=== PATIENT | male | born 1970 | race Caucasian/White ===

== ENCOUNTER 2024-08-14 14:21 | Emergency (ER) | payer OTHER, SELFPAY ==
[2024-08-14 14:43] VITALS: BP 169/83; PULSE 82; RESP 16; TEMP 37.3; O2SAT 100
--- NOTE | 2024-08-14 15:03 | ED_ITS ---
HPI - Back Pain/Injury General Chief Complaint: Back Pain/Injury Stated Complaint: lt hip pain radiating down to knee Time Seen by Provider: 08/14/24 15:04 Source: patient, RN notes reviewed and old records reviewed Mode of arrival: ambulatory Limitations: no limitations History of Present Illness HPI Narrative: 54-year-old male presents to the [facility] with complaints of left hip pain radiating down to his left knee. Denies any injury. Has good range of motion. Able to sit and stand, pain increases with changing of positions. Has tried 's muscle relaxer as well as pain pill. Has been taken ibuprofen. Slight limp noted. Pain is worse with movement No loss retention and bladder bladder. No midline tenderness. Related Data Home Medications ?Medication ?Instructions ?Recorded ?Confirmed ?Last Taken ?Type bupropion HCl 150 mg 24 hr tablet, mg PO 08/14/24 Unknown History extended release clonazepam 0.5 mg tablet mg 08/14/24 Unknown History losartan 100 tablet 08/14/24 Unknown History mg-hydrochlorothiazide 12.5 mg tablet multivitamin 08/14/24 Unknown History nebivolol 5 mg tablet mg 08/14/24 Unknown History pantoprazole 40 mg tablet,delayed mg PO 08/14/24 Unknown History release pravastatin 10 mg tablet mg 08/14/24 Unknown History tadalafil 5 mg tablet mg 08/14/24 Unknown History Allergies Allergy/AdvReac Type Severity Reaction Status Date / Time No Known Allergies Allergy Verified 08/14/24 14:34 Review of Systems 2 Review of Systems: All systems reviewed & are unremarkable except as noted in HPI and below Constitutional: Constitutional: Reports no additional constitutional complaints ENT: Reports system reviewed and no additional complaints, except as documented Cardiovascular: Cardiovascular: Reports no additional cardiovascular complaints, Denies chest pain and Denies dyspnea Respiratory: Respiratory: Reports no additional respiratory complaints, Denies chest congestion, Denies cough and Denies dyspnea Musculoskeletal: Musculoskeletal: Reports as per HPI Integumentary/Breasts: Skin/Breast: Reports system reviewed and no additional complaints, except as docu [facility] Past Medical History Medical History (Updated 08/15/24 @ 16:05 by Nereida Arenas APRN) History of high cholesterol Anxiety and depression History of high blood pressure Comments At the time of my signature, I reviewed and agree with the nursing past medical, surgical, social, and family history. There is no relevant family history pertinent to the patient complaint. Exam 2 Const: General: cooperative, healthy appearing, comfortable, no acute distress, well developed, alert and well nourished Nutritional Appearance: w ell nourished Orientation/consciousness: patient oriented x3 Limitations: no limitations HENMT: Head: normal to inspection Eyes: General: appearance normal, both eyes and all related structures A lignment and Position: alignment normal Neck: Neck: normal visual inspection, full ROM, no lymphadenopathy and no meningeal signs Chest: Chest palpation & inspection: normal inspection of the chest Resp: Effort & Inspection: normal respiratory effort and able to speak in complete sentences Cardio: Rate: regular rate Back/Spine/Pelvis: Back: no CVA tenderness Cervical Spine: cervical ROM normal and No Cervical spine tenderness Thoracic/Lumbar Spine: No thoracic spinal tenderness and No lumbar spinal tenderness Back/spine/pelvis image: 1. Tenderness without redness, ecchymosis or erythema. No known trauma. Pain is worse with sitting to standing and standing to sitting. Slight limp he noted favoring the left side. Skin: General skin exam: normal color and no rashes or lesions noted Neuro: General: patient oriented x3, moves all extremities and no meningeal signs Cognition (Neuro): normal cognition Speech: normal speech Extrem: General: normal to inspection, full ROM and capillary refill normal Psych: Appearance: grossly normal and well kempt Mental Status: mental status grossly normal Speech and movement: Normal speech and movement present and Clear speech present Affect: normal affect Attitude: cooperative Course Course Level of Care: Express Care Visit Vital Signs Vital signs: Vital Signs Temperature 99.1 F 08/14/24 14:43 Pulse Rate 82 08/14/24 14:43 Respiratory Rate 16 08/14/24 14:43 Blood Pressure 169/83 H 08/14/24 14:43 Pulse Oximetry 100 08/14/24 14:43 Oxygen Delivery Room Air 08/14/24 14:43 Temperature 99.1 F 08/14/24 14:43 Pulse Rate 82 08/14/24 14:43 Respiratory Rate 16 08/14/24 14:43 Blood Pressure 169/83 H 08/14/24 14:43 Pulse Oximetry 100 08/14/24 14:43 Oxygen Delivery Room Air 08/14/24 14:43 Reviewed MDM - Back Pain/Injury MDM Narrative Medical decision making narrative: Patient sitting comfortably in exam room. Nontoxic, vitals stable. Patient presents with left hip pain has started Friday, 4 days. Has taken ibuprofen. Patient denies any injury. No erythema, ecchymosis noted. Pain is worse with movement most likely arthritis flare. Patient appropriate for outpatient treatment and follow-up Discharge instructions reviewed with patient, as well as provided in writing per nursing staff. The instructions also include specific and strict return/GO TO THE ER as well as f/u information. All questions have been answered, and the patient deny any further questions with discharge and discharge plan. Some parts of this dictation were generated by voice recognition software and may contain typographical and/or grammatical inaccuracies. Differential Diagnosis Differential diagnosis: Likely lumbar radiculopathy, sciatica, strain of lumbar region and other (Arthritis) Critical Care Time Critical Care Time Critical Care Time: No Discharge Plan Discharge Clinical Impression: Acute hip pain Qualifiers: Laterality: left Qualified Code(s): M25.552 - Pain in left hip Patient Disposition: Home, Self-Care Condition: Stable Instructions: Antibiotic Form, Arthralgia (ED), Hip Pain (ED) Additional Instructions: Today your blood pressure was 169/83. Is recommended you follow-up with your primary care provider within the next 2 weeks to have this rechecked. Take ibuprofen as directed to decrease inflammation and to help pain. Take Baclofen (muscle relaxer) as directed. Do not drink, drive, operate machinery, or do anything dangerous while taking this medication Exercise:Combine aerobic exercise, like walking or swimming, with specific exercises to keep the muscles in your back and abdomen strong and flexible. Proper Lifting:Be sure to lift heavy items with your legs, not your back. Do not bend over to pick something up. Keep your back straight and bend at your knees. Weight:Maintain a healthy weight. Being overweight puts added stress on your lower back. Avoid Smoking:Both the smoke and the nicotine cause your spine to age faster than normal. Proper Posture:Good posture is important for avoiding future problems. A therapist can teach you how to safely stand, sit, and lift. Use warm moist heat to help with pain. Using topical such as Biofreeze, Peng-Lemus or Aspercreme can also help Follow up with Primary provider in 2-3 days, This may become a chronic condition and they will be the one to help manage your pain and order additional testing. Go to the nearest ER if you develop problems with bladder/bowel function, weakness or loss of feeling in one or both of your legs. Patient Language: Slovak Prescriptions: New baclofen 10 mg tablet 10 mg PO TID PRN (Reason: muscle pain) Qty: 10 0RF prednisone 20 mg tablet See Rx Instructions .Route .COMPLEX Qty: 9 0RF Rx Instructions: Take 40 mg daily for 3 days, 20 mg daily for 3 days ibuprofen 600 mg tablet 600 mg PO TID PRN (Reason: fever or pain) Qty: 30 0RF No Action clonazepam 0.5 mg tablet pravastatin 10 mg tablet pantoprazole 40 mg tablet,delayed release (DR/EC) PO bupropion HCl 150 mg tablet extended release 24 hr PO tadalafil 5 mg tablet losartan-hydrochlorothiazide 100-12.5 mg tablet nebivolol 5 mg tablet multivitamin Follow-up/Referrals: Darrian,Amandeep Donahue MD [Primary Care Provider] - 1 Week ([facility] care follow up blood pressure check, 169/83) Stand Alone Forms: Work/School Release IP Time of Disposition: 15:14
--- OUTSIDE RECORDS SUMMARY | 2024-08-21 22:26 | XMS_ITS | Encounter Summary ---
Author Organization [facility] Healthcare Address [address] [place] [address] Care Team Providers Care Director Of Dance Name Role Phone Alessandro Velasco MD Primary Care Provider [phone] Case Bragg NP Unavailable [phone] Silver Wilcox MD Unavailable Encounter Details Date Type Department Care Team (Late st Contact Info) Description 11/24/2021 8:27 AM CDT Anesthesia Event [facility] [address] [place] [address] Claudette Casarez MD [address] [address] Johann Villatoro MD [address] [place] [address] Anesthesia Record Procedure Summary Procedure Name Responsible Anesthesiologist Anesthesia Start Time Anesthesia Stop Time ESOPHAGOGASTRODUODENOSCOPY BIOPSY Claudette Casarez MD 11/24/21 0827 11/24/21 0858 Events Date Time Event Comment 11/24/2021 0805 In Room 0806 0827 An Start 0827 An Start Data 0827 Start Supplemental O2 0828 Patient Positioned Laterally 0829 An Induction The patient was reevaluated immediately before moderate or deep sedation use and before anesthesia induction. 0829 Anesthesia Ready 0830 Proc Start 0852 Proc Fin 0857 an stop data 0858 Handoff to RN I completed my handoff to the receiving nurse during which we: 1. Patient identified 2. Responsible provider identified 3. Pertinent medical history reviewed 4. Procedure type and surgical course discussed 5. Intraoperative anesthetic management and any significant issues discussed 6. Expectations and concerns for postop period discussed 7. Questions solicited from receiving nurse 8. Patient disposition at the time of handoff: PACU 0858 An Stop 0858 Out of Room Meds Name Total propofol 400 mg lidocaine 2 % PF 100 mg sodium chloride 0.9% infusion 700 mL * Agents Name O2 * Blood No blood administrations on file. Lines, Drains, and Airways Type Details Placement Removal RETIRED Surgical Site 05/29/20; 1430; Le ft; Knee; 07/13/24 (Retired LDA, Removed/Completed by Recordant with LDA Utility); 1213 (Retired LDA, Removed/Completed by Recordant with LDA Utility) 05/29/20 1430 by Nadia Del Rosario RN 07/13/24 1213 by Discharge Provider, Automatic Peripheral IV Placement Date: 11/23/21; Placement Time: 0125; Catheter Size: 20 G; Orientation: Right; Location: Hand; Technique: Anatomical landmarks; Inserted by: Concepcion REYNOSO.; Insertion Attempts: 2; Patient Tolerance: Tolerated well; Removal Date: 11/24/21; Removal Time: 1159; Removal Reason: Discharge 11/23/21 0125 by Samuel Thomason RN 11/24/21 1159 by Derrick Flores RN Peripheral IV Placement Date: 11/23/21; Placement Time: 1740; Catheter Size: 20 G; Orientation: Anterior, Left, Proximal; Location: Forearm; Site Prep: Chlorhexidine; Insertion Attempts: 1; Removal Date: 11/24/21; Removal Time: 1159; Removal Reason: Discharge 11/23/21 1740 by Derrick Flores RN 11/24/21 1159 by Derrick Flores RN documented in this encounter Social History Tobacco Use Types Packs/Day Years Used Date Smoking Tobacco: Never Smokeless Tobacco: Never Alcohol Use Standard Drinks/Week Comments No 0 (1 standard drink = 0.6 oz pur e alcohol) rarely AUDIT-C Answer Date Recorded Q1: How often do you have a drink containing alc ohol? Never 11/23/2021 Average Number of Drinks Not on file 022 Q3: How often do you have si x or more drinks on one occasion? 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 Gender Identity Male 11/26/2021 10:53 AM CDT Sexual Orientation Straight 11/22/2019 5: 22 PM CDT documented as of this encounter OR Notes * Anesthesia Postprocedure Evaluation - Amandeep Sharpe CRNA - 11/24/2021 9:08 AM CDT Patient: Minh Wise Procedure Summary Date: 11/24/21 Room / Location: [facility] ENDOSCOPY ROOM 2 / [facility]COPY Anesthesia Start: 826 Anesthesia Stop: 857 Procedures: ESOPHAGOGASTRODUODENOSCOPY BIOPSY (N/A ) COLON BIOPSY (N/A Colon) Diagnosis: Iron deficiency anemia due to chronic blood loss (Iron deficiency anemia due to chronic blood loss [D50.0]) Providers: Claudette Casarez MD Responsible Provider: Claudette Casarez MD Anesthesia Type: general/TIVA ASA Status: 2 Anesthesia Type: general/TIVA Last vitals BP 144/75 Pulse 85 Temp 36.7 ??C (98 ??F) (Transdermal) Resp 20 SpO2 96% Anesthesia Post Evaluation Patient location during evaluation: PACU (in endo suite) Patient participation: complete - patient participated Level of consciousness: arouses nursing consultant and follows simple commands Pain score: 0 Pain management: adequate Airway patency: adequate Evidence of recall: no Cardiovascular status: acceptable Respiratory status: acceptable Hydration status: acceptable Nausea/Vomiting status: none No complications documented. * Anesthesia Preprocedure Evaluation - Amandeep Sharpe CRNA - 11/24/2021 7:41 AM CDT Images from the original note were not included. Anesthesia Evaluation Minh Wise is a 51 y.o. male Procedure(s): ESOPHAGOGASTRODUODENOSCOPY COLONOSCOPY Pre-Op Diagnosis Codes: * Iron deficiency anemia due to chronic blood loss [D50.0] HISTORY HPI Denies family hx of anesthetic complications. Past Medical History Neurological Neuro/Psych system: negative Cardiovascular + Hypertension + Hyperlipidemia Respiratory + Sleep apnea (JAYLA) Hepatic / Heme + History of anemia Gastrointestinal + GERD Renal / Renal/ system: negative Musculoskeletal/Pain Musculoskeletal/Pain system: negative Endocrine / Other + Obesity (BMI >30) Functional Capacity Functional capacity: 6-10 METs Patient Active Problem List Diagnosis ??? Essential hypertension ??? Mixed hyperlipidemia ??? Diminished libido ??? BMI 34.0-34.9,adult ??? Chronic GERD ??? Drug-induced erectile dysfunction ??? Chronic non-seasonal allergic rhinitis ??? History of colon polyps ??? Hemorrhoids ??? Sleep apnea with use of continuous positive airway pressure (CPAP) ??? History of iron deficiency ??? Complex tear of medial meniscus of left knee as current injury ??? Preop exam for internal medicine ??? Anxiety ??? Tear of medial meniscus of left knee ??? Diarrhea ??? Iron deficiency anemia due to chronic blood loss Past Medical History: Diagnosis Date ??? Anemia ??? Colon polyp ??? Gastric reflux ??? GERD (gastroesophageal reflux disease) ??? Hyperlipidemia Hyperlipidemia ??? Hypertension Hypertension ??? Sleep apnea Past Surgical History: Procedure Laterality Date ??? COLONOSCOPY 12/21/2018 ??? COLONOSCOPY 2013 ??? KNEE ARTHROSCOPY ??? KNEE SURGERY Knee surgery ??? OTHER SURGICAL HISTORY 2006 Left Arthroscopic Knee Surgery ??? POLYPECTOMY No Known Allergies Med List Status: Nurse Complete Set By: Carisa Henriquez RN at 11/23/2021 8:50 PM Taking? Last Dose Start Date End Date Provider amlodipine-valsartan (EXFORGE) 10-160 mg per tablet 12/04/20 -- Alessandro Velasco MD TAKE ONE TABLET BY MOUTH ONCE DAILY buPROPion XL (WELLBUTRIN XL) 300 mg 24 hr tablet 05/01/21 -- Alessandro Velasco MD TAKE ONE TABLET BY MOUTH ONCE DAILY cimetidine (TAGAMET) 300 mg tablet -- -- Fadia Jarrett MD clonazePAM (KlonoPIN) 0.5 mg tablet 06/04/21 -- Alessandro Velasco MD Take 1 tablet (0.5 mg total) by mouth nightly Notes: This request is for a new prescription for a controlled substance as required by Federal/State law. ferrous sulfate 325 mg (65 mg of elemental iron) tablet 08/30/21 08/30/22 Alessandro Velasco MD Take 1 tablet (325 mg total) by mouth 3 (three) times a day with meals Lactobac no.41/Bifidobact no.7 (PROBIOTIC-10 ORAL) -- -- Fadia Jarrett MD [id number] 0.4-162-18 mg tablet -- -- Fadia Jarrett MD tadalafiL (CIALIS) 20 mg tablet () 09/28/20 09/28/21 Alessandro Velasco MD Take 1 tablet (20 mg total) by mouth daily as needed for erectile dysfunction Current Facility-Administered Medications: ??? acetaminophen (TYLENOL) tablet 650 mg, 650 mg, oral, Q4H PRN ??? amLODIPine (NORVASC) tablet 10 mg, 10 mg, oral, Nightly ??? buPROPion XL (WELLBUTRIN XL) 24 hour tablet 300 mg, 300 mg, oral, Nightly ??? clonazePAM (KlonoPIN) tablet 0.5 mg, 0.5 mg, oral, Nightly, 0.5 mg at 11/23/212006 ??? famotidine (PEPCID) tablet 20 mg, 20 mg, oral, BID, 20 mg at 11/23/212006 ??? hydrocortisone (ANUSOL-HC) 2.5 % rectal cream, , rectal, BID PRN, Given at 11/23/21 1719 ??? ondansetron ODT (ZOFRAN-ODT) disintegrating tablet 4 mg, 4 mg, oral, Q6H PRN OR ondansetron(ZOFRAN) injection 4 mg, 4 mg, intravenous, Q6H PRN ??? sodium chloride 0.9% flush 0.5-20 mL, 0.5-20 mL, intra-catheter, PRN ??? sodium chloride 0.9% infusion, 50 mL/hr, intravenous, Continuous, Last Rate: 50 mL/hr at 11/23/21 1408, 50 mL/hr at 11/23/21 1408 Social History Tobacco Use Smoking Status Never Smoker Smokeless Tobacco Never Used Substance and Sexual Activity Alcohol Use No Comment: rarely Substance and Sexual Activity Drug Use No Family History Problem Relation Age of Onset ??? Hypertension Mother 61 Hypertension; ??? Other Father 62 Alive and well; ??? Other Brother 37 Alive and well; ??? Other Brother 30 Alive and well; ??? Hypertension Other Family history of Hypertension; ??? Diabetes Other Family history of Diabetes mellitus; ??? Heart disease Other Family history of Heart disease; ??? Arthritis Other Vitals: 11/23/21 2017 11/23/21211411/23/212252 BP: 134/64 118/65 103/60 Pulse: 79 82 78 Resp: 16 18 20 Temp: 36.4 ??C (97.6 ??F) 36.2 ??C (97.2 ??F) 36.2 ??C (97.2 ??F) SpO2: 99% 99% 96% PT: No results found for requested labs within last 720 hours. INR: No results found for requested labs within last 720 hours. APTT: No results found for requested labs within last 720 hours. Hgb A1C: No results found for requested labs within last 720 hours. CBC RBC: 11/24/2021: 3.10 M/cumm (L) RDW: No results found for requested labs within last 720 hours. MCHC: 11/24/2021: 32.0 g/dL (L) MCH: 11/24/2021: 27.4 pg MCV: 11/24/2021: 85.8 fL Hct: 11/24/2021: 26.6 % (L) Hgb: 11/24/2021: 8.5 g/dL (L) WBC: 11/24/2021: 11.3 K/cumm (H) MPV: 11/24/2021: 11.3 fL Platelets: 11/24/2021: 229 K/cumm RDW CV: 11/24/2021: 14.6 % RDW Sd: 11/24/2021: 44.2 fL BMP Glucose: 11/24/2021: 103 mg/dL Calcium: 11/24/2021: 8.1 mg/dL (L) Sodium: 11/24/2021: 141 mmol/L Potassium: 11/24/2021: 3.6 mmol/L CO2: 11/24/2021: 22 mmol/L Chloride: 11/24/2021: 109 mmol/L BUN: 11/24/2021: 11 mg/dL Creatinine: 11/24/2021: 1.20 mg/dL DOS Physical Exam Medical history, medications, and allergies reviewed. Attestation: I endorse the findings of the anesthesia pre-evaluation assessment dated: 11/24/2021. Airway Exam: Mallampati: II Cervical ROM: FROM TM distance: >4 Cardiovascular Exam: Rate: regular Rhythm: regular Pulmonary Exam: LCTA, bilat Dental Exam: Appears intact Current state: Patient's current state is cooperative. Additional comments: NPO of clears for > 5 hours. NPO of all other things for > 8 hours. Anesthesia Plan ASA 2 Planned anesthesia: General/TIVA Induction: Induction: intravenous. Postoperative Plan: No plan for postoperative opioid use. Patient's planned disposition post procedure is Floor. Informed Consent: Discussed plan with attending. Anesthesia plan and risks discussed with patient. Consent and Attending signature: I and/or my designee have discussed the anesthesia plan, benefits, possible alternatives, parental presence at time of induction (if indicated), and clinically relevant risks that may include dental injury, unintentional awareness, and/or other complications. The patient and/or parent/legal guardian understand, and agree to proceed. All questions answered. documented in this encounter Plan of Treatment Not on file documented as of this encounter Visit Diagnoses Not on filedocumented in this encounter Administered Medications Inactive Administered Medications - up to 3 most recent administrations Medication Order MAR Action Action Date Dose Rate Site lidocaine (XYLOCAINE) 20 mg/mL (2 %) preservative free injection intravenous, As needed, Starting on 11/24/21 at 0829, Anesthesia Intra-op Given 11/24/2021 8:29 AM CDT 100 mg propofoL (DIPRIVAN) 10 mg/mL IV intravenous, As needed, Starting on 11/24/21 at 0829, Anesthesia Intra-op Given 11/24/2021 8:51 AM CDT 40 mg Given 11/24/2021 8:47 AM CDT 40 mg Given 11/24/2021 8:38 AM CDT 40 mg sodium chloride 0.9% infusion 30 mL/hr, intravenous, Continuous, Starting on 11/24/21 at 0845, Pre-Procedure (GI) Restarted 11/24/2021 8:53 AM CDT Rate/Dose Verify 11/24/2021 8:27 AM CDT 100 mL/ hr New Bag 11/24/2021 8:21 AM CDT 100 mL/hr documented in this encounter Care Teams Director Of Dance Relationship Specialty Start Date End Date Alessandro Velasco MD PCP - General 11/08/16 01/08/22 Case Bragg NP [address] [place] [address] [place] [address] Nurse Practitioner Nurse Practitioner 05/29/20 Silver Wilcox MD [address] [place] [address] [place] [address] Consulting Physician General Surgery 11/24/21 documented as of this encounter
--- OUTSIDE RECORDS SUMMARY | 2024-08-21 22:26 | XMS_ITS | Encounter Summary ---
Author Organization [facility] Address [address] [place] [address] Care Team Providers Care Waiter/Waitress Dining Car Name Role Phone Alessandro Velasco MD Primary Care Provider [phone] Case Bragg NP Unavailable [phone] Silver Wilcox MD Unavailable Encounter Details Date Type Department Care Team (Late st Contact Info) Description 12/04/2021 Orders Only [facility] [address] [facility] [address] [place] [address] Alessandro Velasco MD [address] [place] [address] [address] [place] [address] Other iron deficiency anemia (Primary Dx) Social History Tobacco Use Types Packs/Day Years [...] points, staff should administer the PHQ-9) 0 12/04/2021 Sex and Gender Information Value Date Recorded Sex Assigned at Not on file 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 Gender Identity Male 11/26/2021 10:53 AM CDT Sexual Orientation Straight 11/22/2019 5: 22 PM CDT documented as of this encounter Progress Notes * Sherri Rubio - 12/04/2021 2:05 PM CDT Lab for amh due soon documented in this encounter Plan of Treatment Not on file documented as of this encounter Results * Iron profile w/ IBC (12/22/2021 8:54 AM CDT) Iron 137 50 - 150 mcg/dL [facility] TIBC 304 250 - 400 mcg/dL [facility]) Transferrin saturation 45 20 - 50 % [facility] Blood 12/22/2021 8:54 AM CDT 12/22/2021 9:08 AM CDT Narrative [facility] - 12/22/2021 9:50 AM CDT fasting Alessandro Velasco MD LAB BLOOD ORDERABLES Final Res ult Performing Organization Address City/[facility]/ZIP Co de Phone Number [facility] [address] [facility] [place] [address] * Ferritin (12/22/2021 8:54 AM CDT) Ferritin 83 30 - 400 ng/mL [facility] Blood 12/22/2021 8:54 AM CDT 12/22/2021 9:08 AM CDT Narrative [facility] - 12/22/2021 9:50 AM CDT fasting Alessandro Velasco MD LAB BLOOD ORDERABLES Final Res ult [facility] [address] [facility] [place] [address] * (ABNORMAL) CBC with auto differential (12/22/2021 8:54 AM CDT) WBC 5.4 3.8 - 9.9 K/cumm [facility] Hgb 10.2(L) 13.0 - 17.5 g/dL [facility] Hct 33.7(L) 38.9 - 50.3 % [facility] Plt 311 150 - 400 K/cumm [facility] MPV 10.4 9.1 - 12.3 fL [facility] RBC 3.66(L) 4.30 - 5.80 M/cumm [facility] MCV 92.1 81.3 - 96.4 fL [facility] MCH 27.9 27.1 - 33.3 pg [facility] MCHC 30.3(L) 32.3 - 35.7 g/dL [facility] RDW CV 13.9 11.1 - 14.9 % [facility] RDW SD 47.2 35.7 - 48.1 fL [facility] NRBC abs 0.00 0.00 - 0.01 K/cumm [facility] Blood 12/22/2021 8:54 AM CDT 12/22/2021 9:08 AM CDT Narrative [facility] - 12/22/2021 9:13 AM CDT fasting us Alessandro Velasco MD LAB BLOOD ORDERABLES Final Res ult [facility] ([place] [address] [facility] [place] [address] documented in this encounter Visit Diagnoses Diagnosis Other iron deficiency anemia- Primary Other iron deficiency anemia documented in this encounter Care Teams Waiter/Waitress Dining Car Relationship Specialty Start Date End Date Alessandro Velasco MD PCP - General 11/08/16 01/08/22 Case Bragg NP [address] [facility] [address] [place] [address] Nurse Practitioner Nurse Practitioner 05/29/20 Silver Wilcox MD [address] [place] [address] [address] [place] [address] Consulting Physician General Surgery 11/24/21 documented as of this encounter
--- OUTSIDE RECORDS SUMMARY | 2024-08-21 22:26 | XMS_ITS | Clinical Summary ---
Author Organization [facility] Address [address] [place] [address] Care Team Providers Care Garnett Mechanic Name Role Phone Case Bragg NP Unavailable [phone] Silver Wilcox MD Unavailable Amandeep Colmenares MD Primary Care Provider + Allergies No known active allergies Medications Lactobac no.41/Bifidobac t no.7 (PROBIOTIC-10 ORAL) Take 1 capsule by mouth nightly Active uw-ziw-FB-Ca-Fe -lycopen-lutein 0.4-162-18 mg tablet Take 1 tablet by mouth daily Active diphenoxylate-a tropine (LOMOTIL) 2.5-0.025 mg per tabletIndicatio ns:diarrhea Take 2 tablets by mouth every 8 (eight) hours as needed for diarrhea 90 tablet 1 2 Active hydrocortisone 2.5 % cream Apply topically 2 (two) times a day as needed for irritation 30 g 3 2 Active docusate sodium (COLACE) 100 mg capsule 9 Active tadalafiL (CIALIS) 20 mg tablet Take 1 tablet (20 mg total) by mouth daily as needed for erectile dysfunction 4 tablet [address] (PROTONIX) 40 mg EC tabletIndicatio ns:Treatment of Non-Bleeding Gastric Disorder Take 1 tablet (40 mg total) by mouth daily 30 tablet 11 2 Active buPROPion XL (WELLBUTRIN XL) 300 mg 24 hr tablet Take 1 tablet (300 mg total) by mouth daily 90 tablet 3 2 Active clonazePAM (KlonoPIN) 0.5 mg tablet Take 1 tablet (0.5 mg total) by mouth nightly 90 tablet 3 2 Active amlodipine-vals loren (EXFORGE) 10-160 mg per tablet Take 1 tablet by mouth daily 30 tablet 11 2 Active Active Problems Problem Noted Date Diagnosed Date Gastrointestinal hemorrhage associated with anorectal source 12/05/2021 Diarrhea 11/23/2021 Iron deficiency anemia due to chronic blood loss 11/23/2021 Overview (11/23/2021): Added automatically from request for surgery [id number] Tear of medial meniscus of left knee 05/16/2020 Overview (05/16/2020): Added automatically from request for surgery [id number] Preop exam for internal medicine 05/01/2020 Assessment & Plan (05/01/2020 3:07 PM CDT): Pt was advised to continue current therapy and medications for chronic conditions as previously as advised. Continue with healthy dietary management as well. Pt offered no additional complaints today in office. Preoperative medical clearance: Pt is medically stable and aware there are risk associated with surgery and anesthesia. He states the surgeon has reviewed these risk in detail with patient, and wishes to proceed with surgery. They are medically cleared for surgery once completing CBC, CMP ensuring there is no concern of anemia, electrolyte or kidney abnormalities. Asymptomatic w/o any reported angina or GORDILLO, and no current respiratory sx, current or prior tobacco use to which I recommended he discuss need for EKG, CXR with orthopedist given possible arthroscopic approach. Pt is aware that he will have to report for COVID -19 testing preprocedural 3 days prior to the exam and isolate thereafter. Pt was instructed to contact the office with absolutely any changes prior to and post surgery. We will see them back here as scheduled, or certainly sooner as needed. Anxiety 05/01/2020 Assessment & Plan (05/01/2020 3:05 PM CDT): Stable with daily use of Wellbutrin and p.r.n. clonazepam. Cnt. With medication prior prescribed Complex tear of medial menis cus of left knee as current injury 04/28/2020 Assessment & Plan (05/01/2020 3:05 PM CDT): Cnt. With b.i.d. use of diclofenac as prior advised along with wearing brace, ice and limitations. Pt was advised to discontinue diclofenac 1 week prior to procedure. Preoperative clearance provided today in office as recommended by surgeon and desired by Pt. Further direction in scheduling surgery pending consultation with orthopedist. History of iron deficiency 07/27/2019 Chronic GERD 10/29/2017 Assessment & Plan (05/01/2020 3:04 PM CDT): Asymptomatic with only sparing use of OTC agents. Working toward healthy weight loss, weight stability all to assist with refractory reflux. Drug-induced erectile dysfunction 10/29/2017 Chronic non-seasonal allergic rhinitis 8 History of colon polyps 10/29/2017 Hemorrhoids 10/29/2017 Assessment & Plan (12/04/2021 11:17 AM CDT): We will set the patient up for hemorrhoidectomy. Risks and benefits of surgery have been discussed. We discussed postoperative bleeding. We have discussed about postoperative recovery. We discussed time off of work. He is in understanding. Until then continue bowel regimen to avoid straining. Pre-admission testing will be sent in. Assessment & Plan (05/01/2020 3:04 PM CDT): Stable with OTC cortisone cream. Management of daily bowel pattern, avoiding constipation with use of OTC stool softeners, adequate fluids and fiber intake. RTC with recurrence if needed Sleep apnea with use of cont inuous positive airway pressure (CPAP) 10/29/2017 Assessment & Plan (05/01/2020 3:06 PM CDT): Asymptomatic with use of nocturnal CPAP. Cnt. With prior settings for nocturnal use Essential hypertension 04/24/2017 Assessment & Plan (05/01/2020 3:05 PM CDT): Normotensive in clinic. Cnt. Prior prescribed antihypertensives, dash diet and daily mild to moderate exercise as tolerated given limitations. Mixed hyperlipidemia 04/24/2017 Diminished libido 04/24/2017 BMI 34.0-34.9,adult 04/24/2017 Immunizations Name Administration Dates Next Due Influenza, Quadrivalent, Spl it, Preservative Free, Intradermal 06/12/2016 Influenza, Quadrivalent, Spl it, Preservative Free, Intramuscular 06/10/2021,05/01/2020,06/12/2018,06/10 Influenza, Trivalent, IM (MDV) 06/21/2015,2012,04/11/2012 Influenza, Unspecified 07/27/2019(Deferr ed: Patient Refused),05/11/2019(Deferred: Patient Refused) Moderna SARS-CoV-2 Monovalen t Vaccination (12+ YRS) 08/09/2021,11/03/2020,10/06/2020 Td, Unspecified 09/22/2019 Tdap 09/19/2009 ZOSTER Recombinant 02/29/2020,08/30/2019 Surgical History Surgery Date Site/Laterality Comments OTHER SURGICAL HISTORY 08/11/2005 - 08/10/2006 Left Arthroscopic Knee Surgery KNEE SURGERY Knee surgery POLYPECTOMY COLONOSCOPY 12/21/2018 COLONOSCOPY 08/11/2013 - 08/10/2014 KNEE ARTHROSCOPY Medical History Medical History Date Comments Hypertension Hypertension Hyperlipidemia Hyperlipidemia Colon polyp Gastric reflux Anemia Sleep apnea GERD (gastroesophageal reflux disease) Family History Medical History Relation Name Comments Other Brother 3 Alive and well; Other Brother 4 Alive and well; Other Father Alive and well; Hypertension Mother Hypertension; Hypertension Other 1 Family history of Hypertension; Diabetes Other 2 Family history of Diabetes mellitus; Arthritis Other 3 Heart disease Other 3 Family history of Heart disease; Relation Name Status Comments Brother 1 Alive Brother 2 Alive Brother 3 Brother 4 Father Alive Mother Alive Other 1 Other 2 Other 3 Social History Tobacco Use Types Packs/Day Years Used Date Smoking Tobacco: Never Smokeless Tobacco: Never Tobacco Cessation:Counseling Given: No Alcohol Use Standard Drinks/Week Comments No 0 [...] on file 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 Gender Identity Male 11/26/2021 10:53 AM CDT Sexual Orientation Straight 11/22/2019 5: 22 PM CDT Obstetrics History Last Filed Vital Signs Vital Sign Reading Time Taken Comments Blood Pressure 130/60 12/04/2021 1:14 PM CDT Pulse 60 12/04/2021 1:14 PM CDT Temperature 36.7 ??C (98.1 ??F) 12/04/2021 10:55 AM C DT Respiratory Rate 20 12/04/2021 1:14 PM CDT Oxygen Saturation 97% 12/04/2021 10:55 AM CDT Inhaled Oxygen Concentration - - Weight 98.4 kg (217 lb) 12/04/2021 1:14 PM CDT Height 165.1 cm (5' 5 ) 12/04/2021 1:14 PM CDT Body Mass Index 36.11 12/04/2021 1:14 PM CDT Plan of Treatment Health Maintenance Due Date Last Done Comments Hepatitis B Screening 1987 Prostate Cancer Screening-PSA 02/24/2022 02/24/2021, 10/30/2019, 11/02/2018, Additional history exists Regular Well Visit/Exam 18-64 03/07/2022 03/07/2021, 11/30/2019, 11/09/2018, Additional history exists Depression Screening 12/04/2022 12/04/2021, 11/23/2021, 03/07/2021, Additional history exists Covid-19 Vaccine ( season) 2024 06/01/2022, 08/09/2021, 11/03/2020, Additional history exists Influenza Vaccine (#1) 2024 , 06/10/2021, 05/01/2020, Additional history exists Colon Cancer Screening-Colonoscopy 11/24/2026 11/24/2021, 12/21/2018, 10/19/2013, Additional history exists DTaP/Tdap/Td Vaccine (3 - Td or Tdap) 09/22/2029 09/22/2019, 09/19/2009 Hepatitis C Screening Completed 10/22/2017 Zoster Vaccine Completed 02/29/2020, 08/30/2019 Colon Cancer Screening-CT Colonography Discontinued 11/24/2021, 12/21/2018, 10/19/2013, Additional history exists Colon Cancer Screening-DNA Stool Discontinued 11/24/2021, 12/21/2018, 10/19/2013, Additional history exists Colon Cancer Screening-FIT Discontinued 11/24, 12/21/2018, 10/19/2013, Additional history exists Colon Cancer Screening-Sigmoidoscopy Discontinued 11/24/2021, 12/21/2018, 10/19/2013, Additional history exists Pneumococcal vaccine <65 Aged Out No longer eligible based on patient's age to complete this topic Procedures Procedure Name Priority Date/Time Associated Diagnosis Comments COLONOSCOPY 11/24/2021 7:50 AM CDT PSA SCREEN Routine 02/24/2021 7:30 AM CDT Encounter for wellness examination in adult Essential hypertension HEPATITIS C AB REFLEX RNA QUANT PCR Routine 10/22/2017 3:06 PM CDT from Last 3 Months or Most Recently Relevant to Health Maintenance Results * COLONOSCOPY (11/24/2021 7:50 AM CDT) Anatomical Region Laterality Modality Other Narrative Procedure Note Claudette Casarez MD - 11/24/2021 7:50 AM CDT [facility] Patient Name: Minh Wise Procedure Date: 11/24/2021 7:50 AM Date of : 1970 Admit Type: Inpatient Age: 51 Gender: Male Attending MD: Claudette Casarez M.D. Room: [facility] ENDOSCOPY ROOM 2 Note Status: Finalized Patient Profile: This is a 51 year old male. Patient admitted withthe bleeding per rectum. He has chronic iron deficiency anemia. Patient was complaining diarrhea for thelast couple weeks. Colonoscopy for evaluation Procedure: Colonoscopy Indications: Last colonoscopy: December 2018, Clinically significant diarrhea of unexplained origin, Rectal bleeding Referring MD: Alessandro Velasco M.D. Providers: Claudette Casarez M.D. Impression: - Large external hemorrhoids and medium internal hemorrhoids likely the source of bleeding. Thistype of hemorrhoids need surgical resection. - The entire examined colon is normal. Biopsied. - Mild diverticulosis in the sigmoid colon. Recommendation: - Await pathology results. - Repeat colonoscopy in 5 years for screeningpurposes. - Anusol hydrocortisone suppositories per rectumfor the hemorrhoids - Use Lomotil 2 tablets every 8 hours as needed for the diarrhea - Referral as outpatient to surgery for hemorrhoidectomy Medicines: Monitored Anesthesia Care Complications: No immediate complications. Estimated Blood Loss: Estimated blood loss: none. Procedure: Pre-Anesthesia Assessment: - Prior to the procedure, a History and Physicalwas performed, and patient medications and allergieswere reviewed. The patient's tolerance of previous anesthesia was also reviewed. The risks andbenefits of the procedure and the sedation options and risks were discussed with the patient. All questions were answered, and informed consent was obtained. Prior Anticoagulants: The patient has taken noanticoagulant or antiplatelet agents. ASA Grade Assessment: II -A patient with mild systemic disease. After reviewing the risks and benefits, the patient was deemed in satisfactory condition to undergo the procedure. - Prior to the procedure, a History and Physicalwas performed, and patient medications and allergieswere reviewed. The patient's tolerance of previous anesthesia was also reviewed. The risks andbenefits of the procedure and the sedation options and risks were discussed with the patient. All questions were answered, and informed consent was obtained. Prior Anticoagulants: The patient has taken noanticoagulant or antiplatelet agents. ASA Grade Assessment: II -A patient with mild systemic disease. After reviewing the risks and benefits, the patient was deemed in satisfactory condition to undergo the procedure. The benefits, risks and alternatives of theprocedure and sedation were discussed and informed consentwas obtained. All questions were answered. Please referto the signed informed consent document in the medical record. The scope was passed under direct vision.The Pediatric Colonoscope PCF-H190L [id number] was introduced through the anus and advanced to the the cecum, identified by appendiceal orifice andileocecal valve. The bowel preparation used was Miralax via split dose instruction. The bowel preparation usedwas bisacodyl tablets via split dose instruction. The bowel preparation used was magnesium citrate via single dose instruction. The quality of the bowel preparation was excellent. Bowel prep wasadministered using a split dose. Findings: Hemorrhoids were found on perianal exam. The cecum appeared normal. The terminal ileum was normal The colon (entire examined portion) appeared normal. No inflammatory changes noted in the colon and no inflammatory changes in the rectum. Random biopsies were taken with a cold forceps for histology. A few small-mouthed diverticula were found in the sigmoid colon. Internal hemorrhoids were found during retroflexion. The hemorrhoids were medium-sized. Electronically signed by Claudette Casarez M.D. Claudette Casarez M.D. 11/24/2021 9:13:44 AM Number of Addenda: 0 Note Initiated On: 11/24/2021 7:50 AM Procedure Code(s): --- Professional --- 79552, Colonoscopy, flexible; with biopsy, single or multiple Diagnosis Code(s): --- Professional --- K64.8, Other hemorrhoids R19.7, Diarrhea, unspecified K62.5, Hemorrhage of anus and rectum K57.30, Diverticulosis of large intestine without perforation orabscess without bleeding CPT copyright 2020 [employer]. All rights reserved. The codes documented in this report are preliminary and upon warehouse worker 2nd shift reviewmay be revised to meet current compliance requirements. Recognized by the [employer] for promoting quality in endoscopy us Claudette Casarez MD ENDOSCOPY PROCEDURES Final Result * PSA screen (02/24/2021 7:30 AM CDT) PSA-Total 0.27 <=3.90 ng/mL [facility] ([place]) Comment: Interpretive Data ?AGE ? SEX ?REFERENCE INTERVAL 0 minutes-150 years ?Female ?None 0 minutes-49 years ? Male ?None ? 50-59 years ? Male ?0-3.90 ? 60-69 years ? Male ?0-5.40 ? 70-79 years ? Male ?0-6.20 ? 80-150 years ?Male ?0-6.20 Current interpretive data last revised 2018. Testing performed by: [facility], [address] [place] [address], [place]., [address] Blood specimen (specimen) 02/24/2021 7:30 AM CDT 02/24/2021 6:13 PM CDT Alessandro Velasco MD LAB BLOOD ORDERABLES Final Res ult [facility] ([place]) 1 [facility] Department [place] [address] * Hepatitis C Antibody Reflex Hepatitis C RNA Quantitative PCR (10/22/2017 3:06 PM CDT) Hep C Ab Negative Negative [facility] Blood specimen (specimen) 10/22/2017 3:06 PM CDT 10/22/2017 3:08 PM CDT Narrative [facility] - 10/22/2017 4:01 PM CDT Alessandro Velasco MD LAB MICROBIOLOGY - GENERAL ORD ERABLES Final Result [facility] [id number] [place] [address] from Last 3 Months or Most Recently Relevant to Health Maintenance Insurance [facility] Advance Directives For more information, please contact: [phone] * Full Code (Latest Code Status on File) Date Activated Date Inactivated Comments 11/24/2021 8:08 AM 11/24/2021 4:24 PM * Full Code Date Activated Date Inactivated Comments 11/23/2021 3:42 AM 11/24/2021 8:08 AM * Full Code Date Activated Date Inactivated Comments 12/21/2018 11:23 AM 12/21/2018 5:59 PM Care Teams Garnett Mechanic Relationship Specialty Start Date End Date Amandeep Colmenares MD [address] [place] [address] PCP - General Internal Medicine 07/13/22 Case Bragg NP [address] [place] [address] [address] [place] [id number] Nurse Practitioner Nurse Practitioner 05/29/20 Silver Wilcox MD 4 [facility] [address] [address] Consulting Physician General Surgery 11/24/21
--- OUTSIDE RECORDS SUMMARY | 2024-08-21 22:26 | XMS_ITS | Referral Summary ---
Author Organization [facility] Address [address] [place] [address] Care Team Providers Care Lathmaker Name Role Phone Case Bragg NP Unavailable [phone] Silver Wilcox MD Unavailable Amandeep Colmenares MD Primary Care Provider + Allergies No known active allergies Medications Lactobac no.41/Bifidobac t no.7 (PROBIOTIC-10 ORAL) Take 1 capsule by mouth nightly Active ge-obo-[place]-Ca-Fe -lycopen-lutein 0.4-162-18 mg tablet Take 1 tablet [...] (11/23/2021): Added automatically from request for surgery [id number] Tear of medial meniscus of left knee 05/16/2020 Overview (05/16/2020): Added automatically from request for surgery [id number] Preop exam for internal medicine 05/01/2020 Assessment [...] Unspecified 09/22/2019 Tdap 09/19/2009 ZOSTER Recombinant 02/29/2020,08/30/2019 Social History Tobacco Use Types Packs/Day Years [...] on file 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 Room: [facility] ENDOSCOPY ROOM 2 Note Status: Finalized Patient [...] passed under direct vision.The Pediatric Colonoscope PCF-H190L [id number] was introduced through the anus and advanced [...] 7:50 AM Procedure Code(s): --- Professional --- 38190, Colonoscopy, flexible; with biopsy, single or multiple Diagnosis Code(s): --- Professional --- K64.8, Other hemorrhoids R19.7, Diarrhea, unspecified K62.5, Hemorrhage of anus and rectum K57.30, Diverticulosis of large intestine without perforation orabscess without bleeding CPT copyright 2020 [employer]. All rights reserved. The codes documented in this report are preliminary and upon clay shop supervisor reviewmay be revised to meet current compliance requirements. Recognized by the [employer] for promoting quality [...] data last revised 2018. Testing performed by: [facility], [address] [place] [address]., [address] Blood specimen (specimen) 02/24/2021 7:30 AM CDT 02/24/2021 6:13 PM CDT us Alessandro Velasco MD LAB BLOOD ORDERABLES Final Res ult [facility] ([place]) 1 [facility] Department [place] [address] * Hepatitis C Antibody Reflex Hepatitis C RNA Quantitative PCR (10/22/2017 3:06 PM CDT) Hep C Ab Negative Negative [facility] Blood specimen (specimen) 10/22/2017 3:06 PM CDT 10/22/2017 3:08 PM CDT Narrative [facility] - 10/22/2017 4:01 PM CDT Alessandro Velasco MD LAB MICROBIOLOGY - GENERAL ORD ERABLES Final Result [facility] [id number] Department [place] [address] from Last 3 Months or Most Recently Relevant to Health Maintenance Insurance [facility] Advance Directives For more information, please contact: [phone] * Full Code (Latest Code Status on File) Date Activated Date Inactivated Comments 11/24/2021 8:08 AM 11/24/2021 4:24 PM * Full Code Date Activated Date Inactivated Comments 11/23/2021 3:42 AM 11/24/2021 8:08 AM * Full Code Date Activated Date Inactivated Comments 12/21/2018 11:23 AM 12/21/2018 5:59 PM Care Teams Lathmaker Relationship Specialty Start Date End Date Amandeep Colmenares MD [address] [place] [phone] PCP - General Internal Medicine 07/13/22 Case Bragg NP [address] [place] [address] [address] [address] Nurse Practitioner Nurse Practitioner 05/29/20 Silver Wilcox MD [address] [place] [address] [place] [address] Consulting Physician General Surgery 11/24/21
--- OUTSIDE RECORDS SUMMARY | 2024-08-21 22:26 | XMS_ITS | Encounter Summary ---
Author Organization [facility] Address [address] [place] [address] Care Team Providers Care Paper Wood Cutter Name Role Phone Alessandro Velasco MD Primary Care Provider [phone] Case Bragg NP Unavailable [phone] Silver Wilcox MD Unavailable Reason for Visit * Reason Comments New Patient Hemorrhoids Patient is here to d rashidauss hemorrhoid removal Encounter Details Date Type Department Care Team (Late st Contact Info) Description 12/04/2021 11:10 AM CDT Office Visit [facility] [address] [facility] [address] [place] [address] Silver Wilcox MD [address] [place] [address] [address] [place] [address] Grade III hemorrhoids (Primary Dx) Social History Tobacco Use Types [...] on file 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 Gender Identity Male 11/26/2021 10:53 AM CDT Sexual Orientation Straight 11/22/2019 5: 22 PM CDT documented as of this encounter Last Filed Vital Signs Vital Sign Reading Time Taken Comments Blood Pressure 149/77 12/04/2021 10:55 AM CDT Pulse 83 12/04/2021 10:55 AM CDT Temperature 36.7 ??C (98.1 ??F) 12/04/2021 1 0:55 AM CDT Respiratory Rate - - Oxygen Saturation 97% 12/04/2021 10: 55 AM CDT Inhaled Oxygen Concentration - - Weight 97.4 kg (214 lb 11.2 oz) 022 10:55 AM CDT Height 165.1 cm (5' 5 ) 12/04/2021 10:5 5 AM CDT Body Mass Index 35.73 12/04/2021 10:55 AM CDT documented in this encounter Progress Notes * Silver Wilcox MD - 12/04/2021 11:10 AM CDT Images from the original note were not included. Surgery Consult Subjective: Patient Name: Minh Wise Date of Visit: 12/04/21 HPI: Minh Wise is a 51 y.o. male presenting for surgical evaluation of Hemorrhoids. The patient has been having ongoing issues for some time specifically with bleeding. He was even recently hospitalized for this and underwent colonoscopy just to ensure no other underlying reasons as the source. In addition to the bleeding he has some external components that he is able to feel. There is somemild discomfort described as a dull ache associated with this. Given the progressive symptomatic nature he was referred to surgery for further evaluation. Chief Complaint: New Patient and Hemorrhoids (Patient is here to discuss hemorrhoid removal ) Referred by: Alessandro Velasco MD Allergies as of 12/04/2021 ??? (No Known Allergies) Current Outpatient Medications: ??? amlodipine-valsartan (EXFORGE) 10-160 mg per tablet ??? buPROPion XL (WELLBUTRIN XL) 300 mg 24 hr tablet ??? clonazePAM (KlonoPIN) 0.5 mg tablet ??? diphenoxylate-atropine (LOMOTIL) 2.5-0.025 mg per tablet ??? ferrous sulfate 325 mg (65 mg of elemental iron) tablet ??? hydrocortisone 2.5 % cream ??? Lactobac no.41/Bifidobact no.7 (PROBIOTIC-10 ORAL) ??? cv-dnv-XZ-Cu-Pa-bmcpnps-lutein 0.4-162-18 mg tablet ??? pantoprazole DR (PROTONIX) 40 mg EC tablet ??? tadalafiL (CIALIS) 20 mg tablet Past Medical History: Diagnosis Date ??? Anemia ??? Colon polyp ??? Gastric reflux ??? GERD (gastroesophageal reflux disease) ??? Hyperlipidemia Hyperlipidemia ??? Hypertension Hypertension ??? Sleep apnea Past Surgical History: Procedure Laterality Date ??? COLONOSCOPY 12/21/2018 ??? COLONOSCOPY 2013 ??? KNEE ARTHROSCOPY ??? KNEE SURGERY Knee surgery ??? OTHER SURGICAL HISTORY 2006 Left Arthroscopic Knee Surgery ??? POLYPECTOMY Family History Problem Relation Age of Onset ??? Hypertension Mother 61 Hypertension; ??? Other Father 62 Alive and well; ??? Other Brother 37 Alive and well; ??? Other Brother 30 Alive and well; ??? Hypertension Other Family history of Hypertension; ??? Diabetes Other Family history of Diabetes mellitus; ??? Heart disease Other Family history of Heart disease; ??? Arthritis Other Social History Socioeconomic History ??? Marital status: Spouse name: Not on file ??? Number of children: Not on file ??? Years of education: Not on file ??? Highest education level: Not on file Occupational History ??? Not on file Tobacco Use ??? Smoking status: Never Smoker ??? Smokeless tobacco: Never Used Substance and Sexual Activity ??? Alcohol use: No Comment: rarely ??? Drug use: No ??? Sexual activity: Defer Other Topics Concern ??? Not on file Social History Narrative ??? Not on file Social Determinants of Health Financial Resource Strain: Not on file Food Insecurity: Not on file Transportation Needs: Not on file Physical Activity: Not on file Stress: Not on file Social Connections: Not on file Intimate Partner Violence: Not on file Housing Stability: Not on file Review of Systems Constitutional: Negative for activity change. HENT: Negative for hearing loss and sore throat. Eyes: Negative for visual disturbance. Respiratory: Negative for cough and shortness of breath. Cardiovascular: Negative for chest pain. Gastrointestinal: Negative for abdominal pain, constipation, diarrhea, nausea and vomiting. Genitourinary: Negative for dysuria. Musculoskeletal: Negative for back pain. Neurological: Negative for dizziness and syncope. Psychiatric/Behavioral: Negative for agitation and confusion. Objective: Vitals BP 149/77 (BP Location: Right arm, Patient Position: Sitting) Pulse 83 Temp 36.7 ??C (98.1 ??F) (Oral) Ht 165.1 cm (5' 5 ) Wt 97.4 kg (214 lb 11.2 oz) SpO2 97% BMI 35.73 kg/m?? Physical Exam Constitutional: The patient is oriented to person, place, and time. They appear well-nourished. No distress. Head: Normocephalic and atraumatic. Eyes: Pupils are equal, round, and reactive to light. Neck: No thyromegaly present. Cardiovascular: Normal rate and regular rhythm. Pulmonary/Chest: Effort normal and breath sounds normal. Abdominal: Soft. non distended. There is no tenderness. No hernia. Genitourinary: Rectum normal. Internal and external hemorrhoids are appreciated. Given the redundant external component, it is difficult to tell what columns they are originating from Musculoskeletal: Normal range of motion. Neurological: alert and oriented to person, place, and time. Skin: Skin is warm and dry. Psychiatric: normal mood and affect. Assessment/Plan Diagnoses and all orders for this visit: Grade III hemorrhoids (Primary) Assessment & Plan: We will set the patient up for hemorrhoidectomy. Risks and benefits of surgery have been discussed.We discussed postoperative bleeding. We have discussed about postoperative recovery. We discussed time off of work. He is in understanding. Until then continue bowel regimen to avoid straining. Pre-admission testing will be sent in. Silver Wilcox MD 11:17 AM 12/04/2021 documented in this encounter Miscellaneous Notes * Assessment & Plan Note - Silver Wilcox MD - 12/04/2021 11:16 AM CDTAssociated Problem(s): Hemorrhoids We will set the patient up for hemorrhoidectomy. Risks and benefits of surgery have been discussed.We discussed postoperative bleeding. We have discussed about postoperative recovery. We discussed time off of work. He is in understanding. Until then continue bowel regimen to avoid straining. Pre-admission testing will be sent in. documented in this encounter Plan of Treatment Not on file documented as of this encounter Visit Diagnoses Diagnosis Grade III hemorrhoids- Primary documented in this encounter Care Teams Paper Wood Cutter Relationship Specialty Start Date End Date Alessandro Velasco MD PCP - General 11/08/16 01/08/22 Case Bragg NP [address] [facility] [place] [address] Nurse Practitioner Nurse Practitioner 05/29/20 Silver Wilcox MD [address] [place] [address] [place] [address] Consulting Physician General Surgery 11/24/21 documented as of this encounter
--- OUTSIDE RECORDS SUMMARY | 2024-08-21 22:26 | XMS_ITS | Encounter Summary ---
Author Organization [facility] Healthcare Address [address] [place] [address] Care Team Providers Care Oracle Security Consultant Name Role Phone Alessandro Velasco MD Primary Care Provider [phone] Case Bragg NP Unavailable [phone] Everardo Wilcox MD Unavailable Reason for Visit * Reason Comments Diarrhea Pt reports diarrhea that is kay in color since . Pt reports abdominal bloating; Pt denies pain. Pt reports last BM was today. Pt denies abdominal pain or any known abdominal hx. Pt in no distress with even and unlabored respirations. Pt updated. Pt denies any needs. Encounter Details Date Type Department Care Team (Latest Contact Info) Description 11/23/2021 12:57 AM CDT - 11/24/2021 12:14 PM CDT Hospital Encounter [facility] [address] [place] [address] Yan Fuentes MD 1 [facility] [address] [place] [id number] Chidi Hoover MD [address] [place] [address] Gaby Paul MD [address] [place] [address] [place] [address] Diarrhea, unspecified type (Primary Dx); Iron deficiency anemia due to chronic blood loss Discharge Disposition: Discharge to home or self care Social History Tobacco Use Types Packs/Day Years [...] on file 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 Gender Identity Male 11/26/2021 10:53 AM CDT Sexual Orientation Straight 11/22/2019 5: 22 PM CDT documented as of this encounter Last Filed Vital Signs Vital Sign Reading Time Taken Comments Blood Pressure 140/64 11/24/2021 9:54 AM CDT Pulse 72 11/24/2021 9:54 AM CDT Temperature 36.5 ??C (97.7 ??F) 11/24/2021 9:54 AM CD T Respiratory Rate 18 11/24/2021 9:54 AM CDT Oxygen Saturation 97% 11/24/2021 9:54 AM CDT Inhaled Oxygen Concentration - - Weight 93 kg (205 lb) 11/23/2021 3:37 AM CDT Height 165.1 cm (5' 5 ) 11/23/2021 3:37 AM CDT Body Mass Index 34.11 11/23/2021 3:37 AM CDT documented in this encounter Discharge Diagnoses Diagnosis Iron deficiency anemia secondary to blood loss (chronic) - IRON DEFICIENCY ANEMIA SECONDARY TO BLOOD LOSS (CHRONIC) Other hemorrhoids - OTHER HEMORRHOIDS Ulcer of esophagus without bleeding - ULCER OF ESOPHAGUS WITHOUT BLEEDING Diverticulosis of large intestine without perforation or abscess without bleeding - DIVERTICULOSIS OF LARGE INTESTINE WITHOUT PERFORATION OR ABSCESS WITHOUT BLEEDING Residual hemorrhoidal skin tags - RESIDUAL HEMORRHOIDAL SKIN TAGS Diarrhea, unspecified - DIARRHEA, UNSPECIFIED Essential (primary) hypertension - ESSENTIAL (PRIMARY) HYPERTENSION Unspecified essential hypertension Obstructive sleep apnea (adult) (pediatric) - OBSTRUCTIVE SLEEP APNEA (ADULT) (PEDIATRIC) Hyperlipidemia, unspecified - HYPERLIPIDEMIA, UNSPECIFIED Other custodial (current) drug therapy - OTHER [facility] (CURRENT) DRUG THERAPY Personal history of other diseases of the digestive system - PERSONAL HISTORY OF OTHER DISEASES OF THE DIGESTIVE SYSTEM documented in this encounter Discharge Summaries * Gaby Paul MD - 11/24/2021 12:14 PM CDT [place], [place] Hospitalist Discharge Summary Patient Name: Marifer Sebastian Patient : 1970 Room/Bed: [id number] Admission Date/Time: 11/23/2021 12:57 AM Discharge date: 11/24/2021 Admitting Physician: Chidi Hoover MD Discharge Physician: Gaby Paul MD Consults: Treatment Team: Consulting Physician: Claudette Casarez MD Discharge Diagnoses: Principal Problem: Diarrhea Active Problems: Essential hypertension Hemorrhoids Iron deficiency anemia due to chronic blood loss s/p 1u prbc JAYLA Hematochezia due to large external and medium internal hemorrhoids Erosive esophagitis Presenting Problem/History of Present Illness: Diarrhea For full details of presentation including detailed history, past medical, surgical, social, familyhistory and detailed ROS, as well as detailed exam and labs at time of presentation, please see theHistory and Physical. Hospital Course: 51yo male with history of hemorrhoids and hematochezia admitted due to diarrhea and occasional bright red blood per rectum. CT abd/pelvis showed no acute finding. His hemoglobin had dropped from his baseline of 10 and was 7.2. Due to ongoing hematochezia during bowel prep, he was transfused 1 unit prbc and Hb is stable at 8.5. He had an egd and colonoscopy done today. He has large external and medium internal hemorrhoids and has been referred to surgery clinic for resection. In addition, he hasmild sigmoid diverticulosis. EGD was notable for mild erosive esophagitis with no bleeding. MEGHA test and biopsies are pending. He was started on daily protonix for 3 months. Issues Requiring Follow-up at Discharge and Test Results Pending at Discharge: Pending Labs Order Current Status Surgical pathology Collected (11/24/21 0844) H. pylori urease screen (MEGHA test) Tissue In process Stool culture Stool Rectum Preliminary result Gen surg referral for hemorrhoids Discharge Exam: Vitals: 11/24/21 0900 11/24/21 0915 11/24/21 0930 11/24/21 0954 BP: 97/58 98/48 129/70 140/64 BP Location: Right arm Patient Position: Lying Pulse: 77 77 76 72 Resp: Temp: 36.4 ??C (97.6 ??F) 36.5 ??C (97.7 ??F) TempSrc: Oral SpO2: 98% 95% 97% 97% Weight: Height: General: awake, alert, oriented. No acute distress Eyes: pupils are equal, no scleral icterus Neck: supple Pharynx: No gross oral lesion, tongue midline, mucosa moist Lungs: clear to auscultation without wheeze Heart: [id number] Abd: present bowel sounds, Non Tender, Non distended Lower Ext: No gross edema Neuro: No new gross deficits appreciated Musculoskeletal: no gross joint erythema, tenderness Labs: (last 48 hours): Recent Results (from the past 48 hour(s)) CBC with auto differential Collection Time: 11/23/21 1:24 AM Result Value Ref Range WBC 13.8 (H) 3.8 - 9.9 K/cumm Hgb 8.3 (L) 13.0 - 17.5 g/dL Hct 25.2 (L) 38.9 - 50.3 % Plt 130 (L) 150 - 400 K/cumm MPV 11.6 9.1 - 12.3 fL RBC 3.02 (L) 4.30 - 5.80 M/cumm MCV 83.4 81.3 - 96.4 fL MCH 27.5 27.1 - 33.3 pg MCHC 32.9 32.3 - 35.7 g/dL RDW CV 14.1 11.1 - 14.9 % RDW SD 41.2 35.7 - 48.1 fL NRBC abs 0.00 0.00 - 0.01 K/cumm Comprehensive metabolic panel Collection Time: 11/23/21 1:24 AM Result Value Ref Range Sodium 137 135 - 145 mmol/L Potassium, pl 4.1 3.3 - 4.9 mmol/L Chloride 104 97 - 110 mmol/L CO2 24 22 - 32 mmol/L Anion gap 10 2 - 15 mmol/L BUN 24 8 - 25 mg/dL Creatinine 1.41 (H) 0.80 - 1.30 mg/dL Glucose 125 70 - 199 mg/dL Calcium 8.8 8.5 - 10.3 mg/dL Bilirubin, total <0.2 0.1 - 1.2 mg/dL Protein, pl 6.0 (L) 6.5 - 8.5 g/dL Albumin 3.8 3.5 - 5.0 g/dL Alk phos 64 40 - 130 Units/L ALT 17 7 - 55 Units/L AST 25 10 - 50 Units/L Differential, auto Collection Time: 11/23/21 1:24 AM Result Value Ref Range Neutrophil abs 8.3 (H) 1.7 - 6.5 K/cumm Imm gran abs 0.1 0.0 - 0.1 K/cumm Lymphocyte abs 2.5 0.8 - 3.3 K/cumm Monocyte abs 1.0 (H) 0.2 - 0.8 K/cumm Eosinophil abs 1.8 (H) 0.0 - 0.5 K/cumm Basophil abs 0.0 0.0 - 0.1 K/cumm Neutrophil pct 60.4 % Imm gran pct 1.0 % Lymphocyte pct 18.3 % Monocyte pct 7.2 % Eosinophil pct 12.8 % Basophil pct 0.3 % eGFR Collection Time: 11/23/21 1:24 AM Result Value Ref Range eGFR 60 mL/min/1.73 m2 Stool culture Stool Rectum Collection Time: 11/23/21 1:58 AM Specimen: Rectum; Stool Result Value Ref Range Direct Specimen Exam Shiga Toxin Testing: Antigen detection assay for Shiga-toxin NEGATIVE for Shiga Toxin 1 and Shiga Toxin 2. Report Preliminary Report: Culture results pending. Fecal leukocyte stain Stool Collection Time: 11/23/21 1:58 AM Specimen: Stool Result Value Ref Range Direct Specimen Exam Stain: No Leukocytes seen C. difficile testing Stool Collection Time: 11/23/21 1:58 AM Specimen: Stool Result Value Ref Range C. diff result Negative, free toxin Negative, free toxin C. diff interp Negative for toxigenic Clostridioides (Clostridium) difficile. Analysis was performed using an enzyme immunoassay that detects C. difficile toxin(s) in feces. Basic metabolic panel Collection Time: 11/23/21 8:01 AM Result Value Ref Range Sodium 138 135 - 145 mmol/L Potassium, pl 3.8 3.3 - 4.9 mmol/L Chloride 108 97 - 110 mmol/L CO2 20 (L) 22 - 32 mmol/L Anion gap 10 2 - 15 mmol/L BUN 18 8 - 25 mg/dL Creatinine 1.22 0.80 - 1.30 mg/dL Glucose 112 70 - 199 mg/dL Calcium 8.1 (L) 8.5 - 10.3 mg/dL CBC with auto differential Collection Time: 11/23/21 8:01 AM Result Value Ref Range WBC 13.8 (H) 3.8 - 9.9 K/cumm Hgb 8.1 (L) 13.0 - 17.5 g/dL Hct 25.0 (L) 38.9 - 50.3 % Plt 235 150 - 400 K/cumm MPV 11.5 9.1 - 12.3 fL RBC 2.97 (L) 4.30 - 5.80 M/cumm MCV 84.2 81.3 - 96.4 fL MCH 27.3 27.1 - 33.3 pg MCHC 32.4 32.3 - 35.7 g/dL RDW CV 14.5 11.1 - 14.9 % RDW SD 42.3 35.7 - 48.1 fL NRBC abs 0.00 0.00 - 0.01 K/cumm Differential, auto Collection Time: 11/23/21 8:01 AM Result Value Ref Range Neutrophil abs 8.6 (H) 1.7 - 6.5 K/cumm Imm gran abs 0.1 0.0 - 0.1 K/cumm Lymphocyte abs 2.1 0.8 - 3.3 K/cumm Monocyte abs 1.2 (H) 0.2 - 0.8 K/cumm Eosinophil abs 1.7 (H) 0.0 - 0.5 K/cumm Basophil abs 0.0 0.0 - 0.1 K/cumm Neutrophil pct 62.6 % Imm gran pct 0.9 % Lymphocyte pct 15.2 % Monocyte pct 8.5 % Eosinophil pct 12.6 % Basophil pct 0.2 % eGFR Collection Time: 11/23/21 8:01 AM Result Value Ref Range eGFR 71 mL/min/1.73 m2 Hemoglobin and hematocrit Collection Time: 11/23/21 10:49 AM Result Value Ref Range Hgb 7.2 (L) 13.0 - 17.5 g/dL Hct 22.8 (L) 38.9 - 50.3 % ABO / Rh Confirmation Testing Collection Time: 11/23/21 10:49 AM Result Value Ref Range ABO/Rh Confirmation O Positive ABO/Rh Collection Time: 11/23/21 1:57 PM Result Value Ref Range ABO/Rh O Positive Antibody screen Collection Time: 11/23/21 1:57 PM Result Value Ref Range Marvin, indirect, Gel Interpretation Negative ABSC Crossmatch Collection Time: 11/23/21 1:57 PM Result Value Ref Range Crossmatch Compatible Unit number for crossmatch [id number] Prepare RBC: 1 Units Collection Time: 11/23/21 3:31 PM Result Value Ref Range Units requested 1 Units requested Ready Unit Number [id number] Product code [id number] Blood Expiration Date [id number] Product Blood Type (for scanning) 5100 Product Blood Type OPOS Dispense Status DISPENSED Hemoglobin and hematocrit Collection Time: 11/23/21 11:20 PM Result Value Ref Range Hgb 8.2 (L) 13.0 - 17.5 g/dL Hct 24.5 (L) 38.9 - 50.3 % CBC with auto differential Collection Time: 11/24/21 4:12 AM Result Value Ref Range WBC 11.3 (H) 3.8 - 9.9 K/cumm Hgb 8.5 (L) 13.0 - 17.5 g/dL Hct 26.6 (L) 38.9 - 50.3 % Plt 229 150 - 400 K/cumm MPV 11.3 9.1 - 12.3 fL RBC 3.10 (L) 4.30 - 5.80 M/cumm MCV 85.8 81.3 - 96.4 fL MCH 27.4 27.1 - 33.3 pg MCHC 32.0 (L) 32.3 - 35.7 g/dL RDW CV 14.6 11.1 - 14.9 % RDW SD 44.2 35.7 - 48.1 fL NRBC abs 0.00 0.00 - 0.01 K/cumm Basic metabolic panel Collection Time: 11/24/21 4:12 AM Result Value Ref Range Sodium 141 135 - 145 mmol/L Potassium, pl 3.6 3.3 - 4.9 mmol/L Chloride 109 97 - 110 mmol/L CO2 22 22 - 32 mmol/L Anion gap 10 2 - 15 mmol/L BUN 11 8 - 25 mg/dL Creatinine 1.20 0.80 - 1.30 mg/dL Glucose 103 70 - 199 mg/dL Calcium 8.1 (L) 8.5 - 10.3 mg/dL Differential, auto Collection Time: 11/24/21 4:12 AM Result Value Ref Range Neutrophil abs 6.7 (H) 1.7 - 6.5 K/cumm Imm gran abs 0.1 0.0 - 0.1 K/cumm Lymphocyte abs 2.1 0.8 - 3.3 K/cumm Monocyte abs 0.9 (H) 0.2 - 0.8 K/cumm Eosinophil abs 1.5 (H) 0.0 - 0.5 K/cumm Basophil abs 0.0 0.0 - 0.1 K/cumm Neutrophil pct 59.0 % Imm gran pct 1.1 % Lymphocyte pct 18.3 % Monocyte pct 8.3 % Eosinophil pct 13.1 % Basophil pct 0.2 % eGFR Collection Time: 11/24/21 4:12 AM Result Value Ref Range eGFR 73 mL/min/1.73 m2 Diagnostic test and procedures: CT Abdomen Pelvis W Contrast Result Date: 11/23/2021 Narrative: EXAM DESCRIPTION: CT ABDOMEN PELVIS W CONTRAST REASON FOR STUDY: GI bleed Pt reports diarrhea that is kay in color since , abdominal bloating, and states last BM was today. Deniesany abdominal hx. TECHNIQUE: CT scan of the abdomen and pelvis performed with intravenous and without oral contrast using helical scanning technique with dynamic intravenous contrast injection. Reconstructed coronal and sagittal MPR images reviewed. All images stored on PACS. Automated exposure control was used as a dose optimization technique for this examination. CONTRAST TYPE/DOSE: 100mL of IOVERSOL 350 MG IODINE/ML INTRAVENOUS SYRINGE injected via intravenous COMPARISON: None FINDINGS: LOWER CHEST: Lung bases are clear. Heart size normal. No effusion. LIVER/BILIARY: Mild to moderate hepatic steatosis. Biliary tree normal in caliber. GALLBLADDER: Normal. SPLEEN: Normal. PANCREAS: Normal.ADRENAL GLANDS: Normal. KIDNEYS/URINARY TRACT: Normal. GI: Scattered hyperdense products likely represent Pepto-Bismol. Stomach small bowel appear normal. Normal appendix. OTHER ABDOMINAL/PELVIS: Major vascular structures are grossly patent and normal in caliber. No enlarged lymph node or free fluid. MSK: Rhon-dj-suhbtbpf disc disease and facet arthropathy. BODY WALL: Tiny fat containing periumbilical hernia. IMPRESSION: No bowel inflammation or other acute abnormality identified. THIS IS AN ELECTRONICALLY VERIFIED FINAL REPORT 11/23/2021 3:58 AM - Electronically signed by Min Bates M.D. AR: PATTIE Report ID: [id number] Reading Location: [place] [address] Procedure(s): ESOPHAGOGASTRODUODENOSCOPY BIOPSY COLON BIOPSY Medications: Your medication list START taking these medications Instructions Last Dose Given Next Dose Due diphenoxylate-atropine 2.5-0.025 mg per tablet Commonly known as: LOMOTIL Take 2 tablets by mouth every 8 (eight) hours as needed for diarrhea hydrocortisone 2.5 % cream Apply topically 2 (two) times a day as needed for irritation pantoprazole DR 40 mg EC tablet Commonly known as: PROTONIX Notes to patient: Stomach acid Take 1 tablet (40 mg total) by mouth daily CONTINUE taking these medications Instructions Last Dose Given Next Dose Due amlodipine-valsartan 10-160 mg per tablet Commonly known as: EXFORGE Notes to patient: Heart med TAKE ONE TABLET BY MOUTH ONCE DAILY buPROPion XL 300 mg 24 hr tablet Commonly known as: WELLBUTRIN XL Notes to patient: Mood TAKE ONE TABLET BY MOUTH ONCE DAILY clonazePAM 0.5 mg tablet Commonly known as: KlonoPIN Notes to patient: Anxiety Take 1 tablet (0.5 mg total) by mouth nightly ferrous sulfate 325 mg (65 mg of elemental iron) tablet Take 1 tablet (325 mg total) by mouth 3 (three) times a day with meals dx-mbk-JP-Sy-Wj-hmjhtxn-lutein 0.4-162-18 mg tablet Notes to patient: Supplement PROBIOTIC-10 ORAL Notes to patient: Supplement tadalafiL 20 mg tablet Commonly known as: CIALIS Take 1 tablet (20 mg total) by mouth daily as needed for erectile dysfunction STOP taking these medications cimetidine 300 mg tablet Commonly known as: TAGAMET Where to Get Your Medications These medications were sent to [facility] [id number] [place] [address] [address] ?? diphenoxylate-atropine 2.5-0.025 mg per tablet ?? hydrocortisone 2.5 % cream ?? pantoprazole DR 40 mg EC tablet Discharge Instructions: Activity Instructions Discharge Activity: Walking -You may walk as tolerated. Discharge activity: Resume normal activity Diet Instructions Adult Discharge Diet Diet Type: Return to previous diet Other Instructions Call provider for: Temperature -Temperature greater than 101 degrees F Call provider for: difficulty breathing or chest pain Call provider for: extreme fatigue Call provider for: persistent dizziness or light-headedness Call provider for: severe uncontrolled pain If you have any questions or concerns please call us back at [phone]. We would be more than happy to help answer any questions you have. [facility] strives to provide excellent care. We hope that you feel you have received excellent care. Disposition: home Outpatient Follow-Up: Contact Information for Follow-ups Everardo Wilcox MD Specialty: General Surgery Relationship: Consulting Physician 4 [facility] [address] [place] [id number] Next Steps: Follow up Instructions: call to schedule an appointment. referral for hemorrhoid surgery Questions: To provider: EVERARDO WILCOX Instructions for follow-up (appointment date and time): call to schedule an appointment. referral for hemorrhoid surgery Alessandro Velasco MD Specialty: Internal Medicine Relationship: PCP - General 2 [facility] [address] [place] [id number] Next Steps: Schedule an appointment as soon as possible for a visit Instructions: as needed Future Appointments Date Time Provider Department Center 03/18/2022 3:30 PM Alessandro Velasco MD [facility] Total time spent on day of discharge 32 minutes Signed: Gaby Paul MD Internal Medicine - Hospitalist [facility] - Adult Hospitalist Service 11/24/2021 1:05 PM Cc: Alessandro Velasco MD documented in this encounter Discharge Instructions * Discharge Instr - Other Orders* Kareen Haines RN - 11/24/2021 11:37 AM CDT If you have any questions or concerns please call us back at [phone]. We would be more than happy to help answer any questions you have. [facility] strives to provide excellent care. We hope that you feel you have received excellent care. * Attachments The following attachments cannot be sent through Care Everywhere. * Diphenoxylate/Atropine (By mouth) ([place]) * Hydrocortisone (By mouth) ([place]) * Pantoprazole (By mouth) ([place]) documented in this encounter Medications at Time of Discharge diphenoxylate-at ropine (LOMOTIL) 2.5-0.025 mg per tabletIndication s:diarrhea Take 2 tablets by mouth every 8 (eight) hours as needed for diarrhea 90 tablet 1 11/24/2021 docusate sodium (COLACE) 100 mg capsule 08/17/2018 hydrocortisone 2.5 % cream Apply topically 2 (two) times a day as needed for irritation 30 g 3 11/24/2021 Lactobac no.41/Bifidobact no.7 (PROBIOTIC-10 ORAL) Take 1 capsule by mouth nightly cz-qxy-IK-Ca-Fe- lycopen-lutein 0.4-162-18 mg tablet Take 1 tablet by mouth daily amlodipine-valsa rtan (EXFORGE) 10-160 mg per tablet TAKE ONE TABLET BY MOUTH ONCE DAILY 30 tablet 11 12/04/2020 2 buPROPion XL (WELLBUTRIN XL) 300 mg 24 hr tablet TAKE ONE TABLET BY MOUTH ONCE DAILY 90 tablet 3 05/01/2021 2 clonazePAM (KlonoPIN) 0.5 mg tablet Take 1 tablet (0.5 mg total) by mouth nightly 90 tablet 3 06/04/2021 2 ferrous sulfate 325 mg (65 mg of elemental iron) tabletIndication s:Iron Deficiency Anemia Take 1 tablet (325 mg total) by mouth 3 (three) times a day with meals 90 tablet 11 08/30/[address] (PROTONIX) 40 mg EC tabletIndication s:Treatment of Non-Bleeding Gastric Disorder Take 1 tablet (40 mg total) by mouth daily 30 tablet 3 11/24/2021 2 tadalafiL (CIALIS) 20 mg tablet Take 1 tablet (20 mg total) by mouth daily as needed for erectile dysfunction 4 tablet 11 09/28/2020 2 documented as of this encounter Ordered Prescriptions Prescription Sig Dispense Quantity Refills Last Filled Start Date End Date hydrocortisone 2.5 % cream Apply topically 2 (two) times a day as needed for irritation 30 g 3 11/24/2021 diphenoxylate-atro pine (LOMOTIL) 2.5-0.025 mg per tabletIndications: diarrhea Take 2 tablets by mouth every 8 (eight) hours as needed for diarrhea 90 tablet 1 11/24/[address] (PROTONIX) 40 mg EC tabletIndications: Treatment of Non-Bleeding Gastric Disorder Take 1 tablet (40 mg total) by mouth daily 30 tablet 3 11/24/2021 2 documented in this encounter Discharge Disposition Disposition Code Departure Means Destination Discharge to home or self care documented in this encounter Progress Notes * Zi Kinney, RN - 11/23/2021 12:02 PM CDT CM Initial Assessment Interview Note Information Obtained From: Patient (11/23/21 115) Admission Source: ED Impression: diarrhea Plan Includes: evaluation Primary Source of Transportation: Health Insurance Coverage: [facility] choice select Prescription Coverage: yes Pharmacy: [facility] Primary Care Provider: Alessandro Velasco MD Prior to Admission: Primary Caregiver: Self Support System: Spouse/Significant Other Support system contact info (name, phone, availablity): christina dugant- Home Care Services: No Durable Medical Equipment: CPAP/Bi-PAP, Walker (wheeled) Living Arrangements: Spouse/significant other Type of Residence: Private residence Steps in home? : Yes, Outside of home Number of steps outside:: 4 steps (11/23/21 1156) Behavioral Health Services: Behavioral Health Services: No (11/23/21 1156) Patient expects to be Discharged to: Private residence, (11/23/21 1156) Additional Information: Discharge plan discussed with patient. He lives at home with his . He is independent with all care, but has a wheeled walker if needed. He also uses a CPAP at night through [facility]. Plan is to return home, his will pick him up. Delay in discharge could include worsening of symptoms. Will continue to follow. Patient's Identified Problem/Goal Problem: Ensure acute medical needs are met and that patient has a safe discharge plan. Goal: Secure a discharge plan that patient/family are agreeable with and ensure patient has continuum of care. Case management will follow for discharge planning and send referrals as needed. Zi Kinney RN documented in this encounter H&P Notes * Gaby Paul MD - 11/23/2021 8:40 AM CDT History and Physical CHIEF COMPLAINT Diarrhea and rectal bleed HPI: 51yo male with history of hypertension, JAYLA, hemorrhoids presenting with complaints of diarrhea forthe past week. He has it about 5 times daily and not associated with abdominal pain, nausea, vomiting, fever, or chills. He denies any travel or sick contact. He has had 2 colonoscopies and last one was 3 years and it was normal. He has occasional hemorrhoid pain and bleed and reports that it has gotten bigger. He is doing bowel prep and has had some rectal bleed. Past Medical History: Diagnosis Date ??? Anemia ??? Colon polyp ??? Gastric reflux ??? GERD (gastroesophageal reflux disease) ??? Hyperlipidemia Hyperlipidemia ??? Hypertension Hypertension ??? Sleep apnea Past Surgical History: Procedure Laterality Date ??? COLONOSCOPY 12/21/2018 ??? COLONOSCOPY 2013 ??? KNEE ARTHROSCOPY ??? KNEE SURGERY Knee surgery ??? OTHER SURGICAL HISTORY 2006 Left Arthroscopic Knee Surgery ??? POLYPECTOMY Medications Prior to Admission Medication Sig Dispense Refill Last Dose ??? amlodipine-valsartan (EXFORGE) 10-160 mg per tablet TAKE ONE TABLET BY MOUTH ONCE DAILY 30 tablet 11 ??? buPROPion XL (WELLBUTRIN XL) 300 mg 24 hr tablet TAKE ONE TABLET BY MOUTH ONCE DAILY 90 tablet 3 ??? cimetidine (TAGAMET) 300 mg tablet Take 300 mg by mouth 4 (four) times a day ??? clonazePAM (KlonoPIN) 0.5 mg tablet Take 1 tablet (0.5 mg total) by mouth nightly 90 tablet 3 ??? ferrous sulfate 325 mg (65 mg of elemental iron) tablet Take 1 tablet (325 mg total) by mouth 3(three) times a day with meals 90 tablet 11 ??? Lactobac no.41/Bifidobact no.7 (PROBIOTIC-10 ORAL) Take 1 capsule by mouth nightly ??? dw-bst-BQ-Hj-Tb-niqxwny-lutein 0.4-162-18 mg tablet Take 1 tablet by mouth daily ??? tadalafiL (CIALIS) 20 mg tablet Take 1 tablet (20 mg total) by mouth daily as needed for erectile dysfunction 4 tablet 11 No Known Allergies Current Facility-Administered Medications Medication Dose Route Frequency Provider Last Rate Last Admin ??? acetaminophen (TYLENOL) tablet 650 mg 650 mg oral Q4H PRN Yan Fuentes MD ??? [START ON 11/24/2021] amLODIPine (NORVASC) tablet 10 mg 10 mg oral Nightly Gbay Paul MD ??? [START ON 11/24/2021] buPROPion XL (WELLBUTRIN XL) 24 hour tablet 300 mg 300 mg oral Nightly Gaby Paul MD ??? clonazePAM (KlonoPIN) tablet 0.5 mg 0.5 mg oral Nightly Gaby Paul MD ??? famotidine (PEPCID) tablet 20 mg 20 mg oral BID Gaby Paul MD ??? hydrocortisone (ANUSOL-HC) 2.5 % rectal cream rectal BID PRN Gaby Paul MD ??? [START ON 11/24/2021] magnesium citrate oral solution 296 mL 296 mL oral Once Claudette Casarez MD ??? ondansetron ODT (ZOFRAN-ODT) disintegrating tablet 4 mg 4 mg oral Q6H PRN Yan Fuentes MD Or ??? ondansetron (ZOFRAN) injection 4 mg 4 mg intravenous Q6H PRN Yan Fuentes MD ??? polyethylene glycol (MIRALAX) powder 119 g 119 g oral BID Claudette Casarez MD ??? sodium chloride 0.9% flush 0.5-20 mL 0.5-20 mL intra-catheter PRN Chidi Hoover MD ??? sodium chloride 0.9% infusion 50 mL/hr intravenous Continuous Claduette Casarez MD 50 mL/hr at 11/23/21 1408 50 mL/hr at 11/23/21 1408 ??? sodium chloride 0.9% IVPB 0-250 mL 0-250 mL intravenous Once Claudette Casarez MD ??? sodium chloride 0.9% IVPB 250 mL 250 mL intravenous Once Chidi Hoover MD Social History Tobacco Use ??? Smoking status: Never Smoker ??? Smokeless tobacco: Never Used Substance Use Topics ??? Alcohol use: No Comment: rarely Family History Problem Relation Age of Onset ??? Hypertension Mother 61 Hypertension; ??? Other Father 62 Alive and well; ??? Other Brother 37 Alive and well; ??? Other Brother 30 Alive and well; ??? Hypertension Other Family history of Hypertension; ??? Diabetes Other Family history of Diabetes mellitus; ??? Heart disease Other Family history of Heart disease; ??? Arthritis Other Review of Systems: 1. Constitutional Denies: weight loss, weight gain, fever, chills, night sweats, fatigue 2. Eyes Denies: change in vision, double vision, eye pain, eye discharge, icterus 3. ENT Denies: change in hearing, ear pain, ear discharge, nose bleed, nasal congestion, sore throat 4. Respiratory Denies: SOB, wheezing, cough, sputum, hemoptysis 5. CV Denies: chest pain, palpitations, syncope, edema, dyspnea 6. GI Rectal bleed and diarrhea 7. Denies: dysuria, frequency, hematuria, nocturia, urgency 8. Metabolic Denies: cold intolerance, heat intolerance, polyphagia, polydipsia 9. Neurologic Denies: headache, dizziness, seizure, change in mental status, focal weakness, focal numbness 10. Musculoskeletal Denies: myalgia, joint pain, joint redness, joint swelling, extremity pain 11. Hematologic Denies: bleeding, bruising, hematoma, lymphadenopathy, icterus OBJECTIVE Vitals: Arrival Vitals Temp 11/23/21 0103 36.4 ??C (97.6 ??F) Pulse 11/23/21 010 84 Resp 11/23/21102 20 BP 11/23/21102 157/72 SpO2 11/23/21102 100 % Temp src 11/23/21102 Temporal Heart Rate Source 11/23/21336 Pulse Oximetry Patient Position 11/23/21336 Lying;HOB 30 degrees BP Location 11/23/21336 Left arm FiO2 (%) -- 24hr Min/Max: Temp Min: 36.4 ??C (97.5 ??F) Max: 36.4 ??C (97.6 ??F) Pulse Min: 75 Max: 84 BP Min: 124/51 Max: 157/72 Resp Min: 18 Max: 24 SpO2 Min: 98 % Max: 100 % Most Recent : Vitals: 11/23/21 0802 BP: 124/51 Pulse: 83 Resp: 18 Temp: 36.4 ??C (97.5 ??F) SpO2: 100% No intake or output data in the 24 hours ending 11/23/21 1434 Physical exam: General: awake, alert, oriented to person, place, and time. No acute distress Eyes: no scleral icterus, extraocular motion is intact, pupils are equal Neck: supple Pharynx: No gross oral lesion, tongue midline, mucosa moist Lungs: clear to auscultation with no wheezes or rales Heart: normal rate, normal rhythm, normal s1 and s2, no murmur noted Abd: present bowel sounds, Non Tender, Non distended Extremities: No gross edema, strength exam is 5/5 and symmetric Neuro: CN 2-12 is grossly intact, has no focal weakness Musculoskeletal: no gross joint erythema, tenderness Psychiatric: normal affect and mood Lab/Radiology/Diagnostic Review: Recent Results (from the past 24 hour(s)) CBC with auto differential Collection Time: 11/23/21 1:24 AM Result Value Ref Range WBC 13.8 (H) 3.8 - 9.9 K/cumm Hgb 8.3 (L) 13.0 - 17.5 g/dL Hct 25.2 (L) 38.9 - 50.3 % Plt 130 (L) 150 - 400 K/cumm MPV 11.6 9.1 - 12.3 fL RBC 3.02 (L) 4.30 - 5.80 M/cumm MCV 83.4 81.3 - 96.4 fL MCH 27.5 27.1 - 33.3 pg MCHC 32.9 32.3 - 35.7 g/dL RDW CV 14.1 11.1 - 14.9 % RDW SD 41.2 35.7 - 48.1 fL NRBC abs 0.00 0.00 - 0.01 K/cumm Comprehensive metabolic panel Collection Time: 11/23/21 1:24 AM Result Value Ref Range Sodium 137 135 - 145 mmol/L Potassium, pl 4.1 3.3 - 4.9 mmol/L Chloride 104 97 - 110 mmol/L CO2 24 22 - 32 mmol/L Anion gap 10 2 - 15 mmol/L BUN 24 8 - 25 mg/dL Creatinine 1.41 (H) 0.80 - 1.30 mg/dL Glucose 125 70 - 199 mg/dL Calcium 8.8 8.5 - 10.3 mg/dL Bilirubin, total <0.2 0.1 - 1.2 mg/dL Protein, pl 6.0 (L) 6.5 - 8.5 g/dL Albumin 3.8 3.5 - 5.0 g/dL Alk phos 64 40 - 130 Units/L ALT 17 7 - 55 Units/L AST 25 10 - 50 Units/L Differential, auto Collection Time: 11/23/21 1:24 AM Result Value Ref Range Neutrophil abs 8.3 (H) 1.7 - 6.5 K/cumm Imm gran abs 0.1 0.0 - 0.1 K/cumm Lymphocyte abs 2.5 0.8 - 3.3 K/cumm Monocyte abs 1.0 (H) 0.2 - 0.8 K/cumm Eosinophil abs 1.8 (H) 0.0 - 0.5 K/cumm Basophil abs 0.0 0.0 - 0.1 K/cumm Neutrophil pct 60.4 % Imm gran pct 1.0 % Lymphocyte pct 18.3 % Monocyte pct 7.2 % Eosinophil pct 12.8 % Basophil pct 0.3 % eGFR Collection Time: 11/23/21 1:24 AM Result Value Ref Range eGFR 60 mL/min/1.73 m2 Fecal leukocyte stain Stool Collection Time: 11/23/21 1:58 AM Specimen: Stool Result Value Ref Range Direct Specimen Exam Stain: No Leukocytes seen C. difficile testing Stool Collection Time: 11/23/21 1:58 AM Specimen: Stool Result Value Ref Range C. diff result Negative, free toxin Negative, free toxin C. diff interp Negative for toxigenic Clostridioides (Clostridium) difficile. Analysis was performed using an enzyme immunoassay that detects C. difficile toxin(s) in feces. Basic metabolic panel Collection Time: 11/23/21 8:01 AM Result Value Ref Range Sodium 138 135 - 145 mmol/L Potassium, pl 3.8 3.3 - 4.9 mmol/L Chloride 108 97 - 110 mmol/L CO2 20 (L) 22 - 32 mmol/L Anion gap 10 2 - 15 mmol/L BUN 18 8 - 25 mg/dL Creatinine 1.22 0.80 - 1.30 mg/dL Glucose 112 70 - 199 mg/dL Calcium 8.1 (L) 8.5 - 10.3 mg/dL CBC with auto differential Collection Time: 11/23/21 8:01 AM Result Value Ref Range WBC 13.8 (H) 3.8 - 9.9 K/cumm Hgb 8.1 (L) 13.0 - 17.5 g/dL Hct 25.0 (L) 38.9 - 50.3 % Plt 235 150 - 400 K/cumm MPV 11.5 9.1 - 12.3 fL RBC 2.97 (L) 4.30 - 5.80 M/cumm MCV 84.2 81.3 - 96.4 fL MCH 27.3 27.1 - 33.3 pg MCHC 32.4 32.3 - 35.7 g/dL RDW CV 14.5 11.1 - 14.9 % RDW SD 42.3 35.7 - 48.1 fL NRBC abs 0.00 0.00 - 0.01 K/cumm Differential, auto Collection Time: 11/23/21 8:01 AM Result Value Ref Range Neutrophil abs 8.6 (H) 1.7 - 6.5 K/cumm Imm gran abs 0.1 0.0 - 0.1 K/cumm Lymphocyte abs 2.1 0.8 - 3.3 K/cumm Monocyte abs 1.2 (H) 0.2 - 0.8 K/cumm Eosinophil abs 1.7 (H) 0.0 - 0.5 K/cumm Basophil abs 0.0 0.0 - 0.1 K/cumm Neutrophil pct 62.6 % Imm gran pct 0.9 % Lymphocyte pct 15.2 % Monocyte pct 8.5 % Eosinophil pct 12.6 % Basophil pct 0.2 % eGFR Collection Time: 11/23/21 8:01 AM Result Value Ref Range eGFR 71 mL/min/1.73 m2 Hemoglobin and hematocrit Collection Time: 11/23/21 10:49 AM Result Value Ref Range Hgb 7.2 (L) 13.0 - 17.5 g/dL Hct 22.8 (L) 38.9 - 50.3 % CT Abdomen Pelvis W Contrast Result Date: 11/23/2021 Narrative: EXAM DESCRIPTION: CT ABDOMEN PELVIS W CONTRAST REASON FOR STUDY: GI bleed Pt reports diarrhea that is kay in color since , abdominal bloating, and states last BM was today. Deniesany abdominal hx. TECHNIQUE: CT scan of the abdomen and pelvis performed with intravenous and without oral contrast using helical scanning technique with dynamic intravenous contrast injection. Reconstructed coronal and sagittal MPR images reviewed. All images stored on PACS. Automated exposure control was used as a dose optimization technique for this examination. CONTRAST TYPE/DOSE: 100mL of IOVERSOL 350 MG IODINE/ML INTRAVENOUS SYRINGE injected via intravenous COMPARISON: None FINDINGS: LOWER CHEST: Lung bases are clear. Heart size normal. No effusion. LIVER/BILIARY: Mild to moderate hepatic steatosis. Biliary tree normal in caliber. GALLBLADDER: Normal. SPLEEN: Normal. PANCREAS: Normal.ADRENAL GLANDS: Normal. KIDNEYS/URINARY TRACT: Normal. GI: Scattered hyperdense products likely represent Pepto-Bismol. Stomach small bowel appear normal. Normal appendix. OTHER ABDOMINAL/PELVIS: Major vascular structures are grossly patent and normal in caliber. No enlarged lymph node or free fluid. MSK: [id number] disc disease and facet arthropathy. BODY WALL: Tiny fat containing periumbilical hernia. IMPRESSION: No bowel inflammation or other acute abnormality identified. THIS IS AN ELECTRONICALLY VERIFIED FINAL REPORT 11/23/2021 3:58 AM - Electronically signed by Min Bates M.D. AR: PATTIE Report ID: [id number] Reading Location: [place] [address] A/P Principal Problem: Diarrhea Active Problems: Iron deficiency anemia due to chronic blood loss Hemorrhoidal bleed Hypertension JAYLA on cpap Has no acute finding on ct abd/pelvis. C diff is negative. Stool culture is pending. Scheduled for egd/colonoscopy tomorrow. To be transfused 1u prbc today and will repeat hb/hct thereafter. Resume Wellbutrin, klonopin, and amlodipine. Bilateral scd moderate complexity Gaby Paul MD Date of Service: 11/23/2021 documented in this encounter Procedure Notes * Claudette Casarez MD - 11/24/2021 7:50 AM CDTAssociated Order(s): COLONOSCOPY [facility] Patient Name: Marifer Sebastian Procedure Date: 11/24/2021 7:50 AM Date of : 1970 Admit Type: Inpatient Age: 51 Gender: Male Attending MD: Claudette Casarez M.D. Room: [facility]COPY ROOM 2 Note Status: Finalized Patient Profile: This is a 51 year old male. Patient admitted with the bleeding per rectum. He has chronic iron deficiency anemia. Patient was complaining diarrhea for the last couple weeks. Colonoscopy for evaluation Procedure: Colonoscopy Indications: Last colonoscopy: December 2018, Clinically significant diarrhea of unexplained origin, Rectal bleeding Referring MD: Alessandro Velasco M.D. Providers: Claudette Casarez M.D. Impression: - Large external hemorrhoids and medium internal hemorrhoids likely the source of bleeding. This type of hemorrhoids need surgical resection. - The entire examined colon is normal. Biopsied. - Mild diverticulosis in the sigmoid colon. Recommendation: - Await pathology results. - Repeat colonoscopy in 5 years for screening purposes. - Anusol hydrocortisone suppositories per rectum for the hemorrhoids - Use Lomotil 2 tablets every 8 hours as needed for the diarrhea - Referral as outpatient to surgery for hemorrhoidectomy Medicines: Monitored Anesthesia Care Complications: No immediate complications. Estimated Blood Loss: Estimated blood loss: none. Procedure: Pre-Anesthesia Assessment: - Prior to the procedure, a History and Physical was performed, and patient medications and allergies were reviewed. The patient's tolerance of previous anesthesia was also reviewed. The risks and benefits of the procedure and the sedation options and risks were discussed with the patient. All questions were answered, and informed consent was obtained. Prior Anticoagulants: The patient has taken no anticoagulant or antiplatelet agents. ASA Grade Assessment: II - A patient with mild systemic disease. After reviewing the risks and benefits, the patient was deemed in satisfactory condition to undergo the procedure. - Prior to the procedure, a History and Physical was performed, and patient medications and allergies were reviewed. The patient's tolerance of previous anesthesia was also reviewed. The risks and benefits of the procedure and the sedation options and risks were discussed with the patient. All questions were answered, and informed consent was obtained. Prior Anticoagulants: The patient has taken no anticoagulant or antiplatelet agents. ASA Grade Assessment: II - A patient with mild systemic disease. After reviewing the risks and benefits, the patient was deemed in satisfactory condition to undergo the procedure. The benefits, risks and alternatives of the procedure and sedation were discussed and informed consent was obtained. All questions were answered. Please refer to the signed informed consent document in the medical record. The scope was passed under direct vision. The Pediatric Colonoscope PCF-H190L [id number] was introduced through the anus and advanced to the the cecum, identified by appendiceal orifice and ileocecal valve. The bowel preparation used was Miralax via split dose instruction. The bowel preparation used was bisacodyl tablets via split dose instruction. The bowel preparation used was magnesium citrate via single dose instruction. The quality of the bowel preparation was excellent. Bowel prep was administered using a split dose. Findings: Hemorrhoids were [...] 7:50 AM Procedure Code(s): --- Professional --- 97249, Colonoscopy, flexible; with biopsy, single or multiple Diagnosis Code(s): --- Professional --- K64.8, Other hemorrhoids R19.7, Diarrhea, unspecified K62.5, Hemorrhage of anus and rectum K57.30, Diverticulosis of large intestine without perforation or abscess without bleeding CPT copyright 2020 [employer]. All rights reserved. The codes documented in this report are preliminary and upon hims coder review may be revised to meet current compliance requirements. Recognized by the [employer] for promoting quality in endoscopy * Claudette Casarez MD - 11/24/2021 7:44 AM CDTAssociated Order(s): EGD [facility] Patient Name: Marifer Sebastian Procedure Date: 11/24/2021 7:44 AM Date of : 1970 Admit Type: Inpatient Age: 51 Gender: Male Attending MD: Claudette Casarez M.D. Room: [facility]COPY ROOM 2 Note Status: Finalized Patient Profile: This is a 51 year old male. Patient admitted with the bleeding per rectum as well as anemia and diarrhea. Colonoscopy for evaluation. He has chronic iron deficiency anemia Procedure: Upper GI endoscopy Indications: Iron deficiency anemia, Hematochezia Referring MD: Alessandro Velasco M.D. Providers: Claudette Casarez M.D. Impression: - Normal examined duodenum. Biopsied. - Normal stomach. Biopsied for MEGHA. - Mild erosive esophagitis with no bleeding. Biopsied. Recommendation: - Await pathology results. - Use Protonix (pantoprazole) 40 mg PO daily for 3 months then Pepcid daily for heartburn symptoms. - Colonoscopy today. Medicines: Monitored Anesthesia Care Complications: No immediate complications. Estimated Blood Loss: Estimated blood loss: none. Procedure: Pre-Anesthesia Assessment: - Prior to the procedure, a History and Physical was performed, and patient medications and allergies were reviewed. The patient's tolerance of previous anesthesia was also reviewed. The risks and benefits of the procedure and the sedation options and risks were discussed with the patient. All questions were answered, and informed consent was obtained. Prior Anticoagulants: The patient has taken no anticoagulant or antiplatelet agents. ASA Grade Assessment: II - A patient with mild systemic disease. After reviewing the risks and benefits, the patient was deemed in satisfactory condition to undergo the procedure. The benefits, risks, and alternatives to the procedure and sedation were discussed and informed consent was obtained. The scope was passed under direct vision. The Endoscope GIF-H190 [id number] was introduced through the mouth, and advanced to the second part of duodenum. The upper GI endoscopy was accomplished without difficulty. The patient tolerated the procedure well. Findings: The examined duodenum was normal. Mucosal pattern was normal. Biopsies were taken with a cold forceps for histology. The entire examined stomach was normal. Biopsies were taken with a cold forceps for Helicobacter pylori testing using CLOtest. Retroflexion stomach in the gastric fundus and cardia were normal. LA Grade B (one or more mucosal breaks greater than 5 mm, not extending between the tops of two mucosal folds) esophagitis with no bleeding was found 39 cm from the incisors. Biopsies were taken with a cold forceps for histology. Electronically signed by Claudette Casarez M.D. Claudette Casarez M.D. 11/24/2021 9:09:31 AM Number of Addenda: 0 Note Initiated On: 11/24/2021 7:44 AM Procedure Code(s): --- Professional --- 65704, Esophagogastroduodenoscopy, flexible, transoral; with biopsy, single or multiple Diagnosis Code(s): --- Professional --- K21.00, Gastro-esophageal reflux disease with esophagitis, without bleeding D50.9, Iron deficiency anemia, unspecified K92.1, Melena (includes Hematochezia) CPT copyright 2020 [employer]. All rights reserved. The codes documented in this report are preliminary and upon hims coder review may be revised to meet current compliance requirements. Recognized by the [place] for promoting quality in endoscopy documented in this encounter Consult Notes * Claudette Casarez MD - 11/23/2021 12:38 PM CDT Gastroenterology Consult Reason for consult: GI bleed Date of Consult: 11/23/[address] Gaby Paul for diarrhea and rectal bleeding. SUBJECTIVE Patient is a 51 y.o. male with complaint of hematochezia. Patient came to ER yesterday for diarrheafor 3 weeks. About 5-6 times per day. Before that his usual bowel movement are irregular between days of constipation and none to days of 2-3 loose bowel movements. He had blood in the stool which isbright red and he attributes to hemorrhoids. He has long h/o of gas and bloating and fullness after meals. Sometimes nausea. No dysphagia. No odynophagia. No weight loss. No fever and no chills. No recent travel. No other family members with diarrhea. Noabdominal pain. Past Medical History: Diagnosis Date ??? Anemia ??? Colon polyp ??? Gastric reflux ??? GERD (gastroesophageal reflux disease) ??? Hyperlipidemia Hyperlipidemia ??? Hypertension Hypertension ??? Sleep apnea Past Surgical History: Procedure Laterality Date ??? COLONOSCOPY 12/21/2018 ??? COLONOSCOPY 2013 ??? KNEE ARTHROSCOPY ??? KNEE SURGERY Knee surgery ??? OTHER SURGICAL HISTORY 2006 Left Arthroscopic Knee Surgery ??? POLYPECTOMY Medications Prior to Admission Medication Sig Dispense Refill Last Dose ??? amlodipine-valsartan (EXFORGE) 10-160 mg per tablet TAKE ONE TABLET BY MOUTH ONCE DAILY 30 tablet 11 ??? buPROPion XL (WELLBUTRIN XL) 300 mg 24 hr tablet TAKE ONE TABLET BY MOUTH ONCE DAILY 90 tablet 3 ??? cimetidine (TAGAMET) 300 mg tablet Take 300 mg by mouth 4 (four) times a day ??? clonazePAM (KlonoPIN) 0.5 mg tablet Take 1 tablet (0.5 mg total) by mouth nightly 90 tablet 3 ??? ferrous sulfate 325 mg (65 mg of elemental iron) tablet Take 1 tablet (325 mg total) by mouth 3(three) times a day with meals 90 tablet 11 ??? Lactobac no.41/Bifidobact no.7 (PROBIOTIC-10 ORAL) Take 1 capsule by mouth nightly ??? os-ztq-HD-Yr-Ff-ecuiauf-lutein 0.4-162-18 mg tablet Take 1 tablet by mouth daily ??? tadalafiL (CIALIS) 20 mg tablet Take 1 tablet (20 mg total) by mouth daily as needed for erectile dysfunction 4 tablet 11 No Known Allergies Social History Tobacco Use ??? Smoking status: Never Smoker ??? Smokeless tobacco: Never Used Substance Use Topics ??? Alcohol use: No Comment: rarely Family History Problem Relation Age of Onset ??? Hypertension Mother 61 Hypertension; ??? Other Father 62 Alive and well; ??? Other Brother 37 Alive and well; ??? Other Brother 30 Alive and well; ??? Hypertension Other Family history of Hypertension; ??? Diabetes Other Family history of Diabetes mellitus; ??? Heart disease Other Family history of Heart disease; ??? Arthritis Other Review of Systems Constitutional: Positive for activity change. Negative for unexpected weight change. HENT: Negative. Eyes: Negative. Respiratory: Negative. Cardiovascular: Negative. Gastrointestinal: Positive for blood in stool and diarrhea. Endocrine: Negative. Genitourinary: Negative. Musculoskeletal: Negative. Skin: Negative. Neurological: Negative. Hematological: Negative. Psychiatric/Behavioral: Negative. Vitals: BP 124/51 (BP Location: Left arm, Patient Position: Sitting) Pulse 83 Temp 36.4 ??C (97.5 ??F) (Temporal) Resp 18 Ht 165.1 cm (5' 5 ) Wt 93 kg (205 lb) SpO2 100% BMI 34.11 kg/m?? OBJECTIVE Physical Exam: Patient is alert and oriented to time and place and self. Patient appears comfortable. Eyes: no jaundice. Lymphatics: no submandibular and no subclavicular lymphadenopathy. Lungs: CTA anteriorly. ENT: no mouth ulcers. GI: abdomen is soft, no distention, no tenderness, bowel sounds positive. Musculos keletal: no joint swelling, no edema. Skin: no rash. Psych: mood seems normal. No confusion. Lab/Radiology/Diagnostic Review: Labs and X rays reviewed. Recent Results (from the past 48 hour(s)) CBC with auto differential Collection Time: 11/23/21 1:24 AM Result Value Ref Range WBC 13.8 (H) 3.8 - 9.9 K/cumm Hgb 8.3 (L) 13.0 - 17.5 g/dL Hct 25.2 (L) 38.9 - 50.3 % Plt 130 (L) 150 - 400 K/cumm MPV 11.6 9.1 - 12.3 fL RBC 3.02 (L) 4.30 - 5.80 M/cumm MCV 83.4 81.3 - 96.4 fL MCH 27.5 27.1 - 33.3 pg MCHC 32.9 32.3 - 35.7 g/dL RDW CV 14.1 11.1 - 14.9 % RDW SD 41.2 35.7 - 48.1 fL NRBC abs 0.00 0.00 - 0.01 K/cumm Comprehensive metabolic panel Collection Time: 11/23/21 1:24 AM Result Value Ref Range Sodium 137 135 - 145 mmol/L Potassium, pl 4.1 3.3 - 4.9 mmol/L Chloride 104 97 - 110 mmol/L CO2 24 22 - 32 mmol/L Anion gap 10 2 - 15 mmol/L BUN 24 8 - 25 mg/dL Creatinine 1.41 (H) 0.80 - 1.30 mg/dL Glucose 125 70 - 199 mg/dL Calcium 8.8 8.5 - 10.3 mg/dL Bilirubin, total <0.2 0.1 - 1.2 mg/dL Protein, pl 6.0 (L) 6.5 - 8.5 g/dL Albumin 3.8 3.5 - 5.0 g/dL Alk phos 64 40 - 130 Units/L ALT 17 7 - 55 Units/L AST 25 10 - 50 Units/L Differential, auto Collection Time: 11/23/21 1:24 AM Result Value Ref Range Neutrophil abs 8.3 (H) 1.7 - 6.5 K/cumm Imm gran abs 0.1 0.0 - 0.1 K/cumm Lymphocyte abs 2.5 0.8 - 3.3 K/cumm Monocyte abs 1.0 (H) 0.2 - 0.8 K/cumm Eosinophil abs 1.8 (H) 0.0 - 0.5 K/cumm Basophil abs 0.0 0.0 - 0.1 K/cumm Neutrophil pct 60.4 % Imm gran pct 1.0 % Lymphocyte pct 18.3 % Monocyte pct 7.2 % Eosinophil pct 12.8 % Basophil pct 0.3 % eGFR Collection Time: 11/23/21 1:24 AM Result Value Ref Range eGFR 60 mL/min/1.73 m2 Fecal leukocyte stain Stool Collection Time: 11/23/21 1:58 AM Specimen: Stool Result Value Ref Range Direct Specimen Exam Stain: No Leukocytes seen C. difficile testing Stool Collection Time: 11/23/21 1:58 AM Specimen: Stool Result Value Ref Range C. diff result Negative, free toxin Negative, free toxin C. diff interp Negative for toxigenic Clostridioides (Clostridium) difficile. Analysis was performed using an enzyme immunoassay that detects C. difficile toxin(s) in feces. Basic metabolic panel Collection Time: 11/23/21 8:01 AM Result Value Ref Range Sodium 138 135 - 145 mmol/L Potassium, pl 3.8 3.3 - 4.9 mmol/L Chloride 108 97 - 110 mmol/L CO2 20 (L) 22 - 32 mmol/L Anion gap 10 2 - 15 mmol/L BUN 18 8 - 25 mg/dL Creatinine 1.22 0.80 - 1.30 mg/dL Glucose 112 70 - 199 mg/dL Calcium 8.1 (L) 8.5 - 10.3 mg/dL CBC with auto differential Collection Time: 11/23/21 8:01 AM Result Value Ref Range WBC 13.8 (H) 3.8 - 9.9 K/cumm Hgb 8.1 (L) 13.0 - 17.5 g/dL Hct 25.0 (L) 38.9 - 50.3 % Plt 235 150 - 400 K/cumm MPV 11.5 9.1 - 12.3 fL RBC 2.97 (L) 4.30 - 5.80 M/cumm MCV 84.2 81.3 - 96.4 fL MCH 27.3 27.1 - 33.3 pg MCHC 32.4 32.3 - 35.7 g/dL RDW CV 14.5 11.1 - 14.9 % RDW SD 42.3 35.7 - 48.1 fL NRBC abs 0.00 0.00 - 0.01 K/cumm Differential, auto Collection Time: 11/23/21 8:01 AM Result Value Ref Range Neutrophil abs 8.6 (H) 1.7 - 6.5 K/cumm Imm gran abs 0.1 0.0 - 0.1 K/cumm Lymphocyte abs 2.1 0.8 - 3.3 K/cumm Monocyte abs 1.2 (H) 0.2 - 0.8 K/cumm Eosinophil abs 1.7 (H) 0.0 - 0.5 K/cumm Basophil abs 0.0 0.0 - 0.1 K/cumm Neutrophil pct 62.6 % Imm gran pct 0.9 % Lymphocyte pct 15.2 % Monocyte pct 8.5 % Eosinophil pct 12.6 % Basophil pct 0.2 % eGFR Collection Time: 11/23/21 8:01 AM Result Value Ref Range eGFR 71 mL/min/1.73 m2 Hemoglobin and hematocrit Collection Time: 11/23/21 10:49 AM Result Value Ref Range Hgb 7.2 (L) 13.0 - 17.5 g/dL Hct 22.8 (L) 38.9 - 50.3 % No results found. GI IMPRESSION: 1. Acute diarrhea 2. Hematochezia, rule out hemorrhoids issue but more concerning is colitis or proctitis 3. Anemia, chronic iron deficiency anemia of unknown reason. GI PLAN: 1. Blood transfusion to maintain Hgb above 8. 2. EGD and colonoscopy tomorrow 3. IV protonis bid 4. Further plans to follow Voice recognition software MModal Fluency Direct was used dictate and transcribe this document. Auto Mechanic variances may occur. Despite proofreading, typographical errors may occur. Claudette Casarez MD documented in this encounter Nursing Notes * Derrick Flores RN - 11/24/2021 12:14 PM CDT Discharge paperwork discussed with patient and signed by patient. Pt. IV removed and intact. Pt. belongings packed and intact. Pt. left with . documented in this encounter ED Notes * Yan Fuentes MD - 11/23/2021 3:03 AM CDT HPI Chief Complaint Patient presents with ??? Diarrhea Pt reports diarrhea that is kay in color since . Pt reports abdominal bloating; Pt denies pain. Pt reports last BM was today. Pt denies abdominal pain or any known abdominal hx. Pt in no distress with even and unlabored respirations. Pt updated. Pt denies any needs. 51-year-old with a history of iron deficiency anemia, hypertension here with the complaints of diarrhea for last 3 weeks. He denies any fever or chills. No history of nausea vomiting. He states he has been taking [id number] medication for diarrhea and nothing seems to be helping. No recent antibiotic usage . Patient History: Patient Active Problem List Diagnosis Date Noted ??? Diarrhea 11/23/2021 ??? Tear of medial meniscus of left knee 05/16/2020 ??? Preop exam for internal medicine 05/01/2020 ??? Anxiety 05/01/2020 ??? Complex tear of medial meniscus of left knee as current injury 04/28/2020 ??? History of iron deficiency 07/27/2019 ??? Chronic GERD 10/29/2017 ??? Drug-induced erectile dysfunction 10/29/2017 ??? Chronic non-seasonal allergic rhinitis 10/29/2017 ??? History of colon polyps 10/29/2017 ??? Hemorrhoids 10/29/2017 ??? Sleep apnea with use of continuous positive airway pressure (CPAP) 10/29/2017 ??? Essential hypertension 04/24/2017 ??? Mixed hyperlipidemia 04/24/2017 ??? Diminished libido 04/24/2017 ??? BMI 34.0-34.9,adult 04/24/2017 Past Medical History: Diagnosis Date ??? Anemia [...] Heart disease; ??? Arthritis Other Social History Tobacco Use ??? Smoking status: Never Smoker ??? Smokeless tobacco: Never Used Substance Use Topics ??? Alcohol use: No Comment: rarely ??? Drug use: No Social History Social History Narrative ??? Not on file Review of Systems Review of Systems Constitutional: Negative. HENT: Negative. Respiratory: Negative. Cardiovascular: Negative. Gastrointestinal: Positive for diarrhea. Genitourinary: Negative. Musculoskeletal: Negative. Skin: Negative. Neurological: Negative. Hematological: Negative. Psychiatric/Behavioral: Negative. Physical Exam ED Triage Vitals Temp Pulse Resp BP SpO2 11/23/21 0103 11/23/21 0103 11/23/21 0103 11/23/21 0103 11/23/21 010 36.4 ??C (97.6 ??F) 84 20 157/72 100 % Temp src Heart Rate Source Patient Position BP Location FiO2 (%) 11/23/21 0103 11/23/21 0337 11/23/21 0337 11/23/21336 -- Temporal Pulse Oximetry Lying;HOB 30 degrees Left arm Physical Exam Vitals and nursing note reviewed. Constitutional: Appearance: Normal appearance. HENT: Head: Normocephalic and atraumatic. Nose: Nose normal. Mouth/Throat: Mouth: Mucous membranes are moist. Eyes: Extraocular Movements: Extraocular movements intact. Pupils: Pupils are equal, round, and reactive to light. Cardiovascular: Rate and Rhythm: Normal rate and regular rhythm. Pulmonary: Effort: Pulmonary effort is normal. Breath sounds: Normal breath sounds. Abdominal: Palpations: Abdomen is soft. Musculoskeletal: General: Normal range of motion. Cervical back: Normal range of motion and neck supple. Skin: General: Skin is warm. Neurological: General: No focal deficit present. Mental Status: He is alert and oriented to person, place, and time. Results for orders placed or performed during the hospital encounter of 11/23/21 Fecal leukocyte stain Stool Specimen: Stool Result Value Ref Range Direct Specimen Exam Stain: No Leukocytes seen CBC with auto differential Result Value Ref Range WBC 13.8 (H) 3.8 - 9.9 K/cumm Hgb 8.3 (L) 13.0 - 17.5 g/dL Hct 25.2 (L) 38.9 - 50.3 % Plt 130 (L) 150 - 400 K/cumm MPV 11.6 9.1 - 12.3 fL RBC 3.02 (L) 4.30 - 5.80 M/cumm MCV 83.4 81.3 - 96.4 fL MCH 27.5 27.1 - 33.3 pg MCHC 32.9 32.3 - 35.7 g/dL RDW CV 14.1 11.1 - 14.9 % RDW SD 41.2 35.7 - 48.1 fL NRBC abs 0.00 0.00 - 0.01 K/cumm Comprehensive metabolic panel Result Value Ref Range Sodium 137 135 - 145 mmol/L Potassium, pl 4.1 3.3 - 4.9 mmol/L Chloride 104 97 - 110 mmol/L CO2 24 22 - 32 mmol/L Anion gap 10 2 - 15 mmol/L BUN 24 8 - 25 mg/dL Creatinine 1.41 (H) 0.80 - 1.30 mg/dL Glucose 125 70 - 199 mg/dL Calcium 8.8 8.5 - 10.3 mg/dL Bilirubin, total <0.2 0.1 - 1.2 mg/dL Protein, pl 6.0 (L) 6.5 - 8.5 g/dL Albumin 3.8 3.5 - 5.0 g/dL Alk phos 64 40 - 130 Units/L ALT 17 7 - 55 Units/L AST 25 10 - 50 Units/L Differential, auto Result Value Ref Range Neutrophil abs 8.3 (H) 1.7 - 6.5 K/cumm Imm gran abs 0.1 0.0 - 0.1 K/cumm Lymphocyte abs 2.5 0.8 - 3.3 K/cumm Monocyte abs 1.0 (H) 0.2 - 0.8 K/cumm Eosinophil abs 1.8 (H) 0.0 - 0.5 K/cumm Basophil abs 0.0 0.0 - 0.1 K/cumm Neutrophil pct 60.4 % Imm gran pct 1.0 % Lymphocyte pct 18.3 % Monocyte pct 7.2 % Eosinophil pct 12.8 % Basophil pct 0.3 % eGFR Result Value Ref Range eGFR 60 mL/min/1.73 m2 MDM 51-year-old with a history of hypertension, a anemia here with the complaints of diarrhea with no antibiotic use could be functional diarrhea however his hemoglobin is low will admit him to the hospital ED Course as of 11/23/21531 Time: 11/24 247 Comment: Informed pt and his about the lab work , she stated his hemoglobin dropped by 2 points in 2 wks. By: Yan Fuentes MD Final diagnoses: Diarrhea, unspecified type Iron deficiency anemia due to chronic blood loss Yan Fuentes MD 11/23/21531 * Samuel Thomason RN - 11/23/2021 1:05 AM CDT Pt reports diarrhea that is kay in color since . Pt reports abdominal bloating; Pt denies pain. Pt reports last BM was today. Pt denies abdominal pain or any known abdominal hx. Pt in no distress with even and unlabored respirations. Pt updated. Pt denies any needs. documented in this encounter Miscellaneous Notes * Plan of Care - Derrick Flores RN - 11/24/2021 11:50 AM CDT Goals: Clinical Goals for the Shift: VSS, Free from falls/injuries, EGD/Colonoscopy today Summary: Problem: Health Behavior: Goal: Understanding of discharge needs will improve Outcome: Progressing Problem: Bowel/Gastric: Goal: Establishment of normal bowel function will improve Outcome: Progressing Goal: Occurrences of diarrhea will decrease Outcome: Progressing Problem: Lack of Knowledge: Goal: Knowledge of the prescribed therapeutic regimen will improve Outcome: Progressing Problem: Hypertension Goal: Resident will maintain blood pressure under 120/80 with therapeutic intervention and maintainoptimal cardiovascular and renal function Description: INTERVENTIONS: 1. Resident will take medications as prescribed 2. Nurse will assess resident as needed for any change in condition, document findings, and report findings to provider 3. Nurse will obtain vital signs as ordered, and report results to provider per protocol 4. Nursing staff will observe resident for signs and symptoms of hypotension and report observations to nurse - dizziness, syncope (fainting), blurred vision 5. Nursing staff will encourage resident to change positions slowly 6. Resident will follow Dietary Approaches to Stop Hypertension (DASH) diet as ordered Outcome: Progressing Problem: Lack of Knowledge: Goal: Knowledge of disease or condition will improve Outcome: Progressing Goal: Knowledge of the prescribed therapeutic regimen will improve Outcome: Progressing Problem: Respiratory: Goal: Ability to maintain adequate ventilation will improve Outcome: Progressing Goal: Identification of resources available to assist in meeting health care needs will improve Outcome: Progressing Problem: Coping: Goal: Ability to identify and develop effective coping behavior will improve Outcome: Progressing Problem: Treatment compliance Goal: Build healthy support system Outcome: Progressing Problem: Healthy functioning Goal: Develop a wellness routine Outcome: Progressing * Perioperative Nursing Note - Joanna Anglin RN - 11/24/2021 9:42 AM CDT Report called to Lydia Flores RN. Patient is being transported back to his room via wheelchair. She was made aware of daily protonix 40mg daily for 3 months and a referral for hemorrhoid surgery. * Perioperative Nursing Note - Joanna Anglin, RN - 11/24/2021 9:[address] Casarez was here and talked to the pt and his about the procedure and said he could go home today but would need to see a surgeon about his hemorrhoids * Plan of Care - Carisa Henriquez RN - 11/24/2021 3:30 AM CDT Goals: Clinical Goals for the Shift: Pt will remain hemodynamically, VSS, pain controlled and free from injuries Summary: Pt remains hemodynamically stable. VSS. Pt states that pain is controlled. Pt remains freefrom injuries. Pt was not able to finish the miralax but was able to complete the magnesium citrate. Pt states that stool are liquid. * Plan of Care - Derrick Flores RN - 11/23/2021 3:50 PM CDT Goals: Clinical Goals for the Shift: VSS, free from falls/injuries, NPO at midnight for EGD/colonoscopy Summary: Problem: Health Behavior: Goal: Understanding of discharge needs will improve Outcome: Progressing Problem: Bowel/Gastric: Goal: Establishment of normal bowel function will improve Outcome: Progressing Goal: Occurrences of diarrhea will decrease Outcome: Progressing Problem: Lack of Knowledge: Goal: Knowledge of the prescribed therapeutic regimen will improve Outcome: Progressing Problem: Hypertension Goal: Resident will maintain blood pressure under 120/80 with therapeutic intervention and maintainoptimal cardiovascular and renal function Description: INTERVENTIONS: 1. Resident will take medications as prescribed 2. Nurse will assess resident as needed for any change in condition, document findings, and report findings to provider 3. Nurse will obtain vital signs as ordered, and report results to provider per protocol 4. Nursing staff will observe resident for signs and symptoms of hypotension and report observations to nurse - dizziness, syncope (fainting), blurred vision 5. Nursing staff will encourage resident to change positions slowly 6. Resident will follow Dietary Approaches to Stop Hypertension (DASH) diet as ordered Outcome: Progressing Problem: Lack of Knowledge: Goal: Knowledge of disease or condition will improve Outcome: Progressing Goal: Knowledge of the prescribed therapeutic regimen will improve Outcome: Progressing Problem: Respiratory: Goal: Ability to maintain adequate ventilation will improve Outcome: Progressing Goal: Identification of resources available to assist in meeting health care needs will improve Outcome: Progressing Problem: Coping: Goal: Ability to identify and develop effective coping behavior will improve Outcome: Progressing Problem: Treatment compliance Goal: Build healthy support system Outcome: Progressing Problem: Healthy functioning Goal: Develop a wellness routine Outcome: Progressing * Plan of Care - Ela Noel RN - 11/23/2021 4:06 AM CDT Goals: Clinical Goals for the Shift: CT abdomen, stable vitals, decrease bowel movements Summary: Problem: Health Behavior: Goal: Understanding of discharge needs will improve Outcome: Progressing Problem: Bowel/Gastric: Goal: Establishment of normal bowel function will improve Outcome: Progressing Problem: Bowel/Gastric: Goal: Occurrences of diarrhea will decrease Outcome: Progressing Problem: Hypertension Goal: Resident will maintain blood pressure under 120/80 with therapeutic intervention and maintainoptimal cardiovascular and renal function Description: INTERVENTIONS: 1. Resident will take medications as prescribed 2. Nurse will assess resident as needed for any change in condition, document findings, and report findings to provider 3. Nurse will obtain vital signs as ordered, and report results to provider per protocol 4. Nursing staff will observe resident for signs and symptoms of hypotension and report observations to nurse - dizziness, syncope (fainting), blurred vision 5. Nursing staff will encourage resident to change positions slowly 6. Resident will follow Dietary Approaches to Stop Hypertension (DASH) diet as ordered Outcome: Progressing Problem: Coping: Goal: Ability to identify and develop effective coping behavior will improve Outcome: Progressing Problem: Treatment compliance Goal: Build healthy support system Outcome: Progressing documented in this encounter Plan of Treatment Not on file documented as of this encounter Procedures Procedure Name Priority Date/Time Associated Diagnosis Comments SURGICAL PATHOLOGY STAT 11/24/2021 9:59 AM CDT Iron deficiency anemia due to chronic blood loss H. PYLORI UREASE SCREEN (MEGHA TEST) STAT 11/24/2021 8:30 AM CDT COLON BIOPSY 11/24/2021 8:00 AM CDT Iron deficiency anemia due to chronic blood loss ESOPHAGOGASTRODUODENOSCOPY BIOPSY 11/24/2021 8:00 AM CDT Iron deficiency anemia due to chronic blood loss COLONOSCOPY 11/24/2021 7:50 AM CDT EGD 11/24/2021 7:44 AM CDT EGFR Routine 11/24/2021 4:12 AM CDT DIFFERENTIAL AUTO Routine 11/24/2021 4:12 AM CDT CBC WITH AUTO DIFFERENTIAL Routine 11/24 4:12 AM CDT BASIC METABOLIC PANEL Routine 11/24/2021 4:12 AM CDT HEMOGLOBIN AND HEMATOCRIT Timed 2021 11:20 PM CDT TRANSFUSE RED BLOOD CELLS Timed 2021 5:54 PM CDT PREPARE RBC Timed 11/23/2021 3:31 PM CDT ABO/RH Timed 11/23/2021 1:57 PM CDT CROSSMATCH Timed 11/23/2021 1:57 PM CDT ANTIBODY SCREEN Timed 11/23/2021 1:57 PM CDT TYPE AND SCREEN Timed 11/23/2021 1:57 PM CDT B ABO / RH CONFIRMATION TESTING STAT 11/23/2021 10:49 AM CDT HEMOGLOBIN AND HEMATOCRIT Routine 2021 10:49 AM CDT EGFR Routine 11/23/2021 8:01 AM CDT DIFFERENTIAL AUTO Routine 11/23/2021 8:01 AM CDT CBC WITH AUTO DIFFERENTIAL Routine 11/23 8:01 AM CDT BASIC METABOLIC PANEL Routine 11/23/2021 8:[address] ABDOMEN PELVIS W CONTRAST ED 3:32 AM CDT C. DIFFICILE TESTING STAT 11/23/2021 1:58 AM CDT FECAL LEUKOCYTES STAT 11/23/2021 1:58 AM CDT STOOL CULTURE STAT 11/23/2021 1:58 AM CDT EGFR STAT 11/23/2021 1:24 AM CDT DIFFERENTIAL AUTO STAT 11/23/2021 1:24 AM CDT CBC WITH AUTO DIFFERENTIAL STAT 11/23 1:24 AM CDT COMPREHENSIVE METABOLIC PANEL STAT 1:24 AM CDT documented in this encounter Results * Surgical pathology (11/24/2021 9:59 AM CDT) Tissue (Small bowel, biopsy) 11/24/2021 8:44 AM CDT Tissue (EG Junction, Biopsy) 11/24/2021 8:44 AM CDT Tissue (Colon, Biopsy) 11/24/2021 8:53 AM CDT Narrative PATHOLOGY [facility] ([facility] - 11/27/2021 3:02 PM CDT [facility] results best viewed via link to PDF [facility] Department of Pathology [address] [place] [id number] Note to Patients: This report may contain a detailed description of human tissue sent by a health care provider to the laboratory for pathologic evaluation. The content of this report is essential for diagnosis and may provide important critical findings. This information may be unfamiliar to patients to review without a medical professional present. It is advised that the patient review this report in the presence of a health care provider who can answer questions and explain the details. Final Report Patient Name: ??MARIFER SEBASTIANLars Address: ??[address] [place] [address], ??[place], [place] [address] Gender: ??M : ??1970 (Age: 51) Service: ??Medical Location: ??[facility] Hospital #: ??[id number] Patient Type: ??[facility] Accession # ?[id number] Taken: ??11/24/2021 Received: ??11/26/2021 Accessioned: ??11/26/2021 Reported: ??11/27/2021 Physician(s):Dr. Claudette Casarez M.D. Diagnosis: A. ??Small intestine, biopsy: - Duodenal mucosa with focal intraepithelial eosinophils. ?? - No evidence of dysplasia or malignancy. - See microscopic description. B. ??Gastroesophageal junction, biopsy: ? - Squamous mucosa with changes consistent with reflux esophagitis. - Cardiac-type mucosa with intestinal metaplasia and chronic active inflammation. ? - No evidence of dysplasia or malignancy. C. ??Colon, random, biopsy: ? - Colonic mucosa with no significant histopathologic abnormalities. Amandeep Waggoner MD Report Electronically Reviewed and Signed Out By ??Amandeep Waggoner MD ??11/27/2021 15:02:50 Specimen(s) Received: A: Small intestine biopsy B: GE Junction Biopsy C: Random colon biopsy Microscopic Description: A. ??Microscopic examination shows fragments of duodenal mucosa with increased eosinophils in the lamina propria as well as focal intraepithelial eosinophils. ??No atypical infiltrates or parasitic forms are identified. ??There is no significant active inflammation. ??There is no significant intraepithelial lymphocytosis nor is there evidence of villous blunting. ??There is no evidence of dysplasia or malignancy. ?? The aforementioned finding of focal intraepithelial eosinophils is nonspecific, though intraepithelial eosinophils may be seen in the setting of allergy, atopy, drug effect, hypereosinophilic syndrome, and infections. ??Recommend correlation with clinical findings and follow-up as clinically indicated. B. ??Microscopic examination shows squamous mucosa with changes consistent with reflux esophagitis characterized by elongation of papillae, basal hyperplasia, and focal parakeratosis. ??Also seen is cardiac-type mucosa with intestinal metaplasia and chronic active inflammation. ??No definitive Helicobacter organisms are seen on routine H&E staining. ??A Helicobacter immunostain is performed with appropriately reactive controls on block B1 and is negative. ??There is no evidence of dysplasia or malignancy. ?? C. ??Microscopic examination shows fragments of colonic mucosa with no significant histopathologic abnormalities. ??There is no significant active inflammation. ??There is no significant intraepithelial lymphocytosis nor is there thickening of the subepithelial collagen layer. ??There is no evidence of dysplasia or malignancy. ?? Clinical History: Iron deficiency anemia due to chronic blood loss. ??EGD. ??Colonoscopy. ?? Gross Description: The specimen is submitted in three containers labeled Marifer Sebastian . A. ??The first container is labeled small intestine . ??It is four jones 1-2 mm fragments. ??All in A. B. ??The second container is labeled GE junction . ??It is three jones 1-2 mm fragments. ??All in B. C. ??The third container is labeled random . It is seven jones 1-2 mm fragments. All in C. ??Ashly Estrada M.D./Bhumika Kaur. REPORT IMAGES AND SCANNED DOCUMENTS, IF INCLUDED, ONLY VIEWABLE IN PDF VERSION OF REPORT The performance characteristics of some immunohistochemical stains, fluorescence in-situ hybridization tests and immunophenotyping by flow cytometry cited in this report (if any) were determined by the Surgical Pathology Department at [facility] as part of an ongoing quality specialist program and in compliance with federally mandated regulations drawn from the Clinical Laboratory Improvement Act of 1988 (CLIA '88). ??Some of these tests rely on the use of analyte specific reagents and are subject to specific labeling requirements by the US Food and Drug Administration. ??Such diagnostic tests may only be performed in a facility that is certified by the Department of Health and Human Services as a high complexity laboratory under CLIA '88. The FDA has determined that such clearance or approval is not necessary. ??This test is used for clinical purposes. ??It should not be regarded as investigational or for research. ??Nevertheless, federal rules concerning the medical use of analyte specific reagents require that the following disclaimer be attached to the report: This test was developed and its performance characteristics determined by the Surgical Pathology Department [facility]. ??It has not been cleared or approved by the U. S. Food and Drug Administration. Note for decalcified specimens: This assay has not been validated on decalcified tissues. Results should be interpreted with caution given the possibility of false negativity on decalcified specimens Claudette Casarez MD LAB PATHOLOGY ORDERABLES F inal Result Performing Organization Address [facility]/ZIP Co de Phone Number PATHOLOGY [facility] ([facility] [address] [place] [phone] * H. pylori urease screen (MEGHA test) Tissue (11/24/2021 8:30 AM CDT) H. pylori, rapid (MEGHA) Negative Negative [facility] ([facility]) Tissue 11/24/2021 8:30 AM CDT 11/24/2021 1:01 PM CDT Claudette Casarez MD LAB MICROBIOLOGY - GENERAL ORDERABLES Final Result Performing Organization Address [facility] de Phone Number [facility] [address] [place] [address] [place] [address] * COLONOSCOPY (11/24/2021 7:50 AM CDT) Anatomical Region Laterality Modality Other Narrative Procedure Note Claudette Casarez MD - 11/24/2021 7:50 AM CDT [facility] Patient Name: Marifer Sebastian Procedure Date: 11/24/2021 7:50 AM Date of : 1970 Admit Type: Inpatient Age: 51 Gender: Male Attending MD: Claudette Casarez M.D. Room: [facility] ENDOSCOPY ROOM 2 Note Status: Finalized Patient [...] passed under direct vision.The Pediatric Colonoscope [id number]-H190L [id number] was introduced through the anus and advanced [...] 7:50 AM Procedure Code(s): --- Professional --- 63495, Colonoscopy, flexible; with biopsy, single or multiple Diagnosis Code(s): --- Professional --- K64.8, Other hemorrhoids R19.7, Diarrhea, unspecified K62.5, Hemorrhage of anus and rectum K57.30, Diverticulosis of large intestine without perforation orabscess without bleeding CPT copyright 2020 [employer]. All rights reserved. The codes documented in this report are preliminary and upon hims coder reviewmay be revised to meet current compliance requirements. Recognized by the [employer] for promoting quality in endoscopy Claudette Casarez MD ENDOSCOPY PROCEDURES Final Result * EGD (11/24/2021 7:44 AM CDT) Anatomical Region Laterality Modality Other Narrative Procedure Note Claudette Casarez MD - 11/24/2021 7:44 AM CDT [facility] Patient Name: Marifer Sebastian Procedure Date: 11/24/2021 7:44 AM Date of : 1970 Admit Type: Inpatient Age: 51 Gender: Male Attending MD: Claudette Casarez M.D. Room: [facility] ENDOSCOPY ROOM 2 Note Status: Finalized Patient Profile: This is a 51 year old male. Patient admitted withthe bleeding per rectum as well as anemia and diarrhea. Colonoscopy for evaluation. He has chronic iron deficiency anemia Procedure: Upper GI endoscopy Indications: Iron deficiency anemia, Hematochezia Referring MD: Alessandro Velasco M.D. Providers: Claudette Casarez M.D. Impression: - Normal examined duodenum. Biopsied. - Normal stomach. Biopsied for MEGHA. - Mild erosive esophagitis with no bleeding.Biopsied. Recommendation: - Await pathology results. - Use Protonix (pantoprazole) 40 mg PO daily for 3 months then Pepcid daily for heartburn symptoms. - Colonoscopy today. Medicines: Monitored Anesthesia Care Complications: No immediate [...] condition to undergo the procedure. The benefits, risks, and alternatives to theprocedure and sedation were discussed and informed consentwas obtained. The scope was passed under direct vision. The Endoscope GIF-H190 [id number] was introduced through the mouth, and advanced to the second partof duodenum. The upper GI endoscopy was accomplished without difficulty. The patient tolerated the procedure well. Findings: The examined duodenum was normal. Mucosal pattern was normal.Biopsies were taken with a cold forceps for histology. The entire examined stomach was normal. Biopsies were taken with acold forceps for Helicobacter pylori testing using CLOtest. Retroflexion stomach in the gastric fundus and cardia were normal. LA Grade B (one or more mucosal breaks greater than 5 mm, notextending between the tops of two mucosal folds) esophagitis with no bleedingwas found 39 cm from the incisors. Biopsies were taken with a coldforceps for histology. Electronically signed by Claudette Casarez M.D. Claudette Casarez M.D. 11/24/2021 9:09:31 AM Number of Addenda: 0 Note Initiated On: 11/24/2021 7:44 AM Procedure Code(s): --- Professional --- 51215, Esophagogastroduodenoscopy, flexible, transoral; with biopsy, single or multiple Diagnosis Code(s): --- Professional --- K21.00, Gastro-esophageal reflux disease with esophagitis, without bleeding D50.9, Iron deficiency anemia, unspecified K92.1, Melena (includes Hematochezia) CPT copyright 2020 [employer]. All rights reserved. The codes documented in this report are preliminary and upon hims coder reviewmay be revised to meet current compliance requirements. Recognized by the [employer] for promoting quality in endoscopy Claudette Casarez MD ENDOSCOPY PROCEDURES Final Result * eGFR (11/24/2021 4:12 AM CDT) eGFR 73 mL/min/1. 73 m2 [facility] ([facility]) Comment: Interpretive Data Reference Interval Normal ?>/= 90 mL/min/1.73m2 Mildly decreased* ? 60 - 89 mL/min/1.73m2 Mildly to moderately decreased ?45 - 59 mL/min/1.73m2 Moderately to severely decreased ??30 - 44 mL/min/1.73m2 Severely decreased ?15 - 29 mL/min/1.73m2 Kidney Failure ?< 15 ??mL/min/1.73m2 *Relative to young adult level Estimated glomerular filtration rate is determined by the 2020 CKD-EPI equation recommended by the National Kidney Foundation (A Unifying Approach to GFR Estimation: Recommendations of the NKF-ASK Task Force on Reassessing the Inclusion of Race in Diagnosing Kidney Disease, JASN 2020). The CKD-EPI equation should not be used for patients with unstable renal function and has not been validated in children and those over 70. Current interpretive data was last reviewed 2021. Blood 11/24/2021 4:12 AM CDT 11/24/2021 5:02 AM CDT us Claudette Casarez MD LAB BLOOD ORDERABLES Final Result [facility] ([place]) 1 [facility] [place] [address] * (ABNORMAL) Differential, auto (11/24/2021 4:12 AM CDT) Neutrophil abs 6.7(H) 1.7 - 6.5 K/cumm [facility] ([place]) Imm gran abs 0.1 0.0 - 0.1 K/cumm [facility] ([place]) Lymphocyte abs 2.1 0.8 - 3.3 K/cumm [facility] ([place]) Monocyte abs 0.9(H) 0.2 - 0.8 K/cumm [facility] ([place]) Eosinophil abs 1.5(H) 0.0 - 0.5 K/cumm [facility] ([place]) Basophil abs 0.0 0.0 - 0.1 K/cumm [facility] ([place]) Neutrophil pct 59.0 % [facility] ([place]) Comment: Interpretive Data Percent cell count reference ranges are not reported, since discordance with absolute values may lead to misinterpretation of CBC data. Current Interpretive Data was last revised on 2017. Imm gran pct 1.1 % [facility] ([place]) Comment: Interpretive Data Percent cell count reference ranges are not reported, since discordance with absolute values may lead to misinterpretation of CBC data. Current Interpretive Data was last revised on 2017. Lymphocyte pct 18.3 % [facility] ([place]) Comment: Interpretive Data Percent cell count reference ranges are not reported, since discordance with absolute values may lead to misinterpretation of CBC data. Current Interpretive Data was last revised on 2017. Monocyte pct 8.3 % [facility] ([place]) Comment: Interpretive Data Percent cell count reference ranges are not reported, since discordance with absolute values may lead to misinterpretation of CBC data. Current Interpretive Data was last revised on 2017. Eosinophil pct 13.1 % [facility] ([place]) Comment: Interpretive Data Percent cell count reference ranges are not reported, since discordance with absolute values may lead to misinterpretation of CBC data. Current Interpretive Data was last revised on 2017. Basophil pct 0.2 % [facility] ([place]) Comment: Interpretive Data Percent cell count reference ranges are not reported, since discordance with absolute values may lead to misinterpretation of CBC data. Current Interpretive Data was last revised on 2017. Blood 11/24/2021 4:12 AM CDT 11/24/2021 5:41 AM CDT us Claudette Casarez MD LAB BLOOD ORDERABLES Final Result [facility] ([place]) 1 [facility] [place] [address] * (ABNORMAL) CBC with auto differential (11/24/2021 4:12 AM CDT) WBC 11.3(H) 3.8 - 9.9 K/cumm [facility] ([place]) Hgb 8.5(L) 13.0 - 17.5 g/dL [facility] ([place]) Hct 26.6(L) 38.9 - 50.3 % [facility] ([place]) Plt 229 150 - 400 K/cumm [facility] ([place]) MPV 11.3 9.1 - 12.3 fL [facility] ([place]) RBC 3.10(L) 4.30 - 5.80 M/cumm [facility] ([place]) MCV 85.8 81.3 - 96.4 fL [facility] ([place]) MCH 27.4 27.1 - 33.3 pg [facility] ([place]) MCHC 32.0(L) 32.3 - 35.7 g/dL [facility] ([place]) RDW CV 14.6 11.1 - 14.9 % [facility] ([place]) RDW SD 44.2 35.7 - 48.1 fL [facility] ([place]) NRBC abs 0.00 0.00 - 0.01 K/cumm [facility] ([place]) Blood 11/24/2021 4:12 AM CDT 11/24/2021 5:41 AM CDT us Claudette Casarez MD LAB BLOOD ORDERABLES Final Result [facility] ([place]) 1 [facility] [place] [address] * (ABNORMAL) Basic metabolic panel (11/24/2021 4:12 AM CDT) Sodium 141 135 - 145 mmol/L [facility] ([place]) Potassium, pl 3.6 3.3 - 4.9 mmol/L [facility] ([place]) Chloride 109 97 - 110 mmol/L [facility] ([facility]) CO2 22 22 - 32 mmol/L [facility] ([facility]) Anion gap 10 2 - 15 mmol/L [facility] ([place]) BUN 11 8 - 25 mg/dL [facility] ([place]) Creatinine 1.20 0.80 - 1.30 mg/dL [facility] ([place]) Glucose 103 70 - 199 mg/dL [facility] ([place]) Comment: Interpretive Data Fasting glucose >/= 126 mg/dl is diagnostic for diabetes. ?? Fasting is defined as no caloric intake for at least 8 hours. Fasting glucose between 100 mg/dl to 125 mg/dl is diagnostic of prediabetes. In a patient with classic symptoms of hyperglycemia or hyperglycemic crisis, a random glucose >/= 200 mg/dl is diagnostic for diabetes. In the absence of unequivocal hyperglycemia, results should be confirmed by repeat testing. The classification and Diagnosis of Diabetes Diabetes Care 2017;40 (Suppl. 1):S11. Current interpretive data was last revised 2017. Calcium 8.1(L) 8.5 - 10.3 mg/dL [facility] ([place] Blood 11/24/2021 4:12 AM CDT 11/24/2021 5:02 AM CDT Claudette Casarez MD LAB BLOOD ORDERABLES Final Result Performing Organization Address City/[facility]/ZIP Co de Phone Number [facility] ([place]) [address] [place] [address] [place] [address] * (ABNORMAL) Hemoglobin and hematocrit (11/23/2021 11:20 PM CDT) [facility] Hgb 8.2(L) 13.0 - 17.5 g/dL [facility] ([place]) Hct 24.5(L) 38.9 - 50.3 % [facility] ([place]) Blood 11/23/2021 11:2 0 PM CDT 11/23/2021 11:22 PM CDT Gaby Paul MD LAB BLOOD ORDERABLES Fin al Result Performing Organization Address [facility] Co de Phone Number [facility] ([place]) [address] [place] [address] [place] [address] * Transfuse RBC (11/23/2021 9:49 PM CDT) Blood specimen (specimen) Claudette Casarez MD BLOOD TRANSFUSION ORDERABL ES Final Result Performing Organization Address City/[facility]/ZIP Co de Phone Number [facility] ([place]) 1 [facility] [place] [place] [address] * Transfuse RBC: 1 Units (11/23/2021 9:49 PM CDT) Blood specimen (specimen) Claudette Casarez MD BLOOD TRANSFUSION ORDERABL ES Final Result * Prepare RBC: 1 Units (11/23/2021 3:31 PM CDT) Units requested 1 [facility] ([place]) Units requested Ready [facility] ([place]) Unit Number [id number] [facility] ([place]) Product code [id number] [facility] ([place]) Blood Expiration Date [facility] ([place]) Product Blood Type (for scanning) 5100 [facility] ([place]) Product Blood Type OPOS [facility] ([place]) Dispense Status DISPENSED [facility] ([place]) Blood 11/23/2021 3:31 PM CDT 11/23/2021 3:30 PM CDT us Claudette Casarez MD BLOOD BANK PRODUCT ORDERAB LES Final Result Performing Organization Address City/[facility]/ZIP Co de Phone Number [facility] ([place]) 1 [facility] [employer] [place] [place] [address] * Crossmatch (11/23/2021 1:57 PM CDT) Crossmatch Compatible [facility] ([place]) Unit number for crossmatch [id number] [facility] ([place]) Blood 11/23/2021 1:57 PM CDT 11/23/2021 2:42 PM CDT us Gaby Paul MD LAB BLOOD BANK TEST ORDE RABLES Final Result [facility] ([place]) 1 [facility] [place] [employer] [place] [address] * Antibody screen (11/23/2021 1:57 PM CDT) Marvin, indirect, Gel Interpretation Negative ABSC [facility] ([place]) Blood 11/23/2021 1:57 PM CDT 11/23/2021 2:42 PM CDT Narrative [facility] ([place]) - 11/23/2021 3:17 PM CDT Has the patient had Daratumumab or Isatuximab in the past 6 months?->Unknown Claudette Casarez MD LAB BLOOD BANK TEST ORDERA BLES Final Result [facility] ([place]) 1 [facility] [place] [employer] [place] [address] * ABO/Rh (11/23/2021 1:57 PM CDT) ABO/Rh O Positive [facility] ([place]) Blood 11/23/2021 1:57 PM CDT 11/23/2021 2:42 PM CDT Narrative [facility] ([place]) - 11/23/2021 3:17 PM CDT Has the patient had Daratumumab or Isatuximab in the past 6 months?->Unknown Claudette Casarez MD LAB BLOOD BANK TEST ORDERA BLES Final Result Performing Organization Address City/[facility]/ZIP Co de Phone Number [facility] ([place]) 1 [facility] [place] [address] * ABO / Rh Confirmation Testing (11/23/2021 10:49 AM CDT) ABO/Rh Confirmation O Positive [facility] ([place] Blood 11/23/2021 10:4 9 AM CDT 11/23/2021 3:14 PM CDT Claudette Casarez MD LAB BLOOD ORDERABLES Final Result [facility] ([place]) 1 [facility] [place] [place] [address] * (ABNORMAL) Hemoglobin and hematocrit (11/23/2021 10:49 AM CDT) Hgb 7.2(L) 13.0 - 17.5 g/dL [facility] ([place]) Hct 22.8(L) 38.9 - 50.3 % [facility] ([place]) Blood 11/23/2021 10:4 9 AM CDT 11/23/2021 10:53 AM CDT Gaby Paul MD LAB BLOOD ORDERABLES Fin al Result [facility] ([place]) 1 [facility] Department [place] [address] * eGFR (11/23/2021 8:01 AM CDT) eGFR 71 mL/min/1. 73 m2 [facility] ([place]) Comment: Interpretive Data Reference Interval Normal ?>/= 90 mL/min/1.73m2 Mildly decreased* ? 60 - 89 mL/min/1.73m2 Mildly to moderately decreased ?45 - 59 mL/min/1.73m2 Moderately to severely decreased ??30 - 44 mL/min/1.73m2 Severely decreased ?15 - 29 mL/min/1.73m2 Kidney Failure ?< 15 ??mL/min/1.73m2 *Relative to young adult level Estimated glomerular filtration rate is determined by the 2020 CKD-EPI equation recommended by the National Kidney Foundation (A Unifying Approach to GFR Estimation: Recommendations of the NKF-ASK Task Force on Reassessing the Inclusion of Race in Diagnosing Kidney Disease, JASN 202). The CKD-EPI equation should not be used for patients with unstable renal function and has not been validated in children and those over 70. Current interpretive data was last reviewed 2021. Blood 11/23/2021 8:01 AM CDT 11/23/2021 8:27 AM CDT us Yan Fuentes MD LAB BLOOD ORDERABLES Final Res ult [facility] ([place]) 1 [facility] [place] [address] * (ABNORMAL) Differential, auto (11/23/2021 8:01 AM CDT) Neutrophil abs 8.6(H) 1.7 - 6.5 K/cumm [facility] ([place]) Imm gran abs 0.1 0.0 - 0.1 K/cumm [facility] ([place]) Lymphocyte abs 2.1 0.8 - 3.3 K/cumm [facility] ([place]) Monocyte abs 1.2(H) 0.2 - 0.8 K/cumm [facility] ([place]) Eosinophil abs 1.7(H) 0.0 - 0.5 K/cumm [facility] ([place]) Basophil abs 0.0 0.0 - 0.1 K/cumm [facility] ([place]) Neutrophil pct 62.6 % [facility] ([place]) Comment: Interpretive Data Percent cell count reference ranges are not reported, since discordance with absolute values may lead to misinterpretation of CBC data. Current Interpretive Data was last revised on 2017. Imm gran pct 0.9 % [facility] ([place]) Comment: Interpretive Data Percent cell count reference ranges are not reported, since discordance with absolute values may lead to misinterpretation of CBC data. Current Interpretive Data was last revised on 2017. Lymphocyte pct 15.2 % [facility] ([place]) Comment: Interpretive Data Percent cell count reference ranges are not reported, since discordance with absolute values may lead to misinterpretation of CBC data. Current Interpretive Data was last revised on 2017. Monocyte pct 8.5 % [facility] ([place]) Comment: Interpretive Data Percent cell count reference ranges are not reported, since discordance with absolute values may lead to misinterpretation of CBC data. Current Interpretive Data was last revised on 2017. Eosinophil pct 12.6 % [facility] ([place]) Comment: Interpretive Data Percent cell count reference ranges are not reported, since discordance with absolute values may lead to misinterpretation of CBC data. Current Interpretive Data was last revised on 2017. Basophil pct 0.2 % [facility] ([place]) Comment: Interpretive Data Percent cell count reference ranges are not reported, since discordance with absolute values may lead to misinterpretation of CBC data. Current Interpretive Data was last revised on 2017. Blood 11/23/2021 8:01 AM CDT 11/23/2021 8:27 AM CDT us Yan Fuentes MD LAB BLOOD ORDERABLES Final Res ult [facility] ([place]) 1 [facility] [place] [address] * (ABNORMAL) CBC with auto differential (11/23/2021 8:01 AM CDT) WBC 13.8(H) 3.8 - 9.9 K/cumm [facility] ([place]) Hgb 8.1(L) 13.0 - 17.5 g/dL [facility] ([place]) Hct 25.0(L) 38.9 - 50.3 % [facility] ([place]) Plt 235 150 - 400 K/cumm [facility] ([place]) MPV 11.5 9.1 - 12.3 fL [facility] ([place]) RBC 2.97(L) 4.30 - 5.80 M/cumm [facility] ([place]) MCV 84.2 81.3 - 96.4 fL [facility] ([place]) MCH 27.3 27.1 - 33.3 pg [facility] ([place]) MCHC 32.4 32.3 - 35.7 g/dL [facility] ([place]) RDW CV 14.5 11.1 - 14.9 % [facility] ([place]) RDW SD 42.3 35.7 - 48.1 fL [facility] ([place]) NRBC abs 0.00 0.00 - 0.01 K/cumm [facility] ([place]) Blood 11/23/2021 8:01 AM CDT 11/23/2021 8:27 AM CDT Yan Fuentes MD LAB BLOOD ORDERABLES Final Res ult [facility] ([place]) 1 [facility] [employer] [place] [address] * (ABNORMAL) Basic metabolic panel (11/23/2021 8:01 AM CDT) Sodium 138 135 - 145 mmol/L [facility] ([place]) Potassium, pl 3.8 3.3 - 4.9 mmol/L [facility] ([place]) Chloride 108 97 - 110 mmol/L [facility] ([place]) CO2 20(L) 22 - 32 mmol/L [facility] ([place]) Anion gap 10 2 - 15 mmol/L [facility] ([place]) BUN 18 8 - 25 mg/dL [facility] ([place]) Creatinine 1.22 0.80 - 1.30 mg/dL [facility] ([place]) Glucose 112 70 - 199 mg/dL [facility] ([place]) Comment: Interpretive Data Fasting glucose >/= 126 mg/dl is diagnostic for diabetes. ?? Fasting is defined as no caloric intake for at least 8 hours. Fasting glucose between 100 mg/dl to 125 mg/dl is diagnostic of prediabetes. In a patient with classic symptoms of hyperglycemia or hyperglycemic crisis, a random glucose >/= 200 mg/dl is diagnostic for diabetes. In the absence of unequivocal hyperglycemia, results should be confirmed by repeat testing. The classification and Diagnosis of Diabetes Diabetes Care 2017;40 (Suppl. 1):S11. Current interpretive data was last revised 2017. Calcium 8.1(L) 8.5 - 10.3 mg/dL [facility] ([place]) Blood 11/23/2021 8:01 AM CDT 11/23/2021 8:27 AM CDT Yan Fuentes MD LAB BLOOD ORDERABLES Final Res ult [facility] ([place]) 1 [facility] [place] [place] [address] * CT Abdomen Pelvis W Contrast (11/23/2021 3:32 AM CDT) Anatomical Region Laterality Modality Body N/A Computed Tomogra phy 11/23/2021 3:50 AM CDT Narrative 11/23/2021 3:58 AM CDT EXAM DESCRIPTION: ?? CT ABDOMEN PELVIS W CONTRAST REASON FOR STUDY: ?? GI bleed ?? Pt reports diarrhea that is kay in color since , abdominal bloating, and states last BM was today. ?? Denies any abdominal hx. ? TECHNIQUE: CT scan of the abdomen and pelvis performed with intravenous and ?? without ??oral contrast using helical scanning technique with dynamic intravenous contrast injection. Reconstructed coronal and sagittal MPR images reviewed. All images stored on PACS. Automated exposure control was used as a dose optimization technique for this examination. CONTRAST TYPE/DOSE: ?? 100mL of IOVERSOL 350 MG IODINE/ML INTRAVENOUS SYRINGE ?? injected via ?? intravenous COMPARISON: ?? None FINDINGS: LOWER CHEST: ??Lung bases are clear. ??Heart size normal. ??No effusion. LIVER/BILIARY: ??Mild to moderate hepatic steatosis. ?Biliary tree normal in caliber. GALLBLADDER: ??Normal. SPLEEN: ??Normal. PANCREAS: ??Normal. ADRENAL GLANDS: ??Normal. KIDNEYS/URINARY TRACT: ??Normal. ?? GI: ??Scattered hyperdense products likely represent Pepto-Bismol. ??Stomach small bowel appear normal. ??Normal appendix. ?? OTHER ABDOMINAL/PELVIS: ??Major vascular structures are grossly patent and normal in caliber. ??No enlarged lymph node or free fluid. MSK: ??Scyg-mt-spwnwgex disc disease and facet arthropathy. ?? BODY WALL: ??Tiny fat containing periumbilical hernia. ?? IMPRESSION: No bowel inflammation or other acute abnormality identified. ?? THIS IS AN ELECTRONICALLY VERIFIED FINAL REPORT 11/23/2021 3:58 AM - Electronically signed by ??Min Bates M.D. AR: PATTIE D: ??11/23/2021 3:58 AM T: ??11/23/2021 3:58 AM Report ID: [id number] Reading Location: ??[id number] Procedure Note Min Bates MD - 11/23/2021 EXAM DESCRIPTION: CT ABDOMEN PELVIS W CONTRAST REASON FOR STUDY: GI bleed Pt reports diarrhea that is kay in color since , abdominalbloating, and states last BM was today. Denies any abdominal hx. TECHNIQUE: CT scan of the abdomen and pelvis performed with intravenousand without oral contrast using helical scanning technique with dynamic intravenous contrast injection. Reconstructed coronal and sagittal MPRimages reviewed. All images stored on PACS. Automated exposure control was used as a dose optimization technique forthis examination. CONTRAST TYPE/DOSE: 100mL of IOVERSOL 350 MG IODINE/ML INTRAVENOUSSYRINGE injected via intravenous COMPARISON: None FINDINGS: LOWER CHEST: Lung bases are clear. Heart size normal. No effusion. LIVER/BILIARY: Mild to moderate hepatic steatosis. Biliary tree normalin caliber. GALLBLADDER: Normal. SPLEEN: Normal. PANCREAS: Normal. ADRENAL GLANDS: Normal. KIDNEYS/URINARY TRACT: Normal. GI: Scattered hyperdense products likely represent Pepto-Bismol. Stomach small bowel appear normal. Normal appendix. OTHER ABDOMINAL/PELVIS: Major vascular structures are grossly patent and normal in caliber. No enlarged lymph node or free fluid. MSK: Cuwy-va-mdihkwkn disc disease and facet arthropathy. BODY WALL: Tiny fat containing periumbilical hernia. IMPRESSION: No bowel inflammation or other acute abnormality identified. THIS IS AN ELECTRONICALLY VERIFIED FINAL REPORT 11/23/2021 3:58 AM - Electronically signed by Min Bates M.D. AR: PATTIE Report ID: [id number] Reading Location: [id number] Yan Fuentes MD IMG CT PROCEDURES Final Result * C. difficile testing Stool (11/23/2021 1:58 AM CDT) C. diff result Negative, free toxin Negative , free toxin [facility] ([place]) C. diff interp Negative for toxigenic Clostridioides (Clostridium) difficile. Analysis was performed using an enzyme immunoassay that detects C. difficile toxin(s) in feces. [facility] ([place]) Stool 11/23/2021 1:58 AM CDT 11/23/2021 2:06 AM CDT Yan Fuentes MD LAB MICROBIOLOGY - GENERAL ORD ERABLES Final Result [facility] ([place]) [address] [place] [address] * Fecal leukocyte stain Stool (11/23/2021 1:58 AM CDT) Direct Specimen Exam Stain: No Leukocytes seen [facility] ([place]) Stool 11/23/2021 1:58 AM CDT 11/23/2021 2:30 AM CDT Yan Fuentes MD LAB MICROBIOLOGY - GENERAL ORD ERABLES Final Result Performing Organization Address City/[facility] Co de Phone Number [facility] ([place]) [address] [place] [address] * Stool culture Stool Rectum (11/23/2021 1:58 AM CDT) Direct Specimen Exam Shiga Toxin Testing: Antigen detection assay for Shiga-toxin NEGATIVE for Shiga Toxin 1 and Shiga Toxin 2. [facility] ([place]PH) Comment:Testing performed by : [facility], [address] [place] [address]., [id number] Report Final Report: No growth of enteric bacterial pathogens [facility] ([place]OSEPH) Comment:Testing performed by : [facility], [address] [place]., [address] Stool (Rectum) 11/23/2021 1: 58 AM CDT 11/23/2021 10:51 AM CDT Narrative [facility] (YOSEPH) - 11/27/2021 12:49 PM CDT Testing performed by [facility] ([phone]). Routine stool cultures include procedures to detect Salmonella, Shigella, Edwardsiella, Aeromonas, Pleisiomonas, Campylobacter, Yersinia, E. coli O157, and Shiga-like toxins. ?? Vibrio is cultured only upon special request. ??If Vibrio is suspected, please call the laboratory at [phone]. Interpretive data was last updated December 16, 2016. Yan Fuentes MD LAB MICROBIOLOGY - GENERAL ORD ERABLES Final Result [facility] ([place]AL[place]) 1 [facility] [place] [address] * eGFR (11/23/2021 1:24 AM CDT) eGFR 60 mL/min/1. 73 m2 [facility] (PALMS) Comment: Interpretive Data Reference Interval Normal ?>/= 90 mL/min/1.73m2 Mildly decreased* ? 60 - 89 mL/min/1.73m2 Mildly to moderately decreased ?45 - 59 mL/min/1.73m2 Moderately to severely decreased ??30 - 44 mL/min/1.73m2 Severely decreased ?15 - 29 mL/min/1.73m2 Kidney Failure ?< 15 ??mL/min/1.73m2 *Relative to young adult level Estimated glomerular filtration rate is determined by the 2020 CKD-EPI equation recommended by the National Kidney Foundation (A Unifying Approach to GFR Estimation: Recommendations of the NKF-ASK Task Force on Reassessing the Inclusion of Race in Diagnosing Kidney Disease, JASN 202). The CKD-EPI equation should not be used for patients with unstable renal function and has not been validated in children and those over 70. Current interpretive data was last reviewed 2021. Blood 11/23/2021 1:24 AM CDT 11/23/2021 1:30 AM CDT Yan Fuentes MD LAB BLOOD ORDERABLES Final Res ult [facility] (PAL[place]) 1 [facility] [place] [address] * (ABNORMAL) Differential, auto (11/23/2021 1:24 AM CDT) Neutrophil abs 8.3(H) 1.7 - 6.5 K/cumm [facility] ([facility]) Imm gran abs 0.1 0.0 - 0.1 K/cumm [facility] ([place]) Lymphocyte abs 2.5 0.8 - 3.3 K/cumm [facility] ([place]) Monocyte abs 1.0(H) 0.2 - 0.8 K/cumm [facility] ([place]) Eosinophil abs 1.8(H) 0.0 - 0.5 K/cumm [facility] ([place]) Basophil abs 0.0 0.0 - 0.1 K/cumm [facility] ([place]) Neutrophil pct 60.4 % [facility] ([place]) Comment: Interpretive Data Percent cell count reference ranges are not reported, since discordance with absolute values may lead to misinterpretation of CBC data. Current Interpretive Data was last revised on 2017. Imm gran pct 1.0 % [facility] ([place]) Comment: Interpretive Data Percent cell count reference ranges are not reported, since discordance with absolute values may lead to misinterpretation of CBC data. Current Interpretive Data was last revised on 2017. Lymphocyte pct 18.3 % [facility] ([place]) Comment: Interpretive Data Percent cell count reference ranges are not reported, since discordance with absolute values may lead to misinterpretation of CBC data. Current Interpretive Data was last revised on 2017. Monocyte pct 7.2 % [facility] ([place]) Comment: Interpretive Data Percent cell count reference ranges are not reported, since discordance with absolute values may lead to misinterpretation of CBC data. Current Interpretive Data was last revised on 2017. Eosinophil pct 12.8 % [facility] ([place]) Comment: Interpretive Data Percent cell count reference ranges are not reported, since discordance with absolute values may lead to misinterpretation of CBC data. Current Interpretive Data was last revised on 2017. Basophil pct 0.3 % [facility] ([place]) Comment: Interpretive Data Percent cell count reference ranges are not reported, since discordance with absolute values may lead to misinterpretation of CBC data. Current Interpretive Data was last revised on 2017. Blood 11/23/2021 1:24 AM CDT 11/23/2021 1:30 AM CDT us Yan Fuentes MD LAB BLOOD ORDERABLES Final Res ult [facility] ([facility] 1 [facility] [place] [address] * (ABNORMAL) Comprehensive metabolic panel (11/23/2021 1:24 AM CDT) Sodium 137 135 - 145 mmol/L [facility] Potassium, pl 4.1 3.3 - 4.9 mmol/L [facility] Chloride 104 97 - 110 mmol/L [facility] CO2 24 22 - 32 mmol/L [facility] Anion gap 10 2 - 15 mmol/L [facility] BUN 24 8 - 25 mg/dL [facility] Creatinine 1.41(H) 0.80 - 1.30 mg/dL [facility] Glucose 125 70 - 199 mg/dL [facility] Comment: Interpretive Data Fasting glucose >/= 126 mg/dl is diagnostic for diabetes. ?? Fasting is defined as no caloric intake for at least 8 hours. Fasting glucose between 100 mg/dl to 125 mg/dl is diagnostic of prediabetes. In a patient with classic symptoms of hyperglycemia or hyperglycemic crisis, a random glucose >/= 200 mg/dl is diagnostic for diabetes. In the absence of unequivocal hyperglycemia, results should be confirmed by repeat testing. The classification and Diagnosis of Diabetes Diabetes Care 2017;40 (Suppl. 1):S11. Current interpretive data was last revised 2017. Calcium 8.8 8.5 - 10.3 mg/dL [facility] Bilirubin, total <0.2 0.1 - 1.2 mg/dL [facility] Protein, pl 6.0(L) 6.5 - 8.5 g/dL [facility] Albumin 3.8 3.5 - 5.0 g/dL [facility] Alk phos 64 40 - 130 Units/L [facility] ALT 17 7 - 55 Units/L [facility] AST 25 10 - 50 Units/L [facility] Comment: Hemolysis present. ??Results may be affected. Slightly Hemolyzed Specimen Blood 11/23/2021 1:24 AM CDT 11/23/2021 1:30 AM CDT us Yan Fuentes MD LAB BLOOD ORDERABLES Final Res ult [facility] ([facility] 1 [facility] [place] [address] * (ABNORMAL) CBC with auto differential (11/23/2021 1:24 AM CDT) WBC 13.8(H) 3.8 - 9.9 K/cumm [facility] Hgb 8.3(L) 13.0 - 17.5 g/dL [facility] Hct 25.2(L) 38.9 - 50.3 % [facility] Plt 130(L) 150 - 400 K/cumm [facility] MPV 11.6 9.1 - 12.3 fL [facility] RBC 3.02(L) 4.30 - 5.80 M/cumm [facility] MCV 83.4 81.3 - 96.4 fL [facility] MCH 27.5 27.1 - 33.3 pg [facility] MCHC 32.9 32.3 - 35.7 g/dL [facility] RDW CV 14.1 11.1 - 14.9 % [facility] RDW SD 41.2 35.7 - 48.1 fL [facility] NRBC abs 0.00 0.00 - 0.01 K/cumm [facility] Blood 11/23/2021 1:24 AM CDT 11/23/2021 1:30 AM CDT us Yan Fuentes MD LAB BLOOD ORDERABLES Final Res ult [facility] 1 [facility] Department [place] [address] documented in this encounter Visit Diagnoses Diagnosis Diarrhea- Primary Diarrhea, unspecified type Iron deficiency anemia due to chronic blood loss Iron deficiency anemia secondary to blood loss (chronic) Iron deficiency anemia due to chronic blood loss Iron deficiency anemia secondary to blood loss (chronic) Essential hypertension Unspecified essential hypertension Hemorrhoids documented in this encounter Admitting Diagnoses Diagnosis Diarrhea Iron deficiency anemia due to chronic blood loss Iron deficiency anemia secondary to blood loss (chronic) documented in this encounter Administered Medications Inactive Administered Medications - up to 3 most recent administrations Medication Order MAR Action Action Date Dose Rate Site amLODIPine (NORVASC) tablet 10 mg 10 mg, oral, Nightly, First dose (after last modification) on 11/24/21 at 2100 bisacodyl EC (DULCOLAX EC) tablet 15 mg 15 mg, oral, Once, On Fri11/23/21 at 1315, For 1 dose, Do not crush, chew, cut, dissolve, open or otherwise manipulate tablet/capsule., Indications: colon prepIndications:colon prep Given 11/23/2021 1:39 PM CDT 15 mg buPROPion XL (WELLBUTRIN XL) 24 hour tablet 300 mg 300 mg, oral, Nightly, First dose (after last modification) on 11/24/21 at 2100, Do not crush, chew, cut, dissolve, open or otherwise manipulate tablet/capsule. clonazePAM (KlonoPIN) tablet 0.5 mg 0.5 mg, oral, Nightly, First dose on Fri11/23/21 at 2100 Given 11/23/2021 8:07 PM CDT 0.5 mg famotidine (PEPCID) tablet 20 mg 20 mg, oral, 2 times daily, First dose on 4/15/22 at 1000 Given 11/23/2021 8:07 PM CDT 20 mg hydrocortisone (ANUSOL-HC) 2.5 % rectal cream rectal, 2 times daily PRN, hemorrhoids, irritation, Starting on Fri11/23/21 at 1433 Given 11/23/2021 5:19 PM CDT ioversoL (OPTIRAY 350) syringe syringe 100 mL 100 mL, intravenous, Once in imaging, contrast, Starting on Fri11/23/21 at 0333, For 1 dose Contrast Given 11/23/2021 3:33 AM CDT 100 mL magnesium citrate oral solution 296 mL 296 mL, oral, Once, On Fri11/24/21 at 0400, For 1 dose, Pre-Op/Floor (GI), Administer at 4:00 AM on the day of the procedure., Indications: Bowel EvacuationIndications:Bowel Evacuation Given 11/24/2021 3:09 AM CDT 296 mL ondansetron (ZOFRAN) injection 4 mg 4 mg, intravenous, Administer over 2 Minutes, Every 6 hours PRN, nausea, vomiting, if not tolerating PO, Starting on Fri11/23/21 at 0342, Indications: Nausea and VomitingIndications:Nausea and Vomiting ondansetron ODT (ZOFRAN-ODT) disintegrating tablet 4 mg 4 mg, oral, Every 6 hours PRN, nausea, vomiting, Starting on Fri11/23/21 at 0342, Indications: Nausea and VomitingIndications:Nausea and Vomiting polyethylene glycol (MIRALAX) powder 119 g 119 g, oral, 2 times daily, First dose on Fri11/23/21 at 1600, For 2 doses, Pre-Op/Floor (GI), Mix 238 gm (whole container) with 2 liters of Gatorade (any color except red). Administer 1 liter (containing 119 gm or 1/2 of bulk container) at 16:00 the day before the procedure and keep the remaining 1 liter (containing 119 gm or 1/2 of bulk container) for a second dose at 20:00 the evening before the procedure. Each 1 liter dose (containing 119 gm or 1/2 of bulk container) should be consumed within 2 hours., Indications: Bowel EvacuationIndications:Bowel Evacuation Given 11/23/2021 8:07 PM CDT 119 g Given 11/23/2021 5:13 PM CDT 119 g sodium chloride 0.9% bolus 1,000 mL 1,000 mL, intravenous, at 1,000 mL/hr, Administer over 1 Hours, Once, On Fri11/23/21 at 0104, For 1 dose New Bag 11/23/2021 1:25 AM CDT 1,000 mL 1000 mL/hr sodium chloride 0.9% flush 0.5-20 mL 0.5-20 mL, intra-catheter, As needed, line care, Starting on Fri11/23/21 at 0549, Flush volume based on line type and size. Flush before and after each use. Do not use with liposomal doxorubicin, oxaliplatin or any other medications incompatible with saline., Indications: FlushingIndications:Flushing sodium chloride 0.9% flush 0.5-20 mL 0.5-20 mL, intra-catheter, Every 8 hours scheduled, First dose on 11/24/21 at 0845, Flush volume based on line type and size. sodium chloride 0.9% flush 0.5-20 mL 0.5-20 mL, intra-catheter, As needed, line care, Starting on 11/24/21 at 0807, Flush volume based on line type and size. Flush before and after each use. sodium chloride 0.9% infusion 50 mL/hr, intravenous, Continuous, Starting on Fri11/23/21 at 0343 New Bag 11/24/2021 9:58 AM CDT 50 mL/hr 50 mL/hr Rate/Dose Change 11/23/2021 2:08 PM CDT 50 mL/hr 50 mL/h r New Bag 11/23/2021 10:37 AM CDT 125 mL/hr 125 mL/hr sodium chloride 0.9% IVPB 0-250 mL 0-250 mL, intravenous, Once, On Fri11/23/21 at 1430, For 1 dose, Prime blood tubing and administer amount needed to clear line (usually 50-100 mL) after transfusion complete. New Bag 11/23/2021 5:46 PM CDT 50 mL documented in this encounter Discontinued Medications Medication Sig Discontinue Reason Start Date End Da te cimetidine (TAGAMET) 300 mg tablet Take 300 mg by mouth 4 (four) times a day Stop Taking at Discharge 11/24/2021 documented as of this encounter Active and Recently Administered Medications Times are shown in CDT. Scheduled Medication Order 11/22/2021 11/23/2021 11/24/2021 amLODIPine (NORVASC) tablet 10 mg 10 mg, oral, Nightly, First dose (after last modification) on 11/24/21 at 2100 0803 ([facility] Hold - Provider: Automatic Transfer Provider - Reason: Patient not available)1053 ([facility] Unhold - Provider: Automatic Transfer Provider) bisacodyl EC (DULCOLAX EC) tablet 15 mg (COMPLETED) 15 mg, oral, Once, On Fri11/23/21 at 1315, For 1 dose, Do not crush, chew, cut, dissolve, open or otherwise manipulate tablet/capsule., Indications: colon prep 1339 (Given - Provider: Derrick Flores, DEJA) buPROPion XL (WELLBUTRIN XL) 24 hour tablet 300 mg 300 mg, oral, Nightly, First dose (after last modification) on 11/24/21 at 2100, Do not crush, chew, cut, dissolve, open or otherwise manipulate tablet/capsule. 0803 ([facility] Hold - Provider: Automatic Transfer Provider - Reason: Patient not available)1053 ([facility] Unhold - Provider: Automatic Transfer Provider) clonazePAM (KlonoPIN) tablet 0.5 mg 0.5 mg, oral, Nightly, First dose on Fri11/23/21 at 2100 2006 (Given - Provider: Carisa Henriquez, DEJA) 0803 ([facility] Hold - Provider: Automatic Transfer Provider - Reason: Patient not available)1053 ([facility] Unhold - Provider: Automatic Transfer Provider) famotidine (PEPCID) tablet 20 mg 20 mg, oral, 2 times daily, First dose on Fri11/23/21 at 1000 0953 (Not Given - Provider: Derrick Flores RN - Reason: NPO)2006 (Given - Provider: Carisa Henriquez RN) 08 (Not Given - Provider: Derrick Flores RN - Reason: NPO)0803 ([facility] Hold - Provider: Automatic Transfer Provider - Reason: Patient not available)1053 ([facility] Unhold - Provider: Automatic Transfer Provider) hydrocortisone (ANUSOL-HC) 2.5 % rectal cream rectal, Daily, First dose (after last modification) on Sat 22 at 1200 1200 (Due) magnesium citrate oral solution 296 mL (COMPLETED) 296 mL, oral, Once, On Fri11/24/21 at 0400, For 1 dose, Pre-Op/Floor (GI), Administer at 4:00 AM on the day of the procedure., Indications: Bowel Evacuation 0309 (Given - Provid er: Carisa Henriquez RN) polyethylene glycol (MIRALAX) powder 119 g (COMPLETED) 119 g, oral, 2 times daily, First dose on Fri11/23/21 at 1600, For 2 doses, Pre-Op/Floor (GI), Mix 238 gm (whole container) with 2 liters of Gatorade (any color except red). Administer 1 liter (containing 119 gm or 1/2 of bulk container) at 16:00 the day before the procedure and keep the remaining 1 liter (containing 119 gm or 1/2 of bulk container) for a second dose at 20:00 the evening before the procedure. Each 1 liter dose (containing 119 gm or 1/2 of bulk container) should be consumed within 2 hours., Indications: Bowel Evacuation 1713 (Given - Provider: Derrick Flores, DEJA)2006 (Given - Provider: Carisa Henriquez RN) sodium chloride 0.9% bolus 1,000 mL (COMPLETED) 1,000 mL, intravenous, at 1,000 mL/hr, Administer over 1 Hours, Once, On Fri11/23/21 at 0104, For 1 dose 0125 (New Bag - Provider: Samuel Thomason RN)0342 (Stopped - Provider: Ela Noel RN) sodium chloride 0.9% flush 0.5-20 mL 0.5-20 mL, intra-catheter, Every 8 hours scheduled, First dose on Fri11/24/21 at 0845, Flush volume based on line type and size. 0956 (Not Given - Provider: Derrick Flores RN - Reason: IV Infusing) sodium chloride 0.9% IVPB 0-250 mL (COMPLETED) 0-250 mL, intravenous, Once, On Fri11/23/21 at 1430, For 1 dose, Prime blood tubing and administer amount needed to clear line (usually 50-100 mL) after transfusion complete. 1746 (New Bag - Provider: Derrick Flores RN) sodium chloride 0.9% IVPB 250 mL 250 mL, intravenous, Once, On Fri11/23/21 at 0630, For 1 dose, To infuse at 30 mL/hr prior to initiation of treatment , as flush between drugs, and clear line at completion of treatment. Do NOT use with liposomal doxorubicin, oxaliplatin or any other medications with saline incompatibility., Indications: line care 0615 (Not Given - Provider: Ela Noel RN - Reason: IV Infusing) Continuous Medication Order 11/22/2021 11/23/2021 11/24/2021 sodium chloride 0.9% infusion (CANCELED) 50 mL/hr, intravenous, Continuous, Starting on Fri11/23/21 at 0343 0349 (New Bag - Provider: Ela Noel RN)1037 (New Bag - Provider: Derrick lFores RN)1408 (Rate/Dose Change - Provider: Derrick Flores RN) 0958 (New Bag - Provider: Derrick Flores RN)1054 (Due: Stopped - Provider: Kareen Haines, DEJA) sodium chloride 0.9% infusion (CANCELED) 30 mL/hr, intravenous, Continuous, Starting on Fri11/24/21 at 0845, Pre-Procedure (GI) 0821 (New Bag - Provider: Amandeep Sharpe CRNA)0827 (Rate/Dose Verify - Provider: Amandeep Sharpe CRNA)0852 (Paused - Provider: Amandeep Sharpe CRNA - Comment: Switch to gravity)0853 (Restarted - Provider: Amandeep Sharpe CRNA)1054 (Due: Stopped - Provider: Kareen Haines, DEJA) PRN Medication Order 11/22/2021 11/23/2021 11/24/2021 acetaminophen (TYLENOL) tablet 650 mg 650 mg, oral, Every 4 hours PRN, 1st line for pain, Starting on Fri11/23/21 at 0342, Indications: Pain 0803 ([facility] Hold - Provider: Automatic Transfer Provider - Reason: Patient not available)1053 ([facility] Unhold - Provider: Automatic Transfer Provider) hydrocortisone (ANUSOL-HC) 2.5 % rectal cream (CANCELED) rectal, 2 times daily PRN, hemorrhoids, irritation, Starting on Fri11/23/21 at 1433 1719 (Given - Provider: Derrick Flores, RN) 0803 ([facility] Hold - Provider: Automatic Transfer Provider - Reason: Patient not available)1053 ([facility] Unhold - Provider: Automatic Transfer Provider) ioversoL (OPTIRAY 350) syringe syringe 100 mL (COMPLETED) 100 mL, intravenous, Once in imaging, contrast, Starting on Fri11/23/21 at 0333, For 1 dose 0333 (Contrast Given - Provider: Lydia Conde RT) ondansetron (ZOFRAN) injection 4 mg(Linked Group 1) 4 mg, intravenous, Administer over 2 Minutes, Every 6 hours PRN, nausea, vomiting, if not tolerating PO, Starting on Fri11/23/21 at 0342, Indications: Nausea and Vomiting 0803 ([facility] Hold - Provider: Automatic Transfer Provider - Reason: Patient not available)1053 ([facility] Unhold - Provider: Automatic Transfer Provider) ondansetron ODT (ZOFRAN-ODT) disintegrating tablet 4 mg(Linked Group 1) 4 mg, oral, Every 6 hours PRN, nausea, vomiting, Starting on Fri11/23/21 at 0342, Indications: Nausea and Vomiting 0803 ([facility] Hold - Provider: Automatic Transfer Provider - Reason: Patient not available)1053 ([facility] Unhold - Provider: Automatic Transfer Provider) sodium chloride 0.9% flush 0.5-20 mL 0.5-20 mL, intra-catheter, As needed, line care, Starting on Fri11/23/21 at 0549, Flush volume based on line type and size. Flush before and after each use. Do not use with liposomal doxorubicin, oxaliplatin or any other medications incompatible with saline., Indications: Flushing 0803 ([facility] Hold - Provider: Automatic Transfer Provider - Reason: Patient not available)1053 ([facility] Unhold - Provider: Automatic Transfer Provider) sodium chloride 0.9% flush 0.5-20 mL 0.5-20 mL, intra-catheter, As needed, line care, Starting on Fri11/24/21 at 0807, Flush volume based on line type and size. Flush before and after each use. Linked Groups Order Group 1: ondansetron ODT (ZOFRAN-ODT) disintegrating tablet 4 mgJump to med 4 mg, oral, Every 6 hours PRN, nausea, vomiting, Starting on Fri11/23/21 at 0342, Indications: Nausea and Vomiting Or ondansetron (ZOFRAN) injection 4 mgJump to med 4 mg, intravenous, Administer over 2 Minutes, Every 6 hours PRN, nausea, vomiting, if not tolerating PO, Starting on Fri11/23/21 at 0342, Indications: Nausea and Vomiting documented in this encounter Orders Medications Ordered That Tommy ht Not Have Been Administered Count Last Ordered Date First Ordered Date hydrocortisone (ANUSOL-HC) 2 .5 % rectal cream 1 11/24/2021 sodium chloride 0.9% flush 0.5-20 mL 3 11/0911/23/2021 sodium chloride 0.9% infusion 1 11/24/2021 acetaminophen (TYLENOL) tablet 650 mg 1 amLODIPine (NORVASC) tablet 10 mg 2 022 bisacodyl EC (DULCOLAX EC) tablet 10 mg 1 0 11/23/2021 buPROPion XL (WELLBUTRIN XL) 24 hour tablet 300 mg 2 11/23/2021 ferrous sulfate tablet 325 mg 1 11/23/2021 magnesium hydroxide (MILK OF MAGNESIA) 80 mg/mL (33.3 mg/mL as elemental magnesium) oral suspension 30 mL 1 11/23/2021 mineral oil (FLEET MINERAL O IL) enema 1 enema 1 11/23/2021 ondansetron (ZOFRAN) injection 4 mg 1 11/23 ondansetron ODT (ZOFRAN-ODT) disintegrating tablet 4 mg 1 11/23/2021 sodium chloride 0.9% IVPB 250 mL 1 11/24/19 Diet Count Last Ordered Date First Orde red Date ADULT DISCHARGE DIET 1 11/24/2021 Nursing Count Last Ordered Date First Orde red Date DISCHARGE ACTIVITY 2 11/24/2021 DISCHARGE CALL PROVIDER 4 11/24/2021 DISCHARGE INSTRUCTIONS 1 11/24/2021 FOLLOW UP WITH ESTABLISHED PROVIDER 1 11/24 ACTIVITY 1 11/23/2021 NOTIFY PROVIDER (SPECIFY) 1 11/23/2021 NURSING COMMUNICATION 1 11/23/2021 VERIFY INFORMED CONSENT 2 11/23/2021 WEIGH PATIENT 1 11/23/2021 CORE MEASURES Count Last Ordered Date First Ord ered Date REASON FOR NO VTE PROPHYLAXIS AT ADMISSION 1 11/23/2021 Case Request Count Last Ordered Date First Orde red Date CASE REQUEST GI 1 11/23/2021 ADT Patient Update Count Last Ordered Date Firs t Ordered Date ED IP DECISION TO ADMIT 1 11/23/2021 documented in this encounter Care Teams Oracle Security Consultant Relationship Specialty Start Date End Date Alessandro Velasco MD PCP - General 11/08/16 01/08/22 Case Bragg NP [address] [place] [address] [address] [place] [address] Nurse Practitioner Nurse Practitioner 05/29/20 Everardo Wilcox MD [address] [place] [address] [address] [place] [address] Consulting Physician General Surgery 11/24/21 documented as of this encounter
--- OUTSIDE RECORDS SUMMARY | 2024-08-21 22:26 | XMS_ITS | Encounter Summary ---
Author Organization [facility] Healthcare Address [address] [place] [address] Care Team Providers Care Steel Unloader Name Role Phone Case Bragg NP Unavailable [phone] Silver Wilcox MD Unavailable Amandeep Colmenares MD Primary Care Provider + Encounter Details Date Type Department Care Team (Late st Contact Info) Description 07/13/2022 9:00 AM MACHINE [employer]TER [employer] [address] [phone] Iron deficiency anemia due to chronic blood loss Social History Tobacco Use Types Packs/Day Years [...] file Legal Sex Male 2:09 PM MACHINE [employer] Gender Identity Male 11/26/2021 10:53 AM CDT Sexual Orientation Straight 11/22/2019 5: 22 PM CDT documented as of this encounter Plan of Treatment Not on file documented as of this encounter Procedures Procedure Name Priority Date/Time Associated Diagnosis Comments DIFFERENTIAL AUTO Routine 07/13/2022 9:0 8 AM MACHINE [employer]TER [employer]AL Iron deficiency anemia due to chronic blood loss IRON PROFILE W/ IBC Routine 07/13/2022 9 :08 AM MACHINE [employer]AL Iron deficiency anemia due to chronic blood loss CBC WITH AUTO DIFFERENTIAL Routine 07/13/2022 9:08 AM MACHINE [employer]TER [employer]AL Iron deficiency anemia due to chronic blood loss documented in this encounter Results * Differential, auto (07/13/2022 9:08 AM 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 Current Interpretive Data was last revised on 2017. Imm gran pct 1.2 % [facility] Comment: Interpretive Data Percent cell count reference ranges are not reported, since discordance with absolute values may lead to misinterpretation of CBC data. Current Interpretive Data was last revised on 2017. Lymphocyte pct 19.5 % [facility] Comment: Interpretive Data Percent cell count reference ranges are not reported, since discordance with absolute values may lead to misinterpretation of CBC data. Current Interpretive Data was last revised on 2017. Monocyte pct 10.1 % [facility] Comment: Interpretive Data Percent cell count reference ranges are not reported, since discordance with absolute values may lead to misinterpretation of CBC data. Current Interpretive Data was last revised on 2017. Eosinophil pct 3.1 % [facility] Comment: Interpretive Data Percent cell count reference ranges are not reported, since discordance with absolute values may lead to misinterpretation of CBC data. Current Interpretive Data was last revised on 2017. Basophil pct 0.6 % [facility] Comment: Interpretive Data Percent cell count reference ranges are not reported, since discordance with absolute values may lead to misinterpretation of CBC data. Current Interpretive Data was last revised on 2017. Blood 07/13/2022 9:08 AM MACHINE SETTER SHE[employer] METAL 07/13/2022 9:55 AM MACHINE SETTER SHE[employer] METAL Alessandro Velasco MD LAB BLOOD ORDERABLES Final Res ult Performing Organization Address [facility]/ZIP Co de Phone Number [facility] ([place] [address] [facility] [place] [address] * Iron profile w/ IBC (07/13/2022 9:08 AM MACHINE SETTER SHEET METAL) Iron 109 50 - 150 mcg/dL [facility] TIBC 289 250 - 400 mcg/dL [facility] Transferrin saturation 38 20 - 50 % [facility] Blood 07/13/2022 9:08 AM MACHINE SETTER SHEET METAL 07/13/2022 9:55 AM MACHINE SETTER SHEET METAL Alessandro Velasco MD LAB BLOOD ORDERABLES Final Res ult [facility] [address] [facility] [place] [address] * (ABNORMAL) CBC with auto differential (07/13/2022 9:08 AM MACHINE SETTER SHE[employer] METAL) WBC 6.5 3.8 - 9.9 K/cumm [facility] Hgb 11.6(L) 13.0 - 17.5 g/dL [facility] Hct 36.3(L) 38.9 - 50.3 % [facility] Plt 223 150 - 400 K/cumm [facility] MPV 11.8 9.1 - 12.3 fL [facility] RBC 4.22(L) 4.30 - 5.80 M/cumm [facility] MCV 86.0 81.3 - 96.4 fL [facility] MCH 27.5 27.1 - 33.3 pg [facility] MCHC 32.0(L) 32.3 - 35.7 g/dL [facility] RDW CV 13.7 11.1 - 14.9 % [facility] RDW SD 42.3 35.7 - 48.1 fL [facility] NRBC abs 0.00 0.00 - 0.01 K/cumm [facility] Blood 07/13/2022 9:08 AM MACHINE SETTER SHE[employer] METAL 07/13/2022 9:55 AM MACHINE SETTER SHEET METAL Alessandro Velasco MD LAB BLOOD ORDERABLES Final Res ult [facility] [address] [facility] [place] [address] documented in this encounter Visit Diagnoses Diagnosis Iron deficiency anemia due to chronic blood loss Iron deficiency anemia secondary to blood loss (chronic) documented in this encounter Care Teams Steel Unloader Relationship Specialty Start Date End Date Amandeep Colmenares MD [address] [place] [phone] PCP - General Internal Medicine 07/13/22 Case Bragg NP [address] [place] [address] [address] [place] [address] Nurse Practitioner Nurse Practitioner 05/29/20 Silver Wilcox MD NPI: [id number] [place] [address] [place] [address] Consulting Physician General Surgery 11/24/21 documented as of this encounter
--- OUTSIDE RECORDS SUMMARY | 2024-08-21 22:26 | XMS_ITS | Encounter Summary ---
Author Organization [facility] Address [address] [place] [address] Care Team Providers Care Automation Application Engineer Name Role Phone Alessandro Velasco MD Primary Care Provider [phone] Case Bragg NP Unavailable [phone] Silver Wilcox MD Unavailable Reason for Visit * Reason Comments Forms/questionnaires FMLA paperwork Encounter Details Date Type Department Care Team (Latest Contact Info) Description 12/04/2021 1:00 PM CDT Office Visit [facility] [address] [place] [address] Alessandro Velasco MD [address] [place] [id number] Gastrointestinal hemorrhage associated with anorectal source (Primary Dx); Class 2 obesity with body mass index (BMI) of 36.0 to 36.9 in adult, unspecified obesity type, unspecified whether serious comorbidity present; Essential hypertension Social History Tobacco Use Types Packs/Day Years [...] on file Legal Sex Male 2:09 PM [employer] Gender Identity Male 11/26/2021 10:53 AM CDT Sexual Orientation Straight 11/22/2019 5: 22 PM CDT documented as of this encounter Last Filed Vital Signs Vital Sign Reading Time Taken Comments Blood Pressure 130/60 12/04/2021 1:14 PM CDT Pulse 60 12/04/2021 1:14 PM CDT Temperature - - Respiratory Rate 20 12/04/2021 1:14 PM CDT Oxygen Saturation - - Inhaled Oxygen Concentration - - Weight 98.4 kg (217 lb) 12/04/2021 1:14 PM CDT Height 165.1 cm (5' 5 ) 12/04/2021 1:14 PM CDT Body Mass Index 36.11 12/04/2021 1:14 PM CDT documented in this encounter Ordered Prescriptions Prescription Sig Dispense Quantity Refills Last Filled Start Date End Date amlodipine-valsart an (EXFORGE) 10-160 mg per tablet Take 1 tablet by mouth daily 30 tablet 11 12/05/2021 clonazePAM (KlonoPIN) 0.5 mg tablet Take 1 tablet (0.5 mg total) by mouth nightly 90 tablet 3 12/05/2021 buPROPion XL (WELLBUTRIN XL) 300 mg 24 hr tablet Take 1 tablet (300 mg total) by mouth daily 90 tablet 3 12/05/[address] (PROTONIX) 40 mg EC tabletIndications: Treatment of Non-Bleeding Gastric Disorder Take 1 tablet (40 mg total) by mouth daily 30 tablet 11 12/05/2021 tadalafiL (CIALIS) 20 mg tablet Take 1 tablet (20 mg total) by mouth daily as needed for erectile dysfunction 4 tablet 11 12/05/2021 ferrous sulfate 325 mg (65 mg of elemental iron) tabletIndications: Iron Deficiency Anemia Take 1 tablet (325 mg total) by mouth 3 (three) times a day with meals 90 tablet 3 12/05/2021 3 documented in this encounter Progress Notes * Alessandro Velasco MD - 12/04/2021 1:00 PM CDT Subjective/Objective Patient ID: Minh Wise is a 51 y.o. male. Chief Complaint Forms/questionnaires (FMLA paperwork) HPI 51-year-old Seen today for follow-up of his hospitalization for GI bleeding he is going to have hemorrhoid surgery next month most likely follow he is following up with surgery with Dr. Ismael Wilcox he is taking iron supplementation without constipation or nausea he denies any melenic stools Review of Systems Vitals: 12/04/21 1314 BP: 130/60 BP Location: Left arm Patient Position: Sitting Pulse: 60 Resp: 20 Weight: 98.4 kg (217 lb) Height: 165.1 cm (5' 5 ) Physical Exam he is pleasant no distress lungs clear cardiovascular regular abdomen soft non Assessment/Plan Diagnoses and all orders for this visit: Gastrointestinal hemorrhage associated with anorectal source (Primary) will continue iron supplementation will check iron profile CBC in 2 weeks Class 2 obesity with body mass index (BMI) of 36.0 to 36.9 in adult, unspecified obesity type, unspecified whether serious comorbidity present work harder on diet exercise high-fiber diet Essential hypertension good control with current regimen continue same his forms for his FMLA filled out regarding his recent hospitalization upcoming surgery he may have to take time off occasionally because of his excessive rectal hemorrhage with subsequent anemia but hopefully with his upcoming surgery this will be resolved The patient states that he will follow-up with new primary care physician within 6 months Other orders - tadalafiL (CIALIS) 20 mg tablet; Take 1 tablet (20 mg total) by mouth daily as needed for erectile dysfunction - pantoprazole DR (PROTONIX) 40 mg EC tablet; Take 1 tablet (40 mg total) by mouth daily - ferrous sulfate 325 mg (65 mg of elemental iron) tablet; Take 1 tablet (325 mg total) by mouth 3 (three) times a day with meals - buPROPion XL (WELLBUTRIN XL) 300 mg 24 hr tablet; Take 1 tablet (300 mg total) by mouth daily - clonazePAM (KlonoPIN) 0.5 mg tablet; Take 1 tablet (0.5 mg total) by mouth nightly - amlodipine-valsartan (EXFORGE) 10-160 mg per tablet; Take 1 tablet by mouth daily Side effects, risks, interactions reviewed with patient. Indications for testing discussed. Any further problems to contact us. He was told what to look out for and verbalized understanding. The patient was given the opportunity to have all questions answered today and was in agreement with the plan of care. documented in this encounter Plan of Treatment Not on file documented as of this encounter Visit Diagnoses Diagnosis Gastrointestinal hemorrhage associated with anorectal source- Primary Class 2 obesity with body mass index (BMI) of 36.0 to 36.9 in adult, unspecified obesity type, unspecified whether serious comorbidity present Essential hypertension Unspecified essential hypertension documented in this encounter Discontinued Medications Medication Sig Discontinue Reason Start Date End Da te tadalafiL (CIALIS) 20 mg tablet Take 1 tablet (20 mg total) by mouth daily as needed for erectile dysfunction Reorder 09/28/2020 12/05/2021 buPROPion XL (WELLBUTRIN XL) 300 mg 24 hr tablet TAKE ONE TABLET BY MOUTH ONCE DAILY Reorder 05/01/2021 12/05/2021 clonazePAM (KlonoPIN) 0.5 mg tablet Take 1 tablet (0.5 mg total) by mouth nightly Reorder 06/04/2021 12/05/2021 ferrous sulfate 325 mg (65 mg of elemental iron) tabletIndications:Iron Deficiency Anemia Take 1 tablet (325 mg total) by mouth 3 (three) times a day with meals Reorder 08/30/2021 12/05/[address] (PROTONIX) 40 mg EC tabletIndications:Inessa tment of Non-Bleeding Gastric Disorder Take 1 tablet (40 mg total) by mouth daily Reorder 11/24/2021 12/05/2021 amlodipine-valsartan (EXFORGE) 10-160 mg per tablet TAKE ONE TABLET BY MOUTH ONCE DAILY Reorder 11/29/2021 12/05/2021 documented as of this encounter Historical Medications * This list may reflect changes made after this encounter. Medication Sig Dispense Quantity Refills Last Filled Start D ate End Date docusate sodium (COLACE) 100 mg capsule 08/17/2018 added in this encounter Care Teams Automation Application Engineer Relationship Specialty Start Date End Date Alessandro Velasco MD PCP - General 11/08/16 01/08/22 Case Bragg NP [address] [place] [address] Nurse Practitioner Nurse Practitioner 05/29/20 Silver Wilcox MD [address] [place] [address] Consulting Physician General Surgery 11/24/21 documented as of this encounter
--- OUTSIDE RECORDS SUMMARY | 2024-08-21 22:26 | XMS_ITS | Encounter Summary ---
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 11/24/2021 8:30 AM Posted [facility] ENDOSCOPY GI 02 Gastroenterology Inpatient Urgent - 24 hours Panel 1 Procedure LRB Anes Op Region Wound Class Comments ESOPHAGOGASTRODUODENOSCOPY BIOPSY N/A Monitor Anesthesia Care COLON BIOPSY N/A Monitor Anesthesia Care Colon Surgeon Surgeon Role Service Panel Claudette Casarez MD Primary Gastroenterology 1 documented in this encounter Social History Tobacco [...] on file Legal Sex Male 2:09 PM [employer] Gender Identity Male 11/26/2021 10:53 AM CDT Sexual Orientation Straight 11/22/2019 5: 22 PM CDT documented as of this encounter Last Filed Vital Signs Vital Sign Reading Time Taken Comments Blood Pressure 98/48 11/24/2021 9:15 AM CDT Pulse 77 11/24/2021 9:15 AM CDT Temperature 36.7 ??C (98 ??F) 11/24/2021 8:05 AM CDT Respiratory Rate 20 11/24/2021 9:15 AM CDT Oxygen Saturation 95% 11/24/2021 9:15 AM CDT Inhaled Oxygen Concentration - - Weight 93 kg (205 lb) 11/23/2021 3:37 AM CDT Height 165.1 cm (5' 5 ) 11/23/2021 3:37 AM CDT Body Mass Index 34.11 11/23/2021 3:37 AM CDT documented in this encounter Discharge Summaries * Gaby Paul MD - 11/24/2021 12:14 PM CDT [place], [place] Hospitalist Discharge Summary Patient Name: Marifer Sebastian Patient : 1970 Room/Bed: [id number] Admission Date/Time: 11/23/2021 12:57 AM Discharge date: [...] Order Current Status Surgical pathology Collected (11/24/21 0818) H. pylori urease screen (MEGHA test) Tissue In process Stool culture Stool Rectum Preliminary result Gen surg referral for hemorrhoids Discharge Exam: Vitals: 11/24/21 0900 11/24/21 0915 11/24/21 0930 11/24/21 0954 BP: 97/58 98/48 129/70 140/64 BP Location: Right arm Patient Position: Lying Pulse: 77 77 76 72 Resp: 20 18 Temp: 36.4 ??C (97.6 ??F) 36.5 ??C (97.7 ??F) TempSrc: Oral SpO2: 98% 95% 97% 97% Weight: Height: General: awake, alert, oriented. No acute distress Eyes: pupils are equal, no scleral icterus Neck: supple Pharynx: No gross oral lesion, tongue midline, mucosa moist Lungs: clear to auscultation without wheeze Heart: [id number] Abd: present bowel sounds, Non Tender, Non [...] Range Crossmatch Compatible Unit number for crossmatch [id number] Prepare RBC: 1 Units Collection Time: 11/23/21 3:31 PM Result Value Ref Range Units requested 1 Units requested Ready Unit Number [id number] Product code [id number] Blood Expiration Date Product Blood Type (for scanning) 5100 Product [...] enlarged lymph node or free fluid. MSK: Uybs-ft-tbifmpjk disc disease and facet arthropathy. BODY WALL: Tiny fat containing periumbilical hernia. IMPRESSION: No bowel inflammation or other acute abnormality identified. THIS IS AN ELECTRONICALLY VERIFIED FINAL REPORT 11/23/2021 3:58 AM - Electronically signed by Min Bates M.D. AR: PATTIE Report ID: [id number] Reading Location: [place] [address] Procedure(s): ESOPHAGOGASTRODUODENOSCOPY BIOPSY COLON BIOPSY Medications: Your [...] 3 (three) times a day with meals qo-opi-FV-Qi-Hb-oativxg-lutein 0.4-162-18 mg tablet Notes to patient: Supplement PROBIOTIC-10 ORAL Notes to patient: Supplement tadalafiL 20 mg tablet Commonly known as: CIALIS Take 1 tablet (20 mg total) by mouth daily as needed for erectile dysfunction STOP taking these medications cimetidine 300 mg tablet Commonly known as: TAGAMET Where to Get Your Medications These medications were sent to [place] [address] [place] [address] [address] ?? diphenoxylate-atropine 2.5-0.025 mg per tablet ?? [...] or concerns please call us back at [phone]. We would be more than happy to help answer any questions you have. [facility] strives to provide excellent care. We hope that you feel you have received excellent care. Disposition: home Outpatient Follow-Up: Contact Information for Follow-ups Everardo Wilcox MD Specialty: General Surgery Relationship: Consulting Physician [address] [place] [address] [address] [facility] [address] Next Steps: Follow up Instructions: call to schedule an appointment. referral for hemorrhoid surgery Questions: To provider: EVERARDO WILCOX Instructions for follow-up (appointment date and time): call to schedule an appointment. referral for hemorrhoid surgery Alessandro Velasco MD Specialty: Internal Medicine Relationship: PCP - General [address] [place] [address] [address] [facility] [address] Next Steps: Schedule an appointment as soon as possible for a visit Instructions: as needed Future Appointments Date Time Provider Department Center 03/18/2022 3:30 PM Alessandro Velasco MD [facility] Total time spent on day of discharge 32 minutes Signed: Gaby Paul MD Internal Medicine - Hospitalist [facility] - Adult Hospitalist Service 11/24/2021 1:05 PM Cc: Alessandro Velasco MD documented in this encounter Discharge Instructions * Discharge Instr - Other Orders* Kareen Haines RN - 11/24/2021 11:37 AM CDT If you have any questions or concerns please call us back at [phone]. We would be more than happy to help answer any questions you have. [facility] strives to provide excellent care. We hope that you feel you have received excellent care. * Attachments The following attachments cannot be sent through Care Everywhere. * Diphenoxylate/Atropine (By mouth) (Romanian) * Hydrocortisone (By mouth) (Romanian) * Pantoprazole (By mouth) (Romanian) documented in this encounter Medications at Time [...] ORAL) Take 1 capsule by mouth nightly tt-bio-OP-Ca-Fe- lycopen-lutein 0.4-162-18 mg tablet Take 1 tablet [...] in this encounter Progress Notes * Zi Kinney RN - 11/23/2021 12:02 PM CDT CM Initial Assessment Interview Note Information Obtained From: Patient (11/23/211155) Admission Source: ED Impression: diarrhea Plan Includes: evaluation Primary Source of Transportation: Health Insurance Coverage: [facility] choice select Prescription Coverage: yes Pharmacy: [facility] Primary Care Provider: Alessandro Velasco MD Prior to Admission: Primary Caregiver: Self Support System: Spouse/Significant Other Support system contact info (name, phone, availablity): christina sebastian- Home Care Services: No Durable Medical Equipment: CPAP/Bi-PAP, Walker (wheeled) Living Arrangements: Spouse/significant other Type of Residence: Private residence Steps in home? : Yes, Outside of home Number of steps outside:: 4 steps (11/23/211155) Behavioral Health Services: Behavioral Health Services: No (11/23/211155) Patient expects to be Discharged to: Private residence, (11/23/211155) Additional Information: Discharge plan discussed with patient. He lives at home with his . He is independent with all care, but has a wheeled walker if needed. He also uses a CPAP at night through [employer]. Plan is to return home, his will [...] Take 1 capsule by mouth nightly ??? en-ogh-UX-Ck-Dw-oadkpex-lutein 0.4-162-18 mg tablet Take 1 tablet by [...] tablet 10 mg 10 mg oral Nightly Gaby Paul MD ??? [START ON 11/24/2021] buPROPion [...] chloride 0.9% infusion 50 mL/hr intravenous Continuous Claudette Casarez MD 50 mL/hr at 11/23/21 1408 [...] lymphadenopathy, icterus OBJECTIVE Vitals: Arrival Vitals Temp 11/23/21102 36.4 ??C (97.6 ??F) Pulse 11/23/21102 84 Resp 11/23/21102 20 BP 11/23/21102 157/72 [...] enlarged lymph node or free fluid. MSK: Cmmc-xr-zxneptlq disc disease and facet arthropathy. BODY WALL: Tiny fat containing periumbilical hernia. IMPRESSION: No bowel inflammation or other acute abnormality identified. THIS IS AN ELECTRONICALLY VERIFIED FINAL REPORT 11/23/2021 3:58 AM - Electronically signed by Min Bates M.D. AR: PATTIE Report ID: [id number] Reading Location: [place] [address] A/P Principal Problem: Diarrhea Active Problems: Iron [...] - 11/24/2021 7:50 AM CDTAssociated Order(s): COLONOSCOPY [facility] Patient Name: Marifer Sebastian Procedure Date: 11/24/2021 7:50 AM Date of : 1970 Admit Type: Inpatient Age: 51 Gender: Male Attending MD: Claudette Casarez M.D. Room: [facility] ENDOSCOPY ROOM 2 Note Status: Finalized Patient [...] under direct vision. The Pediatric Colonoscope PCF-H190L [id number] was introduced through the anus and advanced [...] 7:50 AM Procedure Code(s): --- Professional --- 46327, Colonoscopy, flexible; with biopsy, single or multiple Diagnosis Code(s): --- Professional --- K64.8, Other hemorrhoids R19.7, Diarrhea, unspecified K62.5, Hemorrhage of anus and rectum K57.30, Diverticulosis of large intestine without perforation or abscess without bleeding CPT copyright 2020 [employer]. All rights reserved. The codes documented in this report are preliminary and upon residence hall director review may be revised to meet current compliance requirements. Recognized by the [place] [employer] for promoting quality in endoscopy * Claudette Casarez MD - 11/24/2021 7:44 AM CDTAssociated Order(s): [facility] Patient Name: Marifer Sebastian Procedure Date: 11/24/2021 7:44 AM Date of : 1970 Admit Type: Inpatient Age: 51 Gender: Male Attending MD: Claudette Casarez M.D. Room: [facility] ENDOSCOPY ROOM 2 Note Status: Finalized Patient [...] passed under direct vision. The Endoscope GIF-H190 [id number] was introduced through the mouth, and advanced [...] 7:44 AM Procedure Code(s): --- Professional --- 87990, Esophagogastroduodenoscopy, flexible, transoral; with biopsy, single or multiple Diagnosis Code(s): --- Professional --- K21.00, Gastro-esophageal reflux disease with esophagitis, without bleeding D50.9, Iron deficiency anemia, unspecified K92.1, Melena (includes Hematochezia) CPT copyright 2020 [employer]. All rights reserved. The codes documented in this report are preliminary and upon residence hall director review may be revised to meet current compliance requirements. Recognized by the [place] for promoting quality [...] Take 1 capsule by mouth nightly ??? hz-mdm-FE-Qs-Vq-wjvstbk-lutein 0.4-162-18 mg tablet Take 1 tablet by [...] Further plans to follow Voice recognition software [employer] Direct was used dictate and transcribe this document. Auditing Clerk variances may occur. Despite proofreading, typographical errors [...] vomiting. He states he has been taking mqvn-sjo-jelrlqg medication for diarrhea and nothing seems to [...] Triage Vitals Temp Pulse Resp BP SpO2 11/23/2110211/23/2110211/23/2110211/23/2110211/23/21102 36.4 ??C (97.6 ??F) 84 20 157/72 100 % Temp src Heart Rate Source Patient Position BP Location FiO2 (%) 11/23/2110211/23/2133611/23/2133611/23/21336 -- Temporal Pulse Oximetry Lying;HOB 30 degrees [...] to the hospital ED Course as of 11/23/21 0532 Time: 11/24 247 Comment: Informed pt and his about the lab work , she stated his hemoglobin dropped by 2 points in 2 wks. By: Yan Fuentes MD Final diagnoses: Diarrhea, unspecified type Iron deficiency anemia due to chronic blood loss Yan Fuentes MD 11/23/21 0532 * Samuel Thomason RN - 11/23/2021 1:05 [...] surgery. * Perioperative Nursing Note - Joanna Anglin RN - 11/24/2021 9:23 AM CDT 0912 [...] wellness routine Outcome: Progressing * Plan of Autumn - Ela Noel RN - 11/23/2021 4:06 [...] Biopsy) 11/24/2021 8:53 AM CDT Narrative PATHOLOGY [facility] ([place] - 11/27/2021 3:02 PM CDT EPIC results best viewed via link to PDF [facility] Department of Pathology [address] [place] [address] Note to Patients: This report may contain [...] the details. Final Report Patient Name: ??MARIFER SEBASTIAN Address: ??[address] [place] [address], ??[place], [place] [address] Gender: ??M : ??1970 (Age: 51) Service: ??Medical Location: ??[facility] Hospital #: ??[id number] Patient Type: ??[facility] Accession # ?[id number] Taken: ??11/24/2021 Received: ??11/26/2021 Accessioned: ??11/26/2021 Reported: [...] mm fragments. All in C. ??Ashly Estrada M.D./Armida Kaur REPORT IMAGES AND SCANNED DOCUMENTS, IF INCLUDED, ONLY VIEWABLE IN PDF VERSION OF REPORT The performance characteristics of some immunohistochemical stains, fluorescence in-situ hybridization tests and immunophenotyping by flow cytometry cited in this report (if any) were determined by the Surgical Pathology Department at [facility] as part of an ongoing quality systems technician program and in compliance with federally mandated [...] characteristics determined by the Surgical Pathology Department [facility]. ??It has not been cleared or approved by the U. S. Food and Drug Administration. Note for decalcified specimens: This assay has not been validated on decalcified tissues. Results should be interpreted with caution given the possibility of false negativity on decalcified specimens us Claudette Casarez MD LAB PATHOLOGY ORDERABLES F inal Result PATHOLOGY [facility] ([place]) 1 [place] [address] * H. pylori urease screen (MEGHA test) Tissue (11/24/2021 8:30 AM CDT) H. pylori, rapid (MEGHA) Negative Negative [facility] ([place]) Tissue 11/24/2021 8:30 AM CDT 11/24/2021 1:01 PM CDT us Claudette Casarez MD LAB MICROBIOLOGY - GENERAL ORDERABLES Final Result [facility] [place] 1 [facility] [place] [address] * COLONOSCOPY (11/24/2021 7:50 AM CDT) Anatomical Region Laterality Modality Other Narrative Procedure Note Claudette Casraez MD - 11/24/2021 7:50 AM CDT [facility] Patient Name: Marifer Sebastian Procedure Date: 11/24/2021 7:50 AM Date of : 1970 Admit Type: Inpatient Age: 51 Gender: Male Attending MD: Claudette Casarez M.D. Room: [facility] ENDOSCOPY ROOM 2 Note Status: Finalized Patient [...] passed under direct vision.The Pediatric Colonoscope PCF-H190L [id number] was introduced through the anus and advanced [...] 7:50 AM Procedure Code(s): --- Professional --- 91112, Colonoscopy, flexible; with biopsy, single or multiple Diagnosis Code(s): --- Professional --- K64.8, Other hemorrhoids R19.7, Diarrhea, unspecified K62.5, Hemorrhage of anus and rectum K57.30, Diverticulosis of large intestine without perforation orabscess without bleeding CPT copyright 2020 [employer]. All rights reserved. The codes documented in this report are preliminary and upon residence hall director reviewmay be revised to meet current compliance requirements. Recognized by the [place] for promoting quality in endoscopy us Claudette Casarez MD ENDOSCOPY PROCEDURES Final Result * EGD (11/24/2021 7:44 AM CDT) Anatomical Region Laterality Modality Other Narrative Procedure Note Claudette Casarez MD - 11/24/2021 7:44 AM CDT Digestive [facility] Patient Name: Marifer Sebastian Procedure Date: 11/24/2021 7:44 AM Date of : 1970 Admit Type: Inpatient Age: 51 Gender: Male Attending MD: Claudette Casarez M.D. Room: [facility] ENDOSCOPY ROOM 2 Note Status: Finalized Patient [...] passed under direct vision. The Endoscope GIF-H190 [id number] was introduced through the mouth, and advanced [...] 7:44 AM Procedure Code(s): --- Professional --- 69865, Esophagogastroduodenoscopy, flexible, transoral; with biopsy, single or multiple Diagnosis Code(s): --- Professional --- K21.00, Gastro-esophageal reflux disease with esophagitis, without bleeding D50.9, Iron deficiency anemia, unspecified K92.1, Melena (includes Hematochezia) CPT copyright 2020 [employer]. All rights reserved. The codes documented in this report are preliminary and upon residence hall director reviewmay be revised to meet current compliance requirements. Recognized by the [place] for promoting quality [...] LAB BLOOD ORDERABLES Final Result [facility] ([place]) 1 [facility] Department [place] [address] * (ABNORMAL) Differential, auto (11/24/2021 4:12 AM [...] ORDERABLES Final Result [facility] ([place]) 1 [facility] [place] [address] * (ABNORMAL) CBC with auto differential (11/24/2021 [...] 35.7 g/dL [facility] ([place]) RDW CV 14.6 11.1 - 14.9 % [facility]) RDW SD 44.2 35.7 - 48.1 fL [facility] ([place]) NRBC abs 0.00 0.00 - 0.01 K/cumm [facility] ([place]) Blood 11/24/2021 4:12 AM CDT 11/24/2021 5:41 AM CDT us Claudette Casarez MD LAB BLOOD ORDERABLES Final Result [facility] ([place]) 1 [facility] Department [place] [address] * (ABNORMAL) Basic metabolic panel (11/24/2021 4:12 AM CDT) Sodium 141 135 - 145 mmol/L [facility] ([place]) Potassium, pl 3.6 3.3 - 4.9 mmol/L [facility] ([place]) Chloride 109 97 - 110 mmol/L [facility]) CO2 22 22 - 32 mmol/L [facility]) Anion gap 10 2 - 15 mmol/L [facility] ([place]) BUN 11 8 - 25 mg/dL [facility] ([place]) Creatinine 1.20 0.80 - 1.30 mg/dL [facility] ([place]) Glucose 103 70 - 199 mg/dL [facility] ([place]) [...] 2017. Calcium 8.1(L) 8.5 - 10.3 mg/dL [facility] ([place]) Blood 11/24/2021 4:12 AM CDT 11/24/2021 5:02 AM CDT us Claudette Casarez MD LAB BLOOD ORDERABLES Final Result [facility] ([place] 1 [facility] Department [place] [address] * (ABNORMAL) Hemoglobin and hematocrit (11/23/2021 11:20 PM CDT) Hgb 8.2(L) 13.0 - 17.5 g/dL [facility] ([place]) Hct 24.5(L) 38.9 - 50.3 % [facility] ([place]) Blood 11/23/2021 11:2 0 PM CDT 11/23/2021 11:22 PM CDT Gaby Paul MD LAB BLOOD ORDERABLES Fin al Result Performing Organization Address City/[facility]/ZIP Co de Phone Number [facility] ([place]) [address] [facility] [place] [address] * Transfuse RBC (11/23/2021 9:49 PM CDT) Blood specimen (specimen) Claudette Casarez MD BLOOD TRANSFUSION ORDERABL ES Final Result Performing Organization Address City/[facility] Co de Phone Number [facility] ([place]) [address] [place] [address] [place] [address] * Transfuse RBC: 1 Units (11/23/2021 9:49 PM CDT) Blood specimen (specimen) Claudette Casarez MD BLOOD TRANSFUSION ORDERABL ES Final Result * Prepare RBC: 1 Units (11/23/2021 3:31 PM CDT) Units requested 1 [facility] ([place]) Units requested Ready [facility]) Unit Number [id number] [facility] ([place]) Product code [id number] [facility] ([place]) Blood Expiration Date [id number] [facility] ([place]) Product Blood Type (for scanning) 5100 [facility] ([place]) Product Blood Type OPOS [facility] ([place]) Dispense Status DISPENSED [facility] ([place]) Blood 11/23/2021 3:31 PM CDT 11/23/2021 3:30 PM CDT Claudette Casarez MD BLOOD BANK PRODUCT ORDERAB LES Final Result [facility] ([place]) 1 [facility] [place] [address] * Crossmatch (11/23/2021 1:57 PM CDT) Crossmatch Compatible [facility] ([place]) Unit number for crossmatch [id number] [facility] ([place]) Blood 11/23/2021 1:57 PM CDT 11/23/2021 2:42 PM CDT Gaby Paul MD LAB BLOOD BANK TEST ORDE RABLES Final Result Performing Organization Address [facility] Co de Phone Number [facility] ([place]) 1 [facility] [place] [address] * Antibody screen (11/23/2021 1:57 PM CDT) Marvin, indirect, Gel Interpretation Negative ABSC [facility] ([place]) Blood 11/23/2021 1:57 PM CDT 11/23/2021 2:42 PM CDT Narrative [facility] ([place]) - 11/23/2021 3:17 PM CDT Has the patient had Daratumumab or Isatuximab in the past 6 months?->Unknown Claudette Casarez MD LAB BLOOD BANK TEST ORDERA BLES Final Result Performing Organization Address City/[facility]/ZIP Co de Phone Number [facility] ([place]) 1 [facility] [place] [address] * ABO/Rh (11/23/2021 1:57 PM CDT) ABO/Rh O Positive [facility] ([place]) Blood 11/23/2021 1:57 PM CDT 11/23/2021 2:42 PM CDT Narrative [facility] ([place]) - 11/23/2021 3:17 PM CDT Has the patient had Daratumumab or Isatuximab in the past 6 months?->Unknown Claudette Casarez MD LAB BLOOD BANK TEST ORDERA BLES Final Result Performing Organization Address [facility]/ZIP Co de Phone Number [facility] ([place]) 1 [facility] [place] [address] * ABO / Rh Confirmation Testing (11/23/2021 10:49 AM CDT) ABO/Rh Confirmation O Positive [facility] ([place]) Blood 11/23/2021 10:4 9 AM CDT 11/23/2021 3:14 PM CDT Claudette Casarez MD LAB BLOOD ORDERABLES Final Result Performing Organization Address [facility] Co de Phone Number [facility] ([place]) 1 [facility] [place] [address] * (ABNORMAL) Hemoglobin and hematocrit (11/23/2021 10:49 AM CDT) Hgb 7.2(L) 13.0 - 17.5 g/dL [facility] ([place]) Hct 22.8(L) 38.9 - 50.3 % [facility] ([place]) Blood 11/23/2021 10:4 9 AM CDT 11/23/2021 10:53 AM CDT Gaby Paul MD LAB BLOOD ORDERABLES Fin al Result Performing Organization Address City/[facility]/ZIP Co de Phone Number [facility] ([place]) 1 [facility] [place] [address] * eGFR (11/23/2021 8:01 AM CDT) eGFR 71 mL/min/1. 73 m2 [facility] ([place]) Comment: Interpretive Data Reference Interval Normal ?>/= [...] BLOOD ORDERABLES Final Res ult [facility] ([place]) 1 [facility] [place] [address] * (ABNORMAL) Differential, auto (11/23/2021 8:01 AM CDT) Neutrophil abs 8.6(H) 1.7 - 6.5 K/cumm [facility] ([place]) Imm gran abs 0.1 0.0 - 0.1 K/cumm [facility] ([place]) Lymphocyte abs 2.1 0.8 - 3.3 K/cumm [facility] ([place]) Monocyte abs 1.2(H) 0.2 - 0.8 K/cumm [...] BLOOD ORDERABLES Final Res ult [facility] ([place]) 1 [facility] [place] [address] * (ABNORMAL) CBC with auto differential (11/23/2021 [...] Final Res ult [facility] ([place]) 1 [facility] [place] [address] * (ABNORMAL) Basic metabolic panel (11/23/2021 8:01 AM CDT) Sodium 138 135 - 145 mmol/L [facility] ([place]) Potassium, pl 3.8 3.3 - 4.9 mmol/L [facility] ([place]) Chloride 108 97 - 110 mmol/L [facility] ([place]) CO2 20(L) 22 - 32 mmol/L [facility] ([place]) Anion gap 10 2 - 15 mmol/L [facility] ([place]) BUN 18 8 - 25 mg/dL [facility] ([place]) Creatinine 1.22 0.80 - 1.30 mg/dL [facility] Glucose 112 70 - 199 mg/dL [facility] ([place]) Comment: Interpretive Data Fasting glucose >/= [...] 2017. Calcium 8.1(L) 8.5 - 10.3 mg/dL [facility] ([place]) Blood 11/23/2021 8:01 AM CDT 11/23/2021 8:27 AM CDT us Yan Fuentes MD LAB BLOOD ORDERABLES Final Res ult [facility] ([place]) 1 [facility] [place] [address] * CT Abdomen Pelvis W Contrast (11/23/2021 [...] enlarged lymph node or free fluid. MSK: ??Pmxs-co-jicoqsph disc disease and facet arthropathy. ?? BODY WALL: ??Tiny fat containing periumbilical hernia. ?? IMPRESSION: No bowel inflammation or other acute abnormality identified. ?? THIS IS AN ELECTRONICALLY VERIFIED FINAL REPORT 11/23/2021 3:58 AM - Electronically signed by ??Min Bates M.D. AR: PATTIE D: ??11/23/2021 3:58 AM T: ??11/23/2021 3:58 AM Report ID: [id number] Reading Location: ??[id number] Procedure Note Min Bates MD - 11/23/2021 [...] enlarged lymph node or free fluid. MSK: [id number] disc disease and facet arthropathy. BODY WALL: Tiny fat containing periumbilical hernia. IMPRESSION: No bowel inflammation or other acute abnormality identified. THIS IS AN ELECTRONICALLY VERIFIED FINAL REPORT 11/23/2021 3:58 AM - Electronically signed by iMn Bates M.D. AR: PATTIE Report ID: [id number] Reading Location: [place] [address] Yan Fuentes MD IMG CT PROCEDURES Final Result * C. difficile testing Stool (11/23/2021 1:58 AM CDT) C. diff result Negative, free toxin Negative , free toxin [facility] ([place]) C. diff interp Negative for toxigenic Clostridioides (Clostridium) difficile. Analysis was performed using an enzyme immunoassay that detects C. difficile toxin(s) in feces. [facility] ([place]) Stool 11/23/2021 1:58 AM CDT 11/23/2021 2:06 AM CDT Yan Fuentes MD LAB MICROBIOLOGY - GENERAL ORD ERABLES Final Result [facility] ([place]) 1 [facility] [place] [address] * Fecal leukocyte stain Stool (11/23/2021 1:58 AM CDT) Direct Specimen Exam Stain: No Leukocytes seen [facility] ([place]) Stool 11/23/2021 1:58 AM CDT 11/23/2021 2:30 AM CDT Yan Fuentes MD LAB MICROBIOLOGY - GENERAL ORD ERABLES Final Result FR[facility]) 1 [facility] [place] [address] * Stool culture Stool Rectum (11/23/2021 1:58 AM CDT) Direct Specimen Exam Shiga Toxin Testing: Antigen detection assay for Shiga-toxin NEGATIVE for Shiga Toxin 1 and Shiga Toxin 2. [facility] ([place]) Comment:Testing performed by : [facility], [address] [place] [address] Report Final Report: No growth of enteric bacterial pathogens [facility] ([place]) Comment:Testing performed by : [facility], [address] [place]., [address] Stool (Rectum) 11/23/2021 1: 58 AM CDT 11/23/2021 10:51 AM CDT Narrative [facility] ([place]) - 11/27/2021 12:49 PM CDT Testing performed by [facility] ([phone]). Routine stool cultures include procedures to detect Salmonella, Shigella, Edwardsiella, Aeromonas, Pleisiomonas, Campylobacter, Yersinia, E. coli O157, and Shiga-like toxins. ?? Vibrio is cultured only upon special request. ??If Vibrio is suspected, please call the laboratory at [phone]. Interpretive data was last updated December 16, 2016. Yan Fuentes MD LAB MICROBIOLOGY - GENERAL ORD ERABLES Final Result [facility] ([place]) 1 [facility] [place] [address] * eGFR (11/23/2021 1:24 AM CDT) eGFR 60 mL/min/1. 73 m2 [facility] ([place]) Comment: [...] LAB BLOOD ORDERABLES Final Res ult [facility] ([place]) 1 [facility] [place] [address] * (ABNORMAL) Differential, auto (11/23/2021 1:24 AM [...] BLOOD ORDERABLES Final Res ult [facility] ([place]) 1 [facility] [place] [address] * (ABNORMAL) Comprehensive metabolic panel (11/23/2021 1:24 [...] MD LAB BLOOD ORDERABLES Final Res ult [facility] ([place]) 1 [facility] [place] [address] * (ABNORMAL) CBC with auto differential (11/23/2021 [...] 0.01 K/cumm [facility] ([place]) Blood 11/23/2021 1:24 AM CDT 11/23/2021 1:30 AM CDT Yan Fuentes MD LAB BLOOD ORDERABLES Final Res ult [facility] ([place]) 1 [facility] [place] [address] documented in this encounter Visit Diagnoses Diagnosis Diarrhea- Primary Diarrhea, unspecified type Iron deficiency anemia due to chronic blood loss Iron deficiency anemia secondary to blood loss (chronic) Iron deficiency anemia due to chronic blood loss Iron deficiency anemia secondary to blood loss (chronic) Essential hypertension Unspecified essential hypertension Hemorrhoids Iron deficiency anemia due to chronic blood loss Iron deficiency anemia secondary to blood loss (chronic) documented in this encounter Admitting Diagnoses Diagnosis [...] (after last modification) on 11/24/21 at 2100 buPROPion XL (WELLBUTRIN XL) 24 hour tablet [...] daily, First dose on Fri11/23/21 at 1000 Given 11/23/2021 8:07 PM CDT 20 mg ondansetron (ZOFRAN) injection 4 mg 4 mg, intravenous, Administer over 2 Minutes, Every 6 hours PRN, nausea, vomiting, if not tolerating PO, Starting on Fri11/23/21 at 0342, Indications: Nausea and VomitingIndications:Nausea and Vomiting ondansetron ODT (ZOFRAN-ODT) disintegrating tablet 4 mg 4 mg, oral, Every 6 hours PRN, nausea, vomiting, Starting on Fri11/23/21 at 0342, Indications: Nausea and VomitingIndications:Nausea and Vomiting sodium chloride 0.9% flush 0.5-20 mL 0.5-20 [...] size. Flush before and after each use. documented in this encounter Discontinued Medications Medication [...] last modification) on 11/24/21 at 2100 0803 ([facility] Hold - Provider: Automatic Transfer Provider - Reason: Patient not available)1053 ([facility] Unhold - Provider: Automatic Transfer Provider) bisacodyl EC (DULCOLAX EC) tablet 15 mg (COMPLETED) 15 mg, oral, Once, On Fri11/23/21 at 1315, For 1 dose, Do not crush, chew, cut, dissolve, open or otherwise manipulate tablet/capsule., Indications: colon prep 1339 (Given - Provider: Derrick Flores RN) buPROPion XL (WELLBUTRIN XL) 24 hour tablet 300 mg 300 mg, oral, Nightly, First dose (after last modification) on 11/24/21 at 2100, Do not crush, chew, cut, dissolve, open or otherwise manipulate tablet/capsule. 0803 ([facility] Hold - Provider: Automatic Transfer Provider - Reason: Patient not available)1053 ([facility] Unhold - Provider: Automatic Transfer Provider) clonazePAM (KlonoPIN) tablet 0.5 mg 0.5 mg, oral, Nightly, First dose on Fri11/23/21 at 2100 2006 (Given - Provider: Carisa Henriquez RN) 0803 ([facility] Hold - Provider: Automatic Transfer Provider - Reason: Patient not available)1053 ([facility] Unhold - Provider: Automatic Transfer Provider) famotidine (PEPCID) tablet 20 mg 20 mg, oral, 2 times daily, First dose on Fri11/23/21 at 1000 0953 (Not Given - Provider: Derrick Flores RN - Reason: NPO)2006 (Given - Provider: Carisa Henriquez RN) 0801 (Not Given - Provider: Derrick Flores RN - Reason: NPO)0803 ([facility] Hold - Provider: Automatic Transfer Provider - Reason: Patient not available)1053 ([facility] Unhold - Provider: Automatic Transfer Provider) hydrocortisone (ANUSOL-HC) 2.5 % rectal cream rectal, Daily, First dose (after last modification) on 11/24/21 at 1200 1200 (Due) magnesium citrate oral solution 296 mL (COMPLETED) 296 mL, oral, Once, On 11/24/21 at 0400, For 1 dose, Pre-Op/Floor (GI), Administer at 4:00 AM on the day of the procedure., Indications: Bowel Evacuation 030 (Given - Provid er: Carisa Henriquez RN) [...] consumed within 2 hours., Indications: Bowel Evacuation 171 (Given - Provider: Derrick Flores RN)2006 (Given - Provider: Carisa Henriquez RN) sodium chloride 0.9% bolus 1,000 mL (COMPLETED) 1,000 mL, intravenous, at 1,000 mL/hr, Administer over 1 Hours, Once, On Fri11/23/21 at 0104, For 1 dose 0125 (New Bag - Provider: Jenniefer Jonathan Paddy, RN)0342 (Stopped - Provider: Ela Noel RN) [...] Noel RN)1037 (New Bag - Provider: Derrick Flores RN)1408 (Rate/Dose Change - Provider: Derrick Flores RN) 0958 (New Bag - Provider: Derrick Flores RN)1054 (Due: Stopped - Provider: Kareen Haines RN) sodium chloride 0.9% infusion (CANCELED) 30 mL/hr, intravenous, Continuous, Starting on 11/24/21 at 0845, Pre-Procedure (GI) 0821 (New Bag [...] on Fri11/23/21 at 0342, Indications: Pain 0803 ([facility] Hold - Provider: Automatic Transfer Provider - Reason: Patient not available)1053 ([facility] Unhold - Provider: Automatic Transfer Provider) hydrocortisone (ANUSOL-HC) 2.5 % rectal cream (CANCELED) rectal, 2 times daily PRN, hemorrhoids, irritation, Starting on Fri11/23/21 at 1433 1719 (Given - Provider: Derrick Flores, DEJA) 0803 ([facility] Hold - Provider: Automatic Transfer Provider - Reason: Patient not available)1053 ([facility] Unhold - Provider: Automatic Transfer Provider) ioversoL [...] at 0342, Indications: Nausea and Vomiting 0803 ([facility] Hold - Provider: Automatic Transfer Provider - Reason: Patient not available)1053 ([facility] Unhold - Provider: Automatic Transfer Provider) ondansetron ODT (ZOFRAN-ODT) disintegrating tablet 4 mg(Linked Group 1) 4 mg, oral, Every 6 hours PRN, nausea, vomiting, Starting on Fri11/23/21 at 0342, Indications: Nausea and Vomiting 0803 ([facility] Hold - Provider: Automatic Transfer Provider - Reason: Patient not available)1053 ([facility] Unhold - Provider: Automatic Transfer Provider) sodium chloride 0.9% flush 0.5-20 mL 0.5-20 mL, intra-catheter, As needed, line care, Starting on Fri11/23/21 at 0549, Flush volume based on line type and size. Flush before and after each use. Do not use with liposomal doxorubicin, oxaliplatin or any other medications incompatible with saline., Indications: Flushing 0803 ([facility] Hold - Provider: Automatic Transfer Provider - Reason: Patient not available)1053 ([facility] Unhold - Provider: Automatic Transfer Provider) sodium [...] hydrocortisone (ANUSOL-HC) 2 .5 % rectal cream 2 11/24/2021 11/23/2021 sodium chloride 0.9% flush 0.5-20 mL 3 11/0911/23/2021 sodium chloride 0.9% infusion 2 11/24/2021 11/23/2021 acetaminophen (TYLENOL) tablet 650 mg 1 amLODIPine (NORVASC) tablet 10 mg 2 022 bisacodyl EC (DULCOLAX EC) tablet 10 mg 1 0 11/23/2021 bisacodyl EC (DULCOLAX EC) tablet 15 mg 1 0 11/23/2021 buPROPion XL (WELLBUTRIN XL) 24 hour tablet 300 mg 2 11/23/2021 clonazePAM (KlonoPIN) tablet 0.5 mg 1 11/23 famotidine (PEPCID) tablet 20 mg 1 11/24/19 ferrous sulfate tablet 325 mg 1 11/23/2021 ioversoL (OPTIRAY 350) syrin ge syringe 100 mL 1 11/23/2021 magnesium citrate oral solution 296 mL 1 magnesium hydroxide (MILK OF MAGNESIA) 80 mg/mL (33.3 mg/mL as elemental magnesium) oral suspension 30 mL 1 11/23/2021 mineral oil (FLEET MINERAL O [place]) enema 1 enema 1 11/23/2021 ondansetron (ZOFRAN) injection 4 mg 1 11/23 ondansetron ODT (ZOFRAN-ODT) disintegrating tablet 4 mg 1 11/23/2021 polyethylene glycol (MIRALAX) powder 119 g 1 11/23/2021 sodium chloride 0.9% bolus 1,000 mL 1 11/23 sodium chloride 0.9% IVPB 0-250 mL 1 2021 sodium chloride 0.9% IVPB 250 mL 1 [...] 11/23/2021 documented in this encounter Care Teams 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
--- OUTSIDE RECORDS SUMMARY | 2024-08-21 22:26 | XMS_ITS | Encounter Summary ---
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 C/o diarrhea throughout the day. No known COVID,strep, or flu exposure. Negative COVID hx; vaccinated. OTC Imodium, started with pills, switched to liquid yesterday, minimal relief. Denies feeling dehydrated, as urine is not dark nor is his mouth dry. No prior dx of IBS. Encounter Details Date Type Department Care Team (Late st Contact Info) Description 11/20/2021 10:15 AM CDT Office Visit 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 Gender Identity Male 11/26/2021 10:53 AM CDT Sexual Orientation Straight 11/22/2019 5: 22 PM CDT documented as of this encounter Last Filed Vital Signs Vital Sign Reading Time Taken Comments Blood Pressure 130/74 11/20/2021 10:22 AM CDT Pulse 86 11/20/2021 10:22 AM CDT Temperature 36.7 ??C (98 ??F) 11/20/2021 10:22 AM CDT Respiratory Rate 16 11/20/2021 10:22 AM CDT Oxygen Saturation 99% 11/20/2021 10:22 AM CDT Inhaled Oxygen Concentration - - Weight 92.5 kg (204 lb) 11/20/2021 10:22 AM CDT Height 163.8 cm (5' 4.5 ) 11/20/2021 10:22 AM CD T Body Mass Index 34.48 11/20/2021 10:22 AM CDT documented in this encounter Patient Instructions * Patient Instructions* Erasmo Martin, ELISE - 11/20/2021 10:15 AM CDT MANAGEMENT The management of patients with acute diarrhea begins with general measures such as fluid repletionand nutrition maintenance, with adjustments in diet if necessary. Patients who have bothersome symptoms may benefit from symptomatic pharmacologic therapy. Antibiotic therapy is not indicated in mostcases since the illness is usually self-limited. Nevertheless, empiric and specific antibiotic therapy may be appropriate in certain situations, mainly in patients with severe disease, with symptoms and signs suggestive of invasive bacterial infection, or at high risk for complications (algorithm 1). Fluid repletion -- The most critical therapy in diarrheal illness is rehydration, preferably by theoral route, with solutions that contain water, salt, and sugar [27-31]. Diluted fruit juices and flavored soft drinks along with saltine crackers and broths or soups may meet the fluid and salt needsin patients with mild illness [3]. The electrolyte concentrations of fluids used for sweat replacement (eg, Gatorade) are not equivalent to oral rehydration solutions, although they may be sufficientfor the otherwise healthy patient with diarrhea who is not hypovolemic. Oral rehydration solutions (ORS), including standard World Health Organization ORS or commercial ORS, such as Rehydralyte and Ceralyte, may be more appropriate in patients with more severe diarrheal disease. They should be used both to replete a volume depleted patient and also to maintain adequatevolume status once replete. Composition of available ORS are discussed elsewhere. (See Oral rehydration therapy , section on 'Commercial and standard ORS' and Oral rehydration therapy , section on 'ORS properties for water absorption'.) ORSs were developed following the realization that, in many small bowel diarrheal illnesses, intestinal glucose absorption via sodium-glucose cotransport remains intact. Thus, in diarrheal disease caused by any organism that depends on small bowel secretory processes, the intestine remains able to a bsorb water if glucose and salt are also present to assist in the transport of water from the intestinal lumen. Oral rehydration therapy is grossly underutilized in the where health care providerstend to overuse intravenous hydration. Adults with severe hypovolemia should initially receive intravenous fluid repletion. Once they are replete, they can be switched to oral rehydration solutions. (See Maintenance and replacement fluidtherapy in adults .) Some UpToDate contributors also favor intravenous fluid administration in patients with bloody diarrhea and suspicion for Shiga-toxin producing E. coli infection. This is discussed in detail elsewhere. (See Shiga toxin-producing Escherichia coli: Clinical manifestations, diagnosis, and treatment ,section on 'Fluid management'.) Dietary recommendations -- The benefit of specific dietary recommendations other than oral hydration has not been well established in controlled trials. However, adequate nutrition during an episode of acute diarrhea is important to facilitate enterocyte renewal [30]; if patients are anorectic or have nausea and vomiting, a short period of consuming only liquids will not be harmful. Boiled starches and cereals (eg, potatoes, noodles, rice, wheat, and oat) with salt are indicated in patients with watery diarrhea; crackers, bananas, soup, and boiled vegetables may also be consumed [3]. Foods with high fat content should be avoided until the gut function returns to normal after a severe bout of diarrhea. Dairy products (except yogurt) may be difficult to digest in the presence of diarrheal disease. This is due to secondary lactose malabsorption, which is common following infectious enteritis and may last for several weeks to months. Thus, temporary avoidance of lactose-containing foods is reasonable. (See Lactose intolerance and malabsorption: Clinical manifestations, diagnosis, and management .) Empiric antibiotic therapy -- Given the lack of rapid diagnostic testing methods for enteric pathogens, most decisions on antibiotic therapy are often made empirically at the time of presentation. Indications and agent selection for empiric antibiotic therapy are discussed below. Indications -- We do not routinely use empiric antibiotics in adults with acute diarrhea. Despite their efficacy in reducing the duration of diarrheal symptoms in some settings [2,5,32-34], in most individuals with acute diarrhea, which is usually short lived, this benefit does not outweigh the drawbacks of potential side effects, promotion of bacterial resistance, eradication of normal helio (and increased risk of C. difficile infection), and cost. (See 'Efficacy' below.) However, for select patients with more symptomatic disease or with risk for more severe disease, empiric antibiotic treatment is appropriate, as symptom reduction may have a greater relative benefit in such patients (algorithm 1) [5]. Specifically, we often use empiric antibiotics in the following c ircumstances: ?Severe disease (fever, more than six stools per day, volume depletion warranting hospitalization) ?Features suggestive of invasive bacterial infection, such as bloody or mucoid stools (except in cases of nonsevere disease when fever is low or absent) ?Host factors that increase the risk for complications, including age >70 years old and comorbidities such as cardiac disease and immunocompromising conditions Patient Education Dehydration TERRITORY BUSINESS MANAGER: Dehydration is a condition that develops when your body does not have enough fluid. You may become dehydrated if you do not drink enough water or lose too much fluid. Fluid loss may also cause loss of electrolytes (minerals), such as sodium. Common symptoms include the following: ?? Dry eyes or mouth ?? Increased thirst ?? Dark yellow urine ?? Urinating little or not at all ?? Tiredness or body weakness ?? Headache, dizziness, or confusion ?? Irregular or fast breathing, fast or pounding heartbeat, and low blood pressure ?? Sudden weight loss Seek care immediately if: ?? You have a seizure. ?? You are confused or cannot think clearly. ?? You are extremely sleepy, or another person cannot wake you. ?? You become dizzy or faint when you stand. ?? You are not able to urinate. ?? You have trouble breathing. ?? You have a fast or irregular heartbeat. ?? Your hands or feet are cold, or your face is pale. Contact your healthcare provider if: ?? You have trouble drinking liquids because you are vomiting. ?? Your symptoms get worse. ?? You have a fever. ?? You feel very weak or tired. ?? You have questions or concerns about your condition or care. Treatment for dehydration may include any of the following: ?? Oral liquids: ?? If you are mildly to moderately dehydrated, you may need an oral rehydration solution (ORS). This drink contains the right amount of salt, sugar, and minerals in water to replace body fluids. Ask your healthcare provider where you can get an ORS. ?? Drink an ORS in small amounts if you have been vomiting. If you vomit, wait 30 minutes and try again. Ask healthcare providers how much ORS you need when you are dehydrated and how often you should drink it. ?? A sports drink is not the same as an ORS. Do not drink sports drinks without asking your healthcare provider. ?? Do not drink soft drinks or fruit juices. These can make your condition worse. ?? You may receive fluid through an IV. Electrolytes may also be included in the fluid. ?? Hypodermoclysis gives your body a large amount of water quickly. The water is given into the deepest layer of your skin. Ask your healthcare provider for more information about hypodermoclysis. Prevent or manage dehydration: ?? Drink liquids as directed. Liquids that contain water, sugar, and minerals can help your body hold in fluid and help prevent dehydration. Drink liquids throughout the day, not just when you feel thirsty. Men should drink about 3 liters (13 eight-ounce cups) of liquid each day. Women should drinkabout 2 liters (9 eight-ounce cups) of liquid each day. Drink even more liquid if you will be outdoors, in the sun for a long time, or exercising. ?? Stay cool. Limit the time you spend outdoors during the hottest part of the day. Dress in lightweight clothes. ?? Keep track of how often you urinate. If you urinate less than usual or your urine is darker, drink more liquids. Follow up with your healthcare provider as directed: Write down your questions so you remember to ask them during your visits. ?? 2017 [employer] Information is for End User's use only and may not be sold, redistributed or otherwise used for commercial purposes. All illustrations and images included in CareNotes?? are the copyrighted property of [employer], [employer]. or [employer]. The above information is an multimedia educational specialist only. It is not intended as medical advice for individual conditions or treatments. Talk to your doctor, nurse or pharmacist before following any medical regimen to see if it is safe and effective for you. documented in this encounter Progress Notes * Erasmo Martin NP - 11/20/2021 10:15 AM CDT Images from the original note were not included. Subjective/Objective Patient: Minh Wise Chief Complaint Patient presents with ??? Diarrhea Sx onset last . C/o diarrhea throughout the day. No known COVID,strep, or flu exposure. Negative COVID hx; vaccinated. OTC Imodium, started with pills, switched to liquid yesterday, minimal relief. Denies feeling dehydrated, as urine is not dark nor is his mouth dry. No prior dx of IBS. Minh Wise is a 51 y.o. male followed by Alessandro Velasco MD who presents to clinic with self with c/o diarrhea (throughout the day) x 5 days. Denies known exposure to communicable disease. Patient attempted imodium for symptom alleviation prior to arrival to clinic. Was taking pill-form imodium and changed to liquid yesterday. Denies feeling of dehydration. No hx of COVID. Negative at-home COVID test. Endorses COVID vaccine. Hx colon polyp. Denies the following: GI symptoms: nausea, vomiting, diarrhea, abdominal pain Respiratory symptoms: shortness of breath, chest discomfort, cough, rhinorrhea, congestion, sore throat Generalized symptoms of infection: fever, excessive fatigue, generalized malaise, headache, ear ache Past Medical History: Diagnosis Date ??? Anemia ??? Colon polyp ??? Gastric reflux ??? GERD (gastroesophageal reflux disease) ??? Hyperlipidemia Hyperlipidemia ??? Hypertension Hypertension ??? Sleep apnea Family History Problem Relation Age of Onset [...] ??? Arthritis Other Social History Tobacco Use Smoking Status Never Smoker Smokeless Tobacco Never Used No Known Allergies Current Outpatient Medications Medication Sig Dispense Refill ??? amlodipine-valsartan (EXFORGE) 10-160 mg per tablet [...] Take 1 capsule by mouth nightly ??? gl-nmt-QQ-Lv-Sq-hdskmkt-lutein 0.4-162-18 mg tablet Take 1 tablet by mouth daily ??? tadalafiL (CIALIS) 20 mg tablet Take 1 tablet (20 mg total) by mouth daily as needed for erectile dysfunction 4 tablet 11 No current facility-administered medications for this visit. Review of Systems Constitutional: Negative for chills and fever. HENT: Negative for congestion, ear pain, rhinorrhea, sinus pressure, sinus pain, sneezing and sore throat. Eyes: Negative. Respiratory: Negative for cough, chest tightness, shortness of breath and wheezing. Cardiovascular: Negative for chest pain. Gastrointestinal: Negative for constipation, diarrhea, nausea and vomiting. Endocrine: Negative. Genitourinary: Negative. Musculoskeletal: Negative for arthralgias and myalgias. Skin: Negative. Allergic/Immunologic: Negative for environmental allergies. Neurological: Negative for headaches. Hematological: Negative for adenopathy. Psychiatric/Behavioral: Negative. Physical Exam Vitals and nursing note reviewed. Constitutional: Appearance: Normal appearance. He is obese. HENT: Head: Normocephalic and atraumatic. Right Ear: Tympanic membrane, ear canal and external ear normal. Left Ear: Tympanic membrane, ear canal and external ear normal. Nose: Nose normal. No congestion or rhinorrhea. Mouth/Throat: Mouth: Mucous membranes are moist. Pharynx: Oropharynx is clear. Cardiovascular: Rate and Rhythm: Normal rate and regular rhythm. Heart sounds: Normal heart sounds, S1 normal and S2 normal. Pulmonary: Effort: Pulmonary effort is normal. Breath sounds: Normal breath sounds and air entry. Abdominal: General: Bowel sounds are increased. There is distension (baseline). Tenderness: There is no abdominal tenderness. Musculoskeletal: General: Normal range of motion. Cervical back: Neck supple. Skin: General: Skin is warm and dry. Neurological: General: No focal deficit present. Mental Status: He is alert and oriented to person, place, and time. Psychiatric: Mood and Affect: Mood normal. Behavior: Behavior normal. Behavior is cooperative. Vitals: 11/20/21 1022 BP: 130/74 BP Location: Left arm Patient Position: Sitting Pulse: 86 Resp: 16 Temp: 36.7 ??C (98 ??F) TempSrc: Oral SpO2: 99% Weight: 92.5 kg (204 lb) Height: 163.8 cm (5' 4.5 ) Assessment/Plan Diagnoses and all orders for this visit: Functional diarrhea (Primary) # functional diarrhea --diarrhea without nausea x 5 days --continue imodium --repletion of fluids is essential --f/u with PCP for stool samples --consider colonoscopy; hx of polyp, GERD --consider IBS workup w/ hx of anxiety --should blood appear in stool, please present to ED --ED presentation with one or more of the following symptoms: fever uncontrolled with antipyretics,shortness of breath, chest discomfort, uncontrolled n/v/d --f/u with PCP in 3-5 days if symptoms do not improve/worsen Patient Instructions: Patient Instructions MANAGEMENT The management of patients with acute diarrhea begins with general measures such as fluid repletionand nutrition maintenance, with adjustments in diet if necessary. Patients who have bothersome symptoms may benefit from symptomatic pharmacologic therapy. Antibiotic therapy is not indicated in mostcases since the illness is usually self-limited. Nevertheless, empiric and specific antibiotic therapy may be appropriate in certain situations, mainly in patients with severe disease, with symptoms and signs suggestive of invasive bacterial infection, or at high risk for complications (algorithm 1). Fluid repletion -- The most critical therapy in diarrheal illness is rehydration, preferably by theoral route, with solutions that contain water, salt, and sugar [27-31]. Diluted fruit juices and flavored soft drinks along with saltine crackers and broths or soups may meet the fluid and salt needsin patients with mild illness [3]. The electrolyte concentrations of fluids used for sweat replacement (eg, Gatorade) are not equivalent to oral rehydration solutions, although they may be sufficientfor the otherwise healthy patient with diarrhea who is not hypovolemic. Oral rehydration solutions (ORS), including standard World Health Organization ORS or commercial ORS, such as Rehydralyte and Ceralyte, may be more appropriate in patients with more severe diarrheal disease. They should be used both to replete a volume depleted patient and also to maintain adequatevolume status once replete. Composition of available ORS are discussed elsewhere. (See Oral rehydration therapy , section on 'Commercial and standard ORS' and Oral rehydration therapy , section on 'ORS properties for water absorption'.) ORSs were developed following the realization that, in many small bowel diarrheal illnesses, intestinal glucose absorption via sodium-glucose cotransport remains intact. Thus, in diarrheal disease caused by any organism that depends on small bowel secretory processes, the intestine remains able to a bsorb water if glucose and salt are also present to assist in the transport of water from the intestinal lumen. Oral rehydration therapy is grossly underutilized in the [place] where health care providerstend to overuse intravenous hydration. Adults with severe hypovolemia should initially receive intravenous fluid repletion. Once they are replete, they can be switched to oral rehydration solutions. (See Maintenance and replacement fluidtherapy in adults .) Some UpToDate contributors also favor intravenous fluid administration in patients with bloody diarrhea and suspicion for Shiga-toxin producing E. coli infection. This is discussed in detail elsewhere. (See Shiga toxin-producing Escherichia coli: Clinical manifestations, diagnosis, and treatment ,section on 'Fluid management'.) Dietary recommendations -- The benefit of specific dietary recommendations other than oral hydration has not been well established in controlled trials. However, adequate nutrition during an episode of acute diarrhea is important to facilitate enterocyte renewal [30]; if patients are anorectic or have nausea and vomiting, a short period of consuming only liquids will not be harmful. Boiled starches and cereals (eg, potatoes, noodles, rice, wheat, and oat) with salt are indicated in patients with watery diarrhea; crackers, bananas, soup, and boiled vegetables may also be consumed [3]. Foods with high fat content should be avoided until the gut function returns to normal after a severe bout of diarrhea. Dairy products (except yogurt) may be difficult to digest in the presence of diarrheal disease. This is due to secondary lactose malabsorption, which is common following infectious enteritis and may last for several weeks to months. Thus, temporary avoidance of lactose-containing foods is reasonable. (See Lactose intolerance and malabsorption: Clinical manifestations, diagnosis, and management .) Empiric antibiotic therapy -- Given the lack of rapid diagnostic testing methods for enteric pathogens, most decisions on antibiotic therapy are often made empirically at the time of presentation. Indications and agent selection for empiric antibiotic therapy are discussed below. Indications -- We do not routinely use empiric antibiotics in adults with acute diarrhea. Despite their efficacy in reducing the duration of diarrheal symptoms in some settings [2,5,32-34], in most individuals with acute diarrhea, which is usually short lived, this benefit does not outweigh the drawbacks of potential side effects, promotion of bacterial resistance, eradication of normal helio (and increased risk of C. difficile infection), and cost. (See 'Efficacy' below.) However, for select patients with more symptomatic disease or with risk for more severe disease, empiric antibiotic treatment is appropriate, as symptom reduction may have a greater relative benefit in such patients (algorithm 1) [5]. Specifically, we often use empiric antibiotics in the following c ircumstances: ?Severe disease (fever, more than six stools per day, volume depletion warranting hospitalization) ?Features suggestive of invasive bacterial infection, such as bloody or mucoid stools (except in cases of nonsevere disease when fever is low or absent) ?Host factors that increase the risk for complications, including age >70 years old and comorbidities such as cardiac disease and immunocompromising conditions Patient Education Dehydration TERRITORY BUSINESS MANAGER: Dehydration is a condition that develops when your body does not have enough fluid. You may become dehydrated if you do not drink enough water or lose too much fluid. Fluid loss may also cause loss of electrolytes (minerals), such as sodium. Common symptoms include the following: ?? Dry eyes or mouth ?? Increased thirst ?? Dark yellow urine ?? Urinating little or not at all ?? Tiredness or body weakness ?? Headache, dizziness, or confusion ?? Irregular or fast breathing, fast or pounding heartbeat, and low blood pressure ?? Sudden weight loss Seek care immediately if: ?? You have a seizure. ?? You are confused or cannot think clearly. ?? You are extremely sleepy, or another person cannot wake you. ?? You become dizzy or faint when you stand. ?? You are not able to urinate. ?? You have trouble breathing. ?? You have a fast or irregular heartbeat. ?? Your hands or feet are cold, or your face is pale. Contact your healthcare provider if: ?? You have trouble drinking liquids because you are vomiting. ?? Your symptoms get worse. ?? You have a fever. ?? You feel very weak or tired. ?? You have questions or concerns about your condition or care. Treatment for dehydration may include any of the following: ?? Oral liquids: ?? If you are mildly to moderately dehydrated, you may need an oral rehydration solution (ORS). This drink contains the right amount of salt, sugar, and minerals in water to replace body fluids. Ask your healthcare provider where you can get an ORS. ?? Drink an ORS in small amounts if you have been vomiting. If you vomit, wait 30 minutes and try again. Ask healthcare providers how much ORS you need when you are dehydrated and how often you should drink it. ?? A sports drink is not the same as an ORS. Do not drink sports drinks without asking your healthcare provider. ?? Do not drink soft drinks or fruit juices. These can make your condition worse. ?? You may receive fluid through an IV. Electrolytes may also be included in the fluid. ?? Hypodermoclysis gives your body a large amount of water quickly. The water is given into the deepest layer of your skin. Ask your healthcare provider for more information about hypodermoclysis. Prevent or manage dehydration: ?? Drink liquids as directed. Liquids that contain water, sugar, and minerals can help your body hold in fluid and help prevent dehydration. Drink liquids throughout the day, not just when you feel thirsty. Men should drink about 3 liters (13 eight-ounce cups) of liquid each day. Women should drinkabout 2 liters (9 eight-ounce cups) of liquid each day. Drink even more liquid if you will be outdoors, in the sun for a long time, or exercising. ?? Stay cool. Limit the time you spend outdoors during the hottest part of the day. Dress in lightweight clothes. ?? Keep track of how often you urinate. If you urinate less than usual or your urine is darker, drink more liquids. Follow up with your healthcare provider as directed: Write down your questions so you remember to ask them during your visits. ?? 2017 [employer] Information is for End User's use only and may not be sold, redistributed or otherwise used for commercial purposes. All illustrations and images included in CareNotes?? are the copyrighted property of [employer]. or [employer]. The above information is an multimedia educational specialist only. It is not intended as medical advice for individual conditions or treatments. Talk to your doctor, nurse or pharmacist before following any medical regimen to see if it is safe and effective for you. .My total encounter time on 11/20/2021 was 35 minutes which was spent in the activities documented in the note. This includes time spent prior to the visit and after the visit in direct care of the patient. This time does not include time spent in any separately reportable services. Brief: Treatment plan including expectations, follow up, and return precautions discussed with patient/parent, verbalizes understanding. Medication dosage, use, and potential adverse reactions discussed with patient/parent. Advised to follow up with PCP if symptoms do not resolve as expected or sooner if condition worsens. Signs/symptoms warranting ER evaluation reviewed. Patient and/or guardian was given an opportunity to ask questions, questions answered. Erasmo Martin NP documented in this encounter Plan of Treatment Not on file documented as of this encounter Visit Diagnoses Diagnosis Functional diarrhea- Primary documented in this encounter Care Teams Handicapped Teacher Relationship Specialty Start Date End Date Alessandro Velasco MD PCP - General 11/08/16 01/08/22 Case Bragg NP [address] [place] [address] [address] [place] [address] Nurse Practitioner Nurse Practitioner 05/29/20 documented as of this encounter
--- OUTSIDE RECORDS SUMMARY | 2024-08-21 22:26 | XMS_ITS | Encounter Summary ---
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 Gender Identity Male 11/26/2021 10:53 AM CDT Sexual Orientation Straight 11/22/2019 5: 22 PM CDT documented as of this encounter Discharge Disposition Disposition Code Departure Means Destination Discharge to home or self care documented in this encounter Plan of Treatment Not on file documented as of this encounter Procedures Procedure Name Priority Date/Time Associated Diagnosis Comments DIFFERENTIAL AUTO Routine 12/22/2021 8:5 4 AM CDT Other iron deficiency anemia IRON PROFILE W/ IBC Routine 12/22/2021 8 :54 AM CDT Other iron deficiency anemia CBC WITH AUTO DIFFERENTIAL Routine 12/22/2021 8:54 AM CDT Other iron deficiency anemia FERRITIN Routine 12/22/2021 8:54 AM CDT Other iron deficiency anemia documented in this encounter Results * Differential, auto (12/22/2021 8:54 AM CDT) Neutrophil abs 3.6 1.7 - 6.5 K/cumm [facility] ([facility]) Imm gran abs 0.0 0.0 - 0.1 K/cumm [facility] ([facility]) Lymphocyte abs 1.0 0.8 - 3.3 K/cumm [facility] ([facility]) Monocyte abs 0.6 0.2 - 0.8 K/cumm [facility] ([facility]) Eosinophil abs 0.3 0.0 - 0.5 K/cumm [facility] ([facility]) Basophil abs 0.0 0.0 - 0.1 K/cumm [facility] ([facility]) Neutrophil pct 65.5 % [facility] ([facility]) Comment: Interpretive Data Percent cell count reference ranges are not reported, since discordance with absolute values may lead to misinterpretation of CBC data. Current Interpretive Data was last revised on 2017. Imm gran pct 0.2 % [facility] ([facility]) Comment: Interpretive Data Percent cell count reference ranges are not reported, since discordance with absolute values may lead to misinterpretation of CBC data. Current Interpretive Data was last revised on 2017. Lymphocyte pct 18.2 % [facility] ([facility]) Comment: Interpretive Data Percent cell count reference ranges are not reported, since discordance with absolute values may lead to misinterpretation of CBC data. Current Interpretive Data was last revised on 2017. Monocyte pct 10.3 % [facility] ([facility]) Comment: Interpretive Data Percent cell count reference ranges are not reported, since discordance with absolute values may lead to misinterpretation of CBC data. Current Interpretive Data was last revised on 2017. Eosinophil pct 5.2 % [facility] ([facility]) Comment: Interpretive [...] Data was last revised on 2017. Blood 12/22/2021 8:54 AM CDT 12/22/2021 9:08 AM CDT us Alessandro Velasco MD LAB BLOOD ORDERABLES Final Res ult [facility] ([facility]) 1 [facility] [place] [address] * (ABNORMAL) CBC with auto differential (12/22/2021 8:54 AM CDT) WBC 5.4 3.8 - 9.9 K/cumm [facility] ([facility]) Hgb 10.2(L) 13.0 - 17.5 g/dL [facility] ([facility]) Hct 33.7(L) 38.9 - 50.3 % [facility] ([facility]) Plt 311 150 - 400 K/cumm [facility] ([facility]) MPV 10.4 9.1 - 12.3 fL [facility] RBC 3.66(L) 4.30 - 5.80 M/cumm [facility] MCV 92.1 81.3 - 96.4 [...] AM CDT 12/22/2021 9:08 AM CDT Narrative [facility] ([facility]) - 12/22/2021 9:13 AM CDT fasting Alessandro Velasco MD LAB BLOOD ORDERABLES Final Res ult [facility] ([facility] 1 [facility] [place] [address] * Ferritin (12/22/2021 8:54 AM CDT) Ferritin 83 30 - 400 ng/mL [facility]) Blood 12/22/2021 8:54 AM CDT 12/22/2021 9:08 AM CDT Narrative [facility] ([facility] - 12/22/2021 9:50 AM CDT fasting Alessandro Velasco MD LAB BLOOD ORDERABLES Final Res ult [facility] 1 [facility] [place] [address] * Iron profile w/ IBC (12/22/2021 8:54 AM CDT) Iron 137 50 - 150 mcg/dL [facility]) TIBC 304 250 - 400 mcg/dL [facility]) Transferrin saturation 45 20 - 50 % [facility] ([facility]) Blood 12/22/2021 8:54 AM CDT 12/22/2021 9:08 AM CDT Narrative [facility] ([place]) - 12/22/2021 9:50 AM CDT fasting Alessandro Velasco MD LAB BLOOD ORDERABLES Final Res ult [facility] ([place]) 1 [facility] Department [place] [address] documented in this encounter Visit Diagnoses Diagnosis Other iron deficiency anemia documented in this encounter Care Teams Supervisor Irrigation Relationship Specialty Start Date End Date Alessandro Velasco MD PCP - General 11/08/16 01/08/22 Case Bragg NP [address] [facility] [address] [place] [address] Nurse Practitioner Nurse Practitioner 05/29/20 Silver Wilcox MD [address] [place] [address] [address] [place] [address] Consulting Physician General Surgery 11/24/21 documented as of this encounter
--- OUTSIDE RECORDS SUMMARY | 2024-08-21 22:27 | XMS_ITS | Encounter Summary ---
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 Gender Identity Male 11/26/2021 10:53 AM CDT Sexual Orientation Straight 11/22/2019 5: 22 PM CDT documented as of this encounter Discharge Disposition Disposition Code Departure Means Destination Discharge to home or self care documented in this encounter Miscellaneous Notes * Result Encounter Note - Alessandro Velasco MD - 03/08/2021 12:22 PM CDT Check a hematocrit and hemoglobin and iron profile in 4 months diagnosis iron deficiency anemia * Result Encounter Note - Alessandro Velasco MD - 03/08/2021 12:21 PM CDT Hemoglobin is up to 10.6 iron level is low down to 9% should be between 20 and 50% iron supplementation will be sent to his pharmacy documented in this encounter Plan of Treatment Not on file documented as of this encounter Procedures Procedure Name Priority Date/Time Associated Diagnosis Comments CLINICAL PATHOLOGY REPORT Routine 03/08/2021 10:32 AM CDT IRON PROFILE W/ IBC Routine 03/08/2021 1 0:32 AM CDT Anemia, unspecified type HEMOGLOBIN AND HEMATOCRIT Routine 03/08/2021 10:32 AM CDT Anemia, unspecified type PROTEIN ELECTROPHORESIS, WITH REFLEX, SERUM Routine 03/08/2021 10:32 AM CDT Anemia, unspecified type FOLATE Routine 03/08/2021 10:32 AM CDT Anemia, unspecified type VITAMIN B12 Routine 03/08/2021 10:32 AM CDT Anemia, unspecified type documented in this encounter Results * Clinical pathology report (03/08/2021 10:32 AM CDT) Miscellaneous 03/08/2021 10: 32 AM CDT 03/13/2021 9:11 AM CDT Narrative 03/14/2021 1:12 PM CDT EPIC results best viewed via link to PDF [facility] Department of Pathology [address] [place], [place] [id number] Final Report Note to Patients: This report may contain [...] can answer questions and explain the details. Patient Name: ? MARIFER PARNELL Address: ??[address] [place] [address] ??6 Gender: ??M : ??1970 (Age: 50) Service: ??Laboratory Location: ??Lab Hospital #: ??[id number] Patient Type: ??[facility] EP ANCILLARY Taken: ??03/08/2021 Received: ?? 03/13/2021 Accessioned: ??03/13/2021 Physician(s): ??Alessandro Velasco MD [facility] Specimen(s) Received A: Blood (serum) Serum Protein Electrophoresis Reported: 03/14/2021 Interpretation: Normal serum protein electrophoresis pattern. Comment: There are no significant abnormalities of the protein fractions. See Clinical Desktop and/or separate report for protein fraction table. ?? Felix Hickey MD PhD ??Report Electronically Reviewed and Signed Out By ??Felix Hickey MD PhD ??03/14/2021 12:52:10 ? The performance characteristics of some immunohistochemical stains, fluorescence in-situ hybridization tests and immunophenotyping by flow cytometry cited in this report (if any) were determined by the Surgical Pathology Department at [facility] as part of an ongoing quality improvement manager program and in compliance with federally mandated [...] characteristics determined by the Surgical Pathology Department [facility]. ??It has not been cleared or approved by the U. S. Food and Drug Administration. REPORT IMAGES AND SCANNED DOCUMENTS, IF INCLUDED, ONLY VIEWABLE IN PDF VERSION OF REPORT Alessandro Velasco MD LAB PATHOLOGY ORDERABLES Final Result * Protein Electrophoresis, With Reflex, Serum (03/08/2021 10:32 AM CDT) Protein, sr 6.9 6.2 - 8.2 g/dL [facility] ([facility]) Comment:Testing performed by : [address] [address] Albumin 4.1 3.2 - 5.0 g/dL [facility] ([facility]) Comment:Testing performed by : [address], [address] Alpha-1 globulin 0.3 0.2 - 0.4 g/dL [facility] ([facility]) Comment:Testing performed by : [address], [address] Alpha-2 globulin 0.7 0.5 - 1.0 g/dL [facility] ([facility]) Comment:Testing performed by : [address] [address] Beta-1 globulin 0.4 0.3 - 0.6 g/dL [facility] ([facility]) Comment:Testing performed by : [address] [address] Beta-2 globulin 0.4 0.2 - 0.6 g/dL [facility] ([facility]) Comment:Testing performed by : [address] [address] Gamma globulin 1.0 0.5 - 1.7 g/dL [facility] ([facility]) Comment:Testing performed by : [address], [address] SPEP interp See Cl Path Rpt [facility] ([facility]) Comment:Testing performed by : [facility], [address] [place] [address]., [address] Blood specimen (specimen) 03/08/2021 10:32 AM CDT 03/08/2021 1:53 PM CDT Narrative [facility] ([place]) - 03/15/2021 8:37 AM CDT Pt will do on 03/08/21 or after at [facility] Alessandro Velasco MD LAB BLOOD ORDERABLES Final Res ult [facility] ([place]) 1 [facility] [address] * (ABNORMAL) Vitamin B12 (03/08/2021 10:32 AM CDT) Vitamin B12 1,352(H) 230 - 1,250 pg/mL [facility] ([place]) Comment:Testing performed by : [facility], [address] [place] [address]., [address] Blood specimen (specimen) 03/08/2021 10:32 AM CDT 03/08/2021 1:53 PM CDT Narrative [facility] ([facility]) - 03/08/2021 3:00 PM CDT Pt will do on 03/08/21 or after at [facility] us Alessandro Velasco MD LAB BLOOD ORDERABLES Final Res ult Performing Organization Address City/[facility]/ZIP Co de Phone Number [facility] ([place]) [address] [facility] [place] [address] * (ABNORMAL) Iron profile w/ IBC (03/08/2021 10:32 AM CDT) Iron 30(L) 50 - 150 mcg/dL [facility] ([facility]) TIBC 340 250 - 400 mcg/[facility] Transferrin saturation 9(L) 20 - 50 % [facility] Blood specimen (specimen) 03/08/2021 10:32 AM CDT 03/08/2021 10:54 AM CDT Narrative [facility] ([facility]) - 03/08/2021 11:21 AM CDT Pt will do on 03/08/21 or after at [facility] Alessandro Velasco MD LAB BLOOD ORDERABLES Final Res ult Performing Organization Address [facility] Co de Phone Number [facility] ([place]) 1 [facility] [place] [place] [address] * Folate (03/08/2021 10:32 AM CDT) Pathologist [facility] Folic acid >20.0 >=5.0 ng/mL [facility] ([place]) Comment:Testing performed by : [facility], [address] [place] [address]., [address] Blood specimen (specimen) 03/08/2021 10:32 AM CDT 03/08/2021 1:53 PM CDT Narrative [facility] ([facility]) - 03/08/2021 3:00 PM CDT Pt will do on 03/08/21 or after at [facility] Alessandro Velasco MD LAB BLOOD ORDERABLES Final Res ult Performing Organization Address [facility] de Phone Number [facility] ([facility]) 1 [place] [address] * (ABNORMAL) Hemoglobin and hematocrit (03/08/2021 10:32 AM CDT) Pathologist [facility] Hgb 10.6(L) 13.0 - 17.5 g/dL [facility] ([place]) Hct 34.6(L) 38.9 - 50.3 % [facility] ([facility]) Blood specimen (specimen) 03/08/2021 10:32 AM CDT 03/08/2021 10:54 AM CDT Narrative [facility] ([facility]) - 03/08/2021 10:59 AM CDT Pt will do at [facility] sometime in april Alessandro Velasco MD LAB BLOOD ORDERABLES Final Res ult [facility] ([place]) 1 [facility] [place] [address] documented in this encounter Visit Diagnoses Diagnosis Anemia, unspecified type documented in this encounter Care Teams Software Project Lead Relationship Specialty Start Date End Date Alessandro Velasco MD PCP - General 11/08/16 01/08/22 Case Bragg NP [address] [facility] [address] [place] [address] Nurse Practitioner Nurse Practitioner 05/29/20 documented as of this encounter
--- OUTSIDE RECORDS SUMMARY | 2024-08-21 22:27 | XMS_ITS | Encounter Summary ---
Author Organization [facility] Address [address] [facility] [address] [place] [address] Care Team Providers Care Autocad Draftsman Name Role Phone Alessandro Velasco MD Primary Care Provider [phone] Case Bragg RDA Unavailable [phone] Encounter Details Date Type Department Care Team (Late st Contact Info) Description 09/28/2020 Orders Only [facility] [address] 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 Gender Identity Male 11/26/2021 10:53 AM CDT Sexual Orientation Straight 11/22/2019 5: 22 PM CDT documented as of this encounter Ordered Prescriptions Prescription Sig Dispense Quantity Refills Last Filled Start Date End Date tadalafiL (CIALIS) 20 mg tablet Take 1 tablet (20 mg total) by mouth daily as needed for erectile dysfunction 4 tablet 11 09/28/2020 2 documented in this encounter Plan of Treatment Not on file documented as of this encounter Visit Diagnoses Not on filedocumented in this encounter Care Teams Autocad Draftsman Relationship Specialty Start Date End Date Alessandro Velasco MD PCP - General 11/08/16 01/08/22 Case Bragg NP [address] [place] [address] [address] [place] [address] Nurse Practitioner Nurse Practitioner 05/29/20 documented as of this encounter
--- OUTSIDE RECORDS SUMMARY | 2024-08-21 22:27 | XMS_ITS | Encounter Summary ---
Author Organization [facility] Address [address] [facility] [address] [place] [address] Care Team Providers Care Survey Analyst Name Role Phone Alessandro Velasco MD Primary Care Provider [phone] Case Bragg CLIENT SERVICES ASSOCIATE Unavailable [phone] Encounter Details Date Type Department Care Team (Late st Contact Info) Description 06/16/2020 Telephone [facility] Orthopedics and Sports Medicine [address] [facility] [address] [address] Lindsey High MA Social History Tobacco Use Types Packs/Day Years [...] on file 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 OR RESTAURANT MANAGER * Telephone Encounter - Lindsey High MA - 06/16/2020 8:58 AM CST Please advise . Is it ok to provide patient with a RTW note. OR RESTAURANT MANAGER * Telephone Encounter - Lindsey High MA - 06/16/2020 8:58 AM CST ----- Message from Minh Wise sent at 06/16/2020 8:54 AM CAFE OR RESTAURANT MANAGER ----- Regarding: Visit Follow-Up Question Contact: I think I am ready to return to work next week. 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 I think I will be fine as long as I wear my brace. Thank you, Miguel Wise OR RESTAURANT MANAGER documented in this encounter Plan of Treatment Not on file documented as of this encounter Visit Diagnoses Not on filedocumented in this encounter Care Teams Survey Analyst Relationship Specialty Start Date End Date Alessandro Velasco MD PCP - General 11/08/16 01/08/22 Case Bragg NP [address] [place] [address] [address] [place] [address] Nurse Practitioner Nurse Practitioner 05/29/20 documented as of this encounter
--- OUTSIDE RECORDS SUMMARY | 2024-08-21 22:27 | XMS_ITS | Encounter Summary ---
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 Gender Identity Male 11/26/2021 10:53 AM CDT Sexual Orientation Straight 11/22/2019 5: 22 PM CDT documented as of this encounter Discharge Disposition Disposition Code Departure Means Destination Discharge to home or self care documented in this encounter Plan of Treatment Not on file documented as of this encounter Procedures Procedure Name Priority Date/Time Associated Diagnosis Comments COVID-19 CORONAVIRUS RNA Routine 05/26/2020 3:21 PM CDT Pre-procedure lab exam documented in this encounter Results * COVID-19 Coronavirus RNA Nasopharyngeal (05/26/2020 3:21 PM CDT) COVID-19 RNA Not Detected [facility] ([facility]) Comment: Interpretive Data Testing performed at [facility] Molecular Infectious Disease Laboratory. The 2018-Novel Coronavirus Assay (COVID-19) Real Time RT-PCR assay is for in vitro diagnostic use under FDA emergency use authorization only. A negative RT-PCR result does not preclude infection with COVID-19 and should not be used as the sole basis for treatment or other patient management decisions. Additional sample types have been validated according to CLIA regulations. ?? Current Interpretive Data was last revised on 2019. Testing performed by: [facility], [address] [place] [address]., [address] First COVID-19 test? Unknown [facility] ([facility]) Comment:Testing performed by : [facility], [address] [place] [address], [address] Employeed in healthcare? Unknown [facility] ([facility]) Comment:Testing performed by : [address], [address] status? No CE [facility] ([facility]) Comment:Testing performed by : [address], [address] Group care resident? Unknown [facility] ([facility]) Comment:Testing performed by : [facility], [address] [place] [address], [address] Hospitalized? Unknown [facility] ([facility]) Comment:Testing performed by : [address], [address] Is patient in ICU? Unknown [facility] ([facility]) Comment:Testing performed by : [address], [address] Symptomatic as defined by CDC? No [facility] ([facility]) Comment:Testing performed by : [facility], [address] [facility], [place]., [address] Nasopharyngeal 05/26/2020 3: 21 PM CDT 05/27/2020 4:13 AM CDT Narrative [facility] ([facility]) - 05/27/2020 3:10 PM CDT What is the reason for testing?->Screening prior to scheduled (>12 hr) surgery or procedure us Sanket Gary MD LAB MICROBIOLOGY - GENERAL O RDERABLES Final Result [facility] ([facility]) 1 [facility] Department [place] [address] documented in this encounter Visit Diagnoses Diagnosis Pre-procedure lab exam Pre-procedural laboratory examination documented in this encounter Care Teams Tongue And Quarter Stitcher Relationship Specialty Start Date End Date Alessandro Velasco MD PCP - General 11/08/16 01/08/22 documented as of this encounter
--- OUTSIDE RECORDS SUMMARY | 2024-08-21 22:27 | XMS_ITS | Encounter Summary ---
Author Organization [facility] Address [address] [place] [address] Care Team Providers Care Supervisor Ticket Sales Name Role Phone Alessandro Velasco MD Primary Care Provider [phone] Case Bragg GENERAL STUDIES PROGRAM CHAIR Unavailable [phone] Encounter Details Date Type Department Care Team (Late st Contact Info) Description 06/19/2020 Orders Only [facility] Orthopedics and Sports Medicine [address] [facility] [address] [place] [id number] Case Bragg NP [address] [place] [address] [address] [place] [address] Social History Tobacco Use Types [...] on file 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
--- OUTSIDE RECORDS SUMMARY | 2024-08-21 22:27 | XMS_ITS | Encounter Summary ---
Author Organization [facility] Address [address] [facility] [address] [place] [address] Care Team Providers Care Deli Cook Name Role Phone Alessandro Velasco MD Primary Care Provider [phone] Case Bragg UPKEEP WORKER Unavailable [phone] Encounter Details Date Type Department Care Team (Late st Contact Info) Description 03/08/2021 Orders Only [place] [facility] [address] 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 Gender Identity Male 11/26/2021 10:53 AM CDT Sexual Orientation Straight 11/22/2019 5: 22 PM CDT documented as of this encounter Ordered Prescriptions Prescription Sig Dispense Quantity Refills Last Filled Start Date End Date ferrous sulfate 325 mg (65 mg of elemental iron) tabletIndications: Iron Deficiency Anemia Take 1 tablet (325 mg total) by mouth 2 (two) times a day with meals 60 tablet 11 03/08/2021 08/30/2021 documented in this encounter Plan of Treatment Not on file documented as of this encounter Visit Diagnoses Not on filedocumented in this encounter Care Teams Deli Cook Relationship Specialty Start Date End Date Alessandro Velasco MD PCP - General 11/08/16 01/08/22 Case Bragg NP [address] [place] [address] DR MELENDEZ [address] [place] [address] Nurse Practitioner Nurse Practitioner 05/29/20 documented as of this encounter
--- OUTSIDE RECORDS SUMMARY | 2024-08-21 22:27 | XMS_ITS | Encounter Summary ---
Author Organization [facility] Address [address] [facility] [facility] [address] [place] [address] Care Team Providers Care Hr Internship Name Role Phone Alessandro Velasco MD Primary Care Provider [phone] Case Bragg STENOTYPE OPERATOR Unavailable [phone] Encounter Details Date Type Department Care Team (Late st Contact Info) Description 03/08/2021 Telephone [place] [facility] [address] [facility] [address] [place] [address] Alessandro Velasco MD [address] [place] [address] Social History Tobacco Use Types Packs/Day [...] on file 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 Next time you can do this instead of sending a message back. * Telephone Encounter - Marissa Adams. - 03/09/2021 1:12 PM CDT Partient notified. Would like his lab order sent to [facility]. * Telephone Encounter - Danni Blanchard MA - 03/08/2021 4:59 PM CDT To call office * Telephone Encounter - Danni Blanchard MA - 03/08/2021 4:57 PM CDT ----- Message from Alessandro Velasco MD sent at 03/08/2021 12:22 PM CDT ----- Check a hematocrit and hemoglobin and iron profile in 4 months diagnosis iron deficiency anemia Hemoglobin is up to 10.6 iron level is low down to 9% should be between 20 and 50% iron supplementation will be sent to his pharmacy documented in this encounter Plan of Treatment Not on file documented as of this encounter Results * (ABNORMAL) Iron profile w/ IBC (08/29/2021 4:49 PM BREASTFEEDING PEER COUNSELOR) Iron 25(L) 50 - 150 mcg/dL [facility] ([place]) TIBC 310 250 - 400 mcg/dL [facility] ([place]) Transferrin saturation 8(L) 20 - 50 % [facility] ([place]) Blood 08/29/2021 4:49 PM BREASTFEEDING PEER COUNSELOR 08/29/2021 5:53 PM BREASTFEEDING PEER COUNSELOR us Alessandro Velasco MD LAB BLOOD ORDERABLES Final Res ult [facility] ([place]) [address] [facility] Department [place] [address] * (ABNORMAL) Hemoglobin and hematocrit (08/29/2021 4:49 PM BREASTFEEDING PEER COUNSELOR) Hgb 10.4(L) 13.0 - 17.5 g/dL [facility] ([place]) Hct 33.7(L) 38.9 - 50.3 % [facility] ([place]) Blood 08/29/2021 4:49 PM BREASTFEEDING PEER COUNSELOR 08/29/2021 5:53 PM BREASTFEEDING PEER COUNSELOR us Alessandro Velasco MD LAB BLOOD ORDERABLES Final Res ult Performing Organization Address City/[facility]/ZIP Co de Phone Number [facility] ([place]) [address] [facility] Department [place] [address] documented in this encounter Visit Diagnoses Diagnosis Iron deficiency anemia, unspecified iron deficiency anemia type- Primary documented in this encounter Care Teams Hr Internship Relationship Specialty Start Date End Date Alessandro Velasco MD PCP - General 11/08/16 01/08/22 Case Bragg NP [address] [place] [address] [address] [place] [address] Nurse Practitioner Nurse Practitioner 05/29/20 documented as of this encounter
--- OUTSIDE RECORDS SUMMARY | 2024-08-21 22:27 | XMS_ITS | Encounter Summary ---
Author Organization [facility] Address [address] [facility] [address] [place] [address] Care Team Providers Care Power Electronics Research Engineer Name Role Phone Alessandro Velasco MD Primary Care Provider [phone] Case Bragg AIRCRAFT STRUCTURAL REPAIR MECHANIC Unavailable [phone] Encounter Details Date Type Department Care Team (Late st Contact Info) Description 09/06/2021 Orders Only [place] [facility] [address] [facility] [address] [place] [address] Alessandro Velasco MD [address] [place] [address] [address] [place] [address] Iron deficiency anemia, unspecified iron deficiency anemia type (Primary Dx) Social History Tobacco Use Types [...] on file 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 Gender Identity Male 11/26/2021 10:53 AM CDT Sexual Orientation Straight 11/22/2019 5: 22 PM CDT documented as of this encounter Plan of Treatment Not on file documented as of this encounter Visit Diagnoses Diagnosis Iron deficiency anemia, unspecified iron deficiency anemia type- Primary documented in this encounter Care Teams Power Electronics Research Engineer Relationship Specialty Start Date End Date Alessandro Velasco MD PCP - General 11/08/16 01/08/22 Case Bragg NP [address] [place] [address] DR MELENDEZ [address] [place] [address] Nurse Practitioner Nurse Practitioner 05/29/20 documented as of this encounter
--- OUTSIDE RECORDS SUMMARY | 2024-08-21 22:27 | XMS_ITS | Encounter Summary ---
Author Organization [facility] Address [address] [place] [address] Care Team Providers Care Trucker Hand Name Role Phone Alessandro Velasco MD Primary Care Provider [phone] Case Bragg EXTERNAL GRINDER TOOL Unavailable [phone] Encounter Details Date Type Department Care Team (Late st Contact Info) Description 05/29/2020 1:45 PM CDT Anesthesia Event [facility] Operating Room 1 [place] [address] Hector Urias MD PhD [address] [place] [address] Anesthesia Record Procedure Summary Procedure Name Responsible Anesthesiologist Anesthesia Start Time Anesthesia Stop Time Left knee arthroscopy, medial meniscectomy including any meniscal shavings including debridement shaving articular cartilage (Left: Knee) Hector Urias MD PhD 05/29/20 1345 05/29/20 1444 Events Date Time Event Comment 05/29/2020 1224 1345 In Room 1345 An Start 1345 An Start Data 1349 An Induction The patient was reevaluated immediately before moderate or deep sedation use and before anesthesia induction. 1351 An Intubation 1351 Anesthesia Ready 1412 Proc Start 1412 Incision Start 1434 Proc Fin 1439 Out of Room 1439 An Extubation 1440 an stop data 1443 Handoff to RN I completed my handoff [...] disposition at the time of handoff: PACU 1444 An Stop Meds Name Total ketamine 10 mg/mL 50 mg lidocaine 2 % PF 100 mg propofol 170 mg ceFAZolin (ANCEF) 1 gram/10 mL in steril e water (premix) 2,000 mg 2,000 mg ondansetron 4 mg Lactated Ringer's (LR) infusion 1,000 mL * Agents Name O2 Air Sevoflurane Inspired Sevoflurane * Blood No blood administrations on file. Lines, Drains, and Airways Type Details Placement Removal Peripheral IV Placement Date: 05/29/20; Placement Time: 1222; Catheter Size: 22 G; Orientation: Left; Location: Hand; Site Prep: Chlorhexidine; Inserted by: Marissa; Insertion Attempts: 1; Patient Tolerance: Tolerated well; Removal Date: 05/29/20; Removal Time: 1557 05/29/20 1222 by Juanita Andre RN 05/29/20 1557 by Alicia Mccarty RN Supraglottic Airway Placement Date: 05/29/20; Placement Time: 1351 (created via procedure documentation); Mask Ventilation: 0; Size: 4; Insertion Attempts: 1; Comments: Atraumatic placement.; Removal Date: 05/29/20; Removal Time: 1439 05/29/20 1351 by Amandeep Sharpe CRNA 05/29/20 1439 by Kary Miller CRNA RETIRED Surgical Site 05/29/20; 1430; Le ft; Knee; 07/13/24 (Retired LDA, Removed/Completed by [facility] with LDA Utility); 1213 (Retired LDA, Removed/Completed by [facility] with LDA Utility) 05/29/20 1430 by Nadia Del Rosario, DEJA 07/13/24 1213 by Discharge Provider, Automatic documented in this encounter Social History Tobacco [...] on file 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 Gender Identity Male 11/26/2021 10:53 AM CDT Sexual Orientation Straight 11/22/2019 5: 22 PM CDT documented as of this encounter OR Notes * Anesthesia Postprocedure Evaluation - Kary Miller CRNA - 05/29/2020 2:44 PM CDT Patient: Minh Wise Procedure Summary Date: 05/29/20 Room / Location: [facility] OR [address] [place] [address] OPERATING ROOM Anesthesia Start: 1345 Anesthesia Stop: 1444 Procedure: Left knee arthroscopy, medial meniscectomy including any meniscal shavings including debridement shaving articular cartilage (Left Knee) Diagnosis: Tear of medial meniscus of left knee (Tear of medial meniscus of left knee [S83.242A]) Provider: Sanket Gary MD Responsible Provider: Hector Urias MD PhD Anesthesia Type: general ASA Status: 2 Anesthesia Type: general Last vitals BP (!) 172/79 Pulse 72 Temp 36.6 ??C (97.8 ??F) (Temporal) Resp 20 SpO2 99% Anesthesia Post Evaluation Patient location during evaluation: PACU Patient participation: complete - patient participated 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 Pain management: adequate Airway patency: adequate Evidence of recall: no Anesthetic complications: no Cardiovascular status: acceptable Respiratory status: acceptable Hydration status: acceptable Pt is: normothermic Nausea/Vomiting status: none * Anesthesia Procedure Notes - Amandeep Sharpe CRNA - 05/29/2020 1:55 PM CDTAssociated Order(s): Airway Airway Patient location: OR Urgency: elective Date/time: 05/29/2020 1:51 PM Indications for airway management: anesthesia Difficult airway: no Staff: Supervising provider: Hector Urias MD PhD Placed by: TRANSITIONAL CARE MANAGER: Amandeep Sharpe CRNA Emergent airway documentation: Risks and benefits discussed: yes Consent obtained: yes Consent given by: patient Airway prep: Preoxygenated: yes Patient position: sniffing Mask difficulty assessment: 0 - not attempted Spontaneous ventilation during airway: absent Sedation level during airway: GA Final airway details: Final airway type: supraglottic airway Final supraglottic airway: classic SGA size: 4 Airway seal pressure: 20 cm H2O Number of attempts: 1 Additional comments: Atraumatic placement. * Anesthesia Preprocedure Evaluation - Hector Urias MD PhD - 05/29/2020 12:23 PM CDT Anesthesia Evaluation Minh Wise is a 49 y.o. male Procedure(s): Left knee arthroscopy medial meniscectomy including any meniscal shavings including debridement shaving articular cartilage Pre-Op Diagnosis Codes: * History of colon polyps [Z86.010] HISTORY Past Medical History Information obtained from: patient and chart. Cardiovascular + Hypertension Respiratory + Sleep apnea (JAYLA) Prescribed device: CPAP. Gastrointestinal + GERD - PRN medication use only. Symptoms < 1x/week. Endocrine / Other Pertinent negatives: rheumatological disease Functional Capacity Functional capacity: 4-6 METs Patient Active Problem List Diagnosis ??? [...] Tear of medial meniscus of left knee Past Medical History: Diagnosis Date ??? Anemia ??? Colon polyp ??? Gastric reflux ??? GERD (gastroesophageal reflux disease) ??? Hyperlipidemia Hyperlipidemia ??? Hypertension Hypertension ??? Sleep apnea Past Surgical History: Procedure Laterality Date ??? COLONOSCOPY 12/21/2018 ??? COLONOSCOPY 2013 ??? KNEE ARTHROSCOPY ??? KNEE SURGERY Knee surgery ??? OTHER SURGICAL HISTORY 2006 Left Arthroscopic Knee Surgery ??? POLYPECTOMY No Known Allergies HOME MEDICATIONS : amlodipine-valsartan (EXFORGE) 10-160 mg per tablet buPROPion XL (WELLBUTRIN XL) 300 mg 24 hr tablet clonazePAM (KlonoPIN) 0.[address] (VOLTAREN) 75 mg EC tablet Lactobac no.41/Bifidobact no.7 (PROBIOTIC-10 ORAL) bv-mid-JX-Gy-Lf-wgnonih-lutein (MULTIVITAL) 0.4-162-18 mg tablet No current outpatient medications on file. Social History Tobacco Use Smoking Status Never [...] history of Heart disease; ??? Arthritis Other There were no vitals filed for this visit. PT: No results found for requested labs within last 720 hours. INR: No results found for requested labs within last 720 hours. APTT: No results found for requested labs within last 720 hours. Hgb A1C: No results found for requested labs within last 720 hours. CBC RBC: No results found for requested labs within last 720 hours. RDW: No results found for requested labs within last 720 hours. MCHC: No results found for requested labs within last 720 hours. MCH: No results found for requested labs within last 720 hours. MCV: No results found for requested labs within last 720 hours. Hct: No results found for requested labs within last 720 hours. Hgb: No results found for requested labs within last 720 hours. WBC: No results found for requested labs within last 720 hours. MPV: No results found for requested labs within last 720 hours. Platelets: No results found for requested labs within last 720 hours. RDW CV: No results found for requested labs within last 720 hours. RDW Sd: No results found for requested labs within last 720 hours. BMP Glucose: No results found for requested labs within last 720 hours. Calcium: No results found for requested labs within last 720 hours. Sodium: No results found for requested labs within last 720 hours. Potassium: No results found for requested labs within last 720 hours. CO2: No results found for requested labs within last 720 hours. Chloride: No results found for requested labs within last 720 hours. BUN: No results found for requested labs within last 720 hours. Creatinine: No results found for requested labs within last 720 hours. DOS Physical Exam Medical history, medications, and allergies reviewed. Attestation: I endorse the findings of the anesthesia pre-evaluation assessment dated: 05/29/2020. Airway Exam: Mallampati: II Cervical ROM: FROM TM distance: normal Jaw ROM: full Cardiovascular Exam: Rate: regular Rhythm: regular Pulmonary Exam: LCTA, bilat EENT Exam: trachea midline Dental Exam: Appears intact Skin Exam: Skin is warm. Turgor is normal. Abdominal Exam: Abdomen is soft. Bowel sounds are present. Current state: Patient's current state is cooperative and interactive. Anesthesia Plan ASA 2 Planned anesthesia: General Team communication plan: LMA Induction: Induction: intravenous. Postoperative Plan: No plan for postoperative opioid use. Patient's planned disposition post procedure is Outpatient. Informed Consent: Discussed plan with TRANSITIONAL CARE MANAGER and attending. Anesthesia plan and risks discussed with [...] Procedure Name Priority Date/Time Associated Diagnosis Comments MD AN ELECTIVE SUPRAGLOTTIC AIRWAY Routine 05/29/2020 1:55 PM CDT documented in this encounter Results * MD AN ELECTIVE SUPRAGLOTTIC AIRWAY (05/29/2020 1:55 PM CDT) Narrative Amandeep Sharpe CRNA - 05/29/2020 1:55 PM CDT Amandeep Sharpe CRNA ? 05/29/2020 ??1:56 PM Airway Patient location: OR Urgency: elective Date/time: 05/29/2020 1:51 PM Indications for airway management: anesthesia Difficult airway: no Staff: Supervising provider: Hector Urias MD PhD Placed by: TRANSITIONAL CARE MANAGER: Amandeep Sharpe CRNA Emergent airway documentation: Risks and benefits discussed: yes Consent obtained: yes Consent given by: patient Airway prep: Preoxygenated: yes Patient position: sniffing Mask difficulty assessment: 0 - not attempted Spontaneous ventilation during airway: absent Sedation level during airway: GA Final airway details: Final airway type: supraglottic airway Final supraglottic airway: classic SGA size: 4 Airway seal pressure: 20 cm H2O Number of attempts: 1 Additional comments: Atraumatic placement. us Hector Urias MD PhD ANESTHESIA ORDERABLES F inal Result documented in this encounter Visit Diagnoses Not on filedocumented in this encounter Administered Medications Inactive Administered Medications - up to 3 most recent administrations Medication Order MAR Action Action Date Dose Rate Site ceFAZolin (ANCEF) 1 gram/10 mL in sterile water (premix) 2,000 mg 2,000 mg, intravenous, at 400 mL/hr, Administer over 3 Minutes, Once, On Fri05/29/20 at 1300, For 1 dose, Pre-Op, Administer within 60 minutes of incision. Use Vancomycin if allergy to Ancef or history of MRSA. Follow SCIP antibiotic protocol. May administer 1000 mg if less than 80kg, Indications: Prophylaxis, SurgicalIndications:Prophylaxis, Surgical Given 05/29/2020 2:01 PM CDT 2,000 mg ketamine (KETALAR) injection As needed, Starting on Fri05/29/20 at 1349, Anesthesia Intra-op Given 05/29/2020 2:10 PM CDT 25 mg Given 05/29/2020 1:49 PM CDT 25 mg Lactated Ringer's (LR) infusion 30 mL/hr, intravenous, Continuous, Starting on Fri05/29/20 at 1300, Pre-Op New Bag 05/29/2020 2:25 PM CDT New Bag 05/29/2020 1:45 PM CDT 100 mL/hr New Bag 05/29/2020 12:44 PM CDT 30 mL/hr 30 mL/hr lidocaine (XYLOCAINE) 20 mg/mL (2 %) preservative free injection As needed, Starting on Fri05/29/20 at 1349, Anesthesia Intra-op Given 05/29/2020 1:49 PM CDT 100 mg ondansetron (ZOFRAN) injection Administer over 2 Minutes, As needed, Starting on Fri05/29/20 at 1414, Anesthesia Intra-op Given 05/29/2020 2:14 PM CDT 4 mg propofoL (DIPRIVAN) IV As needed, Starting on Fri05/29/20 at 1349, Anesthesia Intra-op Given 05/29/2020 1:49 PM CDT 170 mg documented in this encounter Care Teams Trucker Hand Relationship Specialty Start Date End Date Alessandro Velasco MD PCP - General 11/08/16 01/08/22 Case Bragg NP [address] [facility] [address] MELENDEZ [address] [place] [id number] Nurse Practitioner Nurse Practitioner 05/29/20 documented as of this encounter
--- OUTSIDE RECORDS SUMMARY | 2024-08-21 22:27 | XMS_ITS | Encounter Summary ---
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 Gender Identity Male 11/26/2021 10:53 AM CDT Sexual Orientation Straight 11/22/2019 5: 22 PM CDT documented as of this encounter Discharge Disposition Disposition Code Departure Means Destination Discharge to home or self care documented in this encounter Plan of Treatment Not on file documented as of this encounter Procedures Procedure Name Priority Date/Time Associated Diagnosis Comments EGFR Routine 02/24/2021 7:30 AM CDT Encounter for wellness examination in adult Essential hypertension DIFFERENTIAL AUTO Routine 02/24/2021 7:3 0 AM CDT Encounter for wellness examination in adult Essential hypertension PSA SCREEN Routine 02/24/2021 7:30 AM CDT Encounter for wellness examination in adult Essential hypertension URINALYSIS AND REFLEX TO MICROSCOPIC AND CULTURE Routine 02/24/2021 7:30 AM CDT Encounter for wellness examination in adult Essential hypertension CBC WITH AUTO DIFFERENTIAL Routine 02/24/2021 7:30 AM CDT Encounter for wellness examination in adult Essential hypertension LIPID PANEL Routine 02/24/2021 7:30 AM CDT Encounter for wellness examination in adult Essential hypertension COMPREHENSIVE METABOLIC PANEL Routine 02/24/2021 7:30 AM CDT Encounter for wellness examination in adult Essential hypertension documented in this encounter Results * eGFR (02/24/2021 7:30 AM CDT) eGFR 97 mL/min/1.7 3 m2 [facility] ([place]) Comment: Interpretive Data Reference Interval Normal ?>/= 90 mL/min/1.73m2 Mildly decreased* ? 60 - 89 mL/min/1.73m2 Mildly to moderately decreased ?45 - 59 mL/min/1.73m2 Moderately to severely decreased ??30 - 44 mL/min/1.73m2 Severely decreased ?15 - 29 mL/min/1.73m2 Kidney Failure ?< 15 ??mL/min/1.73m2 *Relative to young adult level Estimated glomerular filtration rate is determined by the CKD-EPI equation recommended by the National Kidney Foundation (KDIGO 2012 Clinical Practice Guideline for the Evaluation and Management of Chronic Kidney Disease. Kidney Intnl Suppl Aug 2012;3:1). The CKD-EPI equation should not be used for patients with unstable renal function and has not been validated in children and those over 70. Current interpretive data was last reviewed 2020 Blood specimen (specimen) 02/24/2021 7:30 AM CDT 02/24/2021 8:48 AM CDT us Alessandro Velasco MD LAB BLOOD ORDERABLES Final Res ult [facility] ([place]) 1 [facility] Department [place] [address] * (ABNORMAL) Differential, auto (02/24/2021 7:30 AM CDT) Neutrophil abs 5.0 1.7 - 6.5 K/cumm [facility] ([place]) Imm gran abs 0.0 0.0 - 0.1 K/cumm [facility] ([place]) Lymphocyte abs 1.6 0.8 - 3.3 K/cumm [facility] ([place]) Monocyte abs 0.9(H) 0.2 - 0.8 K/cumm [facility] ([place]) Eosinophil abs 0.3 0.0 - 0.5 K/cumm [facility] ([place]) Basophil abs 0.0 0.0 - 0.1 K/cumm [facility] ([place]) Neutrophil pct 63.6 % [facility] ([place]) Comment: Interpretive Data Percent cell count reference ranges are not reported, since discordance with absolute values may lead to misinterpretation of CBC data. Current Interpretive Data was last revised on 2017. Imm gran pct 0.4 % [facility] ([place]) Comment: Interpretive Data Percent cell count reference ranges are not reported, since discordance with absolute values may lead to misinterpretation of CBC data. Current Interpretive Data was last revised on 2017. Lymphocyte pct 20.8 % [facility] ([place]) Comment: Interpretive Data Percent cell count reference ranges are not reported, since discordance with absolute values may lead to misinterpretation of CBC data. Current Interpretive Data was last revised on 2017. Monocyte pct 11.0 % [facility] ([place]) Comment: Interpretive Data Percent cell count reference ranges are not reported, since discordance with absolute values may lead to misinterpretation of CBC data. Current Interpretive Data was last revised on 2017. Eosinophil pct 3.7 % [facility] ([place]) Comment: Interpretive Data Percent cell count reference ranges are not reported, since discordance with absolute values may lead to misinterpretation of CBC data. Current Interpretive Data was last revised on 2017. Basophil pct 0.5 % [facility] ([place]) Comment: Interpretive Data Percent cell count reference ranges are not reported, since discordance with absolute values may lead to misinterpretation of CBC data. Current Interpretive Data was last revised on 2017. Blood specimen (specimen) 02/24/2021 7:30 AM CDT 02/24/2021 8:48 AM CDT us Alessandro Velasco MD LAB BLOOD ORDERABLES Final Res ult [facility] ([place]) 1 [facility] Department [place] [address] * PSA screen (02/24/2021 7:30 AM CDT) [...] data last revised 2018. Testing performed by: [facility], [address] [place] [address], [place]., [address] Blood specimen (specimen) 02/24/2021 7:30 AM CDT 02/24/2021 6:13 PM CDT us Alessandro Velasco MD LAB BLOOD ORDERABLES Final Res ult [facility] ([place]) 1 [facility] Department [place] [address] * (ABNORMAL) CBC with auto differential (02/24/2021 7:30 AM CDT) WBC 7.8 3.8 - 9.9 K/cumm [facility] ([place]) Hgb 9.6(L) 13.0 - 17.5 g/dL [facility] ([place]) Hct 31.6(L) 38.9 - 50.3 % [facility] ([place]) Plt 269 150 - 400 K/cumm [facility] ([place]) MPV 11.3 9.1 - 12.3 fL [facility] ([place]) RBC 3.68(L) 4.30 - 5.80 M/cumm [facility] ([place]) MCV 85.9 81.3 - 96.4 fL [facility] ([place]) MCH 26.1(L) 27.1 - 33.3 pg [facility] ([place]) MCHC 30.4(L) 32.3 - 35.7 g/dL [facility] ([place]) RDW CV 13.6 11.1 - 14.9 % [facility] ([place]) RDW SD 42.5 35.7 - 48.1 fL [facility] ([place]) NRBC abs 0.00 0.00 - 0.01 K/cumm [facility] ([place]) Blood specimen (specimen) 02/24/2021 7:30 AM CDT 02/24/2021 8:48 AM CDT us Alessandro Velasco MD LAB BLOOD ORDERABLES Final Res ult [facility] ([place]) 1 [facility] Department [place] [address] * (ABNORMAL) Comprehensive metabolic panel (02/24/2021 7:30 AM CDT) Sodium 139 135 - 145 mmol/L [facility] ([place]) Potassium, pl 4.2 3.3 - 4.9 mmol/L [facility] ([place]) Chloride 105 97 - 110 mmol/L [facility] ([place]) CO2 26 22 - 32 mmol/L [facility] ([place]) Anion gap 7 2 - 15 mmol/L [facility] ([place]) BUN 23 8 - 25 mg/dL [facility] ([place]) Creatinine 0.91 0.80 - 1.30 mg/dL [facility] ([place]) Glucose 109 70 - 199 mg/dL [facility] ([place]) [...] interpretive data was last revised 2017. Calcium 8.4(L) 8.5 - 10.3 mg/dL [facility] ([place]) Bilirubin, total <0.2 0.1 - 1.2 mg/dL [facility] ([place]) Protein, pl 6.5 6.5 - 8.5 g/dL [facility] ([place]) Albumin 4.0 3.5 - 5.0 g/dL [facility] ([place]) Alk phos 63 40 - 130 Units/L [facility] ([place]) ALT 40 7 - 55 Units/L [facility] ([place]) AST 22 10 - 50 Units/L [facility] ([place]) Blood specimen (specimen) 02/24/2021 7:30 AM CDT 02/24/2021 8:48 AM CDT us Alessandro Velasco MD LAB BLOOD ORDERABLES Final Res ult [facility] ([place]) 1 [facility] Department [place] [address] * Urinalysis reflex to microscopic and culture Urine, clean voided (02/24/2021 7:30 AM CDT) Color, ur Straw Yellow [facility] ([place]) Clarity, ur Clear Clear [facility] ([place]) Specific gravity, ur 1.018 1.010 - 1.025 [facility] ([place]) pH, urine 6.5 [facility] ([place]) Protein, ur ql Negative Negative [facility] ([place]) Glucose, ur ql Negative Negative [facility] ([place]) Ketones, ur Negative Negative [facility] ([place]) Bilirubin, ur Negative Negative [facility] ([place]) Blood, ur Negative Negative [facility] ([place]) Urobilinogen, ur <2.0 <2.0 mg/dL [facility] ([place]) Nitrite, ur Negative Negative [facility] ([place]) Leukocyte esterase, ur Negative Negative [facility] ([place]) UA reflex comment Reflex conditions for microscopic UA and culture not met. [facility] ([place]) Urine, clean voided 02/24/2021 7:30 AM CDT 02/24/2021 8:49 AM CDT Narrative [facility] ([place]) - 02/24/2021 8:53 AM CDT ?? Urine pH is affected by diet, medications, systemic acid-base disturbances, and renal tubular function. ??pH may affect urinary stone formation. ??For example, urine pH below 6.0 may help reduce the tendency for calcium phosphate stones and pH greater than 6.0 may reduce the tendency for uric acid stone formation. Source: [facility] [employer] Last revised 08-21-2017 us Alessandro Velasco MD LAB MICROBIOLOGY - GENERAL ORD ERABLES Final Result [facility] ([place]) 1 [facility] Department [place] [address] * Lipid panel (02/24/2021 7:30 AM CDT) Cholesterol 152 30 - 199 mg/dL [facility] ([place]) Comment: Interpretive Data Ages < or = 19 years ??Acceptable: ? <170 mg/dL ??Borderline high: ??170-199 mg/dL ??High: ? >or= 200 mg/dL Ages > or = 20 years ??Desirable: ?<200 mg/dL ??Borderline high: ??200-239 mg/dL ??High: ? >or= 240 mg/dL Literature References: 1. Expert Panel on Integrated Guidelines for Cardiovascular Health and Risk Reduction in Children and Adolescents. Pediatrics 2011;128:S213 2. NCEP Expert Panel. Circulation 2004;110:227 Current Interpretive Data was last revised on 2018. Triglycerides 87 <=149 mg/dL [facility] ([place]) Comment: Interpretive Data Ages < or = 9 years ??Acceptable: ? <75 mg/dL ??Borderline high: ??75-99 mg/dL ??High: ? >or= 100 mg/dL Ages 10 to 20 years ??Acceptable: ? <90 mg/dL ??Borderline high: ??90-129 mg/dL ??High: ? >or= 130 mg/dL Ages > or = 20 years ??Desirable: ?<150 mg/dL ??Borderline high: ??150-199 mg/dL ??High: ? 200-499 mg/dL ?Very high: ?? >or= 499 mg/dL Literature References: 1. Expert Panel on Integrated Guidelines for Cardiovascular Health and Risk Reduction in Children and Adolescents. Pediatrics 2011;128:S213 2. NCEP Expert Panel. Circulation 2004;110:227 Current Interpretive Data was last revised on 2018. HDL 44 >=40 mg/dL [facility] ([place]) Comment: Interpretive Data Ages < or = 19 years ??Acceptable: ? >45 mg/dL ??Borderline low: ?? 40-45 mg/dL ??Low: ? <40 mg/dL Ages > or = 20 years ??Desirable: ?>or= 60 mg/dL ??Low: ? <40 mg/dL Literature References: 1. Expert Panel on Integrated Guidelines for Cardiovascular Health and Risk Reduction in Children and Adolescents. Pediatrics 2011;128:S213 2. NCEP Expert Panel. Circulation 2004;110:227 Current Interpretive Data was last revised on 2018. LDL, calculated 91 <=129 mg/dL [facility] ([place]) Comment: Interpretive Data Ages < or = 19 years ??Acceptable: ? <110 mg/dL ??Borderline high: ??110-129 mg/dL ??High: ?>or= 130 mg/dL Ages > or = 20 years ??Optimal: ? <100 mg/dL ??Near optimal: ?100-129 mg/dL ??Borderline high: ?? 130-159 mg/dL ??High: ?>160 mg/dL Literature References: 1. Expert Panel on Integrated Guidelines for Cardiovascular Health and Risk Reduction in Children and Adolescents. Pediatrics 2011;128:S213 2. NCEP Expert Panel. Circulation 2004;110:227 Current Interpretive Data was last revised on 2018. Non-HDL Cholesterol 108 mg/dL [facility] ([place]) Comment: Interpretive Data Ages < or = 19 years ??Acceptable: ?<120 mg/dL ??Borderline high: ??120-144 mg/dL ??High: ?>145 mg/dL Ages > or = 20 years ??When triglycerides are >200 mg/dL, Non-HDL cholesterol is a secondary target of ? therapy with treatment goals that are 30 mg/dL greater than the LDL cholesterol target. ? Literature References: 1. Expert Panel on Integrated Guidelines for Cardiovascular Health and Risk Reduction in Children and Adolescents. Pediatrics 2011;128:S213 2. NCEP Expert Panel. Circulation 2004;110:227 Current Interpretive Data was last revised on 2018. Chol/HDL ratio 3 [facility] ([place]) Blood specimen (specimen) 02/24/2021 7:30 AM CDT 02/24/2021 8:48 AM CDT Alessandro Velasco MD LAB BLOOD ORDERABLES Final Res ult [facility] ([place]) 1 [facility] Department [place] [address] documented in this encounter Visit Diagnoses Diagnosis Encounter for wellness examination in adult Essential hypertension Unspecified essential hypertension documented in this encounter Care Teams Speech And Drama Teacher Relationship Specialty Start Date End Date Alessandro Velasco MD PCP - General 11/08/16 01/08/22 Case Bragg NP [address] [place] [address] [address] [place] [address] Nurse Practitioner Nurse Practitioner 05/29/20 documented as of this encounter
--- OUTSIDE RECORDS SUMMARY | 2024-08-21 22:27 | XMS_ITS | Encounter Summary ---
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 Left message on patients voicemail. documented in this encounter Plan of Treatment Not on file documented as of this encounter Visit Diagnoses Not on filedocumented in this encounter Care Teams Glass Grinder Relationship Specialty Start Date End Date Alessandro Velasco MD PCP - General 11/08/16 01/08/22 documented as of this encounter
--- OUTSIDE RECORDS SUMMARY | 2024-08-21 22:27 | XMS_ITS | Encounter Summary ---
Author Organization [facility] Address [address] [place] [address] Care Team Providers Care Online Communications Specialist Name Role Phone Alessandro Velasco MD Primary Care Provider [phone] Case Bragg DIRECTOR MORTGAGE Unavailable [phone] Encounter Details Date Type Department Care Team (Late st Contact Info) Description 03/07/2021 Orders Only [facility] [address] [facility] [address] [place] [address] Alessandro Velasco MD [address] [place] [address] [address] [place] [address] Anemia, unspecified type (Primary Dx) Social History Tobacco Use [...] on file 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 documented in this encounter Plan of Treatment Not on file documented as of this encounter Results * (ABNORMAL) Hemoglobin and hematocrit (03/08/2021 10:32 AM CDT) Hgb 10.6(L) 13.0 - 17.5 g/dL [facility] ([place]) Hct 34.6(L) 38.9 - 50.3 % [facility] ([place]) Blood specimen (specimen) 03/08/2021 10:32 AM CDT 03/08/2021 10:54 AM CDT Narrative [facility] ([place]) - 03/08/2021 10:59 AM CDT Pt will do at [facility] sometime in april Alessandro Velasco MD LAB BLOOD ORDERABLES Final Res ult Performing Organization Address [facility] Co de Phone Number [facility] ([place]) 1 [facility] [place] [address] * Folate (03/08/2021 10:32 AM CDT) Pathologist [facility] [place] Folic acid >20.0 >=5.0 ng/mL [facility] ([place]) Comment:Testing performed by : [facility], [address] [place] [address], [place]., [address] Blood specimen (specimen) 03/08/2021 10:32 AM CDT 03/08/2021 1:53 PM CDT Narrative [facility] ([place]) - 03/08/2021 3:00 PM CDT Pt will do on 03/08/21 or after at [facility] Alessandro Velasco MD LAB BLOOD ORDERABLES Final Res ult Performing Organization Address City/[facility]/ZIP Co de Phone Number [facility] ([place]) 1 [facility] [place] [address] * (ABNORMAL) Iron profile w/ IBC (03/08/2021 10:32 AM CDT) Iron 30(L) 50 - 150 mcg/dL [facility] ([facility]) TIBC 340 250 - 400 mcg/dL [facility] ([place]) Transferrin saturation 9(L) 20 - 50 % [facility] ([place]) Blood specimen (specimen) 03/08/2021 10:32 AM CDT 03/08/2021 10:54 AM CDT Narrative [facility] ([place]) - 03/08/2021 11:21 AM CDT Pt will do on 03/08/21 or after at [facility] Alessandro Velasco MD LAB BLOOD ORDERABLES Final Res ult Performing Organization Address [facility] Co de Phone Number [facility] [address] [place] [address] [place] [address] * (ABNORMAL) Vitamin B12 (03/08/2021 10:32 AM CDT) Pathologist [facility] [place] Vitamin B12 1,352(H) 230 - 1,250 pg/mL [facility] ([place]) Comment:Testing performed by : [facility], [address] [place] [address], [id number] Blood specimen (specimen) 03/08/2021 10:32 AM CDT 03/08/2021 1:53 PM CDT Narrative [facility] ([facility]) - 03/08/2021 3:00 PM CDT Pt will do on 03/08/21 or after at [facility] Alessandro Velasco MD LAB BLOOD ORDERABLES Final Res ult Performing Organization Address [facility]/ZIP Co de Phone Number [facility] ([place]) [address] [place] [address] [place] [address] * Protein Electrophoresis, With Reflex, Serum (03/08/2021 10:32 AM CDT) Pathologist [facility] [place] Protein, sr 6.9 6.2 - 8.2 g/dL [facility] ([facility]) Comment:Testing performed by : [facility], [address] [place] [address]., [address] Albumin 4.1 3.2 - 5.0 g/dL [facility] ([facility]) Comment:Testing performed by : [facility], [address] [place] [address]., [address] Alpha-1 globulin 0.3 0.2 - 0.4 g/dL [facility] ([facility]) Comment:Testing performed by : [facility], [address] [place] [address], [address] Alpha-2 globulin 0.7 0.5 - 1.0 g/dL [facility] ([facility]) Comment:Testing performed by : [facility], [address] [place] [address], [address] Beta-1 globulin 0.4 0.3 - 0.6 g/dL [facility] ([place]) Comment:Testing performed by : [facility], [address] [place] [address], [address] Beta-2 globulin 0.4 0.2 - 0.6 g/dL [facility] ([place]) Comment:Testing performed by : [facility], [address] [place] [address], [address] Gamma globulin 1.0 0.5 - 1.7 g/dL [facility] ([place]) Comment:Testing performed by : [address], [address] SPEP interp See Cl Path Rpt [facility] ([place]) Comment:Testing performed by : [address], [address] Blood specimen (specimen) 03/08/2021 10:32 AM CDT 03/08/2021 1:53 PM CDT Narrative [facility] ([facility]) - 03/15/2021 8:37 AM CDT Pt will do on 03/08/21 or after at [facility] us Alessandro Velasco MD LAB BLOOD ORDERABLES Final Res ult [facility] ([place]) [address] [facility] [place] [address] documented in this encounter Visit Diagnoses Diagnosis Anemia, unspecified type- Primary Anemia, unspecified type documented in this encounter Care Teams Online Communications Specialist Relationship Specialty Start Date End Date Alessandro Velasco MD PCP - General 11/08/16 01/08/22 Case Bragg NP [address] [place] [address] [address] Nurse Practitioner Nurse Practitioner 05/29/20 documented as of this encounter
--- OUTSIDE RECORDS SUMMARY | 2024-08-21 22:27 | XMS_ITS | Encounter Summary ---
Author Organization [facility] Address [address] [place] [address] Care Team Providers Care Body And Fender Mechanic Apprentice Name Role Phone Alessandro Velasco MD Primary Care Provider [phone] Reason for Visit * Reason Onset Date Comments Knee brace 05/12/2020 Encounter Details Date Type Department Care Team (Late st Contact Info) Description 05/12/2020 Telephone [facility] Orthopedics and Sports Medicine [address] [place] [phone] Sanket Gary MD [address] [place] [address] [address] [place] [address] Knee brace Social History Tobacco Use Types Packs/Day Years [...] on file 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 He was left the office# to call. documented in this encounter Plan of Treatment Not on file documented as of this encounter Visit Diagnoses Not on filedocumented in this encounter Care Teams Body And Fender Mechanic Apprentice Relationship Specialty Start Date End Date Alessandro Velasco MD PCP - General 11/08/16 01/08/22 documented as of this encounter
--- OUTSIDE RECORDS SUMMARY | 2024-08-21 22:27 | XMS_ITS | Encounter Summary ---
Author Organization [facility] Medical Group Address [address] [facility] [address] [place] [address] Care Team Providers Care Line Department Supervisor Name Role Phone Alessandro Velasco MD Primary Care Provider [phone] Case Bragg [employer] BABYSITTER Unavailable [phone] Reason for Visit * Reason Comments Preventative Care cpe scrape right doll X 1 week ago , red u sing neosporin on it Encounter Details Date Type Department Care Team (Late st Contact Info) Description 03/07/2021 3:45 PM CDT Office Visit [facility] 2 [facility] [address] [place] [address] Alessandro Velasco MD [address] [place] [address] [address] [place], [place] [id number] Encounter for wellness examination in adult (Primary Dx); Class 1 obesity with body mass index (BMI) of 33.0 to 33.9 in adult, unspecified obesity type, unspecified whether serious comorbidity present; Cellulitis of right lower extremity; Essential hypertension; Hemorrhoids, unspecified hemorrhoid type; Iron deficiency anemia due to chronic blood [...] on file 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 Gender Identity Male 11/26/2021 10:53 AM CDT Sexual Orientation Straight 11/22/2019 5: 22 PM CDT documented as of this encounter Last Filed Vital Signs Vital Sign Reading Time Taken Comments Blood Pressure 140/70 03/07/2021 4:01 PM CDT Pulse 60 03/07/2021 4:01 PM CDT Temperature - - Respiratory Rate 18 03/07/2021 4:01 PM CDT Oxygen Saturation - - Inhaled Oxygen Concentration - - Weight 95.3 kg (210 lb) 03/07/2021 4:01 PM CDT Height 165.1 cm (5' 5 ) 03/07/2021 4:01 PM CDT Body Mass Index 34.95 03/07/2021 4:01 PM CDT documented in this encounter Ordered Prescriptions Prescription Sig Dispense Quantity Refills Last Filled Start Date End Date cephalexin (KEFLEX) 500 mg capsule Take 1 capsule (500 mg total) by mouth 4 (four) times a day for 10 days 40 capsule 03/07/2021 documented in this encounter Progress Notes * Alessandro Velasco MD - 03/07/2021 3:45 PM CDT Subjective/Objective Patient ID: Minh Wise is a 50 y.o. male. 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 medication sleep apnea with requiring CPAP therapy history of hemorrhoids and hemorrhoid tags history of colon polyps history of chronic nonallergic rhinitis The patient is for 12 years he has young children 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 [employer] his mother Shaila is a patient in the practice with high blood pressure father is living with mom and dad have been for years Review of Systems Review of Systems neurological no headaches no syncope no seizure visual changes or paresthesias cardio no chest pain palpitations or exertional symptoms pulmonary no shortness of breath cough wheeze hemoptysis GI no melena no hematochezia pain nausea change in stools genitourinary no dysuria hematuria pain or change in habits musculoskeletal no joint swelling deformity muscle pain or weakness psych no anxiety depression or suicide ideation hematological no bleeding or bruising he states he did scrape his right anterior doll about a week ago he has been put Neosporin on it Vitals: 03/07/21 1601 BP: 140/70 BP Location: Left arm Patient Position: Sitting Pulse: 60 Resp: 18 Weight: 95.3 kg (210 lb) Height: 165.1 cm (5' 5 ) Physical Exam He is pleasant no distress the head is normocephalic atraumatic pupils round react light accommodation neck is supple no thyromegaly neck masses or carotid bruits no thyromegaly or nodules cardiovascular regular without murmurs gallops clicks rubs lungs are clear without rales rhonchi or wheezes abdomen soft nontender with no past splenomegaly bruise or masses rectal examination reveals external skin tags from the 9 o'clock to 11 o'clock position on the external anus stools brown heme-positive prostate within normal limits for his age no nodules no rectal masses noted no anal mass noted cranial nerves 2-12 intact gait normal right lower extremity reveals a 2 cm superficial abrasion mid leg a nterior surface some mild surrounding erythema Assessment/Plan Diagnoses and all orders for this visit: Encounter for wellness examination in adult (Primary) He is up-to-date on immunizations Class 1 obesity with body mass index (BMI) of 33.0 to 33.9 in adult, unspecified obesity type, unspecified whether serious comorbidity present Courage little more exercise caloric restriction carb counting Cellulitis of right lower extremity Will put on Keflex will quit using Neosporin keep clean with soap water use Vaseline and Band-Aid use water prove bandage when he is in [place] next week Essential hypertension Doing okay with current regimen continue same Hemorrhoids, unspecified hemorrhoid type He probably has internal hemorrhoids that are causing the chronic blood loss in the bleeding he bleeds 3 4 times a week he states he tries to keep his stools very soft we talked about surgical options he is willing to explore those if it continues he has skin tags on the external surface at all seeany acute hemorrhoids on the external surface when he is ready will send him to colorectal surgeon for internal hemorrhoids Iron deficiency anemia due to chronic blood loss Most likely his anemia secondary to the iron deficiency anemia from chronic blood loss from the hemorrhoids he does bleed 3 4 times a week he is not a vegetarian eats red meat he is blood counts havebeen low in the past will check other causes B12 folic acid serum protein electrophoresis week obtain iron profile be obtained he does taking [id number] iron supplementation daily he states he has had no melena or daily hematochezia Other orders - cephalexin (KEFLEX) 500 mg capsule; Take 1 capsule (500 mg total) by mouth 4 (four) times a day for 10 days Side effects, risks, interactions reviewed with patient. [...] as of this encounter Visit Diagnoses Diagnosis Encounter for wellness examination in adult- Primary Class 1 obesity with body mass index (BMI) of 33.0 to 33.9 in adult, unspecified obesity type, unspecified whether serious comorbidity present Cellulitis of right lower extremity Essential hypertension Unspecified essential hypertension Hemorrhoids, unspecified hemorrhoid type Iron deficiency anemia due to chronic blood loss Iron deficiency anemia secondary to blood loss (chronic) documented in this encounter Discontinued Medications Medication Sig Discontinue Reason Start Date End Da te aspirin 81 mg chewable tablet Take 1 tablet (81 mg total) by mouth daily for 14 days Therapy completed 05/29/2020 03/07/2021 cholecalciferol (VITAMIN D-3) 2000 unit tablet Take 1 tablet (2,000 Units total) by mouth daily Therapy completed 05/29/2020 03/07/2021 sertraline (ZOLOFT) 50 mg tablet Take 1 tablet (50 mg total) by mouth daily Therapy completed 10/17/2020 03/07/2021 HYDROcodone-acetaminophe n (NORCO) 5-325 mg per tabletIndications:Pain Take 1-2 tablets every 4-6 hours as needed for pain Therapy completed 05/29/2020 03/07/[address] (VOLTAREN) 75 mg EC tablet TAKE 1 TABLET BY MOUTH TWICE A DAY WITH FOOD Therapy completed 04/20/2020 03/07/2021 documented as of this encounter Historical Medications * This list may reflect changes made after this encounter. cimetidine (TAGAMET) 300 mg tablet Take 300 mg by mouth 4 (four) times a day 11/24/2021 added in this encounter Care Teams Line Department Supervisor Relationship Specialty Start Date End Date Alessandro Velasco MD PCP - General 11/08/16 01/08/22 Case Bragg NP [address] [place] [address] DR MELENDEZ [address] [place] [id number] Nurse Practitioner Nurse Practitioner 05/29/20 documented as of this encounter
--- OUTSIDE RECORDS SUMMARY | 2024-08-21 22:27 | XMS_ITS | Encounter Summary ---
Author Organization [facility] Medical Group Address [address] [facility] [address] [place] [address] Care Team Providers Care Milk Sampler Name Role Phone Alessandro Velasco MD Primary Care Provider [phone] Case Bragg NP Unavailable [phone] Silver Wilcox MD Unavailable Amandeep Colmenares MD Primary Care Provider + Encounter Details Date Type Department Care Team (Late st Contact Info) Description 08/30/2021 Telephone [facility] 2 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 Gender Identity Male 11/26/2021 10:53 AM CDT Sexual Orientation Straight 11/22/2019 5: 22 PM CDT documented as of this encounter Miscellaneous Notes * Addendum Note - Radha Oliveira CLT - 07/13/2022 9:05 AM CSTAddended by: RADHA OLIVEIRA on: 07/13/2022 09:05 AM Modules accepted: Orders ING TUBE SELECTOR * Telephone Encounter - Hamzah Álvarez MA - 09/03/2021 3:06 PM FORMING TUBE SELECTOR Pt notified via App[employer] and will let us know who he wants for a gi provider ING TUBE SELECTOR * Telephone Encounter - Hamzah Álvarez MA - 09/03/2021 9:39 AM FORMING TUBE SELECTOR Kliqed message to pt ING TUBE SELECTOR * Telephone Encounter - Hamzah Álvarez MA - 08/30/2021 8:49 AM FORMING TUBE SELECTOR Labs ordered Will wait for pt call back to send to referrals for Gi order ING TUBE SELECTOR * Telephone Encounter - Hamzah Álvarez MA - 08/30/2021 8:49 AM FORMING TUBE SELECTOR ----- Message from Alessandro Velasco MD sent at 08/30/2021 7:55 AM FORMING TUBE SELECTOR ----- I left a detailed message on his voicemail have the patient check CBC and iron profile in 10 weeks diagnosis anemia iron deficiency Also refer to his GI specialist for EGD diagnosis iron deficiency anemia I have increased his iron supplementation from twice daily to 3 times daily ING TUBE SELECTOR documented in this encounter Plan of Treatment Not on file documented as of this encounter Results * Iron profile w/ IBC (07/13/2022 9:08 AM FORMING TUBE SELECTOR) Iron 109 50 - 150 mcg/dL [facility] TIBC 289 250 - 400 mcg/dL [facility] Transferrin saturation 38 20 - 50 % [facility] Blood 07/13/2022 9:08 AM FORMING TUBE SELECTOR 07/13/2022 9:55 AM FORMING TUBE SELECTOR us Alessandro Velasco MD LAB BLOOD ORDERABLES Final Res ult [facility] ([place] [address] [facility] [place] [address] * (ABNORMAL) CBC with auto differential (07/13/2022 9:08 AM FORMING TUBE SELECTOR) WBC 6.5 3.8 - 9.9 K/cumm [facility] ([place] Hgb 11.6(L) 13.0 - 17.5 g/dL [facility] ([place] Hct 36.3(L) 38.9 - 50.3 % [facility] Plt 223 150 - 400 K/cumm [facility] ([place] MPV 11.8 9.1 - 12.3 fL [facility] RBC 4.22(L) 4.30 - 5.80 M/cumm [facility] ([place] MCV 86.0 81.3 - 96.4 fL [facility] ([place] MCH 27.5 27.1 - 33.3 pg [facility] MCHC 32.0(L) 32.3 - 35.7 g/dL [facility] ([place] RDW CV 13.7 11.1 - 14.9 % [facility] RDW SD 42.3 35.7 - 48.1 fL [facility] ([place] NRBC abs 0.00 0.00 - 0.01 K/cumm [facility] ([place]) Blood 07/13/2022 9:08 AM FORMING TUBE SELECTOR 07/13/2022 9:55 AM FORMING TUBE SELECTOR Alessandro Velasco MD LAB BLOOD ORDERABLES Final Res ult [facility] ([facility] [address] [facility] [place] [address] documented in this encounter Visit Diagnoses Diagnosis Iron deficiency anemia due to chronic blood loss- Primary Iron deficiency anemia secondary to blood loss (chronic) documented in this encounter Care Teams Milk Sampler Relationship Specialty Start Date End Date Alessandro Velasco MD PCP - General 11/08/16 01/08/22 Amandeep Colmenares MD [address] [place] [id number] PCP - General Internal Medicine 07/13/22 Case Bragg NP [address] [place] [address] [address] [place] [address] Nurse Practitioner Nurse Practitioner 05/29/20 Silver Wilcox MD [address] [place] [address] [address] [place] [address] Consulting Physician General Surgery 11/24/21 documented as of this encounter
--- OUTSIDE RECORDS SUMMARY | 2024-08-21 22:27 | XMS_ITS | Encounter Summary ---
Author Organization [facility] Medical [facility] Address [address] [facility] [address] [place] [address] Care Team Providers Care Debone Processing Supervisor Name Role Phone Alessandro Velasco MD Primary Care Provider [phone] Encounter Details Date Type Department Care Team (Late st Contact Info) Description 05/16/2020 Orders Only [facility] Orthopedics and Sports Medicine [address] [facility] [address] [place] [address] Sanket Gary MD [address] [place] [address] [address] [place] [address] Social History Tobacco Use Types Packs/Day Years [...] on file 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
--- OUTSIDE RECORDS SUMMARY | 2024-08-21 22:27 | XMS_ITS | Encounter Summary ---
Author Organization [facility] Healthcare Address [address] [place] [address] Care Team Providers Care School Treasurer Name Role Phone Alessandro Velasco MD Primary Care Provider [phone] MahsaCase bernal [employer] Unavailable [phone] Encounter Details Date Type Department Care Team (Late st Contact Info) Description 05/29/2020 1:30 PM CDT - 05/29/2020 2:50 PM CDT Surgery [facility] Operating Room [address] [place] [address] Sanket Gary MD [address] [place] [id number] Left knee arthroscopy, medial meniscectomy including any meniscal shavings including debridement shaving articular cartilage Surgery Details Date/Time Status Location OR Service Patient Class Case Class Case Type Trauma Case? 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 Gender Identity Male 11/26/2021 10:53 AM CDT Sexual Orientation Straight 11/22/2019 5: 22 PM CDT documented as of this encounter Last Filed Vital Signs Vital Sign Reading Time Taken Comments Blood Pressure 162/81 05/29/2020 2:50 PM CDT Pulse 86 05/29/2020 2:50 PM CDT Temperature 36.2 ??C (97.1 ??F) 05/29/2020 2:44 PM CD T Respiratory Rate 13 05/29/2020 2:50 PM CDT Oxygen Saturation 92% 05/29/2020 2:50 PM CDT Inhaled Oxygen Concentration - - Weight 91.1 kg (200 lb 13.4 oz) 020 12:04 PM CDT Height 165.1 cm (5' 5 ) 05/29/2020 12:0 4 PM CDT Body Mass Index 33.42 05/29/2020 12:04 PM CDT documented in this encounter Discharge Instructions * Attachments The following attachments cannot be sent through Care Everywhere. * General Anesthesia (Discharge Care) (Georgian) * Ascorbic Acid (Vitamin C) (By mouth) (Georgian) * Cholecalciferol (By mouth) (Georgian) * Aspirin (By mouth) (Georgian) * Hydrocodone/Acetaminophen (By mouth) (Georgian) documented in this encounter Medications at Time of Discharge docusate sodium (COLACE) 100 mg capsule 08/17/2018 Lactobac no.41/Bifidobact no.7 (PROBIOTIC-10 ORAL) Take 1 capsule by mouth nightly mb-xpe-OS-Ca-Fe-l ycopen-lutein 0.4-162-18 mg tablet Take 1 tablet by mouth daily amlodipine-valsar jones (EXFORGE) 10-160 mg per tablet Take 1 tablet by mouth daily 30 tablet 11 12/01/2019 11/30/2020 ascorbic acid (VITAMIN C) 500 mg tablet,chewable Take 1 tablet/chew tab (500 mg total) by mouth 2 (two) times a day 60 tablet/chew tab 05/29/2020 06/28/2020 aspirin 81 mg chewable tablet Take 1 tablet (81 mg total) by mouth daily for 14 days 14 tablet 05/29/2020 03/07/2021 buPROPion XL (WELLBUTRIN XL) 300 mg 24 hr tablet TAKE ONE TABLET BY MOUTH ONCE DAILY 90 tablet 3 04/18/2020 05/01/2021 cholecalciferol (VITAMIN D-3) 2000 unit tablet Take 1 tablet (2,000 Units total) by mouth daily 30 tablet 05/29/2020 03/07/2021 clonazePAM (KlonoPIN) 0.5 mg tablet Take 1 tablet (0.5 mg total) by mouth nightly 90 tablet 3 05/01/2020 11/06/[address] (VOLTAREN) 75 mg EC tablet TAKE 1 TABLET BY MOUTH TWICE A DAY WITH FOOD 50 tablet 1 04/20/2020 03/07/2021 HYDROcodone-aceta minophen (NORCO) 5-325 mg per tabletIndications :Pain Take 1-2 tablets every 4-6 hours as needed for pain 33 tablet 05/29/2020 03/07/2021 documented as of this encounter Ordered Prescriptions Prescription Sig Dispense Quantity Refills Last Filled Start Date End Date aspirin 81 mg chewable tablet Take 1 tablet (81 mg total) by mouth daily for 14 days 14 tablet 05/29/2020 1 cholecalciferol (VITAMIN D-3) 2000 unit tablet Take 1 tablet (2,000 Units total) by mouth daily 30 tablet 05/29/2020 1 ascorbic acid (VITAMIN C) 500 mg tablet,chewable Take 1 tablet/chew tab (500 mg total) by mouth 2 (two) times a day 60 tablet/chew tab 05/29/2020 0 HYDROcodone-acetam inophen (NORCO) 5-325 mg per tabletIndications: Pain Take 1-2 tablets every 4-6 hours as needed for pain 33 tablet 05/29/2020 1 documented in this encounter Discharge Disposition Disposition Code Departure Means Destination Discharge to home or self care documented in this encounter H&P Notes * Sanket Gary MD - 05/29/2020 12:04 PM CDT I have reviewed the H&P, examined the patient, and endorse the findings as written. Plan of Care : Based on the above findings, I consider Minh Wise to be an acceptable risk for : Procedure(s): Left knee arthroscopy medial meniscectomy including any meniscal shavings including debridement shaving articular cartilage Source Note - Case Bragg NP - 05/16/2020 9:29 AM CDT Images from the original note were not included. NEW PATIENT VISIT This was a telemedicine visit with Minh Wise alone by also spoke to his separately she was at home on the home phone line which took place via Telephone.??During the visit, I was located att office and the patient was located a in his vehicle on a hands free device in the [facility]. The patient visit started at 5:00 a.m. and ended at 508. Total time was approximately 25 minutes including pre charting post charting telephone call reviewing MRI ?? The patient: has been informed that the visit may not be secure and acknowledged the information. The option of participating in a telephone or video visit during the [address] emergencywas explained to them. After being given an opportunity to ask questions about and discuss this type of visit, they verbally consented to proceeding with the telephone/video visit and understand thatthis service replaces an office visit. ?? Sanket Gary MD ? Subjective []Expand by Default CHIEF COMPLAINT He had no chief complaint listed for this encounter. ?? HISTORY OF PRESENT ILLINESS Continued left knee pain including locking catching and popping. Reports the oral medication helps to be taken twice a day but he still has pain. He reports he murmurs when he 1st his knee scoped years ago the to out 10% and helping quite a bit he is here for his MRI results which are positive for complex tear medial meniscus he like discuss surgical options currently rest makes it better activity makes it worse ? PAST MEDICAL HISTORY He has a past medical history of Anemia, Colon polyp, Gastric reflux, Hyperlipidemia, and Hypertension. He also has no past medical history of Colon cancer ([facility]). ?? PAST SURGICAL HISTORY He has a past surgical history that includes Other surgical history (2005); Knee surgery; Polypectomy; Colonoscopy (12/21/2018); Colonoscopy (2013); and Knee arthroscopy. MEDICATIONS He has a current medication list which includes the following prescription(s): amlodipine-valsartan, bupropion xl, cialis, clonazepam, diclofenac dr, famotidine, lactobac no.41/bifidobact no.7, and ux-kkd-sh-qx-oy-butqxjs-lutein. ?? ALLERGIES He has No Known Allergies. ?? SOCIAL HISTORY He reports that he has never smoked. He has never used smokeless tobacco. He reports that he does not drink alcohol or use drugs. ?? FAMILY HISTORY Family History Problem Relation Age of Onset ??? Hypertension Mother 61 ?? Hypertension; ??? Other Father 62 ?? Alive and well; ??? Other Brother 37 ?? Alive and well; ??? Other Brother 30 ?? Alive and well; ??? Hypertension Other ? Family history of Hypertension; ??? Diabetes Other ? Family history of Diabetes mellitus; ??? Heart disease Other ? Family history of Heart disease; ??? Arthritis Other ? REVIEW OF SYSTEMS Review of Systems Constitutional: Negative for activity change, appetite change, chills and fever. HENT: Negative for congestion, dental problem, ear pain, hearing loss and voice change. Eyes: Negative for pain and visual disturbance. Respiratory: Negative for apnea, cough, chest tightness and shortness of breath. Cardiovascular: Negative for chest pain, palpitations and leg swelling. Gastrointestinal: Negative for blood in stool, constipation, diarrhea, nausea and vomiting. Endocrine: Negative for cold intolerance and heat intolerance. Genitourinary: Negative for difficulty urinating and hematuria. Skin: Negative for color change, rash and wound. Allergic/Immunologic: Negative for environmental allergies. Neurological: Negative for dizziness, syncope, numbness and headaches. Hematological: Negative for adenopathy. Does not bruise/bleed easily. Psychiatric/Behavioral: Negative for confusion. The patient is not nervous/anxious and is not hyperactive. ? Objective []Expand by Default PHYSICAL EXAM There were no vitals taken for this visit. Ortho Exam No acute distress alert are x3 normal affect reports left knee pain is on inside of his knee unchanged from his visit. Neurovascularly intact distally REVIEW OF X-RAYS/STUDIES/LABS EXAM DESCRIPTION: ?MRI KNEE LEFT WO CONTRAST ?? REASON FOR STUDY: ?Knee pain, initial examDx: Tear of medial meniscus of left knee, unspecified tear type, unspecified whether old or current tear, initial encounter ); Left knee pain, unspecified chronicityDuration: 2 months ?? TECHNIQUE: ??Multiplanar, multisequence MRI of the ??left knee was performed. ?? COMPARISON: ?11/12/2005 ?In the medial compartment, there is a complex tear of the posterior horn with near complete radial component. ??There is partial extrusion of the body into the medial gutter. ??There is a 5 x 16 mm region of full thickness chondrosis involving the central weight-bearing femoral condyle. ??There is adjacent partial in deep partial thickness chondrosis with subchondral edema involving the peripheral femoral condyle and tibial plateau. ??There is matching partial-thickness chondrosis of the tibial plateau. ?? In the lateral compartment, there is mucoid degeneration of the anterior horn and root. ??No displaced meniscal tear is identified. ??There is partial thickness chondrosis of the central weight-bearing femoral condyle and tibial plateau. ??There is no subchondral edema. ?? In the patellofemoral compartment, there is deep partial and full thickness chondrosis of the median ridge with superimposed fissuring, subchondral edema and subchondral cyst formation. ??There is matching partial-thickness chondrosis of the central trochlea. ??There is an area of full-thickness fissuring involving the medial trochlea with subchondral edema. ?? The cruciate and collateral ligaments are intact. ??The popliteus tendon is normal. ??The extensor mechanism is normal. ??There is mild prepatellar and superficial infrapatellar bursitis. ??A small knee effusion is present with synovitis. ??No loose bodies are identified. ??There is subcutaneous edema about the knee. ?? IMPRESSION: ?? 1. ??Complex tear of the left medial meniscus posterior horn with near complete radial component. ?? 2. 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 ?? 3. ??Small left knee effusion with synovitis. ?THIS IS AN ELECTRONICALLY VERIFIED FINAL REPORT 04/25/2020 7:01 AM - Electronically signed by Junito Sorto ? Assessment/Plan Diagnoses and all orders for this visit: ?? Complex tear of medial meniscus of left knee as current injury, initial encounter ?? BMI 36.0-36.9,adult ? Plan Risks and benefits of the arthroscopic knee surgery with menisectomy were discussed with the patient. These include but are not limited to bleeding infection damage to surrounding structures including ... DVT, PE, stroke, heart attack, and continued knee pain. Patient understands these risks and agreed to proceed with the surgery as described above. All questions and concerns were addressedwith the patient prior to surgical consent being established in the office today. The patient will follow up for surgery. Patient demonstrates atrophy and weakness of the lower extremity and would benefit from home E stim device. ? Patient is going for clearance with his PCP next week once he is cleared will put him on the schedule Sanket Gary MD Note prepared by Dr. Gary. Information was reviewed and history/exam are unchanged. Covid 19 testing negative. Cosigned by Sanket Gary MD at 05/29/2020 12:04 PM CDT documented in this encounter Miscellaneous Notes * Perioperative Nursing Note - Alicia Mccarty RN - 05/29/2020 4:03 PM CDT Discharged t ohome with medications, discharge instructions and personal belongings including ice machine * Perioperative Nursing Note - Alicia Mccarty RN - 05/29/2020 4:01 PM CDT 1540 Patient ambulated to bathroom with standby assist. He tolerated well. Returned to room. Discharge instructions reviewed with patient and his spouse, they verbalized understanding * Op Note - Sanket Gary MD - 05/29/2020 2:12 PM CDT Operative Report SURGEON: Sanket Gary MD [employer] Drying Machine Operator: Nadia Del Rosario RN Scrub: Marie Graham ; [facility] FLOAT: Aislinn Zuniga ; [facility] NURSE PRACTIONER PRIVATE: Case Bragg NP SURGICAL TEAM: Surgeon(s) and Role: * Sanket Gary MD - Primary DATE OF SURGERY : 05/29/2020 PREOPERATIVE DIAGNOSIS: See preoperative H and P POSTOPERATIVE DIAGNOSIS: Post-op Diagnosis * Tear of medial meniscus of left knee [S83.242A] PROCEDURE: Left knee arthroscopy, medial meniscectomy including any meniscal shavings including debridement shaving articular cartilage (L) ANESTHESIA: General IMPLANTS: Nothing was implanted during the procedure Estimated Blood Loss: 20 mL Operation in detail: General anesthetic was performed lower extremity is clean and prepped and draped in standard sterile technique standard time-out was performed upper extremity identified also marked properly. Marked medial lateral portals inject the soft tissue with lidocaine with epi did diagnostic arthroscopy complex posterior medial meniscus tear was noted using outside in technique a medial portals placed using the biter and shaver and vapor the meniscus debrided back to stable rim with the figure 4the lateral cartilage and lateral meniscus was intact the ACL was intact when a shaver in the patellofemora joint synovitis was debrided from the superior pouch and fat pad was also debrided l pouch to remove any additional debris suction was used to remove the arthroscopic fluid. Portals were closed in standard fashion op site Xeroform 4x4s cast pain Tay was placed patient was extubated and taken recovery room in stable condition needle count sponge counts instrument counts correct in the casepostoperative plan Patient will follow standard meniscectomy protocol. Complications: None Condition on Discharge from the operating room was stable Sanket Gary MD Date: 05/29/2020 Time: 4:12 PM * Perioperative Nursing Note - Tasia Godoy RN - 05/22/2020 3:41 PM CDT covid screening 05/26/2020 * Pre-Procedure Instructions - Tasia Godoy RN - 05/22/2020 3:40 PM CDT We are pleased that you and your doctor have chosen [facility] for your surgery. We hope that the following information will help make your visit a pleasant one. Surgery Date: 05/29/2020 Before your surgery: ?? Notify your doctor of ANY change in your health such as a cold, sore throat, fever, any infection or a change in the problem for which you are having your surgery. ?? Follow any instructions given to you by your doctor or surgeon. Check with your doctor if you need to STOP taking: ?? Aspirin (ordered by your doctor) ?? Plavix ?? Coumadin One week before surgery STOP taking: ?? All herbal supplements ?? Aspirin (not ordered by your doctor) ?? Aleve, Advil, Motrin, Ibuprofen, or other similar medications (Tylenol is okay). 24 hours before your surgery: ?? No smoking or alcoholic drinks. ?? Stop taking your: Metformin/Glucophage. Night before your surgery: ?? Do not eat or drink anything after midnight. ?? Take only half of your normal PM Insulin dose. ?? Follow surgeon's instructions for anti-bacterial shower night before and morning of surgery. Day of surgery: ?? Do not swallow any water when you brush your teeth. ?? Do not take your AM insulin dose or any diabetic medicines ?? ONLY take these pills with a tiny sip of water. Pre-Surgery Instructions: Medication Instructions ??? amlodipine-valsartan (EXFORGE) 10-160 mg per tablet ??? buPROPion XL (WELLBUTRIN XL) 300 mg 24 hr tablet ? Use no make-up, nail south african, lotions, oils or powders on your skin. ?? Wear comfortable clothes that will not be tight in the area of your surgery. ?? Leave all valuables and jewelry (including all body piercing jewelry) at home. ?? If you use a CPAP machine, please bring it with you to wear after your surgery. ?? Please bring your a photo ID and insurance cards with you. ?? Check in at the Registration Desk. ?? If you are 17 years old or younger, a parent or guardian must come with you. After your Outpatient Surgery: ?? You must have a responsible adult to drive you home, you will not be allowed to drive or take a cab home. ?? We recommend you have someone stay with you for 24 hours after your surgery. What to bring if you are spending the night with us: ?? Bring toiletry items such as: robe, slippers, toothbrush, toothpaste, brush or comb. ?? Bring contact lens, hearing aids, glass cases and denture container if you use any of these items. ?? The hospital will provide you with a gown. Questions or concerns: ?? If you have any questions or concerns regarding your procedure, contact your surgeon as soon as possible. ?? If you have questions regarding your Pre-Admission Testing, please call us. We can be reached atthe number posted at the top of the page. documented in this encounter Plan of Treatment Not on file documented as of this encounter Procedures Procedure Name Priority Date/Time Associated Diagnosis Comments ARTHROSCOPY KNEE 05/29/2020 1:30 PM CDT Tear of medial meniscus of left knee Special Needs arthroscopy equipment and ezy wrap documented in this encounter Visit Diagnoses Diagnosis Tear of medial meniscus of left knee- Primary Preoperative clearance Unspecified pre-operative examination Tear of medial meniscus of left knee documented in this encounter Admitting Diagnoses Diagnosis Tear of medial meniscus of left knee documented in this encounter Administered Medications Inactive Administered Medications - up to 3 most recent administrations Medication Order MAR Action Action Date Dose Rate Site acetaminophen (TYLENOL) tablet 1,000 mg 1,000 mg, oral, Once, On Fri05/29/20 at 1300, For 1 dose, Pre-Op, Indications: Pre-Emptive AnalgesiaIndications:Pre-Emptive Analgesia Given 05/29/2020 12:43 PM CDT 1,000 mg celecoxib (CeleBREX) capsule 200 mg 200 mg, oral, Once, On Fri05/29/20 at 1300, For 1 dose, Pre-Op, Indications: Pre-Emptive AnalgesiaIndications:Pre-Emptive Analgesia Given 05/29/2020 12:43 PM CDT 200 mg fentaNYL (SUBLIMAZE) preservative free injection 25 mcg 25 mcg, intravenous, Every 10 min PRN, 1st line for pain, Starting on Fri05/29/20 at 1433, Phase I, Notify Anesthesiologist if total PACU dose reaches 100 mcg and pain score 5/10 or more., Indications: PainIndications:Pain Given 05/29/2020 3:08 PM CDT 25 mcg Given 05/29/2020 2:58 PM CDT 25 mcg HYDROcodone-acetaminophen (NORCO) 5-325 mg per tablet 1 tablet 1 tablet, oral, Once, On Fri05/29/20 at 1600, For 1 dose, Pre-Op, Indications: PainIndications:Pain Given 05/29/2020 3:29 PM CDT 1 tablet Lactated Ringer's (LR) infusion 30 mL/hr, intravenous, Continuous, Starting on Fri05/29/20 at 1300, Pre-Op New Bag 05/29/2020 2:25 PM CDT New Bag 05/29/2020 1:45 PM CDT 100 mL/hr New Bag 05/29/2020 12:44 PM CDT 30 mL/hr 30 mL/hr Lactated Ringer's (LR) irrigation As needed, Starting on Fri05/29/20 at 1412, Intra-Op Given 05/29/2020 2:12 PM CDT 6,000 mL Surgical Site lidocaine-EPINEPHrine (XYLOCAINE with EPI) 0.5 %-1:200,000 injection As needed, Starting on Fri05/29/20 at 1412, Intra-Op, Indications: Administration of Local AnesthesiaIndications:Administrat ion of Local Anesthesia Given 05/29/2020 2:12 PM CDT 20 mL Surgical Site documented in this encounter Active and Recently Administered Medications Times are shown in CDT. Scheduled Medication Order 05/27/2020 05/28/2020 05/29/2020 acetaminophen (TYLENOL) tablet 1,000 mg (COMPLETED) 1,000 mg, oral, Once, On Fri05/29/20 at 1300, For 1 dose, Pre-Op, Indications: Pre-Emptive Analgesia 1243 (Given - Provid er: Juanita Andre RN) ceFAZolin (ANCEF) 1 gram/10 mL in sterile water (premix) 2,000 mg (COMPLETED) 2,000 mg, intravenous, at 400 mL/hr, Administer over 3 Minutes, Once, On Fri05/29/20 at 1300, For 1 dose, Pre-Op, Administer within 60 minutes of incision. Use Vancomycin if allergy to Ancef or history of MRSA. Follow [facility] antibiotic protocol. May administer 1000 mg if less than 80kg, Indications: Prophylaxis, Surgical 1401 (Given - Provid er: Amandeep Sharpe CRNA) celecoxib (CeleBREX) capsule 200 mg (COMPLETED) 200 mg, oral, Once, On Fri05/29/20 at 1300, For 1 dose, Pre-Op, Indications: Pre-Emptive Analgesia 1243 (Given - Provid er: Juanita Andre RN) HYDROcodone-acetaminophen (NORCO) 5-325 mg per tablet 1 tablet (COMPLETED) 1 tablet, oral, Once, On Fri05/29/20 at 1600, For 1 dose, Pre-Op, Indications: Pain 1529 (Given - Provid er: Alicia Mccarty RN) Continuous Medication Order 05/27/2020 05/28/2020 05/29/2020 Lactated Ringer's (LR) infusion 30 mL/hr, intravenous, Continuous, Starting on Fri05/29/20 at 1300, Pre-Op 1244 (New Bag - Prov ider: Juanita Andre RN)1345 (New Bag - Provider: Amandeep Sharpe CRNA - Comment: Continued from preop.)1425 (New Bag - Provider: Amandeep Sharpe CRNA) PRN Medication Order 05/27/2020 05/28/2020 05/29/2020 fentaNYL (SUBLIMAZE) preservative free injection 25 mcg (CANCELED) 25 mcg, intravenous, Every 10 min PRN, 1st line for pain, Starting on Fri05/29/20 at 1433, Phase I, Notify Anesthesiologist if total PACU dose reaches 100 mcg and pain score 5/10 or more., Indications: Pain 1458 (Given - Provid er: Char Banegas RN)1508 (Given - Provider: Char Banegas RN) Lactated Ringer's (LR) irrigation (CANCELED) As needed, Starting on Fri05/29/20 at 1412, Intra-Op 1412 (Given - Provid er: Sanket Gary MD) lidocaine-EPINEPHrine (XYLOCAINE with EPI) 0.5 %-1:200,000 injection (CANCELED) As needed, Starting on Fri05/29/20 at 1412, Intra-Op, Indications: Administration of Local Anesthesia 1412 (Given - Provid er: Sanket Gary MD) documented in this encounter Orders Medications Ordered That Tommy ht Not Have Been Administered Count Last Ordered Date First Ordered Date ceFAZolin (ANCEF) 1 gram/10 mL in sterile water (premix) 2,000 mg 1 05/29/2020 naloxone (NARCAN) 0.4 mg/mL injection 0.04-0.4 mg 1 05/29/2020 ondansetron (ZOFRAN) injection 4 mg 1 05/29 sodium chloride 0.9% flush 0.5-20 mL 1 05/11 Diet Count Last Ordered Date First Orde red Date ADULT DISCHARGE DIET 1 05/29/2020 Nursing Count Last Ordered Date First Orde red Date DISCHARGE ACTIVITY 5 05/29/2020 DISCHARGE CALL PROVIDER 5 05/29/2020 DISCHARGE DRESSING 1 05/29/2020 DISCHARGE INSTRUCTIONS 1 05/29/2020 FOLLOW UP WITH ESTABLISHED PROVIDER 1 05/29 documented in this encounter Care Teams School Treasurer Relationship Specialty Start Date End Date Alessandro Velasco MD PCP - General 11/08/16 01/08/22 Case Bragg NP [address] [place] [address] DR MELENDEZ [address] [place] [id number] Nurse Practitioner Nurse Practitioner 05/29/20 documented as of this encounter
--- OUTSIDE RECORDS SUMMARY | 2024-08-21 22:27 | XMS_ITS | Encounter Summary ---
Author Organization [facility] Address [address] [facility] [address] [place] [address] Care Team Providers Care Sample Weaver Name Role Phone Alessandro Velasco MD Primary Care Provider [phone] Reason for Visit * Reason Onset Date Comments covid testing 05/25/2020 Encounter Details Date Type Department Care Team (Late st Contact Info) Description 05/25/2020 Telephone [facility] Testing Site - [address] [address] Sanket Gary MD [address] [place] [address] [address] NICKERSON [address] [address] covid testing Social History Tobacco Use Types Packs/Day Years [...] on file 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 Testing Site: [facility] ([facility]) [address] [place] [address] [place] [address] Hours: ??? M-F 7am-4pm ??? Sa 7am-12pm Order Specific Questions Question Answer Comment Testing types: Pre-procedure ?? Date of px/chemo/treatment/placement/xfr: 05/29/2020 ?? Procedure: left knee arthroscopy ?? Date testing requested: 05/27/2020 ?? Testing: Coronavirus RNA ?? Is this the first COVID-19 test for this patient? Unknown ?? Does the patient currently work in a healthcare facility with direct patient contact? Unknown ?? Is the patient a resident of a congregate care or living setting? Unknown ?? Is the patient ? No ?? Please select the performing region: [facility] documented in this encounter Plan of Treatment Not on file documented as of this encounter Results * COVID-19 Coronavirus RNA Nasopharyngeal (05/26/2020 3:21 PM CDT) COVID-19 RNA Not Detected RANDA CAMARGO [facility] Comment: Interpretive Data Testing performed at [facility] Molecular Infectious Disease Laboratory. The 2019-Novel Coronavirus Assay (COVID-19) Real Time RT-PCR assay [...] last revised on 2019. Testing performed by: [facility], [address] [place]., [address] First COVID-19 test? Unknown [facility] Comment:Testing performed by : [facility], [address] [place]., [address] Employeed in healthcare? Unknown [facility] ([place] Comment:Testing performed by : [facility], [address] [facility], [address] status? No CE [facility] ([place]) Comment:Testing performed by : [facility], [address] [facility], [address] Group care resident? Unknown [facility] ([place]) Comment:Testing performed by : [facility], [address] [facility], [address] Hospitalized? Unknown [facility] ([place]) Comment:Testing performed by : [facility], [address] [facility], [address] Is patient in ICU? Unknown [facility] ([place]) Comment:Testing performed by : [facility], [address] [facility], [address] Symptomatic as defined by CDC? No [facility] ([place]) Comment:Testing performed by : [facility], [address] [facility], [address] Nasopharyngeal 05/26/2020 3: 21 PM CDT 05/27/2020 4:13 AM CDT Narrative [facility] ([place]) - 05/27/2020 3:10 PM CDT What is the reason for testing?->Screening prior to scheduled (>12 hr) surgery or procedure us Sanket Gary MD LAB MICROBIOLOGY - GENERAL O RDERABLES Final Result [facility] ([place]) [address] [facility] Department [place] [address] documented in this encounter Visit Diagnoses Diagnosis Pre-procedure lab exam- Primary Pre-procedural laboratory examination Pre-procedure lab exam Pre-procedural laboratory examination documented in this encounter Care Teams Sample Weaver Relationship Specialty Start Date End Date Alessandro Velasco MD PCP - General 11/08/16 01/08/22 documented as of this encounter
--- OUTSIDE RECORDS SUMMARY | 2024-08-21 22:27 | XMS_ITS | Encounter Summary ---
Author Organization [facility] Address [address] [facility] [address] [place] [address] Care Team Providers Care Home Inspector Name Role Phone Alessandro Velasco MD Primary Care Provider [phone] Reason for Visit * Reason Onset Date Comments surgery 05/08/2020 Encounter Details Date Type Department Care Team (Late st Contact Info) Description 05/08/2020 Telephone [facility] Orthopedics and Sports Medicine [address] [facility] [address] [place] [address] Sanket Gary MD [address] [place] [address] [address] [facility] [address] [place] [address] surgery Social History Tobacco Use Types Packs/Day Years [...] on file 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 He changed his surgery date to 05/29 now and Emilie and Shirley know and 2 week post op was made. * Telephone Encounter - Emilie Almeida - 05/10/2020 4:13 PM CDT Surgery date of 06/15/20 chosen by patient * Telephone Encounter - Emilie Almeida - 05/10/2020 12:56 PM CDT Message left for patient * Telephone Encounter - Emilie Almeida - 05/09/2020 10:46 AM CDT Tried again rings once and then goes to a fast busy * Telephone Encounter - Janine Malone - 05/08/2020 3:52 PM CDT Patient called back, he was wanting to pick out a surgery date. Please call him at [phone]. * Telephone Encounter - Emilie Almeida - 05/08/2020 9:10 AM CDT Per Sparkle patient is cleared for surgery. Tried calling to offer a date phone would ring 1 time andthen go to a fast busy. I tried twice documented in this encounter Plan of Treatment Not on file documented as of this encounter Visit Diagnoses Not on filedocumented in this encounter Care Teams Home Inspector Relationship Specialty Start Date End Date Alessandro Velasco MD PCP - General 11/08/16 01/08/22 documented as of this encounter
--- OUTSIDE RECORDS SUMMARY | 2024-08-21 22:27 | XMS_ITS | Encounter Summary ---
Author Organization [facility] Address [address] [facility] [address] [place] [address] Care Team Providers Care Drama Professor Name Role Phone Alessandro Velasco MD Primary Care Provider [phone] Case Bragg SUPERVISOR PAINTING SHIPYARD Unavailable [phone] Encounter Details Date Type Department Care Team (Late st Contact Info) Description 08/30/2021 Orders Only [facility] [address] [facility] [address] [place] [address] Alessandro Velasco MD [address] [place] [address] [address] [place] [address] Social History Tobacco Use Types [...] on file 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 male. Chief Complaint No chief complaint on file. HPI Review of Systems There were no vitals filed for this visit. Physical Exam Assessment/Plan There are no diagnoses linked to this encounter. Side effects, risks, interactions reviewed with patient. Indications for testing discussed. Any further problems to contact us. He was told what to look out for and verbalized understanding. The patient was given the opportunity to have all questions answered today and was in agreement with the plan of care. MATIC TOOL REPAIRER documented in this encounter Plan of Treatment Not on file documented as of this encounter Visit Diagnoses Not on filedocumented in this encounter Discontinued Medications Medication Sig Discontinue Reason Start Date End Da te ferrous sulfate 325 mg (65 mg of elemental iron) tabletIndications:Iron Deficiency Anemia Take 1 tablet (325 mg total) by mouth 2 (two) times a day with meals 03/08/2021 08/30/2021 documented as of this encounter Care Teams Drama Professor Relationship Specialty Start Date End Date Alessandro Velasco MD PCP - General 11/08/16 01/08/22 Case Bragg NP [address] [place] [address] DR MELENDEZ [address] [place] [id number] Nurse Practitioner Nurse Practitioner 05/29/20 documented as of this encounter
--- OUTSIDE RECORDS SUMMARY | 2024-08-21 22:27 | XMS_ITS | Encounter Summary ---
Author Organization [facility] Address [address] [facility] [address] [place] [address] Care Team Providers Care Peanut Farmer Name Role Phone Alessandro Velasco MD Primary Care Provider [phone] Case Bragg RN CLINICAL TRIALS Unavailable [phone] Reason for Visit * Reason Comments Post-op post op left knee sc ope DOS 05/29/20 Post-op Encounter Details Date Type Department Care Team (Late st Contact Info) Description 06/12/2020 11:[address] MAGISTRATE Office Visit [facility] Orthopedics and Sports Medicine [address] [facility] [address] [place] [address] Case Bragg NP [address] [place] [address] [address] [place], [place] [address] Orthopedic aftercare (Primary Dx); S/P medial meniscectomy of left knee Social History Tobacco Use Types Packs/Day Years [...] on file Legal Sex Male 2:[address] MAGISTRATE Gender Identity Male 11/26/2021 10:53 AM CDT Sexual Orientation Straight 11/22/2019 5: 22 PM CDT documented as of this encounter Last Filed Vital Signs Vital Sign Reading Time Taken Comments Blood Pressure 160/89 06/12/2020 11:[address] MAGISTRATE Pulse 87 06/12/2020 11:[address] MAGISTRATE Temperature 36.1 ??C (96.9 ??F) 06/12/2020 11:[address] Respiratory Rate - - Oxygen Saturation - - Inhaled Oxygen Concentration - - Weight 91.2 kg (201 lb) 06/12/2020 11:[address] MAGISTRATE Height 165.1 cm (5' 5 ) 06/12/2020 11:[address] MAGISTRATE Body Mass Index 33.45 06/12/2020 11:[address] MAGISTRATE documented in this encounter Progress Notes * Case Bragg NP - 06/12/2020 11:30 AM CST Post-Op Visit Note HPI: Patient is 2 weeks s/p Left knee arthroscopy, medial meniscectomy including any meniscal shavings including debridement shaving articular cartilage. Pain is well controlled. Patient currently taking norco once daily for pain. Presurgical symptoms are improving. Patient states his job requires a lotof standing Vital signs: BP 160/89 Pulse 87 Temp 36.1 ??C (96.9 ??F) Ht 165.1 cm (5' 5 ) Wt 91.2 kg (201 lb) BMI 33.45 kg/m?? Exam: Well approximated healing post operative incision. No active erythema, draining, or signs of infection present. Neurovascular status is intact. AROM: 0-125 Patient is able to perform an active SLR without difficulty. No signs of DVT present bilaterally. Assessment: Diagnosis Plan 1. Orthopedic aftercare 2. S/P medial meniscectomy of left knee Plan: Incision care was reviewed. Discussed continued post op expectations and recovery. Due to patient's job and level of pain at this time. We will hold off work and continue HEP. He will follow up in 4 weeks to check progress. Plan to RTW at that time. Questions were answered. Patient expressed full understanding and agreement of plan. CIPAL COURT MAGISTRATE documented in this encounter Plan of Treatment Not on file documented as of this encounter Visit Diagnoses Diagnosis Orthopedic aftercare- Primary Unspecified orthopedic aftercare S/P medial meniscectomy of left knee documented in this encounter Care Teams Peanut Farmer Relationship Specialty Start Date End Date Alessandro Velasco MD PCP - General 11/08/16 01/08/22 Case Bragg NP [address] [facility] [address] MELENDEZ [address] [place] [address] Nurse Practitioner Nurse Practitioner 05/29/20 documented as of this encounter
--- OUTSIDE RECORDS SUMMARY | 2024-08-21 22:27 | XMS_ITS | Encounter Summary ---
Author Organization [facility] Address [address] [place] [address] Care Team Providers Care Insurance Territory Manager Name Role Phone Alessandro Velasco MD Primary Care Provider [phone] Case Bragg METAL RECLAMATION KETTLE TENDER Unavailable [phone] Encounter Details Date Type Department Care Team (Late st Contact Info) Description 08/29/2021 4:50 PM REFUELING RAMP SUPERVISOR Lab [address] [address] Alessandro Velasco MD [address] [place] [address] Iron deficiency anemia, unspecified iron deficiency anemia type Discharge Disposition: Discharge to home or [...] on file 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 Gender Identity Male 11/26/2021 10:53 AM CDT Sexual Orientation Straight 11/22/2019 5: 22 PM CDT documented as of this encounter Discharge Disposition Disposition Code Departure Means Destination Discharge to home or self care documented in this encounter Miscellaneous Notes * Result Encounter Note - Alessandro Velasco MD - 08/30/2021 7:55 AM CST I left a detailed message on his voicemail have the patient check CBC and iron profile in 10 weeks diagnosis anemia iron deficiency Also refer to his GI specialist for EGD diagnosis iron deficiency anemia I have increased his iron supplementation from twice daily to 3 times daily ELING RAMP SUPERVISOR documented in this encounter Plan of Treatment Not on file documented as of this encounter Procedures Procedure Name Priority Date/Time Associated Diagnosis Comments IRON PROFILE W/ IBC Routine 08/29/2021 4 :49 PM REFUELING RAMP SUPERVISOR Iron deficiency anemia, unspecified iron deficiency anemia type HEMOGLOBIN AND HEMATOCRIT Routine 08/29/2021 4:49 PM REFUELING RAMP SUPERVISOR Iron deficiency anemia, unspecified iron deficiency anemia type documented in this encounter Results * (ABNORMAL) Hemoglobin and hematocrit (08/29/2021 4:49 PM REFUELING RAMP SUPERVISOR) Hgb 10.4(L) 13.0 - 17.5 g/dL [facility] Hct 33.7(L) 38.9 - 50.3 % [facility]) Blood 08/29/2021 4:49 PM REFUELING RAMP SUPERVISOR 08/29/2021 5:53 PM REFUELING RAMP SUPERVISOR us Alessandro Velasco MD LAB BLOOD ORDERABLES Final Res ult [facility] ([place]) 1 [facility] [place] [address] * (ABNORMAL) Iron profile w/ IBC (08/29/2021 4:49 PM REFUELING RAMP SUPERVISOR) Iron 25(L) 50 - 150 mcg/dL [facility]) TIBC 310 250 - 400 mcg/dL [facility] ([place]) Transferrin saturation 8(L) 20 - 50 % [facility] ([place]) Blood 08/29/2021 4:49 PM REFUELING RAMP SUPERVISOR 08/29/2021 5:53 PM REFUELING RAMP SUPERVISOR us Alessandro Velasco MD LAB BLOOD ORDERABLES Final Res ult [facility] ([place]) [address] [facility] Department [place] [address] documented in this encounter Visit Diagnoses Diagnosis Iron deficiency anemia, unspecified iron deficiency anemia type documented in this encounter Care Teams Insurance Territory Manager Relationship Specialty Start Date End Date Alessandro Velasco MD PCP - General 11/08/16 01/08/22 Case Bragg NP [address] [place] [address] [address] [place] [address] Nurse Practitioner Nurse Practitioner 05/29/20 documented as of this encounter
--- OUTSIDE RECORDS SUMMARY | 2024-08-21 22:27 | XMS_ITS | Encounter Summary ---
Author Organization [facility] Healthcare Address [address] [place] [address] Care Team Providers Care Bench Mechanic Name Role Phone Alessandro Velasco MD Primary Care Provider [phone] Case Bragg KENNEL WORKER Unavailable [phone] Encounter Details Date Type Department Care Team (Latest Contact Info) Description 05/29/2020 11:57 AM CDT - 05/29/2020 4:04 PM CDT Hospital Encounter [facility] [address] [place] [address] Sanket Gary MD [address] [place] [address] DR NICKERSON [place] [id number] Preoperative clearance (Primary Dx) Discharge Disposition: Discharge to home or self [...] on file 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 Gender Identity Male 11/26/2021 10:53 AM CDT Sexual Orientation Straight 11/22/2019 5: 22 PM CDT documented as of this encounter Last Filed Vital Signs Vital Sign Reading Time Taken Comments Blood Pressure 131/70 05/29/2020 3:54 PM CDT Pulse 76 05/29/2020 3:54 PM CDT Temperature 36.4 ??C (97.5 ??F) 05/29/2020 3:25 PM CD T Respiratory Rate 20 05/29/2020 3:54 PM CDT Oxygen Saturation 99% 05/29/2020 3:54 PM CDT Inhaled Oxygen Concentration - - Weight 91.1 kg (200 lb 13.4 oz) 020 12:04 PM CDT Height 165.1 cm (5' 5 ) 05/29/2020 12:0 4 PM CDT Body Mass Index 33.42 05/29/2020 12:04 PM CDT documented in this encounter Discharge Diagnoses Diagnosis Complex tear of medial meniscus, current injury, left knee, initial encounter - COMPLEX TEAR OF MEDIAL MENISCUS, CURRENT INJURY, LEFT KNEE, INITIAL ENCOUNTER Other synovitis and tenosynovitis, left lower leg - OTHER SYNOVITIS AND TENOSYNOVITIS, LEFT LOWER LEG Exposure to other specified factors, initial encounter - EXPOSURE TO OTHER SPECIFIED FACTORS, INITIAL ENCOUNTER Activity, unspecified - ACTIVITY, UNSPECIFIED Unspecified place or not applicable - UNSPECIFIED PLACE OR NOT APPLICABLE Unspecified external cause status - UNSPECIFIED EXTERNAL CAUSE STATUS Essential (primary) hypertension - ESSENTIAL (PRIMARY) HYPERTENSION Unspecified essential hypertension Obstructive sleep apnea (adult) (pediatric) - OBSTRUCTIVE SLEEP APNEA (ADULT) (PEDIATRIC) Gastro-esophageal reflux disease without esophagitis - GASTRO-ESOPHAGEAL REFLUX DISEASE WITHOUT ESOPHAGITIS Hyperlipidemia, unspecified - HYPERLIPIDEMIA, UNSPECIFIED Other group home (current) drug therapy - OTHER ELECTRONIC INTEGRATED SYSTEMS MECHANIC (CURRENT) DRUG THERAPY documented in this encounter Discharge Instructions * Attachments The following attachments cannot be sent through Care Everywhere. * General Anesthesia (Discharge Care) (Icelandic) * Ascorbic Acid (Vitamin C) (By mouth) (Icelandic) * Cholecalciferol (By mouth) (Icelandic) * Aspirin (By mouth) (Icelandic) * Hydrocodone/Acetaminophen (By mouth) (Icelandic) documented in this encounter Medications at Time of Discharge docusate sodium (COLACE) 100 mg capsule 08/17/2018 Lactobac no.41/Bifidobact no.7 (PROBIOTIC-10 ORAL) Take 1 capsule by mouth nightly et-iwl-XU-Ca-Fe-l ycopen-lutein 0.4-162-18 mg tablet Take 1 tablet [...] via Telephone.??During the visit, I was located [facility] office and the patient was located a in his vehicle on a hands free device in the [facility]. The patient visit started at 5:00 a.m. and ended at 508. Total time was approximately 25 minutes including pre charting post charting telephone call reviewing MRI ?? The patient: has been informed that the visit may not be secure and acknowledged the information. The option of participating in a telephone or video visit during the [address] explained to them. After being [...] no past medical history of Colon cancer ([facility]). ?? PAST SURGICAL HISTORY He has a past surgical history that includes Other surgical history (2005); Knee surgery; Polypectomy; Colonoscopy (12/21/2018); Colonoscopy (2013); and Knee arthroscopy. MEDICATIONS He has a current medication list which includes the following prescription(s): amlodipine-valsartan, bupropion xl, cialis, clonazepam, diclofenac dr, famotidine, lactobac no.41/bifidobact no.7, and nm-tjj-pi-iy-cd-xhsmqgq-lutein. ?? ALLERGIES He has No Known Allergies. [...] CDT Operative Report SURGEON: Sanket Gary MD Endorsement Clerk: Nadia Del Rosario RN Scrub: ST Anne; ST Jason FLOAT: Aislinn Zuniga SA; ST Harper NURSE PRACTIONER PRIVATE: Case Bragg [...] that you and your doctor have chosen [facility] for your surgery. We hope that [...] hr tablet ? Use no make-up, nail vatican citizen, lotions, oils or powders on your skin. [...] knee- Primary Preoperative clearance Unspecified pre-operative examination documented in this encounter Admitting Diagnoses Diagnosis Tear of medial meniscus of left knee documented in this encounter Administered Medications Inactive Administered Medications - up to 3 most recent administrations Medication Order MAR Action Action Date Dose Rate Site acetaminophen (TYLENOL) tablet 1,000 mg 1,000 mg, oral, Once, On 05/29/20 at 1300, For 1 dose, Pre-Op, Indications: [...] 12:44 PM CDT 30 mL/hr 30 mL/hr documented in this encounter Active and Recently [...] to Ancef or history of MRSA. Follow [facility] antibiotic protocol. May administer 1000 mg if [...] %-1:200,000 injection (CANCELED) As needed, Starting on 05/29/20 at 1412, Intra-Op, Indications: Administration of Local Anesthesia 1412 (Given - Provid er: Sanket Gary MD) documented in this encounter Orders Medications Ordered That Tommy ht Not Have Been Administered Count Last Ordered Date First Ordered Date ceFAZolin (ANCEF) 1 gram/10 mL in sterile water (premix) 2,000 mg 1 05/29/2020 Lactated Ringer's (LR) irrigation 1 020 lidocaine-EPINEPHrine (XYLOC MINI with EPI) 0.5 %-1:200,000 injection 1 05/29/2020 naloxone (NARCAN) 0.4 mg/mL injection [...] 05/29 documented in this encounter Care Teams Bench Mechanic Relationship Specialty Start Date End Date Alessandro Velasco MD PCP - General 11/08/16 01/08/22 Case Bragg NP [address] [place] [address] DR MELENDEZ [address] [place] [id number] Nurse Practitioner Nurse Practitioner 05/29/20 documented as of this encounter
--- OUTSIDE RECORDS SUMMARY | 2024-08-21 22:27 | XMS_ITS | Encounter Summary ---
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
--- OUTSIDE RECORDS SUMMARY | 2024-08-21 22:28 | XMS_ITS | Encounter Summary ---
Author Organization [facility] Address [address] [address] Care Team Providers Care Email Administrator Name Role Phone Alessandro Velasco MD Primary Care Provider [phone] Reason for Visit * Reason Onset Date Comments MRI left knee 04/26/2020 Encounter Details Date Type Department Care Team (Late st Contact Info) Description 04/26/2020 Telephone [facility] Orthopedics and Sports Medicine [address] [place] [id number] Sanket Gary MD [address] [place] [address] DR NICKERSON [address] [address] MRI left knee Social History Tobacco Use Types Packs/Day Years Used Date Smoking Tobacco: Never Smokeless Tobacco: Never Alcohol Use Standard Drinks/Week Comments No 0 (1 standard drink = 0.6 oz pur e alcohol) rarely PHQ-2 Answer Date Recorded PHQ-2 Score 0 04/01/2019 Sex and Gender Information Value Date Recorded Sex Assigned at Not on file 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 Gender Identity Male 11/26/2021 10:53 AM CDT Sexual Orientation Straight 11/22/2019 5: 22 PM CDT documented as of this encounter Miscellaneous Notes * Telephone Encounter - Sparkle Salazar MA - 04/26/2020 2:16 PM CDT Clearance letter sent to PCP * Telephone Encounter - Emilie Almeida - 04/26/2020 1:10 PM CDT Patient is [facility] started authorization process * Telephone Encounter - Emliie Almeida - 04/26/2020 12:47 PM CDT Advised regarding clearance and she will call primary * Telephone Encounter - Hamzah Torres - 04/26/2020 12:18 PM CDT Pt was scheduled for 3:[address] Gary on Friday at 3:30. * Telephone Encounter - Sanket Gary MD - 04/26/2020 11:31 AM CDT Yes. and get him cleared. He can add him next if cleared * Telephone Encounter - Hamzah Torres - 04/26/2020 10:03 AM CDT Pt Magdalena called in about the results of the MRI of the left knee. Per Lydia's note the pt needsto follow up with Dr. Gary and cancel his apt with Lydia on May 05.. Pt works everyday until 3 pm. Can I add patient as telemed or zoom this Friday at 3:30 Patient Magdalena can be reached at [phone]. Please advise documented in this encounter Plan of Treatment Not on file documented as of this encounter Visit Diagnoses Not on filedocumented in this encounter Care Teams Email Administrator Relationship Specialty Start Date End Date Alessandro Velasco MD PCP - General 11/08/16 01/08/22 documented as of this encounter
--- OUTSIDE RECORDS SUMMARY | 2024-08-21 22:28 | XMS_ITS | Encounter Summary ---
Author Organization [facility] Address [address] [place] [address] Care Team Providers Care Vp Software Engineering Name Role Phone Alessandro Velasco MD Primary Care Provider [phone] Encounter Details Date Type Department Care Team (Late st Contact Info) Description 07/17/2019 9:00 AM APPLIANCE TESTER Lab [facility] [address] [place] [address] Alessandro Velasco MD [address] [place] [id number] Discharge Disposition: Discharge to home or self [...] on file Legal Sex Male 2:09 PM APPLIANCE TESTER Gender Identity Male 11/26/2021 10:53 AM CDT Sexual Orientation Straight 11/22/2019 5: 22 PM CDT documented as of this encounter Discharge Disposition Disposition Code Departure Means Destination Discharge to home or self care documented in this encounter Plan of Treatment Not on file documented as of this encounter Procedures Procedure Name Priority Date/Time Associated Diagnosis Comments DIFFERENTIAL AUTO Routine 07/17/2019 9:0 1 AM APPLIANCE TESTER IRON PROFILE W/ IBC Routine 07/17/2019 9 :01 AM APPLIANCE TESTER CBC WITH AUTO DIFFERENTIAL Routine 07/17/2019 9:01 AM APPLIANCE TESTER documented in this encounter Results * Differential, auto (07/17/2019 9:01 AM APPLIANCE TESTER) Neutrophil abs 4.3 1.7 - 6.5 K/cumm [facility] Imm gran abs 0.0 0.0 - 0.1 K/cumm [facility] Lymphocyte abs 1.5 0.8 - 3.3 K/cumm [facility] Monocyte abs 0.7 0.2 - 0.8 K/cumm [facility] Eosinophil abs 0.2 0.0 - 0.5 K/cumm [facility] Basophil abs 0.0 0.0 - 0.1 K/cumm [facility] Neutrophil pct 63.2 % [facility] Comment: Interpretive Data Percent cell count reference ranges are not reported, since discordance with absolute values may lead to misinterpretation of CBC data. Current Interpretive Data was last revised on 2017. Imm gran pct 0.1 % [facility] Comment: Interpretive Data Percent cell count reference ranges are not reported, since discordance with absolute values may lead to misinterpretation of CBC data. Current Interpretive Data was last revised on 2017. Lymphocyte pct 22.4 % [facility] Comment: Interpretive Data Percent cell count reference ranges are not reported, since discordance with absolute values may lead to misinterpretation of CBC data. Current Interpretive Data was last revised on 2017. Monocyte pct 10.0 % [facility] Comment: Interpretive Data Percent cell count reference ranges are not reported, since discordance with absolute values may lead to misinterpretation of CBC data. Current Interpretive Data was last revised on 2017. Eosinophil pct 3.7 % [facility] Comment: Interpretive [...] last revised on 2017. Blood specimen (specimen) 07/17/2019 9:01 AM APPLIANCE TESTER 07/17/2019 10:41 AM APPLIANCE TESTER Alessandro Velasco MD LAB BLOOD ORDERABLES Final Res ult Performing Organization Address City/[facility]/ZIP Co de Phone Number [facility] [address] [facility] [place] [address] * Iron profile w/ IBC (07/17/2019 9:01 AM APPLIANCE TESTER) Pathologist [facility] Iron 77 50 - 150 mcg/dL [facility] TIBC 289 250 - 400 mcg/dL [facility] Transferrin saturation 27 20 - 50 % [facility] Blood specimen (specimen) 07/17/2019 9:01 AM APPLIANCE TESTER 07/17/2019 10:41 AM APPLIANCE TESTER Alessandro Velasco MD LAB BLOOD ORDERABLES Final Res ult Performing Organization Address [facility] Co de Phone Number [facility] [address] [facility] [place] [address] * CBC with auto differential (07/17/2019 9:01 AM APPLIANCE TESTER) WBC 6.8 3.8 - 9.9 K/cumm [facility] Hgb 13.3 13.0 - 17.5 g/dL [facility] Hct 41.1 38.9 - 50.3 % [facility] Plt 220 150 - 400 K/cumm [facility] MPV 11.3 9.1 - 12.3 fL [facility] RBC 4.81 4.30 - 5.80 M/cumm [facility] MCV 85.4 81.3 - 96.4 fL [facility] MCH 27.7 27.1 - 33.3 pg [facility] MCHC 32.4 32.3 - 35.7 g/dL [facility] RDW CV 12.9 11.1 - 14.9 % [facility] RDW SD 39.7 35.7 - 48.1 fL [facility] NRBC abs 0.00 0.00 - 0.01 K/cumm [facility] Blood specimen (specimen) 07/17/2019 9:01 AM APPLIANCE TESTER 07/17/2019 10:41 AM APPLIANCE TESTER us Alessandro Velasco MD LAB BLOOD ORDERABLES Final Res ult [facility] 1 [facility] Department [place] [address] documented in this encounter Visit Diagnoses Not on filedocumented in this encounter Care Teams Vp Software Engineering Relationship Specialty Start Date End Date Alessandro Velasco MD PCP - General 11/08/16 01/08/22 documented as of this encounter
--- OUTSIDE RECORDS SUMMARY | 2024-08-21 22:28 | XMS_ITS | Encounter Summary ---
Author Organization [facility] Address [address] [place] [address] Care Team Providers Care Manager Branch Name Role Phone Alessandro Velasco MD Primary Care Provider [phone] Encounter Details Date Type Department Care Team (Late st Contact Info) Description 02/05/2019 Orders Only [facility] [address] [facility] [address] [place] [address] Alessandro Velasco MD [address] [facility] [address] [place] [address] Iron deficiency anemia, unspecified iron deficiency anemia type (Primary Dx) Social History Tobacco Use Types Packs/Day Years Used Date Smoking Tobacco: Never Smokeless Tobacco: Never Alcohol Use Standard Drinks/Week Comments No 0 (1 standard drink = 0.6 oz pur e alcohol) rarely Sex and Gender Information Value Date Recorded Sex Assigned at Not on file 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 Gender Identity Male 11/26/2021 10:53 AM CDT Sexual Orientation Straight 11/22/2019 5: 22 PM CDT documented as of this encounter Progress Notes * Alessandro Velasco MD - 02/05/2019 4:07 PM CDT Okay to leave a message hemoglobin up to 11.7 from 9.9 iron level has improved continue same continue iron supplementation once daily proceed with EGD documented in this encounter Plan of Treatment Not on file documented as of this encounter Procedures Procedure Name Priority Date/Time Associated Diagnosis Comments IRON PROFILE W/ IBC Routine 02/05/2019 3 :42 PM CDT CBC WITH AUTO DIFFERENTIAL Routine 02/05/2019 3:42 PM CDT documented in this encounter Results * (ABNORMAL) Iron profile w/ IBC (02/05/2019 3:42 PM CDT) Iron 37(L) 50 - 150 mcg/dL [facility] TIBC 339 250 - 400 mcg/dL [facility] Transferrin saturation 11(L) 20 - 50 % [facility] Blood specimen (specimen) 02/05/2019 3:42 PM CDT 02/05/2019 5:38 PM CDT Alessandro Velasco MD LAB BLOOD ORDERABLES Final Res ult [facility] [address] [facility] Department of Laboratories [place], [place] [id number] * (ABNORMAL) CBC with auto differential (02/05/2019 3:42 PM CDT) WBC 8.7 3.8 - 9.9 K/cumm [facility] Hgb 11.7(L) 13.0 - 17.5 g/dL [facility] Hct 35.9(L) 38.9 - 50.3 % [facility] Plt 279 150 - 400 K/cumm [facility] MPV 10.7 9.1 - 12.3 fL [facility] RBC 4.39 4.30 - 5.80 M/cumm [facility] MCV 81.8 81.3 - 96.4 fL [facility] MCH 26.7(L) 27.1 - 33.3 pg [facility] MCHC 32.6 32.3 - 35.7 g/dL [facility] RDW CV 18.4(H) 11.1 - 14.9 % [facility] RDW SD 54.9(H) 35.7 - 48.1 fL [facility] NRBC abs 0.00 0.00 - 0.01 K/cumm [facility] Blood specimen (specimen) 02/05/2019 3:42 PM CDT 02/05/2019 5:38 PM CDT Alessandro Velasco MD LAB BLOOD ORDERABLES Final Res ult [facility] [address] [facility] Department [place] [address] documented in this encounter Visit Diagnoses Diagnosis Iron deficiency anemia, unspecified iron deficiency anemia type- Primary documented in this encounter Care Teams Manager Branch Relationship Specialty Start Date End Date Alessandro Velasco MD PCP - General 11/08/16 01/08/22 documented as of this encounter
--- OUTSIDE RECORDS SUMMARY | 2024-08-21 22:28 | XMS_ITS | Encounter Summary ---
Author Organization [facility] Facility Care Team Providers Care Interventional Technologist Name Role Phone Alessandro Velasco MD Primary Care Provider [phone] Encounter Details Date Type Department Care Team (Latest Contact Info) Description 11/02/2019 Travel Social History Tobacco Use Types Packs/Day Years Used Date Smoking Tobacco: Never Smokeless Tobacco: Never Alcohol Use Standard Drinks/Week Comments No 0 (1 standard drink = 0.6 oz pur e alcohol) rarely PHQ-2 Answer Date Recorded PHQ-2 Score 0 04/01/2019 Sex and Gender Information Value Date Recorded Sex Assigned at Not on file 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 No / Unsure 11/02/2019 9:50 AM CDT documented as of this encounter Plan of Treatment Not on file documented as of this encounter Visit Diagnoses Not on filedocumented in this encounter Care Teams Interventional Technologist Relationship Specialty Start Date End Date Alessandro Velasco MD PCP - General 11/08/16 01/08/22 documented as of this encounter
--- OUTSIDE RECORDS SUMMARY | 2024-08-21 22:28 | XMS_ITS | Encounter Summary ---
Author Organization [facility] Address [address] [place] [address] Care Team Providers Care Entry Level Civil Engineer Name Role Phone Alessandro Velasco MD Primary Care Provider [phone] Encounter Details Date Type Department Care Team (Late st Contact Info) Description 12/21/2018 12:50 PM CDT Anesthesia Event [address] [address] [place] [address] [place] [address] [place] [address] [place] [address] Anesthesia Record Procedure Summary Procedure Name Responsible Anesthesiologist Anesthesia Start Time Anesthesia Stop Time COLONOSCOPY (Colon) Bartolo Mendez MD 12/21/18 1250 1303 Events Date Time Event Comment 12/21/2018 1223 1250 An Start 1250 An Start Data 1250 In Room 1251 Start Supplemental O2 1251 Patient Positioned Laterally 1251 An Induction The patient was reevaluated immediately before moderate or deep sedation use and before anesthesia induction. 1251 Anesthesia Ready 1303 Handoff to RN I completed my handoff [...] Patient disposition at the time of handoff: No value filed. 1303 An Stop 1303 an stop data 1307 Out of Room Meds Name Total propofol 180 mg lidocaine 2 % PF 60 mg sodium chloride 0.9% infusion 500 mL * Agents Name O2 * Blood No blood administrations on file. Lines, Drains, and Airways Type Details Placement Removal Peripheral IV Placement Date: 12/21/18; Placement Time: 1132; Catheter Size: 22 G; Orientation: Right; Location: Hand; Site Prep: Chlorhexidine; Inserted by: Neda Mart RN; Insertion Attempts: 1; Patient Tolerance: Tolerated well; Removal Date: 12/21/18; Removal Time: 1345 12/21/18 1132 by Ninoska Lovett RN 12/21/18 1345 by Ninoska Lovett RN documented in this encounter Social History Tobacco Use Types Packs/Day Years Used Date Smoking Tobacco: Never Smokeless Tobacco: Never Alcohol Use Standard Drinks/Week Comments No 0 (1 standard drink = 0.6 oz pur e alcohol) rarely Sex and Gender Information Value Date Recorded Sex Assigned at Not on file 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 Gender Identity Male 11/26/2021 10:53 AM CDT Sexual Orientation Straight 11/22/2019 5: 22 PM CDT documented as of this encounter OR Notes * Anesthesia Postprocedure Evaluation - Bartolo Mendez MD - 12/22/2018 7:51 AM CDT Patient: Minh Wise Procedure Summary Date: 12/21/18 Room / Location: [facility] ROOM 1 / [facility] Anesthesia Start: 1250 Anesthesia Stop: 1303 Procedure: COLONOSCOPY (N/A Colon) Diagnosis: History of colon polyps (History of colon polyps [Z86.010]) Provider: Claudette Casarez MD Responsible Provider: Bartolo Mendez MD Anesthesia Type: general/TIVA ASA Status: 2 Anesthesia Type: general/TIVA Last vitals BP 136/88 Pulse 65 Temp 36.6 ??C (97.8 ??F) (Temporal) Resp 18 SpO2 99% Anesthesia Post Evaluation Patient location during evaluation: PACU Patient participation: complete - patient participated Level of consciousness: fully awake Pain score: 0 Pain management: adequate Airway patency: adequate Evidence of recall: no Anesthetic complications: no Cardiovascular status: acceptable and hemodynamically stable Respiratory status: acceptable Hydration status: acceptable Pt is: normothermic Nausea/Vomiting status: none * Anesthesia Preprocedure Evaluation - Zeke Choudhary MD - 12/21/2018 12:22 PM CDT Anesthesia Evaluation Minh Wise is a 48 y.o. male Procedure(s): COLONOSCOPY Pre-Op Diagnosis Codes: * History of colon [...] use of continuous positive airway pressure (CPAP) Past Medical History: Diagnosis Date ??? Colon polyp ??? Hyperlipidemia Hyperlipidemia ??? Hypertension Hypertension Past Surgical History: Procedure Laterality Date ??? COLONOSCOPY 12/21/2018 ??? COLONOSCOPY 2013 ??? KNEE SURGERY Knee surgery ??? OTHER SURGICAL HISTORY 2006 Left Arthroscopic Knee Surgery ??? POLYPECTOMY No Known Allergies HOME MEDICATIONS : amLODIPine (NORVASC) 5 mg tablet buPROPion XL (WELLBUTRIN XL) 300 mg 24 hr tablet CIALIS 20 mg tablet clonazePAM (KlonoPIN) 0.5 mg tablet Lactobac no.41/Bifidobact no.7 (PROBIOTIC-10 ORAL) np-rao-IY-Zb-Ni-qdasnhx-lutein (MULTIVITAL) 0.4-162-18 mg tablet raNITIdine (ZANTAC) 150 mg tablet Current Facility-Administered Medications: ??? ondansetron (ZOFRAN) injection 4 mg, 4 mg, intravenous, Q30 Min PRN ??? sodium chloride 0.9% infusion, 30 mL/hr, intravenous, Continuous, Last Rate: 30 mL/hr at 12/21/18 1131, 30 mL/hr at 12/21/18 1131 ??? sodium chloride 0.9% infusion, 125 mL/hr, intravenous, Continuous Social History Tobacco Use Smoking Status Never [...] disease Other Family history of Heart disease; PAT Physical Exam Vitals: 12/21/18 1056 BP: 146/86 Pulse: 70 Resp: 20 Temp: 36.5 ??C (97.7 ??F) SpO2: 99% PT: No results found for requested labs [...] findings of the anesthesia pre-evaluation assessment dated: 12/21/2018. Airway Exam: Mallampati: II Cervical ROM: FROM TM distance: normal Jaw ROM: full Cardiovascular Exam: Rate: regular Rhythm: regular Pulmonary Exam: LCTA, bilat EENT Exam: trachea midline Dental Exam: Appears intact Skin Exam: Skin is warm. Turgor is normal. Abdominal Exam: Abdomen is soft. Bowel sounds are present. Current state: Patient's current state is cooperative and interactive. Anesthesia Plan ASA 2 Planned anesthesia: General/TIVA Induction: Induction: intravenous. Postoperative Plan: No plan for postoperative opioid use. Patient's planned disposition post procedure is Outpatient. Informed Consent: Discussed plan with SAFE EXPERT and attending. Anesthesia plan and risks discussed [...] preservative free injection As needed, Starting on Fri12/21/18 at 1251, Anesthesia Intra-op Given 12/21/2018 12:51 PM CDT 60 mg propofol (DIPRIVAN) IV As needed, Starting on Fri12/21/18 at 1251, Anesthesia Intra-op Given 12/21/2018 12:59 PM CDT 40 mg Given 12/21/2018 12:55 PM CDT 40 mg Given 12/21/2018 12:51 PM CDT 100 mg sodium chloride 0.9% infusion 30 mL/hr, intravenous, Continuous, Starting on 12/21/18 at 1130, Pre-Procedure (GI) Rate/Dose Verify 12/21/2018 12:51 PM CDT New Bag 12/21/2018 11:31 AM CDT 30 mL/hr 30 mL/hr R ight Hand documented in this encounter Care Teams Entry Level Civil Engineer Relationship Specialty Start Date End Date Alessandro Velasco MD PCP - General 11/08/16 01/08/22 documented as of this encounter
--- OUTSIDE RECORDS SUMMARY | 2024-08-21 22:28 | XMS_ITS | Encounter Summary ---
Author Organization 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 No / Unsure 11/04/2019 1:07 PM CDT documented as of this encounter Plan of Treatment Not on file documented as of this encounter Visit Diagnoses Not on filedocumented in this encounter Care Teams Mooner Relationship Specialty Start Date End Date Alessandro Velasco MD PCP - General 11/08/16 01/08/22 documented as of this encounter
--- OUTSIDE RECORDS SUMMARY | 2024-08-21 22:28 | XMS_ITS | Encounter Summary ---
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 Gender Identity Male 11/26/2021 10:53 AM CDT Sexual Orientation Straight 11/22/2019 5: 22 PM CDT documented as of this encounter Last Filed Vital Signs Vital Sign Reading Time Taken Comments Blood Pressure 146/86 12/21/2018 10:56 AM CDT Pulse 70 12/21/2018 10:56 AM CDT Temperature 36.5 ??C (97.7 ??F) 12/21/2018 10:56 AM C DT Respiratory Rate 20 12/21/2018 10:56 AM CDT Oxygen Saturation 99% 12/21/2018 10:56 AM CDT Inhaled Oxygen Concentration - - Weight 93.9 kg (207 lb) 12/21/2018 10:56 AM CDT Height 162.6 cm (5' 4 ) 12/21/2018 10:56 AM CDT Body Mass Index 35.53 12/21/2018 10:56 AM CDT documented in this encounter Medications at Time of Discharge docusate sodium (COLACE) 100 mg capsule 08/17/2018 Lactobac no.41/Bifidobact no.7 (PROBIOTIC-10 ORAL) Take 1 capsule by mouth nightly fb-qxi-BF-Ca-Fe- lycopen-lutein 0.4-162-18 mg tablet Take 1 tablet by mouth daily buPROPion XL (WELLBUTRIN XL) 300 mg 24 hr tablet TAKE ONE TABLET BY MOUTH EVERY DAY 90 tablet 3 04/14/2018 9 CIALIS 20 mg tablet TAKE ONE TABLET BY MOUTH NEEDED FOR SEXUAL DYSFUNCTION 4 tablet 9 04/16/2018 0 clonazePAM (KlonoPIN) 0.5 mg tablet Take 1 tablet (0.5 mg total) by mouth nightly 30 tablet 5 11/27/2018 9 raNITIdine (ZANTAC) 150 mg tablet Take 300 mg by mouth nightly 9 documented as of this encounter Discharge Disposition Disposition Code Departure Means Destination Discharge to hospice / home documented in this encounter H&P Notes * Claudette Casarez MD - 12/21/2018 1:11 PM CDT History and Physical Date of visit: 12/21/2018 Subjective: Patient is a 48 y.o. male presented for evaluation for screening for colon cancer. h/o adenoma polyp in 2013. Past Medical History: Diagnosis Date ??? Colon polyp ??? Hyperlipidemia Hyperlipidemia ??? Hypertension Hypertension Past Surgical History: Procedure Laterality Date ??? COLONOSCOPY 12/21/2018 ??? COLONOSCOPY 2013 ??? KNEE SURGERY Knee surgery ??? OTHER SURGICAL HISTORY 2006 Left Arthroscopic Knee Surgery ??? POLYPECTOMY Medications Prior to Admission Medication Sig Dispense Refill Last Dose ??? amLODIPine (NORVASC) 5 mg tablet TAKE ONE TABLET BY MOUTH EVERY MORNING (Patient taking differently: Take 5 mg by mouth nightly ) 90 tablet 3 12/20/2018 at Unknown time ??? buPROPion XL (WELLBUTRIN XL) 300 mg 24 hr tablet TAKE ONE TABLET BY MOUTH EVERY DAY 90 tablet at Unknown time ??? CIALIS 20 mg tablet TAKE ONE TABLET BY MOUTH NEEDED FOR SEXUAL DYSFUNCTION 4 tablet 9 Past Month at Unknown time ??? clonazePAM (KlonoPIN) 0.5 mg tablet Take 1 tablet (0.5 mg total) by mouth nightly (Patient taking differently: Take 1 mg by mouth nightly ) 30 tablet 5 12/20/2018 at Unknown time ??? Lactobac no.41/Bifidobact no.7 (PROBIOTIC-10 ORAL) Take 1 capsule by mouth nightly 12/20/2018 atUnknown time ??? ld-zgi-KB-Mz-Fa-zmkbbbv-lutein (MULTIVITAL) 0.4-162-18 mg tablet Take 1 tablet by mouth daily 12/20/2018 at Unknown time ??? raNITIdine (ZANTAC) 150 mg tablet Take 300 mg by mouth nightly 12/20/2018 at Unknown time No Known Allergies Social History Tobacco Use [...] disease Other Family history of Heart disease; Physical Exam: Patient is awake and answers well. Eyes: no jaundice. Lungs: CTA anteriorly. ENT: no mouth ulcers. Abdomen: soft, no distention, no tenderness, bowel sounds positive. Extremities: no edema. Skin: no rash. GI IMPRESSION: 1. Screening for colon cancer GI PLAN/RECOMMENDATIONS: 1. colonoscopy Claudette Casarez MD documented in this encounter Procedure Notes * Claudette Casarez MD - 12/21/2018 12:45 PM CDTAssociated Order(s): COLONOSCOPY [facility] Patient Name: Minh Wise Procedure Date: 12/21/2018 12:45 PM Date of : 1970 Admit Type: Outpatient Age: 48 Gender: Male Attending MD: Claudette Casarez M.D. Room: [facility] ENDOSCOPY ROOM 1 Note Status: Finalized Patient Profile: 48 WM, h/o adenoma polyp, no family h/o colon cancer. Procedure: Colonoscopy Indications: Surveillance: Personal history of adenomatous polyps on last colonoscopy 5 years ago, Last colonoscopy: October 2013 Referring MD: Alessandro Velasco M.D. Providers: Claudette Casarez M.D. Impression: - The entire examined colon is normal. - Exteral and Internal hemorrhoids. - No specimens collected. Recommendation: - Repeat colonoscopy in 5 years for surveillance. Medicines: Monitored Anesthesia Care Complications: No immediate [...] Prior Anticoagulants: The patient has taken no previous anticoagulant or antiplatelet agents. ASA Grade Assessment: [...] under direct vision. The Pediatric Colonoscope PCF-H190L [id number] was introduced through the anus and advanced to the the cecum, identified by appendiceal orifice and ileocecal valve. The colonoscopy was performed without difficulty. The patient tolerated the procedure well. The quality of the bowel preparation was good. Findings: Perianal and rectal exam showed external hemorrhoids and johann-anal skin tags. The cecum appeared normal. The colon (entire examined portion) appeared normal. No polyps and no mass lesions noted Internal hemorrhoids were found during retroflexion. The hemorrhoids were medium-sized. Electronically signed by Claudette Casarez M.D. Claudette Casarez M.D. 12/21/2018 1:15:29 PM Number of Addenda: 0 Note Initiated On: 12/21/2018 12:45 PM Procedure Code(s): --- Professional --- 79436, Colonoscopy, flexible; diagnostic, including collection of specimen(s) by brushing or washing, when performed (separate procedure) Diagnosis Code(s): --- Professional --- Z86.010, Personal history of colonic polyps K64.8, Other hemorrhoids CPT copyright 2017 [employer]. All rights reserved. The codes documented in this report are preliminary and upon weatherization director review may be revised to meet current compliance requirements. Recognized by the [place] [employer] for promoting quality in endoscopy documented in this encounter Miscellaneous Notes * Perioperative Nursing Note - Ninoska Lovett, RN - 12/21/2018 1:[address] Casarez talked to patient and family. documented in this encounter Plan of Treatment Not on file documented as of this encounter Procedures Procedure Name Priority Date/Time Associated Diagnosis Comments COLONOSCOPY 12/21/2018 12:45 PM CDT COLONOSCOPY 12/21/2018 12:45 PM CDT History of colon polyps documented in this encounter Results * COLONOSCOPY (12/21/2018 12:45 PM CDT) Anatomical Region Laterality Modality Other Narrative Procedure Note Claudette Casarez MD - 12/21/2018 12:45 PM CDT [facility] Patient Name: Mihn Wise Procedure Date: 12/21/2018 12:45 PM Date of : 1970 Admit Type: Outpatient Age: 48 Gender: Male Attending MD: Claudette Casarez M.D. Room: [facility] ENDOSCOPY ROOM 1 Note Status: Finalized Patient Profile: 48 WM, h/o adenoma polyp, no family h/o coloncancer. Procedure: Colonoscopy Indications: Surveillance: Personal history of adenomatous polypson last colonoscopy 5 years ago, Last colonoscopy:October 2013 Referring MD: Alessandro Velasco M.D. Providers: Claudette Casarez M.D. Impression: - The entire examined colon is normal. - Exteral and Internal hemorrhoids. - No specimens collected. Recommendation: - Repeat colonoscopy in 5 years for surveillance. Medicines: Monitored Anesthesia Care Complications: No immediate complications. Estimated Blood Loss: Estimated blood loss: none. Procedure: Pre-Anesthesia Assessment: - Prior to the procedure, a History and Physical was performed, and patient medications and allergieswere reviewed. The patient's tolerance of previous anesthesia was also reviewed. The risks and benefitsof the procedure and the sedation options and riskswere discussed with the patient. All questions were answered, and informed consent was obtained. Prior Anticoagulants: The patient has taken no previous anticoagulant or antiplatelet agents. ASA Grade Assessment: II - A patient with mild systemicdisease. After reviewing the risks and benefits, the patientwas deemed in satisfactory condition to undergo the procedure. The benefits, risks and alternatives of theprocedure and sedation were discussed and informed consent was obtained. All questions were answered. Please referto the signed informed consent document in the medical record. The scope was passed under direct vision.The Pediatric Colonoscope PCF-H190L [id number] was introduced through the anus and advanced to the the cecum, identified by appendiceal orifice andileocecal valve. The colonoscopy was performed without difficulty. The patient tolerated the procedurewell. The quality of the bowel preparation was good. Findings: Perianal and rectal exam showed external hemorrhoids and johann-analskin tags. The cecum appeared normal. The colon (entire examined portion) appeared normal. No polyps and no mass lesions noted Internal hemorrhoids were found during retroflexion. The hemorrhoids were medium-sized. Electronically signed by Claudette Casarez M.D. Claudette Casarez M.D. 12/21/2018 1:15:29 PM Number of Addenda: 0 Note Initiated On: 12/21/2018 12:45 PM Procedure Code(s): --- Professional --- 56778, Colonoscopy, flexible; diagnostic, including collection of specimen(s) by brushing or washing, when performed (separateprocedure) Diagnosis Code(s): --- Professional --- Z86.010, Personal history of colonic polyps K64.8, Other hemorrhoids CPT copyright 2017 [employer]. All rights reserved. The codes documented in this report are preliminary and upon weatherization director reviewmay be revised to meet current compliance requirements. Recognized by the [place] [employer] for promoting quality in endoscopy Claudette Casarez MD ENDOSCOPY PROCEDURES Final Result documented in this encounter Visit Diagnoses Diagnosis History of colon polyps- Primary History of colon polyps documented in this encounter Admitting Diagnoses Diagnosis History of colon polyps documented in this encounter Administered Medications Inactive Administered Medications - up to 3 most recent administrations Medication Order MAR Action Action Date Dose Rate Site ondansetron (ZOFRAN) injection 4 mg 4 mg, intravenous, Administer over 2 Minutes, Every 30 min PRN, nausea, vomiting, Starting on Fri12/21/18 at 1052, For 2 doses, Recovery (GI), Indications: Nausea and VomitingIndications:Nausea and Vomiting sodium chloride 0.9% infusion 30 mL/hr, intravenous, Continuous, Starting on Fri12/21/18 at 1130, Pre-Procedure (GI) Rate/Dose Verify 12/21/2018 12:51 PM CDT New Bag 12/21/2018 11:31 AM CDT 30 mL/hr 30 mL/hr R ight Hand sodium chloride 0.9% infusion 125 mL/hr, intravenous, Continuous, Starting on Fri12/21/18 at 1130, Recovery (GI) documented in this encounter Historical Medications * This list may reflect changes made after this encounter. bu-oqb-YC-Ca-Fe-l ycopen-lutein 0.4-162-18 mg tablet Take 1 tablet by mouth daily Lactobac no.41/Bifidobact no.7 (PROBIOTIC-10 ORAL) Take 1 capsule by mouth nightly added in this encounter Active and Recently Administered Medications Times are shown in CDT. Continuous Medication Order 12/19/2018 12/20/2018 12/21/2018 sodium chloride 0.9% infusion 30 mL/hr, intravenous, Continuous, Starting on Fri12/21/18 at 1130, Pre-Procedure (GI) 1131 (New Bag - Prov ider: Ninoska Lovett RN)1251 (Rate/Dose Verify - Provider: Sanket Solano CRNA)1259 (Anesthesia Volume Adjustment - Provider: Sanket Solano CRNA) sodium chloride 0.9% infusion 125 mL/hr, intravenous, Continuous, Starting on Fri12/21/18 at 1130, Recovery (GI) 1130 (Due) PRN Medication Order 12/19/2018 12/20/2018 12/21/2018 ondansetron (ZOFRAN) injection 4 mg 4 mg, intravenous, Administer over 2 Minutes, Every 30 min PRN, nausea, vomiting, Starting on Fri12/21/18 at 1052, For 2 doses, Recovery (GI), Indications: Nausea and Vomiting documented in this encounter Orders Medications Ordered That Tommy ht Not Have Been Administered Count Last Ordered Date First Ordered Date ondansetron (ZOFRAN) injection 4 mg 1 12/21 sodium chloride 0.9% infusion 1 12/21/2018 documented in this encounter Care Teams Warehouse Forklift Operator Relationship Specialty Start Date End Date Alessandro Velasco MD PCP - General 11/08/16 01/08/22 documented as of this encounter
--- OUTSIDE RECORDS SUMMARY | 2024-08-21 22:28 | XMS_ITS | Encounter Summary ---
Author Organization [facility] Medical Group Address [address] [address] Care Team Providers Care Pediatric Care Coordinator Name Role Phone Alessandro Velasco MD Primary Care Provider Encounter Details Date Type Department Care Team (Late st Contact Info) Description 04/28/2020 3:30 PM CDT Telemedicine [facility] Orthopedics and Sports Medicine [address] [place] [phone] Sanket Gary MD [address] [place] [address] [address] [place] [id number] Complex tear of medial meniscus of left knee as current injury, initial encounter (Primary Dx); BMI 36.0-36.9,adult Social History Tobacco Use Types Packs/Day Years Used Date Smoking Tobacco: Never Smokeless Tobacco: Never Alcohol Use Standard Drinks/Week Comments No 0 (1 standard drink = 0.6 oz pur e alcohol) rarely PHQ-2 Answer Date Recorded PHQ-2 Score 0 04/01/2019 Sex and Gender Information Value Date Recorded Sex Assigned at Not on file 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 NEW PATIENT VISIT This was a telemedicine visit with Minh Wise alone by also spoke to his separately she was at home on the home phone line which took place via Telephone. During the visit, I was located at the office and the patient was located a in his vehicle on a hands free device in the [facility]. The patient visit started at 5:00 a.m. and ended at 508. Total time was approximately 25 minutes including pre charting post charting telephone call reviewing MRI The patient: has been informed that the visit may not be secure and acknowledged the information. The option of participating in a telephone or video visit during the [address] emergencywas explained to them. After being given an opportunity to ask questions about and discuss this type of visit, they verbally consented to proceeding with the telephone/video visit and understand thatthis service replaces an office visit. Sanket Gary MD Subjective CHIEF COMPLAINT He had no chief complaint listed for this encounter. HISTORY OF PRESENT ILLINESS Continued left knee [...] makes it better activity makes it worse PAST MEDICAL HISTORY He has a past medical history of Anemia, Colon polyp, Gastric reflux, Hyperlipidemia, and Hypertension. He also has no past medical history of Colon cancer ([facility]). PAST SURGICAL HISTORY He has a past surgical history that includes Other surgical history (2005); Knee surgery; Polypectomy; Colonoscopy (12/21/2018); Colonoscopy (2013); and Knee arthroscopy. MEDICATIONS He has a current medication list which includes the following prescription(s): amlodipine-valsartan, bupropion xl, cialis, clonazepam, diclofenac dr, famotidine, lactobac no.41/bifidobact no.7, and ku-evm-qz-zi-hy-oislsuj-lutein. ALLERGIES He has No Known Allergies. SOCIAL HISTORY He reports that he has never smoked. He has never used smokeless tobacco. He reports that he does not drink alcohol or use drugs. FAMILY HISTORY Family History Problem Relation Age of Onset ??? Hypertension Mother 61 Hypertension; ??? Other Father 62 Alive and well; ??? Other Brother 37 Alive and well; ??? Other Brother 30 Alive and well; ??? Hypertension Other Family history of Hypertension; ??? Diabetes Other Family history of Diabetes mellitus; ??? Heart disease Other Family history of Heart disease; ??? Arthritis Other REVIEW OF SYSTEMS Review of Systems Constitutional: [...] is not nervous/anxious and is not hyperactive. Objective PHYSICAL EXAM There were no vitals taken for this visit. Ortho Exam No acute distress alert are x3 normal affect reports left knee pain is on inside of his knee unchanged from his visit. Neurovascularly intact distally REVIEW OF X-RAYS/STUDIES/LABS EXAM DESCRIPTION: MRI KNEE LEFT WO CONTRAST REASON FOR STUDY: Knee pain, initial examDx: Tear of medial meniscus of left knee, unspecified tear type, unspecified whether old or current tear, initial encounter ); Left knee pain, unspecified chronicityDuration: 2 months TECHNIQUE: Multiplanar, multisequence MRI of the left knee was performed. COMPARISON: 11/12/2005 In the medial compartment, there is a complex tear of the posterior horn with near complete radial component. There is partial extrusion of the body into the medial gutter. There is a 5 x 16 mm region of full thickness chondrosis involving the central weight-bearing femoral condyle. There is adjacent partial in deep partial thickness chondrosis with subchondral edema involving the peripheral femoral condyle and tibial plateau. There is matching partial-thickness chondrosis of the tibial plateau. In the lateral compartment, there is mucoid degeneration of the anterior horn and root. No displaced meniscal tear is identified. There is partial thickness chondrosis of the central weight-bearing femoral condyle and tibial plateau. There is no subchondral edema. In the patellofemoral compartment, there is deep partial and full thickness chondrosis of the median ridge with superimposed fissuring, subchondral edema and subchondral cyst formation. There is matching partial-thickness chondrosis of the central trochlea. There is an area of full-thickness fissuring involving the medial trochlea with subchondral edema. The cruciate and collateral ligaments are intact. The popliteus tendon is normal. The extensor mechanism is normal. There is mild prepatellar and superficial infrapatellar bursitis. A small knee effusion is present with synovitis. No loose bodies are identified. There is subcutaneous edema about the knee. IMPRESSION: 1. Complex tear of the left medial meniscus posterior horn with near complete radial component. 2. 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 3. Small left knee effusion with synovitis. THIS IS AN ELECTRONICALLY VERIFIED FINAL REPORT 04/25/2020 7:01 AM - Electronically signed by Junito Sorto Assessment/Plan Diagnoses and all orders for this visit: Complex tear of medial meniscus of left knee as current injury, initial encounter BMI 36.0-36.9,adult Plan Risks and benefits of the arthroscopic [...] would benefit from home E stim device. Patient is going for clearance with his PCP next week once he is cleared will put him on the schedule Sanket Gary MD documented in this encounter Plan of Treatment Not on file documented as of this encounter Visit Diagnoses Diagnosis Complex tear of medial meniscus of left knee as current injury, initial encounter- Primary BMI 36.0-36.9,adult documented in this encounter Care Teams Pediatric Care Coordinator Relationship Specialty Start Date End Date Alessandro Velasco MD PCP - General 11/08/16 01/08/22 documented as of this encounter
--- OUTSIDE RECORDS SUMMARY | 2024-08-21 22:28 | XMS_ITS | Encounter Summary ---
Author Organization [facility] Address [address] [place] [address] Care Team Providers Care Loading Rack Supervisor Name Role Phone Alessandro Velasco MD Primary Care Provider [phone] Reason for Referral * Diagnostic Imaging (Routine) - Closed Specialty Diagnoses / Procedures Referred By Luca starks Referred To Contact Radiology Diagnoses Tear of medial meniscus of left knee, unspecified tear type, unspecified whether old or current tear, initial encounter Left knee pain, unspecified chronicity Procedures MRI Knee Left WO Contrast Alyssa Dean PA Phone: tel: fax: [facility] [address] [place] [address] Referral ID Status Reason Start Date Expiration Date Visits Re quested Visits Authorized [id number] Closed 04/03/2020 05/18/2020 1 1 Encounter Details Date Type Department Care Team (Late st Contact Info) Description 04/03/2020 Orders Only [facility] Orthopedics and Sports Medicine [address] [facility] [address] [address] [place] [address] Alyssa Dean PA [address] [place] [address] [address] [place] [address] Tear of medial meniscus of left knee, unspecified tear type, unspecified whether old or current tear, initial encounter (Primary Dx); Left knee pain, unspecified chronicity Social History Tobacco Use Types Packs/Day Years Used Date Smoking Tobacco: Never Smokeless Tobacco: Never Alcohol Use Standard Drinks/Week Comments No 0 (1 standard drink = 0.6 oz pur e alcohol) rarely PHQ-2 Answer Date Recorded PHQ-2 Score 0 04/01/2019 Sex and Gender Information Value Date Recorded Sex Assigned at Not on file 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 ??Complex tear of the left medial meniscus posterior horn with near complete radial component. 2. 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 3. ??Small left knee effusion with synovitis. THIS IS AN ELECTRONICALLY VERIFIED FINAL REPORT 04/25/2020 7:01 AM - Electronically signed by Junito Sorto MF: [id number] D: ??04/25/2020 7:01 AM T: ??04/25/2020 7:01 AM Report ID: [id number] Reading Location: ??[id number] Narrative 04/25/2020 7:05 AM CDT [facility] ?Imaging Result Name: MARIFER PARNELL ? Ordering Phys: ALYSSA DEAN Age: 49 ?Date of : 1970 ? Accession Number: [id number] Date of Service: 04/24/2020 ??Gender: M EXAM DESCRIPTION: ?? MRI KNEE LEFT WO CONTRAST REASON FOR STUDY: ?? Knee pain, initial examDx: Tear of medial meniscus of left knee, unspecified tear type, unspecified whether old or current tear, initial encounter ); Left knee pain, unspecified chronicityDuration: 2 months TECHNIQUE: ??Multiplanar, multisequence MRI of the ??left knee was performed. COMPARISON: ?? 11/12/2005 ??In the medial compartment, there is a complex [...] tibial plateau. ??There is no subchondral edema. In the patellofemoral [...] ??There is subcutaneous edema about the knee. Procedure Note Junito Sorto MD - 04/25/2020 [facility] Imaging Result Name: PARMJIT MARIFER Daryl Ordering Phys: ALYSSA DEAN Age: 49 Date of : 1970 Accession Number: [id number] Date of Service: 04/24/2020 Gender: M EXAM DESCRIPTION: MRI KNEE LEFT WO CONTRAST REASON FOR STUDY: Knee pain, initial examDx: Tear of medial meniscus ofleft knee, unspecified tear type, unspecified whether old or current tear,initial encounter ); Left knee pain, unspecified chronicityDuration: 2 months TECHNIQUE: Multiplanar, multisequence MRI of the left knee wasperformed. COMPARISON: 11/12/2005 In the medial compartment, there is a complex tear of the posterior horn with near complete radial component. There is partial extrusion ofthe body into the medial gutter. There is a 5 x 16 mm region of fullthickness chondrosis involving the central weight-bearing femoral condyle. Thereis adjacent partial in deep partial thickness chondrosis with subchondraledema involving the peripheral femoral condyle and tibial plateau. There is matching partial-thickness chondrosis of the tibial plateau. In the lateral compartment, there is mucoid degeneration of the anteriorhorn and root. No displaced meniscal tear is identified. There is partial thickness chondrosis of the central weight-bearing femoral condyle andtibial plateau. There is no subchondral edema. In the patellofemoral compartment, there is deep partial and fullthickness chondrosis of the median ridge with superimposed fissuring, subchondraledema and subchondral cyst formation. There is matching partial-thickness chondrosis of the central trochlea. There is an area of full-thickness fissuring involving the medial trochlea with subchondral edema. The cruciate and collateral ligaments are intact. The popliteus tendonis normal. The extensor mechanism is normal. There is mild prepatellarand superficial infrapatellar bursitis. A small knee effusion is presentwith synovitis. No loose bodies are identified. There is subcutaneous edemaabout the knee. IMPRESSION: 1. Complex tear of the left medial meniscus posterior horn with nearcomplete radial component. 2. Mild to moderate medial predominant tricompartmental left kneechondrosis. 3. Small left knee effusion with synovitis. THIS IS AN ELECTRONICALLY VERIFIED FINAL REPORT 04/25/2020 7:01 AM - Electronically signed by Junito Sorto MF: [id number] Report ID: [id number] Reading Location: [id number] Alyssa ARMIJO IMG MRI PROCEDURES Trang l Result documented in this encounter Visit Diagnoses Diagnosis Tear of medial meniscus of left knee, unspecified tear type, unspecified whether old or current tear, initial encounter- Primary Left knee pain, unspecified chronicity Tear of medial meniscus of left knee, unspecified tear type, unspecified whether old or current tear, initial encounter Left knee pain, unspecified chronicity documented in this encounter Care Teams Loading Rack Supervisor Relationship Specialty Start Date End Date Alessandro Velasco MD PCP - General 11/08/16 01/08/22 documented as of this encounter
--- OUTSIDE RECORDS SUMMARY | 2024-08-21 22:28 | XMS_ITS | Encounter Summary ---
Author Organization [facility] Address [address] [place] [address] Care Team Providers Care Weatherseal Technician Name Role Phone Alessandro Velasco MD Primary Care Provider [phone] Reason for Referral * Consultation (Routine) - Closed Specialty Diagnoses / Procedures Referred By Luca t Referred To Contact Orthopedic Surgery Diagnoses Left knee pain, unspecified chronicity Alessandro Velasco MD Phone: tel: fax: Sanket Gary MD [address] [facility] [address] [place] [address] Phone: tel: fax: Referral ID Status Reason Start Date Expiration Date V isits Requested Visits Authorized [id number] Closed Specialty Services Required 03/01/2020 03/31/2021 12 12 Question Answer Please select the performing region: [facility] [[id number]] Please select the performing department[facility] [[id number]] To provider: SANKET GARY [[id number]] # of visits: 1 Encounter Details Date Type Department Care Team (Late st Contact Info) Description 03/01/2020 Orders Only [facility] [address] [facility] [address] [place] [address] Alessandro Velasco MD [address] [place] [address] Encounter for wellness examination in adult (Primary Dx); Essential hypertension; Left knee pain, unspecified chronicity Social History Tobacco Use Types Packs/Day Years Used Date Smoking Tobacco: Never Smokeless Tobacco: Never Alcohol Use Standard Drinks/Week Comments No 0 (1 standard drink = 0.6 oz pur e alcohol) rarely PHQ-2 Answer Date Recorded PHQ-2 Score 0 04/01/2019 Sex and Gender Information Value Date Recorded Sex Assigned at Not on file 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 HDL 44 >=40 mg/dL [facility]) Comment: Interpretive Data Ages < or = [...] on 2018. Non-HDL Cholesterol 108 mg/dL [facility] Comment: Interpretive Data Ages < or [...] last revised on 2018. Chol/HDL ratio 3 [facility]) Blood specimen (specimen) 02/24/2021 7:30 AM CDT 02/24/2021 8:48 AM CDT us Alessandro Velasco MD LAB BLOOD ORDERABLES Final Res ult [facility] [address] [facility] [place] [address] * Urinalysis reflex to microscopic and culture [...] for microscopic UA and culture not met. [facility] Urine, clean voided 02/24/2021 7:30 [...] tendency for uric acid stone formation. Source: [facility] [employer]. Last revised 08-21-2017 us Alessandro Velasco MD LAB MICROBIOLOGY - GENERAL ORD ERABLES Final Result [facility] [address] [facility] Department [place] [address] * (ABNORMAL) Comprehensive metabolic panel (02/24/2021 7:30 AM CDT) Sodium 139 135 - 145 mmol/L [facility] Potassium, pl 4.2 3.3 - 4.9 mmol/L [facility] Chloride 105 97 - 110 mmol/L [facility] CO2 26 22 - 32 mmol/L [facility] Anion gap 7 2 - 15 mmol/L [facility] BUN 23 8 - 25 mg/dL [facility] Creatinine 0.91 0.80 - 1.30 [...] Final Res ult [facility] [address] [facility] [place] [address] * (ABNORMAL) CBC with auto differential (02/24/2021 7:30 AM CDT) WBC 7.8 3.8 - 9.9 K/cumm [facility] Hgb 9.6(L) 13.0 - 17.5 g/dL [facility] Hct 31.6(L) 38.9 - 50.3 % [facility] Plt 269 150 - 400 K/cumm [facility] MPV 11.3 9.1 - 12.3 fL [facility] RBC 3.68(L) 4.30 - 5.80 M/cumm [facility] MCV 85.9 81.3 - 96.4 fL [facility] MCH 26.1(L) 27.1 - 33.3 pg [facility] MCHC 30.4(L) 32.3 - 35.7 g/dL [facility] RDW CV 13.6 11.1 - 14.9 % [facility] RDW SD 42.5 35.7 - 48.1 fL [facility] NRBC abs 0.00 0.00 - 0.01 K/cumm [facility] Blood specimen (specimen) 02/24/2021 7:30 AM CDT 02/24/2021 8:48 AM CDT Alessandro Velasco MD LAB BLOOD ORDERABLES Final Res ult [facility] [address] [facility] [place] [address] * PSA screen (02/24/2021 7:30 AM CDT) PSA-Total 0.27 <=3.90 ng/mL [facility] Comment: Interpretive Data ?AGE ? SEX ?REFERENCE INTERVAL 0 minutes-150 years ?Female ?None 0 minutes-49 years ? Male ?None ? 50-59 years ? Male ?0-3.90 ? 60-69 years ? Male ?0-5.40 ? 70-79 years ? Male ?0-6.20 ? 80-150 years ?Male ?0-6.20 Current interpretive data last revised 2018. Testing performed by: [facility], [address] [place] [address], [place]., [address] Blood specimen (specimen) 02/24/2021 7:30 AM CDT 02/24/2021 6:13 PM CDT us Alessandro Velasco MD LAB BLOOD ORDERABLES Final Res ult [facility] [address] [facility] [place] [address] documented in this encounter Visit Diagnoses Diagnosis Encounter for wellness examination in adult- Primary Essential hypertension Unspecified essential hypertension Left knee pain, unspecified chronicity Encounter for wellness examination in adult Essential hypertension Unspecified essential hypertension documented in this encounter Care Teams Weatherseal Technician Relationship Specialty Start Date End Date Alessandro Velasco MD PCP - General 11/08/16 01/08/22 documented as of this encounter
--- OUTSIDE RECORDS SUMMARY | 2024-08-21 22:28 | XMS_ITS | Encounter Summary ---
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 We've been home since3:00. It is now 4:30, not very happy. documented in this encounter Plan of Treatment Not on file documented as of this encounter Visit Diagnoses Not on filedocumented in this encounter Care Teams Regulatory Law Specialist Relationship Specialty Start Date End Date Alessandro Velasco MD PCP - General 11/08/16 01/08/22 documented as of this encounter
--- OUTSIDE RECORDS SUMMARY | 2024-08-21 22:28 | XMS_ITS | Encounter Summary ---
Author Organization [facility] Address [address] [place] [address] Care Team Providers Care Dispensing And Measuring Optician Name Role Phone Alessandro Velasco MD Primary Care Provider [phone] Reason for Visit * Reason Comments Anemia Encounter Details Date Type Department Care Team (Late st Contact Info) Description 02/05/2019 3:15 PM CDT Office Visit [facility] [address] [facility] [address] [place] [address] Alessandro Velasco MD [address] [place] [address] [address] [place] [address] Iron deficiency anemia, unspecified iron deficiency anemia type (Primary Dx); Body mass index (bmi) 34.0-34.9, adult Social History Tobacco Use Types Packs/Day Years Used Date Smoking Tobacco: Never Smokeless Tobacco: Never Alcohol Use Standard Drinks/Week Comments No 0 (1 standard drink = 0.6 oz pur e alcohol) rarely Sex and Gender Information Value Date Recorded Sex Assigned at Not on file 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 Sex Male 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 DIRECTOR OF 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 LIFE Gender Identity Male 11/26/2021 10:53 AM CDT Sexual Orientation Straight 11/22/2019 5: 22 PM CDT documented as of this encounter Last Filed Vital Signs Vital Sign Reading Time Taken Comments Blood Pressure 130/72 02/05/2019 3:23 PM CDT Pulse 76 02/05/2019 3:23 PM CDT Temperature - - Respiratory Rate 20 02/05/2019 3:23 PM CDT Oxygen Saturation - - Inhaled Oxygen Concentration - - Weight 90.7 kg (200 lb) 02/05/2019 3:23 PM CDT Height 162.6 cm (5' 4 ) 02/05/2019 3:23 PM CDT Body Mass Index 34.33 02/05/2019 3:23 PM CDT documented in this encounter Ordered Prescriptions Prescription Sig Dispense Quantity Refills Last Filled Start Date End Date clonazePAM (KlonoPIN) 0.5 mg tablet Take 1 tablet (0.5 mg total) by mouth nightly 90 tablet 3 02/05/2019 9 clonazePAM (KlonoPIN) 0.5 mg tablet Take 1 tablet (0.5 mg total) by mouth nightly 90 tablet 3 02/05/2019 9 documented in this encounter Progress Notes * Alessandro Velasco MD - 02/05/2019 3:15 PM CDT Subjective/Objective Patient ID: Minh Wise is a 48 y.o. male. Chief Complaint Anemia HPI 48-year-old seen today for follow-up colonoscopy was unremarkable do low polyps total come back in 5 years no melena no hematochezia patient has iron deficiency anemia this takes Zantac on a daily basis Review of Systems Vitals: 02/05/19 1523 BP: 130/72 BP Location: Left arm Patient Position: Sitting Pulse: 76 Resp: 20 Weight: 90.7 kg (200 lb) Height: 162.6 cm (5' 4 ) Physical Exam Abdomen soft nontender the lungs clear Assessment/Plan Diagnoses and all orders for this visit: Iron deficiency anemia, unspecified iron deficiency anemia type (Primary) Body mass index (bmi) 34.0-34.9, adult Other orders - clonazePAM (KlonoPIN) 0.5 mg tablet; Take 1 tablet (0.5 mg total) by mouth nightly Will refill his clonazepam for his sleep at night will continue iron supplementation check CBC ironlevels today EGD will be obtain from GI Side effects, risks, interactions reviewed with patient. [...] anemia, unspecified iron deficiency anemia type- Primary Body mass index (bmi) 34.0-34.9, adult documented in this encounter Discontinued Medications Medication Sig Discontinue Reason Start Date End Da te clonazePAM (KlonoPIN) 0.5 mg tablet Take 1 tablet (0.5 mg total) by mouth nightly Reorder 11/27/2018 02/05/2019 clonazePAM (KlonoPIN) 0.5 mg tablet Take 1 tablet (0.5 mg total) by mouth nightly Reorder 02/05/2019 02/05/2019 documented as of this encounter Care Teams Dispensing And Measuring Optician Relationship Specialty Start Date End Date Alessandro Velasco MD PCP - General 11/08/16 01/08/22 documented as of this encounter
--- OUTSIDE RECORDS SUMMARY | 2024-08-21 22:28 | XMS_ITS | Encounter Summary ---
Author Organization [facility] Address [address] [place] [address] Care Team Providers Care Chief Ophthalmic Technician Name Role Phone Alessandro Velasco MD Primary Care Provider [phone] Reason for Visit * Reason Comments Follow-up 3 mo fu Encounter Details Date Type Department Care Team (Late st Contact Info) Description 03/01/2020 3:15 PM CDT Office Visit [facility] [address] [facility] [address] [place] [phone] Alessandro Velasco MD [address] [place] [address] [id number] Essential hypertension (Primary Dx); Class 2 obesity with body mass index (BMI) of 35.0 to 35.9 in adult, unspecified obesity type, unspecified whether serious comorbidity present; Mixed hyperlipidemia; Chronic GERD Social History Tobacco Use Types Packs/Day Years Used Date Smoking Tobacco: Never Smokeless Tobacco: Never Tobacco Cessation:Counseling Given: No Alcohol Use Standard Drinks/Week Comments No 0 (1 standard drink = 0.6 oz pur e alcohol) rarely PHQ-2 Answer Date Recorded PHQ-2 Score 0 04/01/2019 Sex and Gender Information Value Date Recorded Sex Assigned at Not on file 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 Gender Identity Male 11/26/2021 10:53 AM CDT Sexual Orientation Straight 11/22/2019 5: 22 PM CDT documented as of this encounter Last Filed Vital Signs Vital Sign Reading Time Taken Comments Blood Pressure 130/70 03/01/2020 3:13 PM CDT Pulse 92 03/01/2020 3:13 PM CDT Temperature - - Respiratory Rate - - Oxygen Saturation - - Inhaled Oxygen Concentration - - Weight 93.9 kg (207 lb) 03/01/2020 3:13 PM CDT Height 162.6 cm (5' 4 ) 03/01/2020 3:13 PM CDT Body Mass Index 35.53 03/01/2020 3:13 PM CDT documented in this encounter Progress Notes * Alessandro Velasco MD - 03/01/2020 3:15 PM CDT Subjective/Objective Patient ID: Minh Wise is a 49 y.o. male. Chief Complaint Follow-up (3 mo fu ) HPI Miguel seen today for follow-up high blood pressure taking medication compliantly feels well no complaints reflux is controlled with H2 antagonist he is on CPAP for sleep apnea Review of Systems Vitals: 03/01/20 1513 BP: 130/70 BP Location: Left arm Patient Position: Sitting Pulse: 92 Weight: 93.9 kg (207 lb) Height: 162.6 cm (5' 4 ) Physical Exam Patient is pleasant no distress his blood pressures confirmed extremities no edema Assessment/Plan Diagnoses and all orders for this visit: Essential hypertension (Primary) Class 2 obesity with body mass index (BMI) of 35.0 to 35.9 in adult, unspecified obesity type, unspecified whether serious comorbidity present Mixed hyperlipidemia Chronic GERD His go work will harder on weight loss through caloric restriction and daily exercise continues current antihypertensive regimen see me back in a year for physical lab work 1 week at a time Side effects, risks, interactions reviewed with patient. [...] as of this encounter Visit Diagnoses Diagnosis Essential hypertension- Primary Unspecified essential hypertension Class 2 obesity with body mass index (BMI) of 35.0 to 35.9 in adult, unspecified obesity type, unspecified whether serious comorbidity present Mixed hyperlipidemia Chronic GERD documented in this encounter Care Teams Chief Ophthalmic Technician Relationship Specialty Start Date End Date Alessandro Velasco MD PCP - General 11/08/16 01/08/22 documented as of this encounter
--- OUTSIDE RECORDS SUMMARY | 2024-08-21 22:28 | XMS_ITS | Encounter Summary ---
Author Organization [facility] Address [address] [place] [address] Care Team Providers Care Cistern Room Working Supervisor Name Role Phone Alessandro Velasco MD Primary Care Provider [phone] Encounter Details Date Type Department Care Team (Late st Contact Info) Description 11/09/2018 Orders Only [facility] [address] [facility] [address] [place] [address] Alessandro Velasco MD [address] [facility] [address] [place] [address] History of colon polyps (Primary Dx) Social History Tobacco Use Types Packs/Day Years Used Date Smoking Tobacco: Never Smokeless Tobacco: Never Alcohol Use Standard Drinks/Week Comments No 0 (1 standard drink = 0.6 oz pur e alcohol) Sex and Gender Information Value Date Recorded Sex Assigned at Not on file 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
--- OUTSIDE RECORDS SUMMARY | 2024-08-21 22:28 | XMS_ITS | Encounter Summary ---
Author Organization [facility] Medical [facility] Address [address] [place] [address] Care Team Providers Care Bakery Products Checker Name Role Phone Alessandro Velasco MD Primary Care Provider [phone] Reason for Visit * Reason Comments Pre-op Exam left knee Encounter Details Date Type Department Care Team (Late st Contact Info) Description 05/01/2020 2:15 PM CDT Office Visit [facility] [address] [place] [address] [address] [place] [id number] Sydney Acuña, LEATHER CASE FINISHER 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 Gender Identity Male 11/26/2021 10:53 AM CDT Sexual Orientation Straight 11/22/2019 5: 22 PM CDT documented as of this encounter Last Filed Vital Signs Vital Sign Reading Time Taken Comments Blood Pressure 138/68 05/01/2020 2:25 PM CDT Pulse 75 05/01/2020 2:25 PM CDT Temperature - - Respiratory Rate 16 05/01/2020 2:25 PM CDT Oxygen Saturation 99% 05/01/2020 2:25 PM CDT Inhaled Oxygen Concentration - - Weight 91.6 kg (202 lb) 05/01/2020 2:25 PM CDT Height 162.6 cm (5' 4 ) 05/01/2020 2:25 PM CDT Body Mass Index 34.67 05/01/2020 2:25 PM CDT documented in this encounter Patient Instructions * Patient Instructions* Sydney Acuña NP - 05/01/2020 2:15 PM CDT Images from the original note were not included. I truly hope you received EXCELLENT care today! [place] and I are thankful you have trusted us with your care. You records will be available in the electronic system for any specialist who utilize the same system. Please do not hesistate to call if you have absolutely any questions or concerns. You may receive a phone call or text asking about your care today. We would love to hear your input and again hope your visit was as EXCELLENT as possible even though you may not have been feeling well! Thank you in advance, Sydney documented in this encounter Progress Notes * Sydney Acuña NP - 05/01/2020 2:15 PM CDT Images from the original note were not included. [facility] Patient ID: Minh Wise is a 49 y.o. male Chief Complaint. Chief Complaint Patient presents with ??? Pre-op Exam left knee HPI: Minh Wise presents today for preoperative medical clearance for an upcoming left medial meniscus repair (nontraumatic injury) with Dr. Gary at [facility] with date current pending based upon evaluation today in our office, but hopefully the next 1-2 weeks. PMH includes HTN, GERD, HLD, anxiety and JAYLA w/ use of CPAP. Currently taking Diclofenac twice daily to pain relief align with wearing brace. Uncertain if the procedure will be arthroscopically but plans to discuss this more with surgeon after clearance provided. Endorses compliance with CPAP use. Pt declines any complication regarding prior use of anesthesia, coagulation or bleeding disorders. He is compliant with daily medication use and declines any current or prior tobacco use. History of LTKA in 2006 w/o any complications postoperatively. Declined any chest pain, dyspnea w/ or w/o exertion, orthopnea or exercise intolerance (beyond current musculoskeletal limitations). Endorses periodic external hemorrhoid flare of bleeding a bit yesterday but today remaining asymptomatic. Declines any shortness of breath, dizziness, fatigue. Past Medical History: Diagnosis Date ??? Anemia ??? Colon polyp ??? Gastric reflux ??? Hyperlipidemia Hyperlipidemia ??? Hypertension Hypertension Social History Socioeconomic History ??? Marital status: Spouse name: None ??? Number of children: None ??? Years of education: None ??? Highest education level: None Occupational History ??? None Social Needs ??? Financial resource strain: None ??? Food insecurity Worry: None Inability: None ??? Transportation needs Medical: None Non-medical: None Tobacco Use ??? Smoking status: Never Smoker ??? Smokeless tobacco: Never Used Substance and Sexual Activity ??? Alcohol use: No Comment: rarely ??? Drug use: No ??? Sexual activity: Defer Lifestyle ??? Physical activity Days per week: None Minutes per session: None ??? Stress: None Relationships ??? Social connections Talks on phone: None Gets together: None Attends moravian service: None Active member of club or organization: None Attends meetings of clubs or organizations: None Relationship status: None ??? Intimate partner violence Fear of current or ex partner: None Emotionally abused: None Physically abused: None Forced sexual activity: None Other Topics Concern ??? None Social History Narrative ??? None Family History Problem Relation Age of Onset ??? Hypertension Mother 61 Hypertension; ??? Other Father 62 Alive and well; ??? Other Brother 37 Alive and well; ??? Other Brother 30 Alive and well; ??? Hypertension Other Family history of Hypertension; ??? Diabetes Other Family history of Diabetes mellitus; ??? Heart disease Other Family history of Heart disease; ??? Arthritis Other Past Surgical History: Procedure Laterality Date ??? COLONOSCOPY 12/21/2018 ??? COLONOSCOPY 2013 ??? KNEE ARTHROSCOPY ??? KNEE SURGERY Knee surgery ??? OTHER SURGICAL HISTORY 2006 Left Arthroscopic Knee Surgery ??? POLYPECTOMY Pt declines any complications regarding the use of anesthesia, coagulation or bleeding disorders. No Known Allergies Current Outpatient Medications Medication Sig Dispense Refill ??? amlodipine-valsartan (EXFORGE) 10-160 mg per tablet Take 1 tablet by mouth daily 30 tablet 11 ??? buPROPion XL (WELLBUTRIN XL) 300 mg 24 hr tablet TAKE ONE TABLET BY MOUTH ONCE DAILY 90 tablet 3 ??? clonazePAM (KlonoPIN) 0.5 mg tablet TAKE ONE TABLET BY MOUTH EVERY EVENING 90 tablet 3 ??? diclofenac DR (VOLTAREN) 75 mg EC tablet TAKE 1 TABLET BY MOUTH TWICE A DAY WITH FOOD 50 tablet1 ??? Lactobac no.41/Bifidobact no.7 (PROBIOTIC-10 ORAL) Take 1 capsule by mouth nightly ??? hn-vgr-HS-Vl-Pm-yiwhgam-lutein (MULTIVITAL) 0.4-162-18 mg tablet Take 1 tablet by mouth daily No current facility-administered medications for this visit. Review of Systems: Review of Systems Constitutional: Negative for activity change, diaphoresis, fatigue, fever and unexpected weight change. Eyes: Negative for visual disturbance. Respiratory: Negative. Cardiovascular: Negative. Gastrointestinal: Negative. Endocrine: Negative. Genitourinary: Negative. Musculoskeletal: Positive for arthralgias, gait problem and joint swelling. Allergic/Immunologic: Negative for environmental allergies, food allergies and immunocompromised state. Neurological: Negative for dizziness, weakness, light-headedness, numbness and headaches. Vitals: 05/01/20 1425 BP: 138/68 BP Location: Right arm Patient Position: Sitting Pulse: 75 Resp: 16 SpO2: 99% Weight: 91.6 kg (202 lb) Height: 162.6 cm (5' 4 ) Physical Exam: Physical Exam Constitutional: Appearance: He is well-developed. He is obese. He is not ill-appearing. HENT: Head: Normocephalic and atraumatic. Eyes: Pupils: Pupils are equal, round, and reactive to light. Neck: Musculoskeletal: Neck supple. Vascular: No carotid bruit (supple w/o bruit at +2 bilaterally). Cardiovascular: Rate and Rhythm: Normal rate and regular rhythm. Heart sounds: Normal heart sounds. No murmur. No gallop. Comments: Post tib and pedal pulses palpable at +2 bilaterally Pulmonary: Effort: Pulmonary effort is normal. No respiratory distress. Breath sounds: Normal breath sounds. No wheezing. Abdominal: General: Bowel sounds are normal. Palpations: Abdomen is soft. Tenderness: There is no abdominal tenderness (NT throughout). Musculoskeletal: Right lower leg: No edema. Left lower leg: No edema. Neurological: Mental Status: He is alert and oriented to person, place, and time. Gait: Gait normal. Psychiatric: Behavior: Behavior normal. Diagnostics: Lab Results Component Value Date WBC 6.4 10/30/2019 HGB 12.6 (L) 10/30/2019 HCT 39.6 10/30/2019 LABPLAT 266 10/30/2019 CHOL 161 10/30/2019 TRIG 95 10/30/2019 HDL 43 10/30/2019 ALT 27 10/30/2019 AST 20 10/30/2019 SODIUM 141 10/30/2019 POTASSIUM 4.1 10/30/2019 CHLORIDE 104 10/30/2019 CREATININE 0.97 10/30/2019 BUNSER 16 10/30/2019 CO2 28 10/30/2019 PSA 0.37 10/30/2019 Assessment/Plan Diagnoses and all orders for this visit: Complex tear of medial meniscus of left knee as current injury, initial encounter (Primary) Assessment & Plan: Cnt. With b.i.d. use of diclofenac as prior advised along with wearing brace, ice and limitations. Pt was advised to discontinue diclofenac 1 week prior to procedure. Preoperative clearance provided today in office as recommended by surgeon and desired by Pt. Further direction in scheduling surgerypending consultation with orthopedist. Need for influenza vaccination - Flu Vaccine Quad PF 3y+ IM - Fluzone Class 1 obesity with body mass index (BMI) of 34.0 to 34.9 in adult, unspecified obesity type, unspecified whether serious comorbidity present Preop exam for internal medicine Assessment & Plan: Pt was advised to continue current therapy and medications for chronic conditions as previously as advised. Continue with healthy dietary management as well. Pt offered no additional complaints todayin office. Preoperative medical clearance: Pt is medically [...] as scheduled, or certainly sooner as needed. Orders: - Comprehensive metabolic panel; Future - CBC with auto differential; Future Chronic GERD Assessment & Plan: Asymptomatic with only sparing use of OTC agents. Working toward healthy weight loss, weight stability all to assist with refractory reflux. Sleep apnea with use of continuous positive airway pressure (CPAP) Assessment & Plan: Asymptomatic with use of nocturnal CPAP. Cnt. With prior settings for nocturnal use Essential hypertension Assessment & Plan: Normotensive in clinic. Cnt. Prior prescribed antihypertensives, dash diet and daily mild to moderate exercise as tolerated given limitations. Orders: - Comprehensive metabolic panel; Future Anxiety Assessment & Plan: Stable with daily use of Wellbutrin and p.r.n. clonazepam. Cnt. With medication prior prescribed Hemorrhoids Assessment & Plan: Stable with OTC cortisone cream. Management of daily bowel pattern, avoiding constipation with use of OTC stool softeners, adequate fluids and fiber intake. RTC with recurrence if needed Recommended patient to continue to increase heart healthy diet along with mild- moderate daily exercise as tolerated. Future Appointments Date Time Provider Department Center 03/07/2021 3:45 PM Alessandro Velasco MD [facility] All past family, medical, and social history were reviewed and updated in the EMR as well as current medications. Patient offered no further complaints and was in agreement with plan of care. Patientwas advised regarding dosage, use, and side effects of any new medications. Patient was advised to f/u in office with any worsening or little to no improvement of symptoms. Patient was advised to follow-up regarding the results of testing ordered in office today and that they should hear from us regarding the results in 2-3 business days, discussed benefits of MyChart in regard to patient experience. The patient was given the opportunity to have all questions answered today and was in agreementwith the plan of care. This note is dictated and transcribed using To[employer] Direct Software. Wicker Molded Candles variancesmay occur. Despite proofreading, typographical errors may occur. Cosigned by Alessandro Velasco MD at 05/01/2020 3:45 PM CDT documented in this encounter Miscellaneous Notes * Assessment & Plan Note - Sydney Acuña NP - 05/01/2020 3:06 PM CDT Associated Problem(s): Preop exam for internal medicine Pt was advised to continue current therapy and medications for chronic conditions as previously as advised. Continue with healthy dietary management as well. Pt offered no additional complaints todayin office. Preoperative medical clearance: Pt is medically [...] as scheduled, or certainly sooner as needed. * Assessment & Plan Note - Sydney Acuña NP - 05/01/2020 3:06 PM CDT Associated Problem(s): Sleep apnea with use of continuous positive airway pressure (CPAP) Asymptomatic with use of nocturnal CPAP. Cnt. With prior settings for nocturnal use * Assessment & Plan Note - Sydney Acuña NP - 05/01/2020 3:05 PM CDT Associated Problem(s): Complex tear of medial meniscus of left knee as current injury Cnt. With b.i.d. use of diclofenac as prior advised along with wearing brace, ice and limitations.Pt was advised to discontinue diclofenac 1 week prior to procedure. Preoperative clearance providedtoday in office as recommended by surgeon and desired by Pt. Further direction in scheduling surgery pending consultation with orthopedist. * Assessment & Plan Note - Sydney Acuña NP - 05/01/2020 3:05 PM CDT Associated Problem(s): Anxiety Stable with daily use of Wellbutrin and p.r.n. clonazepam. Cnt. With medication prior prescribed * Assessment & Plan Note - Sydney Acuña NP - 05/01/2020 3:04 PM CDT Associated Problem(s): Essential hypertension Normotensive in clinic. Cnt. Prior prescribed antihypertensives, dash diet and daily mild to moderate exercise as tolerated given limitations. * Assessment & Plan Note - Sydney Acuña NP - 05/01/2020 3:04 PM CDT Associated Problem(s): Chronic GERD Asymptomatic with only sparing use of OTC agents. Working toward healthy weight loss, weight stability all to assist with refractory reflux. * Assessment & Plan Note - Sydney Acuña NP - 05/01/2020 3:03 PM CDT Associated Problem(s): Hemorrhoids Stable with OTC cortisone cream. Management of daily bowel pattern, avoiding constipation with use of OTC stool softeners, adequate fluids and fiber intake. RTC with recurrence if needed documented in this encounter Plan of Treatment Not on file documented as of this encounter Visit Diagnoses Diagnosis Complex tear of medial meniscus of left knee as current injury, initial encounter- Primary Need for influenza vaccination Need for prophylactic vaccination and inoculation against influenza Class 1 obesity with body mass index (BMI) of 34.0 to 34.9 in adult, unspecified obesity type, unspecified whether serious comorbidity present Preop exam for internal medicine Other specified pre-operative examination Chronic GERD Sleep apnea with use of continuous positive airway pressure (CPAP) Essential hypertension Unspecified essential hypertension Anxiety Anxiety state, unspecified Hemorrhoids documented in this encounter Discontinued Medications Medication Sig Discontinue Reason Start Date End Da te CIALIS 20 mg tablet TAKE ONE TABLET BY MOUTH NEEDED FOR SEXUAL DYSFUNCTION Therapy completed 04/16/2018 05/01/2020 famotidine (PEPCID) 20 mg tablet Take 20 mg by mouth 2 (two) times a day Therapy completed 05/01/2020 documented as of this encounter Orders Immunization/Injection Count Last Ordered Date First Ordered Date FLU VACCINE QUAD PF 3Y+ IM - FLUZONE 1 04/12 documented in this encounter Care Teams Bakery Products Checker Relationship Specialty Start Date End Date Alessandro Velasco MD PCP - General 11/08/16 01/08/22 documented as of this encounter
--- OUTSIDE RECORDS SUMMARY | 2024-08-21 22:28 | XMS_ITS | Encounter Summary ---
Author Organization [facility] Facility Care Team Providers Care Human Resources Advisor Name Role Phone Alessandro Velasco MD Primary Care Provider [phone] Encounter Details Date Type Department Care Team (Latest Contact Info) Description 07/27/2019 Travel Social History Tobacco Use Types Packs/Day Years Used Date Smoking Tobacco: Never Smokeless Tobacco: Never Alcohol Use Standard Drinks/Week Comments No 0 (1 standard drink = 0.6 oz pur e alcohol) rarely PHQ-2 Answer Date Recorded PHQ-2 Score 0 04/01/2019 Sex and Gender Information Value Date Recorded Sex Assigned at Not on file 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
--- OUTSIDE RECORDS SUMMARY | 2024-08-21 22:28 | XMS_ITS | Encounter Summary ---
Author Organization [facility] Address [address] [place] [address] Care Team Providers Care [place] Doughnut Name Role Phone Alessandro Velasco MD Primary Care Provider [phone] Encounter Details Date Type Department Care Team (Late st Contact Info) Description 12/01/2019 Telephone [facility] [address] [place] [address] Alessandro Velasco MD [address] [place] [address] [address] [place] [address] Social History Tobacco Use Types Packs/Day Years Used Date Smoking Tobacco: Never Smokeless Tobacco: Never Alcohol Use Standard Drinks/Week Comments No 0 (1 standard drink = 0.6 oz pur e alcohol) rarely PHQ-2 Answer Date Recorded PHQ-2 Score 0 04/01/2019 Sex and Gender Information Value Date Recorded Sex Assigned at Not on file 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 No / Unsure 11/04/2019 1:07 PM CDT documented as of this encounter Miscellaneous Notes * Telephone Encounter - Maida Fajardo MA - 12/02/2019 1:39 PM CDT LMOVM that a new request was sent in to the pharmacy * Telephone Encounter - Maida Fajardo MA - 12/01/2019 9:13 AM CDT LMOVM to CB * Telephone Encounter - Alessandro Velasco MD - 12/01/2019 8:45 AM CDT Okay prescription changed * Telephone Encounter - Ally Javier - 12/01/2019 8:38 AM CDT Received a fax from [facility] pharmacy stating that Amlodipine-olmesartan is not preferred by the pts insurance. They ask for amlodipine/ Valsartan JR please advise documented in this encounter Plan of Treatment Not on file documented as of this encounter Visit Diagnoses Not on filedocumented in this encounter Care Teams [place] Doughnut Relationship Specialty Start Date End Date Alessandro Velasco MD PCP - General 11/08/16 01/08/22 documented as of this encounter
--- OUTSIDE RECORDS SUMMARY | 2024-08-21 22:28 | XMS_ITS | Encounter Summary ---
Author Organization [facility] Medical [facility] Address [address] [place] [address] Care Team Providers Care Director Council On Aging Name Role Phone Alessandro Velasco MD Primary Care Provider [phone] Encounter Details Date Type Department Care Team (Late st Contact Info) Description 11/19/2018 Telephone [facility] [address] [place] [address] Alessandro Velasco MD [address] [place] [address] [address] [place] [address] Social History Tobacco Use Types Packs/Day Years Used Date Smoking Tobacco: Never Smokeless Tobacco: Never Alcohol Use Standard Drinks/Week Comments No 0 (1 standard drink = 0.6 oz pur e alcohol) Sex and Gender Information Value Date Recorded Sex Assigned at Not on file 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
--- OUTSIDE RECORDS SUMMARY | 2024-08-21 22:28 | XMS_ITS | Encounter Summary ---
Author Organization [facility] Medical [facility] Address [address] [place] [address] Care Team Providers Care Director Employee Safety And Health Name Role Phone Alessandro Velasco MD Primary Care Provider [phone] Reason for Visit * Reason Onset Date Comments Prior Auth 04/03/2020 Encounter Details Date Type Department Care Team (Late st Contact Info) Description 04/03/2020 Telephone [facility] Orthopedics and Sports Medicine [address] [place] [id number] Lydia Dean PA [address] [place] [address] [address] [place] [address] Prior Auth Social History Tobacco Use Types Packs/Day Years Used Date Smoking Tobacco: Never Smokeless Tobacco: Never Alcohol Use Standard Drinks/Week Comments No 0 (1 standard drink = 0.6 oz pur e alcohol) rarely PHQ-2 Answer Date Recorded PHQ-2 Score 0 04/01/2019 Sex and Gender Information Value Date Recorded Sex Assigned at Not on file 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 No location site was required so if needed to be changed to [facility] we dont have to call back and change. Called and left a voicemail for patient that it has been approved and gave [facility] number to call and set up. documented in this encounter Plan of Treatment Not on file documented as of this encounter Visit Diagnoses Not on filedocumented in this encounter Care Teams Director Employee Safety And Health Relationship Specialty Start Date End Date Alessandro Velasco MD PCP - General 11/08/16 01/08/22 documented as of this encounter
--- OUTSIDE RECORDS SUMMARY | 2024-08-21 22:28 | XMS_ITS | Encounter Summary ---
Author Organization [facility] Address [address] [place] [address] Care Team Providers Care Bpm Architect Name Role Phone Alessandro Velasco MD Primary Care Provider [phone] Reason for Visit * Reason Comments Preventative Care cpe Encounter Details Date Type Department Care Team (Late st Contact Info) Description 11/30/2019 3:30 PM CDT Office Visit [facility] [address] [place] [address] [address] [place] [address] Alessandro Velasco MD [address] [place] [address] [address] [place] [address] Encounter for wellness examination in adult (Primary Dx); Class 2 obesity with body [...] on file 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 Gender Identity Male 11/26/2021 10:53 AM CDT [...] Sign Reading Time Taken Comments Blood Pressure 150/80 11/30/2019 3:28 PM CDT Pulse 60 11/30/2019 3:28 PM CDT Temperature - - Respiratory Rate 18 11/30/2019 3:28 PM CDT Oxygen Saturation - - Inhaled Oxygen Concentration - - Weight 94.8 kg (209 lb) 11/30/2019 3:28 PM CDT Height 162.6 cm (5' 4 ) 11/30/2019 3:28 PM CDT Body Mass Index 35.87 11/30/2019 3:28 PM CDT documented in this encounter Ordered Prescriptions Prescription Sig Dispense Quantity Refills Last Filled Start Date End Date amlodipine-olmesar jones (PLACIDO) 10-20 mg per tablet Take 1 tablet by mouth daily 30 tablet 11 11/30/2019 12/01/2019 documented in this encounter Progress Notes * Alessandro Velasco MD - 11/30/2019 3:30 PM CDT Subjective/Objective Patient ID: Minh Wise is a 49 y.o. male. Chief Complaint Preventative Care (cpe) HPI 49-year-old seen today for follow-up well examination he states he feels pretty good no major complaints he has never been a smoker drinks alcohol rarely sugars run low bit high fasting so he has prediabetes he understands importance of diet exercise weight loss and preventing diabetes he states he is going to start working harder at currently doing no exercise no dietary restrictions does no polyuria no polydipsia diabetes runs in the family He does have high blood pressure his blood pressure has been running low bit high at home he has a history of hyperlipidemia left arthroscopic knee surgery erectile dysfunction secondary to blood pressure medication sleep apnea with CPAP therapy history of hemorrhoids and hemorrhoid tags history ofcolon polyps history of chronic nonallergic 6 rhinitis The patient is for Deras years young children 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 [employer] his mother Zayra is a patient here with history of high blood pressure father is living but mom and dad a been for years Review of Systems Review [...] suicide ideation hematological no bleeding or bruising Vitals: 11/30/19 1528 BP: 150/80 BP Location: Left arm Patient Position: Sitting Pulse: 60 Resp: 18 Weight: 94.8 kg (209 lb) Height: 162.6 cm (5' 4 ) Physical Exam HEAD: normocephalic and atraumatic the pupils are equal round and reactive to light accommodation EOMI fundi and TMs are normal tongue and uvula is midline NECK: supple without bruits, adenopathy, masses or JVD there is no thyromegaly or nodules CARDIO: S1-S2 without murmurs gallops clicks or rubs THORAX : clear to a and P no rales rhonchi or wheezes no axillary adenopathy ABDOMEN : soft and nontender with normal bowel sounds no enlargement of liver spleen there is no bruits or masses MALE: normal testicles no hernias or adenopathy good sphincter tone no rectal mass prostate within normal limits with out nodule stools negative for occult blood does have multiple skin tags in the perirectal area EXTREMITIES: no edema or cyanosis with good pulses throughout full range of motion throughout NEURO : cranial nerves 2-12 were intact muscle strength is 5 5 throughout DTRs are 2/4 throughout toe signs are downgoing gait normal SKIN no suspicious lesions ecchymosis or petechiae Assessment/Plan Diagnoses and all orders for this visit: Encounter for wellness examination in adult (Primary) Class 2 obesity with body mass index (BMI) of 35.0 to 35.9 in adult, unspecified obesity type, unspecified whether serious comorbidity present Essential hypertension Other orders - amlodipine-olmesartan (PLACIDO) 10-20 mg per tablet; Take 1 tablet by mouth daily He is looking good he needs lose weight through diet exercise will going to add another medication to his blood pressure regimen since his blood pressure running high will put him on a combination ofamlodipine and Arb inhibitor side effects discussed with patient he is already taking amlodipine 10mg daily but not effective enough see back in 3 months recheck blood pressure Will start monitoringblood pressures home more closely if not achieving 120/80 or less he will let us know For his pre diabetes work harder on diet exercise weight loss Will check lab next visit He will follow up with GI regarding his colonoscopies he just had 1 last December [address] pittman doca total come back in 5 years Side effects, risks, interactions reviewed with patient. [...] for wellness examination in adult- Primary Class 2 obesity with body mass index (BMI) of 35.0 to 35.9 in adult, unspecified obesity type, unspecified whether serious comorbidity present Essential hypertension Unspecified essential hypertension documented in this encounter Discontinued Medications Medication Sig Discontinue Reason Start Date End Da te amLODIPine (NORVASC) 10 mg tablet Take 1 tablet (10 mg total) by mouth daily 07/27/2019 11/30/2019 documented as of this encounter Care Teams Bpm Architect Relationship Specialty Start Date End Date Alessandro Velasco MD PCP - General 11/08/16 01/08/22 documented as of this encounter
--- OUTSIDE RECORDS SUMMARY | 2024-08-21 22:28 | XMS_ITS | Encounter Summary ---
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 Gender Identity Male 11/26/2021 10:53 AM CDT Sexual Orientation Straight 11/22/2019 5: 22 PM CDT documented as of this encounter Discharge Disposition Disposition Code Departure Means Destination Discharge to home or self care documented in this encounter Plan of Treatment Not on file documented as of this encounter Procedures Procedure Name Priority Date/Time Associated Diagnosis Comments EGFR Routine 10/30/2019 10:16 AM CDT DIFFERENTIAL AUTO Routine 10/30/2019 10: 16 AM CDT PSA SCREEN Routine 10/30/2019 10:16 AM CDT URINALYSIS AND REFLEX TO MICROSCOPIC Routine 10/30/2019 10:16 AM CDT CBC WITH AUTO DIFFERENTIAL Routine 10/30/2019 10:16 AM CDT LIPID PANEL Routine 10/30/2019 10:16 AM CDT COMPREHENSIVE METABOLIC PANEL Routine 10/30/2019 10:16 AM CDT documented in this encounter Results * eGFR (10/30/2019 10:16 AM CDT) eGFR 91 mL/min/1.7 3 m2 [facility] ([facility]) Comment: Interpretive Data Reference Interval Normal ?>/= 90 mL/min/1.73m2 Mildly decreased* ? 60 - 89 mL/min/1.73m2 Mildly to moderately decreased ?45 - 59 mL/min/1.73m2 Moderately to severely decreased ??30 - 44 mL/min/1.73m2 Severely decreased ?15 - 29 mL/min/1.73m2 Kidney Failure ?< 15 ??mL/min/1.73m2 *Relative to young adult level If -Nepalese multiply value by 1.16. Estimated glomerular filtration rate is determined by [...] 70. Current interpretive data was last reviewed 2016. Blood specimen (specimen) 10/30/2019 10:16 AM CDT 10/30/2019 10:52 AM CDT us Alessandro Velasco MD LAB BLOOD ORDERABLES Final Res ult [facility] ([place]) [facility] [place] [address] * Differential, auto (10/30/2019 10:16 AM CDT) Neutrophil abs 4.0 1.7 - 6.5 K/cumm [facility] ([facility]) Imm gran abs 0.0 0.0 - 0.1 K/cumm [facility] ([place]) Lymphocyte abs 1.5 0.8 - 3.3 K/cumm [facility] ([place]) Monocyte abs 0.6 0.2 - 0.8 K/cumm [facility] ([place]) Eosinophil abs 0.2 0.0 - 0.5 K/cumm [facility] ([place]) Basophil abs 0.0 0.0 - 0.1 K/cumm [facility] ([place]) Neutrophil pct 62.7 % [facility] ([place]) Comment: Interpretive Data Percent cell count reference ranges are not reported, since discordance with absolute values may lead to misinterpretation of CBC data. Current Interpretive Data was last revised on 2017. Imm gran pct 0.5 % [facility] ([facility]) Comment: Interpretive Data Percent cell count reference ranges are not reported, since discordance with absolute values may lead to misinterpretation of CBC data. Current Interpretive Data was last revised on 2017. Lymphocyte pct 23.5 % [facility] ([place]) Comment: Interpretive Data Percent cell count reference ranges are not reported, since discordance with absolute values may lead to misinterpretation of CBC data. Current Interpretive Data was last revised on 2017. Monocyte pct 10.1 % [facility] ([place]) Comment: Interpretive Data Percent cell count reference ranges are not reported, since discordance with absolute values may lead to misinterpretation of CBC data. Current Interpretive Data was last revised on 2017. Eosinophil pct 2.7 % [facility] ([place]) Comment: Interpretive Data Percent cell count reference ranges are not reported, since discordance with absolute values may lead to misinterpretation of CBC data. Current Interpretive Data was last revised on 2017. Basophil pct 0.5 % [facility] ([facility]) Comment: Interpretive Data Percent cell count reference ranges are not reported, since discordance with absolute values may lead to misinterpretation of CBC data. Current Interpretive Data was last revised on 2017. Blood specimen (specimen) 10/30/2019 10:16 AM CDT 10/30/2019 10:52 AM CDT us Alessandro Velasco MD LAB BLOOD ORDERABLES Final Res ult [facility] ([facility]) [facility] [place] [address] * Urinalysis reflex to microscopic (10/30/2019 10:16 AM CDT) Color, ur Yellow Yellow [facility] ([facility]) Clarity, ur Clear Clear [facility] ([place]) Specific gravity, ur 1.016 1.010 - 1.025 [facility] ([place]) pH, urine 7.0 [facility] ([place]) Protein, ur ql Negative [...] reflex comment Reflex conditions for microscopic UA not met. [facility] ([place]) Urine, clean voided 10/30/2019 10:16 AM CDT 10/30/2019 3:38 PM CDT Narrative [facility] ([facility]) - 10/30/2019 3:39 PM CDT ?? Urine pH is affected by diet, medications, systemic acid-base disturbances, and renal tubular function. ??pH may affect urinary stone formation. ??For example, urine pH below 6.0 may help reduce the tendency for calcium phosphate stones and pH greater than 6.0 may reduce the tendency for uric acid stone formation. Source: [facility] [employer]. Last revised 08-21-2017 us Alessandro Velasco MD LAB URINE ORDERABLES Final Res ult [facility] ([place]) [facility] [place] [employer] [place] [address] * PSA screen (10/30/2019 10:16 AM CDT) PSA-Total 0.37 <=3.90 ng/mL [facility] ([place]) Comment: Interpretive Data ?AGE ? SEX ?REFERENCE INTERVAL 0 minutes-150 years ?Female ?None 0 minutes-49 years ? Male ?None ? 50-59 years ? Male ?0-3.90 ? 60-69 years ? Male ?0-5.40 ? 70-79 years ? Male ?0-6.20 ? 80-150 years ?Male ?0-6.20 Current interpretive data last revised 2018. Testing performed by: [facility], [address] [place] [address], [place]., [address] Blood specimen (specimen) 10/30/2019 10:16 AM CDT 10/30/2019 6:12 PM CDT us Alessandro Velasco MD LAB BLOOD ORDERABLES Final Res ult [facility] ([facility]) 1 [facility] [place] [employer] [place] [address] * Lipid panel (10/30/2019 10:16 AM CDT) [facility] Cholesterol 161 30 - 199 mg/dL [facility]) Comment: Interpretive Data Ages [...] Data was last revised on 2018. Triglycerides 95 <=149 mg/dL [facility]) Comment: Interpretive Data Ages [...] Data was last revised on 2018. HDL 43 >=40 mg/dL [facility]) Comment: Interpretive Data [...] was last revised on 2018. LDL, calculated 99 <=129 mg/dL [facility] ([facility]) Comment: Interpretive [...] was last revised on 2018. Non-HDL Cholesterol 118 mg/dL [facility] ([facility]) Comment: Interpretive Data [...] was last revised on 2018. Chol/HDL ratio 4 [facility] ([facility]) Blood specimen (specimen) 10/30/2019 10:16 AM CDT 10/30/2019 10:52 AM CDT Alessandro Velasco MD LAB BLOOD ORDERABLES Final Res ult [facility] ([facility]) [facility] [place] [address] * Comprehensive metabolic panel (10/30/2019 10:16 AM CDT) Sodium 141 135 - 145 mmol/L [facility] ([facility]) Potassium, pl 4.1 3.3 - 4.9 mmol/L [facility] ([facility]) Chloride 104 97 - 110 mmol/L [facility] ([facility]) CO2 28 22 - 32 mmol/L [facility] ([facility]) Anion gap 10 2 - 15 mmol/L [facility] ([place]) BUN 16 8 - 25 mg/dL [facility] ([facility]) Creatinine 0.97 0.80 - 1.30 mg/dL [facility] ([facility]) Glucose 115 70 - 199 mg/dL [facility] ([facility]) [...] interpretive data was last revised 2017. Calcium 9.1 8.5 - 10.3 mg/dL [facility] ([facility]) Bilirubin, total 0.2 0.1 - 1.2 mg/dL [facility] ([place]) Protein, pl 7.2 6.5 - 8.5 g/dL [facility] ([place]) Albumin 4.6 3.5 - 5.0 g/dL [facility] ([place]) Alk phos 65 40 - 130 Units/L [facility] ([facility]) ALT 27 7 - 55 Units/L [facility] ([facility]) AST 20 10 - 50 Units/L [facility] ([facility]) Blood specimen (specimen) 10/30/2019 10:16 AM CDT 10/30/2019 10:52 AM CDT us Alessandro Velasco MD LAB BLOOD ORDERABLES Final Res ult [facility] ([place]) [facility] [place] [address] * (ABNORMAL) CBC with auto differential (10/30/2019 10:16 AM CDT) WBC 6.4 3.8 - 9.9 K/cumm [facility] ([facility]) Hgb 12.6(L) 13.0 - 17.5 g/dL [facility] ([facility]) Hct 39.6 38.9 - 50.3 % [facility] ([place]) Plt 266 150 - 400 K/cumm [facility] ([place]) MPV 10.9 9.1 - 12.3 fL [facility] ([place]) RBC 4.67 4.30 - 5.80 M/cumm [facility] ([place]) MCV 84.8 81.3 - 96.4 fL [facility] ([place]) MCH 27.0(L) 27.1 - 33.3 pg [facility] ([place]) MCHC 31.8(L) 32.3 - 35.7 g/dL [facility] ([place]) RDW CV 12.5 11.1 - 14.9 % [facility] ([place]) RDW SD 37.8 35.7 - 48.1 fL [facility] ([facility]) NRBC abs 0.00 0.00 - 0.01 K/cumm [facility] ([facility]) Blood specimen (specimen) 10/30/2019 10:16 AM CDT 10/30/2019 10:49 AM CDT us Alessandro Velasco MD LAB BLOOD ORDERABLES Final Res ult [facility] ([place]) [facility] [place] [address] documented in this encounter Visit Diagnoses Not on filedocumented in this encounter Care Teams Perl Developer Relationship Specialty Start Date End Date Alessandro Velasco MD PCP - General 11/08/16 01/08/22 documented as of this encounter
--- OUTSIDE RECORDS SUMMARY | 2024-08-21 22:28 | XMS_ITS | Encounter Summary ---
Author Organization 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
--- OUTSIDE RECORDS SUMMARY | 2024-08-21 22:28 | XMS_ITS | Encounter Summary ---
Author Organization [facility] Address [address] [place] [address] Care Team Providers Care Transformer Coil Winder Name Role Phone Alessandro Velasco MD Primary Care Provider [phone] Encounter Details Date Type Department Care Team (Late st Contact Info) Description 03/31/[address] 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
--- OUTSIDE RECORDS SUMMARY | 2024-08-21 22:28 | XMS_ITS | Encounter Summary ---
Author Organization [facility] Healthcare Address [address] [place] [address] Care Team Providers Care Crew Foreman Name Role Phone Alessandro Velasco MD Primary Care Provider [phone] Encounter Details Date Type Department Care Team (Late st Contact Info) Description 11/09/2018 4:55 PM CDT [address] [address] Alessandro Velasco MD [address] [place] [id number] Discharge Disposition: Discharge to home or self care Social History Tobacco Use Types Packs/Day Years Used Date Smoking Tobacco: Never Smokeless Tobacco: Never Alcohol Use Standard Drinks/Week Comments No 0 (1 standard drink = 0.6 oz pur e alcohol) Sex and Gender Information Value Date Recorded Sex Assigned at Not on file 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 Gender Identity Male 11/26/2021 10:53 AM CDT Sexual Orientation Straight 11/22/2019 5: 22 PM CDT documented as of this encounter Discharge Disposition Disposition Code Departure Means Destination Discharge to home or self care documented in this encounter Plan of Treatment Not on file documented as of this encounter Procedures Procedure Name Priority Date/Time Associated Diagnosis Comments DIFFERENTIAL AUTO Routine 11/09/2018 4:4 8 PM CDT IRON PROFILE W/ IBC Routine 11/09/2018 4 :48 PM CDT CBC WITH AUTO DIFFERENTIAL Routine 11/09/2018 4:48 PM CDT FERRITIN Routine 11/09/2018 4:48 PM CDT documented in this encounter Results * (ABNORMAL) Iron profile w/ IBC (11/09/2018 4:48 PM CDT) Iron 18(L) 50 - 150 mcg/dL [facility] ([facility]) TIBC 362 250 - 400 mcg/dL [facility] ([facility]) Transferrin saturation 5(L) 20 - 50 % [facility] ([facility]) Blood specimen (specimen) 11/09/2018 4:48 PM CDT 11/09/2018 4:57 PM CDT Narrative [facility] ([facility]) - 11/09/2018 5:31 PM CDT Alessandro Velasco MD LAB BLOOD ORDERABLES Final Res ult Performing Organization Address City/[facility]/ZIP Co de Phone Number [facility] ([facility]) [address] [place] [address] [place] [address] * (ABNORMAL) Ferritin (11/09/2018 4:48 PM CDT) Pathologist [facility] Ferritin <5(L) 30 - 400 ng/mL [facility] ([facility]) Blood specimen (specimen) 11/09/2018 4:48 PM CDT 11/09/2018 4:57 PM CDT Narrative [facility] ([facility]) - 11/09/2018 5:31 PM CDT Alessandro Velasco MD LAB BLOOD ORDERABLES Final Res ult [facility] ([facility]) [facility] [place] [address] * (ABNORMAL) Differential, auto (11/09/2018 4:48 PM CDT) Neutrophil abs 6.2 1.7 - 6.5 K/cumm [facility] ([facility]) Imm gran abs 0.0 0.0 - 0.1 K/cumm [facility] ([facility]) Lymphocyte abs 2.6 0.8 - 3.3 K/cumm [facility] ([facility]) Monocyte abs 0.9(H) 0.2 - 0.8 K/cumm [facility] ([facility]) Eosinophil abs 0.2 0.0 - 0.5 K/cumm [facility] ([facility]) Basophil abs 0.0 0.0 - 0.1 K/cumm [facility] ([facility]) Neutrophil pct 61.9 % [facility] ([facility]) Comment: Interpretive [...] was last revised on 2017. Lymphocyte pct 26.3 % [facility] ([facility]) Comment: Interpretive Data Percent cell count reference ranges are not reported, since discordance with absolute values may lead to misinterpretation of CBC data. Current Interpretive Data was last revised on 2017. Monocyte pct 9.3 % [facility] ([facility]) Comment: Interpretive Data Percent cell count reference ranges are not reported, since discordance with absolute values may lead to misinterpretation of CBC data. Current Interpretive Data was last revised on 2017. Eosinophil pct 1.9 % [facility] ([facility]) Comment: Interpretive Data Percent cell count reference ranges are not reported, since discordance with absolute values may lead to misinterpretation of CBC data. Current Interpretive Data was last revised on 2017. Basophil pct 0.4 % [facility] ([facility]) Comment: Interpretive Data Percent cell count reference ranges are not reported, since discordance with absolute values may lead to misinterpretation of CBC data. Current Interpretive Data was last revised on 2017. Blood specimen (specimen) 11/09/2018 4:48 PM CDT 11/09/2018 4:57 PM CDT Narrative [facility] ([facility]) - 11/09/2018 5:16 PM CDT us Alessandro Velasco MD LAB BLOOD ORDERABLES Final Res ult [facility] ([place]) 1 [facility] [place] [place] [address] * (ABNORMAL) CBC with auto differential (11/09/2018 4:48 PM CDT) WBC 10.0(H) 3.8 - 9.9 K/cumm [facility] ([facility]) Hgb 9.9(L) 13.0 - 17.5 g/dL [facility] ([facility]) Hct 34.0(L) 38.9 - 50.3 % [facility] ([facility]) Plt 289 150 - 400 K/cumm [facility] ([facility]) MPV 10.4 9.1 - 12.3 fL [facility] ([facility]) RBC 5.07 4.30 - 5.80 M/cumm [facility] ([facility]) MCV 67.1(L) 81.3 - 96.4 fL [facility] ([facility]) MCH 19.5(L) 27.1 - 33.3 pg [facility] ([facility]) MCHC 29.1(L) 32.3 - 35.7 g/dL [facility] ([facility]) RDW CV 18.3(H) 11.1 - 14.9 % [facility] ([facility]) NRBC abs 0.00 0.00 - 0.01 K/cumm [facility] ([facility]) Blood specimen (specimen) 11/09/2018 4:48 PM CDT 11/09/2018 4:57 PM CDT Narrative [facility] ([facility] - 11/09/2018 5:16 PM CDT us Alessandro Velasco MD LAB BLOOD ORDERABLES Final Res ult [facility] ([facility]) [address] [facility] [place] [address] documented in this encounter Visit Diagnoses Not on filedocumented in this encounter Care Teams Crew Foreman Relationship Specialty Start Date End Date Alessandro Velasco MD PCP - General 11/08/16 01/08/22 documented as of this encounter
--- OUTSIDE RECORDS SUMMARY | 2024-08-21 22:28 | XMS_ITS | Encounter Summary ---
Author Organization [facility] Healthcare Address [address] [place] [address] Care Team Providers Care Predictive Maintenance Specialist Name Role Phone Alessandro Velasco MD Primary Care Provider [phone] Encounter Details Date Type Department Care Team (Late st Contact Info) Description 02/05/2019 4:45 PM CDT [address] [address] Alessandro Velasco MD [address] [place] [id number] Discharge Disposition: Discharge to home or self care Social History Tobacco Use Types Packs/Day Years Used Date Smoking Tobacco: Never Smokeless Tobacco: Never Alcohol Use Standard Drinks/Week Comments No 0 (1 standard drink = 0.6 oz pur e alcohol) rarely Sex and Gender Information Value Date Recorded Sex Assigned at Not on file 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 Gender Identity Male 11/26/2021 10:53 AM CDT Sexual Orientation Straight 11/22/2019 5: 22 PM CDT documented as of this encounter Discharge Disposition Disposition Code Departure Means Destination Discharge to home or self care documented in this encounter Plan of Treatment Not on file documented as of this encounter Procedures Procedure Name Priority Date/Time Associated Diagnosis Comments DIFFERENTIAL AUTO Routine 02/05/2019 3:4 2 PM CDT documented in this encounter Results * (ABNORMAL) Differential, auto (02/05/2019 3:42 PM CDT) Neutrophil abs 5.5 1.7 - 6.5 K/cumm [facility] ([facility]) Imm gran abs 0.0 0.0 - 0.1 K/cumm [facility] ([facility]) Lymphocyte abs 2.0 0.8 - 3.3 K/cumm [facility] ([facility]) Monocyte abs 0.9(H) 0.2 - 0.8 K/cumm [facility] ([facility]) Eosinophil abs 0.2 0.0 - 0.5 K/cumm [facility] ([facility]) Basophil abs 0.0 0.0 - 0.1 K/cumm [facility] ([facility]) Neutrophil pct 62.9 % [facility] ([facility]) Comment: Interpretive [...] was last revised on 2017. Lymphocyte pct 23.4 % [facility] ([facility]) Comment: Interpretive [...] was last revised on 2017. Eosinophil pct 2.6 % [facility] ([facility]) Comment: Interpretive [...] last revised on 2017. Blood specimen (specimen) 02/05/2019 3:42 PM CDT 02/05/2019 5:38 PM CDT us Alessandro Velasco MD LAB BLOOD ORDERABLES Final Res ult [facility] ([place]) [facility] [place] [address] documented in this encounter Visit Diagnoses Not on filedocumented in this encounter Care Teams Predictive Maintenance Specialist Relationship Specialty Start Date End Date Alessandro Velasco MD PCP - General 11/08/16 01/08/22 documented as of this encounter
--- OUTSIDE RECORDS SUMMARY | 2024-08-21 22:28 | XMS_ITS | Encounter Summary ---
Author Organization [facility] Medical Group Address [address] [place] [address] Care Team Providers Care Locker Room Clerk Name Role Phone Alessandro Velasco MD Primary Care Provider [phone] Reason for Visit * Reason Comments Pain left knee pain 5 mon ths Pain * Consultation (Routine) - Closed Specialty Diagnoses / Procedures Referred By Luca starks Referred To Contact Orthopedic Surgery Diagnoses Left knee pain, unspecified chronicity Alessandro Velasco MD Phone: tel: fax: Sanket Gary MD [address] [place] [address] [address] [place] [address] Phone: tel: fax: Referral ID Status Reason Start Date Expiration Date V isits Requested Visits Authorized [id number] Closed Specialty Services Required 03/01/2020 03/31/2021 12 12 Encounter Details Date Type Department Care Team (Late st Contact Info) Description 03/24/2020 3:30 PM CDT Office Visit [facility] [address] [place] [id number] Lydia Dean PA [address] [place] [address] Tear of medial meniscus of left knee, [...] on file Legal 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 Gender Identity Male 11/26/2021 10:53 AM CDT Sexual Orientation Straight 11/22/2019 5: 22 PM CDT documented as of this encounter Last Filed Vital Signs Vital Sign Reading Time Taken Comments Blood Pressure 139/78 03/24/2020 3:39 PM CDT Pulse 80 03/24/2020 3:39 PM CDT Temperature 36.4 ??C (97.5 ??F) 03/24/2020 3:39 PM CD T Respiratory Rate - - Oxygen Saturation - - Inhaled Oxygen Concentration - - Weight 92.9 kg (204 lb 12.8 oz) 03/24/2020 3:39 PM CDT Height 162.6 cm (5' 4 ) 03/24/2020 3:39 PM CDT Body Mass Index 35.15 03/24/2020 3:39 PM CDT documented in this encounter Ordered Prescriptions Prescription Sig Dispense Quantity Refills Last Filled Start Date End Date diclofenac DR (VOLTAREN) 75 mg EC tablet Take 1 tablet (75 mg total) by mouth 2 (two) times a day Take with food 60 tablet 03/24/2020 04/20/2020 documented in this encounter Progress Notes * Lydia Dean PA - 03/24/2020 3:30 PM CDT Images from the original note were not included. NEW PATIENT VISIT Subjective CHIEF COMPLAINT He had concerns including Pain of the Left Knee and Pain (left knee pain 5 months). HISTORY OF PRESENT ILLINESS Patient here with complaints of left knee pain. Symptoms have been ongoing for 5 months. They are intermittent and fluctuating. He is not sure why they started and reports that prolonged sitting, twisting aid deep bending provoke symptoms. He gets a sharp moderate aching sensation deep within the joint. He denies any significant swelling. He is taking ibuprofen prn for symptoms. He occasionally has episodes of giving out/instability. Denies any recent injury or trauma; states history of left knee arthroscopy done by Dr. Terry done in 2005; op report states lateral menisectomy with chondroplasty of the patella. Pain Assessment Pain Assessment: 0-10 Pain Score: 5 - Moderate pain PAST MEDICAL HISTORY He has a past medical history of Anemia, Colon polyp, Gastric reflux, Hyperlipidemia, and Hypertension. He also has no past medical history of Colon cancer ([facility]). PAST SURGICAL HISTORY He has a past surgical history that includes Other surgical history (2005); Knee surgery; Polypectomy; Colonoscopy (12/21/2018); Colonoscopy (2013); and Knee arthroscopy. MEDICATIONS He has a current medication list which includes the following prescription(s): amlodipine-valsartan, bupropion xl, cialis, clonazepam, famotidine, lactobac no.41/bifidobact no.7, [id number]-[id number]-zo-ed-cwrlfrn-lutein, and diclofenac drLars ALLERGIES He has No Known Allergies. SOCIAL [...] SYSTEMS Review of Systems Constitutional: Negative for chills, fatigue and fever. Eyes: Negative for pain and visual disturbance. Respiratory: Negative for chest tightness and shortness of breath. Cardiovascular: Negative for chest pain and leg swelling. Gastrointestinal: Negative for abdominal pain, constipation, diarrhea and vomiting. Genitourinary: Negative for dysuria, frequency and urgency. Musculoskeletal: Negative for myalgias. Skin: Negative for rash and wound. Allergic/Immunologic: Positive for environmental allergies. Neurological: Negative for dizziness, weakness and light-headedness. Hematological: Does not bruise/bleed easily. Psychiatric/Behavioral: Negative for confusion and hallucinations. The patient is nervous/anxious. Objective PHYSICAL EXAM BP 139/78 Pulse 80 Temp 36.4 ??C (97.5 ??F) Ht 162.6 cm (5' 4 ) Wt 92.9 kg (204 lb 12.8 oz) BMI 35.15 kg/m?? Right knee The patient has normal inspection, palpation, range of motion, strength, and stabilty of the right knee. Left knee Inspection Erythema: absent Swelling: mild Effusion: absent Surgical scar/wound: absent. Gait: normal Palpation Tenderness: present. Left knee tenderness location: inferior patella. Crepitus: positive Patella grind: positive Range of motion The patient has normal range of motion of the left knee. Active extension: 0 Stability The patient has normal AP and ML stabiltiy of the left knee. Strength The patient has 5/5 strength throughout. Neurovascular The patient has normal vascular on the left side of their body. The patient has normal sensation on the left side of their body. Special tests Marlene: medial positive lateral negative REVIEW OF X-RAYS/STUDIES/LABS x-rays of the left knee reviewed interpreted. No acute fractures, subluxations, or focal osseous lesions. Possible loose vivienne seen off of the anterior tibial spine. Mild to moderate narrowing of hismedial compartment. X-ray of the pelvis viewed and interpreted. There is no evidence of fracture, subluxation, or bony abnormality. Mild-moderate joint space narrowing of the hips bilaterally. Assessment/Plan Minh was seen today for pain and pain. Diagnoses and all orders for this visit: Tear of medial meniscus of left knee, unspecified tear type, unspecified whether old or current tear, initial encounter - Ambulatory referral order to Physical Therapy -; Future Left knee pain, unspecified chronicity - Cancel: XR Knee Left 4 or More Views - Cancel: XR Pelvis 1 or 2 Views - Ambulatory referral to Orthopedic Surgery - Ambulatory referral order to Physical Therapy -; Future Other orders - diclofenac DR (VOLTAREN) 75 mg EC tablet; Take 1 tablet (75 mg total) by mouth 2 (two) times a day Take with food Plan We discussed reviewed his images today and reviewed conservative versus surgical management of his left knee pain. Patient elected to proceed with conservative treatment today consisting of physical therapy and diclofenac p.o.. Risks, benefits, instructions for medication were outlined and she was advised to stopimmediately and contact us if any adverse reactions. Further conservative measures including ice/heat, avoidance of aggravating activities, OTC NSAIDs/analgesics p.r.n. (if able to take), OTC analgesic creams reviewed with him today. If He continues to experience symptoms, corticosteroid injection may be of further benefit. We alsodiscussed obtaining an MRI to evaluate for internal derangement and loose body. He will plan to follow up in 6 weeks and contact me sooner if he wishes to proceed with steroid injection or MRI. All questions were answered. Patient expressed full understanding and agreement of plan. ZOFIA Lau documented in this encounter Plan of Treatment Not on file documented as of this encounter Visit Diagnoses Diagnosis Tear of medial meniscus of left knee, unspecified tear type, unspecified whether old or current tear, initial encounter- Primary Left knee pain, unspecified chronicity documented in this encounter Orders Outpatient Referral Count Last Ordered Date Fir st Ordered Date AMB REFERRAL TO ORTHOPEDIC SURGERY 1 2019 documented in this encounter Care Teams Locker Room Clerk Relationship Specialty Start Date End Date Alessandro Velasco MD PCP - General 11/08/16 01/08/22 documented as of this encounter
--- OUTSIDE RECORDS SUMMARY | 2024-08-21 22:28 | XMS_ITS | Encounter Summary ---
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
--- OUTSIDE RECORDS SUMMARY | 2024-08-21 22:28 | XMS_ITS | Encounter Summary ---
Author Organization [facility] Medical Group Address [address] [place] [address] Care Team Providers Care Supervisor Cold Rolling Name Role Phone Alessandro Velasco MD Primary Care Provider [phone] Reason for Visit * Reason Comments Hypertension Anemia Encounter Details Date Type Department Care Team (Late st Contact Info) Description 07/27/2019 3:15 PM RUBBER COMPOUNDER MIXER Office Visit [facility] [address] [place] [address] Alessandro Velasco MD [address] [place] [address] [address] [place] [address] Essential hypertension (Primary Dx); BMI 34.0-34.9,adult; History of iron deficiency Social History Tobacco Use Types Packs/Day Years Used Date Smoking Tobacco: Never Smokeless Tobacco: Never Alcohol Use Standard Drinks/Week Comments No 0 (1 standard drink = 0.6 oz pur e alcohol) rarely PHQ-2 Answer Date Recorded PHQ-2 Score 0 04/01/2019 Sex and Gender Information Value Date Recorded Sex Assigned at Not on file Legal Sex Male 2:09 PM RUBBER COMPOUNDER MIXER Gender Identity Male 11/26/2021 10:53 AM CDT Sexual Orientation Straight 11/22/2019 5: 22 PM CDT documented as of this encounter Last Filed Vital Signs Vital Sign Reading Time Taken Comments Blood Pressure 150/82 07/27/2019 3:42 PM RUBBER COMPOUNDER MIXER Pulse 78 07/27/2019 3:42 PM RUBBER COMPOUNDER MIXER Temperature - - Respiratory Rate 18 07/27/2019 3:42 PM RUBBER COMPOUNDER MIXER Oxygen Saturation - - Inhaled Oxygen Concentration - - Weight 91.6 kg (202 lb) 07/27/2019 3:42 PM RUBBER COMPOUNDER MIXER Height 162.6 cm (5' 4 ) 07/27/2019 3:42 PM RUBBER COMPOUNDER MIXER Body Mass Index 34.67 07/27/2019 3:42 PM RUBBER COMPOUNDER MIXER documented in this encounter Ordered Prescriptions Prescription Sig Dispense Quantity Refills Last Filled Start Date End Date amLODIPine (NORVASC) 10 mg tablet Take 1 tablet (10 mg total) by mouth daily 30 tablet 11 07/27/2019 11/30/2019 documented in this encounter Progress Notes * Alessandro Velasco MD - 07/27/2019 3:15 PM CST Subjective/Objective Patient ID: Minh Wise is a 49 y.o. male. Chief Complaint Hypertension and Anemia HPI 49-year-old seen today for follow-up high blood pressure anemia with iron supplementation she buys [id number] his iron levels returned to normal as hemoglobin is back to normal he had a colonoscopy everything looked fine there he is take his blood pressure medications stay away from salt mid she could do more exercise and tried lose little weight noting a BMI of over 34.67 Review of Systems we talked about vaccinations today he was encouraged get the new shingles vaccineas soon as possible risk benefits of this vaccine discussed with patient he was encouraged get a flu shot each fall but he declines flu vaccines he update tetanus every 10 years Vitals: 07/27/19 1542 BP: 150/82 BP Location: Left arm Patient Position: Sitting Pulse: 78 Resp: 18 Weight: 91.6 kg (202 lb) Height: 162.6 cm (5' 4 ) Physical Exam He is pleasant no distress blood pressure confirmed lungs clear cardiovascular regular abdomen softnontender Assessment/Plan Diagnoses and all orders for this visit: Essential hypertension (Primary) BMI 34.0-34.9,adult History of iron deficiency Other orders - amLODIPine (NORVASC) 10 mg tablet; Take 1 tablet (10 mg total) by mouth daily His iron deficiency anemia has resolved completely continue iron supplementation see back in 6 months physical at that time lab work at that time Will increase his amlodipine from 5-10 to get blood pressure under low bit of control he will work will harder on diet exercise weight loss he will watch for pedal edema with the higher dose of amlodipine will call for problems Side effects, risks, interactions reviewed with patient. Indications for testing discussed. Any further problems to contact us. He was told what to look out for and verbalized understanding. The patient was given the opportunity to have all questions answered today and was in agreement with the plan of care. ER COMPOUNDER MIXER documented in this encounter Plan of Treatment Not on file documented as of this encounter Visit Diagnoses Diagnosis Essential hypertension- Primary Unspecified essential hypertension BMI 34.0-34.9,adult History of iron deficiency documented in this encounter Discontinued Medications Medication Sig Discontinue Reason Start Date End Da te raNITIdine (ZANTAC) 150 mg tablet Take 300 mg by mouth nightly 07/27/2019 amLODIPine (NORVASC) 5 mg tablet Take 1 tablet (5 mg total) by mouth daily 12/21/2018 07/27/2019 documented as of this encounter Historical Medications * This list may reflect changes made after this encounter. famotidine (PEPCID) 20 mg tablet Take 20 mg by mouth 2 (two) times a day 05/01/2020 added in this encounter Care Teams Supervisor Cold Rolling Relationship Specialty Start Date End Date Alessandro Velasco MD PCP - General 11/08/16 01/08/22 documented as of this encounter
--- OUTSIDE RECORDS SUMMARY | 2024-08-21 22:28 | XMS_ITS | Encounter Summary ---
Author Organization [facility] Medical Group Address [address] [place] [address] Care Team Providers Care Associate Director Of Sales Name Role Phone Alessandro Velasco MD Primary Care Provider [phone] Encounter Details Date Type Department Care Team (Late st Contact Info) Description 11/18/2018 Telephone [facility] [address] [place] [address] Alessandro Velasco MD [address] [facility] [address] [place] [address] Social History Tobacco Use Types Packs/Day Years Used Date Smoking Tobacco: Never Smokeless Tobacco: Never Alcohol Use Standard Drinks/Week Comments No 0 (1 standard drink = 0.6 oz pur e alcohol) Sex and Gender Information Value Date Recorded Sex Assigned at Not on file 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 * Telephone Encounter - Syeda Dye - 11/19/2018 4:29 PM CDT lmom please tell pt that his order is in epic for dr Casarez and that he can call their office [phone] to set this up pt also needs to know that once he has the colonoscopy schd to call us backdr Rod would like to see him 4 wk later * Telephone Encounter - Danni Blanchard MA - 11/19/2018 3:37 PM CDT To referrals * Telephone Encounter - Marissa Adams - 11/19/2018 3:29 PM CDT Rod had already told patient all this information, and patient said that Rod was referring him to [facility]. * Telephone Encounter - Tete Marcus MA - 11/19/2018 2:02 PM CDT LMTC * Telephone Encounter - Tete Marcus MA - 11/19/2018 8:06 AM CDT LMTC * Telephone Encounter - Alessandro Velasco MD - 11/19/2018 6:40 AM CDT Have colonoscopy done as soon as possible please schedule * Telephone Encounter - Alessandro Velasco MD - 11/18/2018 5:17 PM CDT I talked to the patient on the telephone she has iron deficiency anemia he is going to start taking1 iron pill a day pick tolerates well as go up to 2 pills a day. It 5 days before his colonoscopy he has not heard anything regarding his repeat colonoscopy his last colonoscopy was in 2013 he was hestates he was total come back in 5 years because of colon polyps he has had some rectal bleeding fro m his hemorrhoids off and on over the last several months he states he does understand the risk occult disease including colon cancer have the patient see [facility] for colonoscopy as soon as possible this month then have the patient follow up with me in 4 weeks documented in this encounter Plan of Treatment Not on file documented as of this encounter Visit Diagnoses Not on filedocumented in this encounter Care Teams Associate Director Of Sales Relationship Specialty Start Date End Date Alessandro Velasco MD PCP - General 11/08/16 01/08/22 documented as of this encounter
--- OUTSIDE RECORDS SUMMARY | 2024-08-21 22:28 | XMS_ITS | Encounter Summary ---
Author Organization [facility] Medical Group Address [address] [place] [address] Care Team Providers Care Veneer Joiner Name Role Phone Alessandro Velasco MD Primary Care Provider Encounter Details Date Type Department Care Team (Late st Contact Info) Description 07/28/2019 Telephone [facility] [address] [place] [address] Alessandro Velasco MD [address] [place] [address] [address] [place] [address] Social History Tobacco Use Types Packs/Day Years Used Date Smoking Tobacco: Never Smokeless Tobacco: Never Alcohol Use Standard Drinks/Week Comments No 0 (1 standard drink = 0.6 oz pur e alcohol) rarely PHQ-2 Answer Date Recorded PHQ-2 Score 0 04/01/2019 Sex and Gender Information Value Date Recorded Sex Assigned at Not on file Legal Sex Male 2:09 PM HAND ENDBAND CUTTER Gender Identity Male 11/26/2021 10:53 AM CDT Sexual Orientation Straight 11/22/2019 5: 22 PM CDT documented as of this encounter Miscellaneous Notes * Telephone Encounter - Jessica Rubio MA - 07/29/2019 12:08 PM HAND ENDBAND CUTTER Pt has been placed on the Shingrix wait list. Once we get to pt's name on the list, pt will be notified. ENDBAND CUTTER * Telephone Encounter - Neeru Michelle MA - 07/29/2019 11:55 AM HAND ENDBAND CUTTER Pt aware. Sent to referrals ENDBAND CUTTER * Telephone Encounter - Neeru Michelle MA - 07/28/2019 9:07 AM HAND ENDBAND CUTTER lmom to cb. Please notify pt and send to referrals ENDBAND CUTTER * Telephone Encounter - Alessandro Velasco MD - 07/28/2019 7:08 AM CST Placed on the shingles list ENDBAND CUTTER documented in this encounter Plan of Treatment Not on file documented as of this encounter Visit Diagnoses Not on filedocumented in this encounter Care Teams Veneer Joiner Relationship Specialty Start Date End Date Alessandro Velasco MD PCP - General 11/08/16 01/08/22 documented as of this encounter
--- OUTSIDE RECORDS SUMMARY | 2024-08-21 22:28 | XMS_ITS | Encounter Summary ---
Author Organization [facility] Address [address] [place] [address] Care Team Providers Care Ship Harbor Pilot Name Role Phone Alessandro Velasco MD Primary Care Provider [phone] Reason for Visit * Reason Onset Date Comments Colonoscopy 11/24/2018 Schedule Procedure Questions 11/24/2018 Encounter Details Date Type Department Care Team (Late st Contact Info) Description 11/24/2018 Telephone [facility] Gastroenterology at [address] [place] [address] Millie Curry RN Colonoscopy (Schedule); Procedure Questions Social History Tobacco Use Types Packs/Day Years Used Date Smoking Tobacco: Never Smokeless Tobacco: Never Alcohol Use Standard Drinks/Week Comments No 0 (1 standard drink = 0.6 oz pur e alcohol) Sex and Gender Information Value Date Recorded Sex Assigned at Not on file 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 Leida Briggs 12/21/18 @ 11:30am arriving at 10:30am. Pt was given verbal instructions and aware instructions will be mailed to verified address. Last colonoscopy: 10/19/13 w/ [facility] Family history colon cancer (if yes, relationship to pt): No Personal history colon polyps or colon cancer: Polyps Pt on blood thinner (if yes, list medication and reason for taking): No Has pt had recent stent placement within the last year: No Pt have pacemaker/defibrillator: No Pt diabetic (if yes, insulin or oral meds): No Pt have kidney disease or on dialysis: No Pt on iron: Yes, aware to hold 5 days prior to colonoscopy Instructed pt to call with any medical changes and/or medications/insurance. documented in this encounter Plan of Treatment Not on file documented as of this encounter Visit Diagnoses Diagnosis History of colon polyps- Primary documented in this encounter Orders Case Request Count Last Ordered Date First Orde red Date CASE REQUEST GI 1 11/24/2018 documented in this encounter Care Teams Ship Harbor Pilot Relationship Specialty Start Date End Date Alessandro Velasco MD PCP - General 11/08/16 01/08/22 documented as of this encounter
--- OUTSIDE RECORDS SUMMARY | 2024-08-21 22:28 | XMS_ITS | Encounter Summary ---
Author Organization [facility] Address [address] [place] [address] Care Team Providers Care Lumber Carrier Name Role Phone Alessandro Velasco MD Primary Care Provider [phone] Encounter Details Date Type Department Care Team (Late st Contact Info) Description 11/20/2018 Telephone [place] [address] [facility] [address] [place] [address] Alessandro Velasco MD [address] [place] [address] [address] [place] [address] Social History Tobacco Use Types Packs/Day Years Used Date Smoking Tobacco: Never Smokeless Tobacco: Never Alcohol Use Standard Drinks/Week Comments No 0 (1 standard drink = 0.6 oz pur e alcohol) Sex and Gender Information Value Date Recorded Sex Assigned at Not on file 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
--- OUTSIDE RECORDS SUMMARY | 2024-08-21 22:28 | XMS_ITS | Encounter Summary ---
Author Organization [facility] Address [address] [place] [address] Care Team Providers Care Commission Agent Livestock Name Role Phone Alessandro Velasco MD Primary Care Provider [phone] Reason for Referral * Diagnostic Imaging (Routine) - Closed Specialty Diagnoses / Procedures Referred By Luca starks Referred To Contact Radiology Diagnoses Tear of medial meniscus of left knee, unspecified tear type, unspecified whether old or current tear, initial encounter Left knee pain, unspecified chronicity Procedures MRI Knee Left WO Contrast Alyssa Dean PA Phone: tel: fax: [address] [phone] Referral ID Status Reason Start Date Expiration Date Visits Re quested Visits Authorized [id number] Closed 04/03/2020 05/18/2020 1 1 Reason for Visit * Diagnostic Imaging (Routine) - Closed Specialty Diagnoses / Procedures Referred By Luca starks Referred To Contact Radiology Diagnoses Tear of medial meniscus of left knee, unspecified tear type, unspecified whether old or current tear, initial encounter Left knee pain, unspecified chronicity Procedures MRI Knee Left WO Contrast Alyssa Dean PA Phone: tel: fax: [address] [phone] Referral ID Status Reason Start Date Expiration Date Visits Re quested Visits Authorized [id number] Closed 04/03/2020 05/18/2020 1 1 Encounter Details Date Type Department Care Team (Latest Contact Info) Description 04/24/2020 5:39 PM CDT - 04/24/2020 11:59 PM CDT Hospital Encounter [facility] [address] [place] [address] Sanket Gary MD [address] KRISHAN Robertson [facility] [address] [place] [address] Alyssa Dean PA [address] [place] [address] Tear of medial meniscus of left knee, unspecified tear type, unspecified whether old or current tear, initial encounter; Left knee pain, unspecified chronicity Discharge Disposition: Discharge to home or self [...] on file 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 Gender Identity Male 11/26/2021 10:53 AM CDT Sexual Orientation Straight 11/22/2019 5: 22 PM CDT documented as of this encounter Medications at Time of Discharge docusate sodium (COLACE) 100 mg capsule 08/17/2018 Lactobac no.41/Bifidobact no.7 (PROBIOTIC-10 ORAL) Take 1 capsule by mouth nightly xt-via-GF-Ca-Fe- lycopen-lutein 0.4-162-18 mg tablet Take 1 tablet by mouth daily amlodipine-valsa rtan (EXFORGE) 10-160 mg per tablet Take 1 tablet by mouth daily 30 tablet 11 12/01/2019 1 buPROPion XL (WELLBUTRIN XL) 300 mg 24 hr tablet TAKE ONE TABLET BY MOUTH ONCE DAILY 90 tablet 3 04/18/2020 1 CIALIS 20 mg tablet TAKE ONE TABLET BY MOUTH NEEDED FOR SEXUAL DYSFUNCTION 4 tablet 9 04/16/2018 0 clonazePAM (KlonoPIN) 0.5 mg tablet TAKE ONE TABLET BY MOUTH EVERY EVENING 90 tablet 3 11/01/[address] (VOLTAREN) 75 mg EC tablet TAKE 1 TABLET BY MOUTH TWICE A DAY WITH FOOD 50 tablet 1 04/20/2020 1 famotidine (PEPCID) 20 mg tablet Take 20 mg by mouth 2 (two) times a day 0 documented as of this encounter Discharge Disposition Disposition Code Departure Means Destination Discharge to home or self care documented in this encounter Plan of Treatment Not on file documented as of this encounter Procedures Procedure Name Priority Date/Time Associated Diagnosis Comments MRI KNEE LEFT WO CONTRAST Schedule Routine, Read Routine (OP Routine) 04/24/2020 6:23 PM CDT Tear of medial meniscus of left knee, unspecified tear type, unspecified whether old or current tear, initial encounter Left knee pain, unspecified chronicity documented in this encounter Results * MRI Knee Left [...] AM T: ??04/25/2020 7:01 AM Report ID: [id number] Reading Location: ??[id number] Narrative 04/25/2020 7:05 AM CDT [facility] ?Imaging Result Name: MARIFER PARNELL ? Ordering Phys: ALYSSA DEAN Age: 49 ?Date of : 1970 ? Accession Number: [id number] Date of Service: 04/24/2020 ??Gender: M EXAM [...] Procedure Note Junito Sorto MD - 04/25/2020 [facility] Imaging Result Name: MARIFER PARNELL Ordering Phys: ALYSSA DEAN Age: 49 Date of : 1970 Accession Number: [id number] Date of Service: 04/24/2020 Gender: M EXAM [...] by Junito Sorto MF: LULY Report ID: [id number] Reading Location: [id number] Alyssa [facility] MRI PROCEDURES Trang l Result documented in this encounter Visit Diagnoses Diagnosis Tear of medial meniscus of left knee, unspecified tear type, unspecified whether old or current tear, initial encounter Left knee pain, unspecified chronicity documented in this encounter Care Teams Commission Agent Livestock Relationship Specialty Start Date End Date Alessandro Velasco MD PCP - General 11/08/16 01/08/22 documented as of this encounter
--- OUTSIDE RECORDS SUMMARY | 2024-08-21 22:28 | XMS_ITS | Encounter Summary ---
Author Organization [facility] Address [address] [facility] [facility] [address] [facility] [address] [place] [address] Care Team Providers Care Content Director Name Role Phone Alessandro Velasco MD Primary Care Provider [phone] Reason for Visit * Reason Comments Follow-up Encounter Details Date Type Department Care Team (Late st Contact Info) Description 11/27/2018 3:15 PM CDT Office Visit [facility] [address] [place] [address] Talya Yen, [facility] [address] [address] Obstructive sleep apnea syndrome (Primary Dx); Hypersomnia; Obesity (BMI 30-39.9); Jerky body movements Social History Tobacco Use Types Packs/Day Years Used Date Smoking Tobacco: Never Smokeless Tobacco: Never Alcohol Use Standard Drinks/Week Comments No 0 (1 standard drink = 0.6 oz pur e alcohol) Sex and Gender Information Value Date Recorded Sex Assigned at Not on file 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 Gender Identity Male 11/26/2021 10:53 AM CDT Sexual Orientation Straight 11/22/2019 5: 22 PM CDT documented as of this encounter Last Filed Vital Signs Vital Sign Reading Time Taken Comments Blood Pressure 152/85 11/27/2018 3:24 PM CDT Pulse 75 11/27/2018 3:24 PM CDT Temperature - - Respiratory Rate - - Oxygen Saturation - - Inhaled Oxygen Concentration - - Weight 91.2 kg (201 lb) 11/27/2018 3:24 PM CDT Height 162.6 cm (5' 4 ) 11/27/2018 3:24 PM CDT Body Mass Index 34.5 11/27/2018 3:24 PM CDT documented in this encounter Ordered Prescriptions Prescription Sig Dispense Quantity Refills Last Filled Start Date End Date clonazePAM (KlonoPIN) 0.5 mg tablet Take 1 tablet (0.5 mg total) by mouth nightly 30 tablet 5 11/27/2018 9 documented in this encounter Progress Notes * Talya Yen NP - 11/27/2018 3:15 PM CDT HPI 1. Obstructive sleep apnea syndrome: Mr. Wise presents for follow-up. He is a very pleasant 47-year-old with obstructive sleep apnea syndrome endorses optimal compliance and tolerance of positive pressure therapy. Presently on Continuous positive airway pressure pressure therapy of 8-14 cm which was change following his last visit. Awakens significantly rested. No intolerance to pressure or full facial mask. Still goes to bed by 11 pm, wakes up by 5:15 am, feels rested upon awakening. 2. Hypersomnia: Reports considerable improvement in daytime alertness post therapy. [place] Sleepiness Scale score is 4 ?? 3. Obesity: Stable weight since last visit. 4. Jerking in sleep: Following his last visit, patient started on clonazepam 0.5 mg reports complete resolution of his jerking. No side effects of therapy ?? BP 152/85 Pulse 75 Ht 162.6 cm (5' 4 ) Wt 91.2 kg (201 lb) BMI 34.50 kg/m? Physical Exam ?? Constitutional: He appears well-developed??and well-nourished. HENT: Head: Normocephalic??and atraumatic. Mallampati airway class IV?? Eyes: Conjunctivae??are normal. Pupils are equal, round, and reactive to light. Neck: Normal range of motion. Neck supple. Cardiovascular: Normal rate, regular rhythm??and intact distal pulses. ?? Pulmonary/Chest: Effort normal??and breath sounds normal. Abdominal: Soft. Bowel sounds are normal. Musculoskeletal: Normal range of motion. Neurological: ALERT AND ORIENTED TO TIME PLACE AND PERSON.?? Skin: Skin is warm??and dry. Psychiatric: He has a normal mood and affect. AP 1. Obstructive sleep apnea syndrome: Endorses optimal compliance and tolerance of positive pressure therapy compliance download reveals compliant and effective therapy . Continue compliance with positive pressure therapy. The physiologyof sleep disordered breathing and its increased association with hypertension, diabetes, heart arrhy thmia, strokes, heart attacks, heart failure, hypersomnia, obesity and mood disorders was discussed. Date range: May 31, 2018 to November 22, 2018 Compliance rate: 100 % Average usage: 6 hr 4 min Pressure: Auto setting 8-14 cm, median 10.2, maximum 13.5 Leaks: 10 L/ min AHI: 0.9 -compliance data: Compliance download from 02/26/2018-05/26/2018 was reviewed. 100% usage. Average usage 6 hr and 35 min residual AHI 1.5. ?? 2. Hypersomnia with sleep apnea: Considerably improved post therapy. Continue to monitor. ?? 3. Obesity: Stable weight since last visit. The effects of obesity obstructive sleep apnea syndromeand other morbidities was discussed. Recommended diet and exercise in losing weight. Patient verbalizes an understanding. ?? 4. Involuntary jerking: Patient reports considerable response of his myoclonic- like jerks to clonazepam 0.5mg at HS. EEG normal. Continue present regimen. Risks, benefits and alternatives were discussed. Verbalizes understanding. documented in this encounter Plan of Treatment Not on file documented as of this encounter Visit Diagnoses Diagnosis Obstructive sleep apnea syndrome- Primary Obstructive sleep apnea (adult) (pediatric) Hypersomnia Hypersomnia, unspecified Obesity (BMI 30-39.9) Jerky body movements Abnormal involuntary movements documented in this encounter Discontinued Medications Medication Sig Discontinue Reason Start Date End Da te clonazePAM (KlonoPIN) 0.5 mg tablet Take 1 tablet (0.5 mg total) by mouth nightly. Reorder 04/16/2018 11/27/2018 documented as of this encounter Care Teams Content Director Relationship Specialty Start Date End Date Alessandro Velasco MD PCP - General 11/08/16 01/08/22 documented as of this encounter
--- OUTSIDE RECORDS SUMMARY | 2024-08-21 22:28 | XMS_ITS | Encounter Summary ---
Author Organization [facility] Address [address] [place] [address] Care Team Providers Care Housing Counselor Name Role Phone Alessandro Velasco MD Primary Care Provider [phone] Encounter Details Date Type Department Care Team (Late st Contact Info) Description 12/01/2019 Orders Only [place] [facility] [address] [facility] [address] [place] [address] Alessandro Velasco MD [address] [facility] [address] [place] [address] Social History Tobacco Use Types Packs/Day Years Used Date Smoking Tobacco: Never Smokeless Tobacco: Never Alcohol Use Standard Drinks/Week Comments No 0 (1 standard drink = 0.6 oz pur e alcohol) rarely PHQ-2 Answer Date Recorded PHQ-2 Score 0 04/01/2019 Sex and Gender Information Value Date Recorded Sex Assigned at Not on file 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 Gender Identity Male 11/26/2021 10:53 AM [...] mouth daily 30 tablet 11 12/01/2019 11/30/2020 documented in this encounter Plan of Treatment Not on file documented as of this encounter Visit Diagnoses Not on filedocumented in this encounter Discontinued Medications Medication Sig Discontinue Reason Start Date End Da te amlodipine-olmesartan (PLACIDO) 10-20 mg per tablet Take 1 tablet by mouth daily 11/30/2019 12/01/2019 documented as of this encounter Care Teams Housing Counselor Relationship Specialty Start Date End Date Alessandro Velasco MD PCP - General 11/08/16 01/08/22 documented as of this encounter
--- OUTSIDE RECORDS SUMMARY | 2024-08-21 22:28 | XMS_ITS | Encounter Summary ---
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
--- OUTSIDE RECORDS SUMMARY | 2024-08-21 22:28 | XMS_ITS | Encounter Summary ---
Author Organization 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
--- OUTSIDE RECORDS SUMMARY | 2024-08-21 22:28 | XMS_ITS | Encounter Summary ---
Author Organization [facility] Address [address] [place] [address] Care Team Providers Care Airline Stewardess Name Role Phone Alessandro Velasco MD Primary Care Provider [phone] Reason for Visit * Reason Comments Preventative Care cpe Encounter Details Date Type Department Care Team (Late st Contact Info) Description 11/09/2018 3:30 PM CDT Office Visit [facility] [address] [place] [address] [address] [place] [address] Alessandro Velasco MD [address] [place] [address] [address] [place] [address] Encounter for wellness examination in adult (Primary Dx); BMI 34.0-34.9,adult; Anemia, unspecified type Social History Tobacco Use Types Packs/Day Years Used Date Smoking Tobacco: Never Smokeless Tobacco: Never Alcohol Use Standard Drinks/Week Comments No 0 (1 standard drink = 0.6 oz pur e alcohol) Sex and Gender Information Value Date Recorded Sex Assigned at Not on file 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 Gender Identity Male 11/26/2021 10:53 AM CDT Sexual Orientation Straight 11/22/2019 5: 22 PM CDT documented as of this encounter Last Filed Vital Signs Vital Sign Reading Time Taken Comments Blood Pressure 138/80 11/09/2018 3:41 PM CDT Pulse 60 11/09/2018 3:41 PM CDT Temperature - - Respiratory Rate 18 11/09/2018 3:41 PM CDT Oxygen Saturation - - Inhaled Oxygen Concentration - - Weight 91.2 kg (201 lb) 11/09/2018 3:41 PM CDT Height 162.6 cm (5' 4 ) 11/09/2018 3:41 PM CDT Body Mass Index 34.5 11/09/2018 3:41 PM CDT documented in this encounter Progress Notes * Alessandro Velasco MD - 11/09/2018 3:30 PM CDT Subjective/Objective Patient ID: Minh Wise is a 48 y.o. male. Chief Complaint Preventative Care (cpe) HPI 48-year-old seen today for well examination he states he feels good no complaints got a new job better job he works 7:00 a.m. To 3:00 p.m. Friday through Friday a [employer] located here in town The patient has a history of reflux Zantac works well controlling his symptoms anti reflux measuresre-emphasized the patient today. The patient uses Cialis for erectile dysfunction he takes his blood pressure medication as well he is on mild anxiety medications a consisting Wellbutrin clonazepam he does have sleep apnea requiringCPAP at bedtime and follows up with Dr. Castaneda sleep specialist as directed Patient gets a flu shot each fall he had a Tdap in 2009 will update tetanus in September 2019 the patient was encouraged get the new shingles vaccine when he turns 49 later this year Allergies none tobacco never alcohol none Patient has history of hypertension hyperlipidemia left arthroscopic knee surgery erectile dysfunction secondary to medications sleep apnea with CPAP therapy history of hemorrhoids and hemorrhoid tags history of colon polyps history of chronic allergic rhinitis Patient has been about 11 12 years has young children his 's RN who recently had gastric bypass surgery his mom mejia has a history of high blood pressure as patient practice he stateshis father is living Patient states he is due for repeat colonoscopy this spring Review of Systems Review of Systems neurological [...] ideation hematological no bleeding or bruising Vitals: 11/09/18 1541 BP: 138/80 BP Location: Left arm Patient Position: Sitting Pulse: 60 Resp: 18 Weight: 91.2 kg (201 lb) Height: 162.6 cm (5' 4 ) [...] out nodule stools negative for occult blood patient does have some external skin tags around the anus EXTREMITIES: no edema or cyanosis with good pulses throughout full range of motion throughout NEURO : cranial nerves 2-12 were intact muscle strength is 5 5 throughout DTRs are 2/4 throughout toe signs are downgoing gait normal SKIN no suspicious lesions ecchymosis or petechiae Assessment/Plan Diagnoses and all orders for this visit: Encounter for wellness examination in adult (Primary) BMI 34.0-34.9,adult Anemia, unspecified type Patient has new anemia on his laboratory workup rest his lab work looked good but is microcytic consistent with possible iron deficiency anemia panel be drawn today colonoscopy will be scheduled as soon as possible All see back in a year sooner depending on his anemia panel in findings on colonoscopy Patient states he does eat red meat is not a vegetarian has no history of anemia iron deficiency inthe past that he knows of Side effects, risks, interactions reviewed with patient. [...] Encounter for wellness examination in adult- Primary BMI 34.0-34.9,adult Anemia, unspecified type documented in this encounter Discontinued Medications Medication Sig Discontinue Reason Start Date End Da te buPROPion XL (WELLBUTRIN XL) 300 mg 24 hr tablet Take 300 mg by mouth daily. 10/06/2017 11/09/2018 documented as of this encounter Care Teams Airline Stewardess Relationship Specialty Start Date End Date Alessandro Velasco MD PCP - General 11/08/16 01/08/22 documented as of this encounter
--- OUTSIDE RECORDS SUMMARY | 2024-08-21 22:28 | XMS_ITS | Encounter Summary ---
Author Organization [facility] Address [address] [place] [address] Care Team Providers Care Dyeing Machine Tender Name Role Phone Alessandro Velasco MD Primary Care Provider [phone] Encounter Details Date Type Department Care Team (Late st Contact Info) Description 02/06/2019 Telephone [facility] [address] [facility] [address] [place] [address] Alessandro Velasco MD [address] [facility] [address] [place] [address] Social History Tobacco Use Types Packs/Day Years Used Date Smoking Tobacco: Never Smokeless Tobacco: Never Alcohol Use Standard Drinks/Week Comments No 0 (1 standard drink = 0.6 oz pur e alcohol) rarely Sex and Gender Information Value Date Recorded Sex Assigned at Not on file 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 Gender Identity Male 11/26/2021 10:53 AM CDT Sexual Orientation Straight 11/22/2019 5: 22 PM CDT documented as of this encounter Miscellaneous Notes * Telephone Encounter - Ally Javier - 02/06/2019 8:22 AM CDT Pt (on hippa) aware * Telephone Encounter - Ally Javier - 02/06/2019 8:21 AM CDT ----- Message from Alessandro Velasco MD sent at 02/06/2019 6:54 AM CDT ----- Okay to leave a message hemoglobin up to 11.7 from 9.9 iron level has improved continue same continue iron supplementation once daily proceed with EGD documented in this encounter Plan of Treatment Not on file documented as of this encounter Visit Diagnoses Not on filedocumented in this encounter Care Teams Dyeing Machine Tender Relationship Specialty Start Date End Date Alessandro Velasco MD PCP - General 11/08/16 01/08/22 documented as of this encounter
--- OUTSIDE RECORDS SUMMARY | 2024-08-21 22:28 | XMS_ITS | Encounter Summary ---
Author Organization [facility] Address [address] [place] [address] Care Team Providers Care Senior Business Manager Name Role Phone Alessandro Velasco MD Primary Care Provider [phone] Encounter Details Date Type Department Care Team (Latest Contact Info) Description 12/21/2018 10:27 AM CDT - 12/21/2018 1:58 PM CDT Hospital Encounter [facility] [address] [place] [address] Claudette Casarez MD [address] [place] [address] Discharge Disposition: Discharge to hospice / home Social History Tobacco Use Types Packs/Day Years Used Date Smoking Tobacco: Never Smokeless Tobacco: Never Alcohol Use Standard Drinks/Week Comments No 0 (1 standard drink = 0.6 oz pur e alcohol) rarely Sex and Gender Information Value Date Recorded Sex Assigned at Not on file 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 Gender Identity Male 11/26/2021 10:53 AM CDT Sexual Orientation Straight 11/22/2019 5: 22 PM CDT documented as of this encounter Last Filed Vital Signs Vital Sign Reading Time Taken Comments Blood Pressure 136/88 12/21/2018 1:43 PM CDT Pulse 65 12/21/2018 1:43 PM CDT Temperature 36.6 ??C (97.8 ??F) 12/21/2018 1:43 PM CD T Respiratory Rate 18 12/21/2018 1:43 PM CDT Oxygen Saturation 99% 12/21/2018 1:43 PM CDT Inhaled Oxygen Concentration - - Weight 93.9 kg (207 lb) 12/21/2018 10:56 AM CDT Height 162.6 cm (5' 4 ) 12/21/2018 10:56 AM CDT Body Mass Index 35.53 12/21/2018 10:56 AM CDT documented in this encounter Medications at Time of Discharge docusate sodium (COLACE) 100 mg capsule 08/17/2018 Lactobac no.41/Bifidobact no.7 (PROBIOTIC-10 ORAL) Take 1 capsule by mouth nightly yu-anv-UV-Ca-Fe- lycopen-lutein 0.4-162-18 mg tablet Take 1 tablet [...] documented in this encounter H&P Notes * Clauedtte Casarez MD - 12/21/2018 1:11 PM CDT [...] by mouth nightly 12/20/2018 atUnknown time ??? yh-fzg-ZS-Dz-Gh-dyiayzm-lutein (MULTIVITAL) 0.4-162-18 mg tablet Take 1 tablet [...] - 12/21/2018 12:45 PM CDTAssociated Order(s): COLONOSCOPY [facility] Patient Name: Minh Wise Procedure Date: 12/21/2018 12:45 PM Date of : 1970 Admit Type: Outpatient Age: 48 Gender: Male Attending MD: Claudette Casarez M.D. Room: [facility] 1 Note Status: Finalized Patient [...] under direct vision. The Pediatric Colonoscope PCF-H190L [id number] was introduced through the anus and advanced [...] 12:45 PM Procedure Code(s): --- Professional --- 19537, Colonoscopy, flexible; diagnostic, including collection of specimen(s) by brushing or washing, when performed (separate procedure) Diagnosis Code(s): --- Professional --- Z86.010, Personal history of colonic polyps K64.8, Other hemorrhoids CPT copyright 2017 [place] [employer]. All rights reserved. The codes documented in this report are preliminary and upon collator review may be revised to meet current compliance requirements. Recognized by the [place] [employer] for promoting quality [...] Casarez MD - 12/21/2018 12:45 PM CDT [facility] Patient Name: Minh Wise Procedure Date: 12/21/2018 12:45 PM Date of : 1970 Admit Type: Outpatient Age: 48 Gender: Male Attending MD: Claudette Casarez M.D. Room: [facility] 1 Note Status: Finalized Patient [...] passed under direct vision.The Pediatric Colonoscope PCF-H190L [id number] was introduced through the anus and advanced [...] 12:45 PM Procedure Code(s): --- Professional --- 33293, Colonoscopy, flexible; diagnostic, including collection of specimen(s) by brushing or washing, when performed (separateprocedure) Diagnosis Code(s): --- Professional --- Z86.010, Personal history of colonic polyps K64.8, Other hemorrhoids CPT copyright 2017 [place] [employer]. All rights reserved. The codes documented in this report are preliminary and upon collator reviewmay be revised to meet current compliance requirements. Recognized by the [place] [employer] for promoting quality in endoscopy us Claudette Casarez MD ENDOSCOPY PROCEDURES Final Result documented in this encounter Visit Diagnoses Diagnosis History of colon polyps- Primary documented in this encounter Admitting Diagnoses Diagnosis [...] may reflect changes made after this encounter. sq-rrz-EA-Ca-Fe-l ycopen-lutein 0.4-162-18 mg tablet Take 1 tablet [...] 12/21/2018 documented in this encounter Care Teams Senior Business Manager Relationship Specialty Start Date End Date Alessandro Velasco MD PCP - General 11/08/16 01/08/22 documented as of this encounter
--- OUTSIDE RECORDS SUMMARY | 2024-08-21 22:29 | XMS_ITS | Encounter Summary ---
Author Organization [facility] Address [address] [facility] [address] [place] [address] Care Team Providers Care Chemical Process Engineer Name Role Phone Alessandro Velasco MD Primary Care Provider [phone] Reason for Referral * Neurology (Routine) - Closed Specialty Diagnoses / Procedures Referred By Luca starks Referred To Contact Diagnoses Myoclonic jerking while sleeping Procedures EEG Violeta Castaneda MD Phone: tel: fax: Referral ID Status Reason Start Date Expiration Date Visits Re quested Visits Authorized [id number] Closed 03/19/2018 09/28/2019 1 1 Reason for Visit * Reason Comments Follow-up Encounter Details Date Type Department Care Team (Late st Contact Info) Description 03/19/2018 11:00 AM CDT Office Visit [facility] 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 Gender Identity Male 11/26/2021 10:53 AM CDT Sexual Orientation Straight 11/22/2019 5: 22 PM CDT documented as of this encounter Last Filed Vital Signs Vital Sign Reading Time Taken Comments Blood Pressure 156/78 03/19/2018 11:10 AM CDT Pulse 84 03/19/2018 11:10 AM CDT Temperature - - Respiratory Rate - - Oxygen Saturation - - Inhaled Oxygen Concentration - - Weight 94.3 kg (207 lb 12.8 oz) 018 11:10 AM CDT Height 165.1 cm (5' 5 ) 03/19/2018 11:1 0 AM CDT Body Mass Index 34.58 03/19/2018 11:10 AM CDT documented in this encounter Progress Notes * Violeta Castaneda MD - 03/19/2018 11:00 AM CDT HPI 1. Obstructive sleep apnea syndrome: Mr. Wise presents for follow-up he is a very pleasant 47-year-old with tablet diagnosed obstructive sleep apnea syndrome who despite compliance with positive pressure therapy was awakening unrested and tired. Patient's Continuous positive airway pressure was old. Following his last visit was set up with automatic positive pressure therapy of 4-20 cm. Patient re ports optimal response to the above. Awakens more rested. Patient complains of significant jerking in his sleep. Jerking happens while trying to fall asleep. It is a vigorous jerking to the point where he pushes her off the bed sometimes. 2. Hypersomnia: Reports considerable improvement in daytime alertness post therapy. [place] Sleepiness Scale score is 4 3. Obesity: Stable weight since last visit. Review of Systems BP 156/78 Pulse 84 Ht 165.1 cm (5' 5 ) Wt 94.3 kg (207 lb 12.8 oz) BMI 34.58 kg/m?? Physical Exam Constitutional: He appears well-developed and well-nourished. HENT: Head: Normocephalic and atraumatic. Mallampati airway class IV Eyes: Conjunctivae are normal. Pupils are equal, round, and reactive to light. Neck: Normal range of motion. Neck supple. Cardiovascular: Normal rate, regular rhythm and intact distal pulses. Pulmonary/Chest: Effort normal and breath sounds normal. Abdominal: Soft. Bowel sounds are normal. Musculoskeletal: Normal range of motion. Neurological: ALERT AND ORIENTED TO TIME PLACE AND PERSON. Skin: Skin is warm and dry. Psychiatric: He has a normal mood and affect. AP 1. Obstructive sleep apnea syndrome: Endorses optimal compliance and tolerance of positive pressure therapy compliance download reveals compliant and effective therapy recommend changing of the automatic positive pressure ranges to 8-14cm. Meanwhile continue compliance with therapy. The physiology of sleep disordered breathing and its increased association with hypertension, diabetes, heart arrhythmia, strokes, heart attacks, heartfailure, hypersomnia, obesity and mood disorders was discussed. -compliance data: Compliance download from 02/17/2018-03/18/2018 revealed 100% usage. Average use was 6 hr and 47 min. Residual AHI 1.9. 2. Hypersomnia with sleep apnea: Considerably improved post therapy. Continue to monitor. 3. Obesity: Stable weight since last visit. The effects of obesity obstructive sleep apnea syndromeand other morbidities was discussed. Recommended diet and exercise in losing weight. Patient verbalizes an understanding. 4. Involuntary jerking: Patient reports considerable symptoms of myoclonic-like jerks specially in sleep. Recommend EEG. Recommend trial of clonazepam 0.5 mg. documented in this encounter Miscellaneous Notes * Addendum Note - Efra Urias - 03/19/2018 11:00 AM CDTAddended by: EFRA URIAS on: 03/19/2018 11:32 AM Modules accepted: Orders documented in this encounter Plan of Treatment Not on file documented as of this encounter Results * EEG (03/25/2018 11:12 AM CDT) Anatomical Region Laterality Modality EEG Narrative Procedure Note Violeta Castaneda MD - 03/25/2018 12:00 AM CDT EEG REPORT Indication for Study Mr. Wise is a 47-year-old with chief complaints of episodes of abnormalmovements. EEG was obtained using International 10/20 system of electrodeplacement. Background activity consisted of bilateral, synchronous,posterior dominant alpha range activity. The record shows spontaneousvariability. No focal, lateralized, or epileptiform abnormalities werenoted. Impression This is a normal awake EEG. Job ID/VF Job ID: [id number] Violeta Castaneda MD NEUROLOGY ORDERABLES Final Resul t documented in this encounter Visit Diagnoses Diagnosis Sleep apnea with use of continuous positive airway pressure (CPAP)- Primary Hypersomnia with sleep apnea Hypersomnia with sleep apnea, unspecified Obesity (BMI 30.0-34.9) Myoclonic jerking while sleeping Myoclonic jerking while sleeping documented in this encounter Care Teams Chemical Process Engineer Relationship Specialty Start Date End Date Alessandro Velasco MD PCP - General 11/08/16 01/08/22 documented as of this encounter
--- OUTSIDE RECORDS SUMMARY | 2024-08-21 22:29 | XMS_ITS | Encounter Summary ---
Author Organization [facility] Address [address] [place] [address] Phone Care Team Providers Care Stable Hand Name Role Phone Alessandro Velasco MD Primary Care Provider [phone] Case Bragg NP Unavailable [phone] Silver Wilcox MD Unavailable Amandeep Colmenares MD Primary Care Provider + Encounter Details Date Type Department Care Team (Late st Contact Info) Description 10/22/2017 Orders Only 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 us Historical Provider LAB BLOOD ORDERABLES Trang l Result documented in this encounter Visit Diagnoses Not on filedocumented in this encounter Care Teams Stable Hand Relationship Specialty Start Date End Date Alessandro Velasco MD PCP - General 11/08/16 01/08/22 Amandeep Colmenares MD [address] [place] [phone] PCP - General Internal Medicine 07/13/22 Case Bragg NP [address] [place] [address] Nurse Practitioner Nurse Practitioner 05/29/20 Silver Wilcox MD [address] [place] [address] Consulting Physician General Surgery 11/24/21 documented as of this encounter
--- OUTSIDE RECORDS SUMMARY | 2024-08-21 22:29 | XMS_ITS | Encounter Summary ---
Author Organization [facility] Healthcare Address [address] [place] [address] Care Team Providers Care Survey Coordinator Name Role Phone Alessandro Velasco MD Primary Care Provider Encounter Details Date Type Department Care Team (Late st Contact Info) Description 10/04/2013 10:30 AM FIELD APPLICATION ENGINEER - 10/04/2013 11:59 PM [facility] Hospital Encounter [facility] Alessandro Kenyon MD [address] [place] [address] [address] Routine general medical examination at a health care facility; Blood in stool; Mixed hyperlipidemia; Other abnormal glucose Social History Tobacco Use Types Packs/Day Years Used Date Smoking Tobacco: Never Alcohol Use Standard Drinks/Week Comments No 0 (1 standard drink = 0.6 oz pur e alcohol) Sex and Gender Information Value Date Recorded Sex Assigned at Not on file 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 Gender Identity Male 11/26/2021 10:53 AM CDT Sexual Orientation Straight 11/22/2019 5: 22 PM CDT documented as of this encounter Medications at Time of Discharge amLODIPine (NORVASC) 5 mg tablet TAKE ONE TABLET BY MOUTH EVERY MORNING 90 3 12/21/2010 12/15/2017 amLODIPine (NORVASC) 5 mg tablet take 1 tablet (5MG) by oral route every morning 90 3 12/21/2010 04/24/2017 buPROPion XL (WELLBUTRIN XL) 300 mg 24 hr tablet TAKE ONE TABLET BY MOUTH EVERY DAY 90 3 10/04/2013 07/07/2017 buPROPion XL (WELLBUTRIN XL) 300 mg 24 hr tablet take 1 tablet by oral route every day 90 3 10/04/2013 04/24/2017 fluticasone (FLONASE) 50 mcg/actuation nasal spray Two sprays in each nostil one time per day 1 Bottle 12 04/12/2009 04/24/2017 sertraline (ZOLOFT) 100 mg tablet take 1 tablet (100MG) by oral route every day 30 12 10/01/2012 04/24/2017 triamcinolone (KENALOG) 0.5 % cream apply by topical route 2 times every day a thin layer to the affected area(s) 60 12 10/01/2012 04/24/2017 documented as of this encounter Plan of Treatment Not on file documented as of this encounter Procedures Procedure Name Priority Date/Time Associated Diagnosis Comments PLASMA TESTOSTERONE Routine 10/04/2013 1 0:30 AM FIELD APPLICATION ENGINEER documented in this encounter Results * Plasma testosterone (10/04/2013 10:30 AM FIELD APPLICATION ENGINEER) Testosterone 225 170 - 780 ng/dl HISTORICAL RESULTS Plasma 10/04/2013 10:3 0 AM FIELD APPLICATION ENGINEER us Alessandro Velasco MD LAB BLOOD ORDERABLES Final Res ult HISTORICAL RESULTS documented in this encounter Visit Diagnoses Diagnosis Routine general medical examination at a health care facility Blood in stool Mixed hyperlipidemia Other abnormal glucose documented in this encounter Care Teams Survey Coordinator Relationship Specialty Start Date End Date Alessandro Velasco MD PCP - General 08/08/09 04/03/14 documented as of this encounter
--- OUTSIDE RECORDS SUMMARY | 2024-08-21 22:29 | XMS_ITS | Encounter Summary ---
Author Organization [facility] Healthcare Address [address] [place] [address] Care Team Providers Care Rock Splitter Name Role Phone Alessandro Velasco MD Primary Care Provider [phone] Encounter Details Date Type Department Care Team (Late st Contact Info) Description 10/22/2017 3:10 PM CDT [address] [address] Need for hepatitis C screening test; Routine medical exam Social History Tobacco Use Types Packs/Day Years Used Date Smoking Tobacco: Never Smokeless Tobacco: Never Alcohol Use Standard Drinks/Week Comments No 0 (1 standard drink = 0.6 oz pur e alcohol) Sex and Gender Information Value Date Recorded Sex Assigned at Not on file 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 Gender Identity Male 11/26/2021 10:53 AM CDT Sexual Orientation Straight 11/22/2019 5: 22 PM CDT documented as of this encounter Plan of Treatment Not on file documented as of this encounter Procedures Procedure Name Priority Date/Time Associated Diagnosis Comments EGFR Routine 10/22/2017 3:07 PM CDT Routine medical exam PSA SCREEN Routine 10/22/2017 3:07 PM CDT Routine medical exam LIPID PANEL WITH REFLEX TO DIRECT LDL Routine 10/22/2017 3:07 PM CDT Routine medical exam COMPREHENSIVE METABOLIC PANEL Routine 10/22/2017 3:07 PM CDT Routine medical exam HEPATITIS C AB REFLEX RNA QUANT PCR Routine 10/22/2017 3:06 PM CDT documented in this encounter Results * eGFR (10/22/2017 3:07 PM CDT) eGFR 78 mL/min/1.7 3 m2 YANETNAZ Comment: Interpretive Data Reference Interval Normal ?>/= 90 mL/min/1.73m2 Mildly decreased* ? 60 - 89 mL/min/1.73m2 Mildly to moderately decreased ?45 - 59 mL/min/1.73m2 Moderately to severely decreased ??30 - 44 mL/min/1.73m2 Severely decreased ?15 - 29 mL/min/1.73m2 Kidney Failure ?< 15 ??mL/min/1.73m2 *Relative to young adult level If -Palestinian multiply value by 1.16. Estimated glomerular filtration [...] was last reviewed 2016. Blood specimen (specimen) 10/22/2017 3:07 PM CDT 10/22/2017 3:16 PM CDT Narrative FRANK SNOW - 10/22/2017 3:40 PM CDT us Alessandro Velasco MD LAB BLOOD ORDERABLES Final Res ult FRANK [address] Department [place] [address] * (ABNORMAL) Lipid panel with reflex to direct LDL (10/22/2017 3:07 PM CDT) Cholesterol 193 100 - 200 mg/dL FRANK Comment: Interpretive Data Desirable: ?<200 mg/dL Borderline high: ??200-239 mg/dL High: ? >240 mg/dL Current interpretive data was last revised on 2016. Triglycerides 179(H) 10 - 150 mg/dL FRANK Comment: Interpretive Data Desirable: ? < 150 ? mg/dL Borderline High: ? 150 - 199 mg/dL High: ?200 - 499 mg/dL Very High: ? > or = 499 ??mg/dL Current interpretive data was last revised on 2016. HDL 42 40 - 59 mg/dL FRANK Comment: Interpretive Data Less than 40 mg/dL - Low; A major risk factor for heart disease. Greater than or equal to 60 mg/dL - High; ??Considered protective of heart disease. Current interpretive data was last revised on 2016. LDL, calculated 115 60 - 129 mg/dL FRANK Comment: Interpretive Data Optimal: ? < 100 mg/dL Near Optimal: ?100 - 129 mg/dL Borderline High: ?? 130 - 159 mg/dL High: ?> 160 mg/dL Current interpretive data was last revised on 2016. Chol/HDL ratio 5 mg/dL FRANK Blood specimen (specimen) 10/22/2017 3:07 PM CDT 10/22/2017 3:07 PM CDT Narrative FRANK - 10/22/2017 3:40 PM CDT us Alessandro Velasco MD LAB BLOOD ORDERABLES Final Res ult [facility] [address] Department [place] [address] * PSA screen (10/22/2017 3:07 PM CDT) PSA-Total 0.22 0.10 - 4.00 ng/mL CERNER Blood specimen (specimen) 10/22/2017 3:07 PM CDT 10/22/2017 3:07 PM CDT Narrative C[facility]ER CH - 10/22/2017 3:39 PM CDT us Alessandro Velasco MD LAB BLOOD ORDERABLES Final Res ult [facility] [address] Department [place] [address] * (ABNORMAL) Comprehensive metabolic panel (10/22/2017 3:07 PM CDT) Sodium 135 135 - 145 mmol/L CERNER Potassium, pl 3.5 3.5 - 5.1 mmol/L [facility] CH CO2 27 22 - 32 mmol/L CERNER CH BUN 16 8 - 24 mg/dL [facility] Glucose 92 70 - 199 mg/dL [facility] Comment: Interpretive Data Fasting glucose >/= 126 [...] Current interpretive data was last revised 2017. Creatinine 1.11 0.70 - 1.40 mg/dL [facility] CH Calcium 8.8 8.4 - 10.5 mg/dL [facility] CH Chloride 99(L) 100 - 114 mmol/L [facility] CH Albumin 3.9 3.2 - 4.8 g/dL [facility] CH AST 23 7 - 40 Units/L [facility] CH ALT 25 5 - 50 Units/L [facility] CH Alk phos 55 30 - 110 Units/L [facility] CH Bilirubin, total 0.10 0.10 - 1.30 mg/dL [facility] CH Protein, pl 7.0 6.0 - 8.3 g/dL [facility] CH Anion gap 12 8 - 16 mmol/L [facility] CH Blood specimen (specimen) 10/22/2017 3:07 PM CDT 10/22/2017 3:07 PM CDT Narrative [facility] CH - 10/22/2017 3:40 PM CDT us Alessandro Velasco MD LAB BLOOD ORDERABLES Final Res ult Performing Organization Address City/[facility]/ZIP Co de Phone Number FRANK SNOW [address] Department of [employer] [place], [place] [id number] * Hepatitis C Antibody Reflex Hepatitis C RNA Quantitative PCR (10/22/2017 3:06 PM CDT) Hep C Ab Negative Negative C[facility]ER CH Blood specimen (specimen) 10/22/2017 3:06 PM CDT 10/22/2017 3:08 PM CDT Narrative [facility] CH - 10/22/2017 4:01 PM CDT Alessandro Velasco MD LAB MICROBIOLOGY - GENERAL ORD ERABLES Final Result Performing Organization Address [facility] Co de Phone Number FRANK SNOW [address] [place] [address] documented in this encounter Visit Diagnoses Diagnosis Need for hepatitis C screening test Special screening examination for other specified viral diseases Routine medical exam Routine general medical examination at a health care facility documented in this encounter Care Teams Rock Splitter Relationship Specialty Start Date End Date Alessandro Velasco MD PCP - General 11/08/16 01/08/22 documented as of this encounter
--- OUTSIDE RECORDS SUMMARY | 2024-08-21 22:29 | XMS_ITS | Encounter Summary ---
Author Organization [facility] Healthcare Address [address] [place] [address] Care Team Providers Care Binder Folder Operator Name Role Phone Alessandro Velasco MD Primary Care Provider [phone] Encounter Details Date Type Department Care Team (Late st Contact Info) Description 03/21/2014 8:32 AM CDT - 03/21/2014 11:59 PM CDT Hospital Encounter [facility]INCONV Alessandro Velasco MD [address] [place] [address] [address] Mixed hyperlipidemia; Benign essential hypertension Social History Tobacco Use Types Packs/Day Years Used Date Smoking Tobacco: Never Alcohol Use Standard Drinks/Week Comments No 0 (1 standard drink = 0.6 oz pur e alcohol) Sex and Gender Information Value Date Recorded Sex Assigned at Not on file 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
--- OUTSIDE RECORDS SUMMARY | 2024-08-21 22:29 | XMS_ITS | Encounter Summary ---
Author Organization [facility] Healthcare Address [address] [place] [address] Care Team Providers Care Nut Grinder Name Role Phone Alessandro Velasco MD Primary Care Provider Encounter Details Date Type Department Care Team (Late st Contact Info) Description 12/09/2016 12:22 PM CDT - 12/09/2016 1:[address] 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 HEALTH PROGRAM COORDINATOR Gender Identity Male 11/26/2021 10:53 AM [...] 04/24/2017 fluticasone (FLONASE) 50 mcg/actuation nasal spray INHALE 2 SPRAYS IN EACH NOSTRIL ONCE DAILY 16 spray 3 10/19/2015 04/24/2017 fluticasone (FLONASE) 50 mcg/actuation nasal spray Two sprays in each nostil one time per day 1 Bottle 12 04/12/2009 04/24/2017 sertraline (ZOLOFT) 100 mg tablet take 1 tablet (100MG) by oral route every day 30 12 10/01/2012 04/24/2017 tadalafil (CIALIS) 20 mg tablet take 1 tablet by oral route every day 0 0 10/22/2016 04/15/2018 triamcinolone (KENALOG) 0.5 % cream apply by topical route 2 times every day a thin layer to the affected area(s) 60 12 10/01/2012 04/24/2017 documented as of this encounter Discharge Disposition Disposition Code Departure Means Destination Discharge to home or self care documented in this encounter Plan of Treatment Not on file documented as of this encounter Visit Diagnoses Not on filedocumented in this encounter Care Teams Nut Grinder Relationship Specialty Start Date End Date Alessandro Velasco MD PCP - General 11/08/16 01/08/22 documented as of this encounter
--- OUTSIDE RECORDS SUMMARY | 2024-08-21 22:29 | XMS_ITS | Encounter Summary ---
Author Organization [facility] Address [address] [place] [address] Care Team Providers Care Cattery Operator Name Role Phone Alessandro Velasco MD Primary Care Provider [phone] Encounter Details Date Type Department Care Team (Late st Contact Info) Description 08/12/2018 Telephone [facility] [address] [place] [address] Yuliana Salazar MA Social History Tobacco Use Types Packs/Day Years Used Date Smoking Tobacco: Never Smokeless Tobacco: Never Alcohol Use Standard Drinks/Week Comments No 0 (1 standard drink = 0.6 oz pur e alcohol) Sex and Gender Information Value Date Recorded Sex Assigned at Not on file Legal Sex Male 2:09 PM SEISMIC PROSPECTING SUPERVISOR Gender Identity Male 11/26/2021 10:53 AM CDT Sexual Orientation Straight 11/22/2019 5: 22 PM CDT documented as of this encounter Miscellaneous Notes * Telephone Encounter - Yuliana Salazar MA - 08/12/2018 9:56 AM CST Received refill request for Clonazepam. Sent in qty of 30 with 3 refill to [facility] MIC PROSPECTING SUPERVISOR documented in this encounter Plan of Treatment Not on file documented as of this encounter Visit Diagnoses Not on filedocumented in this encounter Care Teams Cattery Operator Relationship Specialty Start Date End Date Alessandro Velasco MD PCP - General 11/08/16 01/08/22 documented as of this encounter
--- OUTSIDE RECORDS SUMMARY | 2024-08-21 22:29 | XMS_ITS | Encounter Summary ---
Author Organization [facility] Healthcare Address [address] [place] [address] Care Team Providers Care Prepress Proofer Name Role Phone Alessandro Velasco MD Primary Care Provider [phone] Encounter Details Date Type Department Care Team (Late st Contact Info) Description 04/24/2017 9:55 AM CDT - 04/24/2017 11:59 PM CDT Hospital Encounter [facility] OP INTERIM Alessandro Velasco MD [address] [place] [id number] Discharge Disposition: Discharge to home or self care Social History Tobacco Use Types Packs/Day Years Used Date Smoking Tobacco: Never Smokeless Tobacco: Never Alcohol Use Standard Drinks/Week Comments No 0 (1 standard drink = 0.6 oz pur e alcohol) Sex and Gender Information Value Date Recorded Sex Assigned at Not on file Legal Sex Male 2:09 PM ANALYTICAL LAB TECHNICIAN Gender Identity Male 11/26/2021 10:53 AM CDT Sexual Orientation Straight 11/22/2019 5: 22 PM CDT documented as of this encounter Medications at Time of Discharge amLODIPine (NORVASC) 5 mg tablet TAKE ONE TABLET BY MOUTH EVERY MORNING 90 3 12/21/2010 12/15/2017 buPROPion XL (WELLBUTRIN XL) 300 mg 24 hr tablet TAKE ONE TABLET BY MOUTH EVERY DAY 90 3 10/04/2013 07/07/2017 tadalafil (CIALIS) 20 mg tablet take 1 tablet by oral route every day 0 0 10/22/2016 04/15/2018 documented as of this encounter Discharge Disposition Disposition Code Departure Means Destination Discharge to home or self care documented in this encounter Plan of Treatment Not on file documented as of this encounter Procedures Procedure Name Priority Date/Time Associated Diagnosis Comments DISCHARGE LABORATORY CUMULATIVE REPORT 04/24/2017 12:00 AM CDT documented in this encounter Results * DISCHARGE LABORATORY CUMULATIVE REPORT (04/24/2017 12:00 AM CDT) Narrative 04/24/2017 12:00 AM CDT Ordered by an unspecified provider. us Historical Provider LAB BLOOD ORDERABLES Trang l Result documented in this encounter Visit Diagnoses Not on filedocumented in this encounter Care Teams Prepress Proofer Relationship Specialty Start Date End Date Alessandro Velasco MD PCP - General 11/08/16 01/08/22 documented as of this encounter
--- OUTSIDE RECORDS SUMMARY | 2024-08-21 22:29 | XMS_ITS | Encounter Summary ---
Author Organization [facility] Medical Group Address [address] [place] [address] Care Team Providers Care Control Officer Manager Name Role Phone Alessandro Velasco MD Primary Care Provider [phone] Reason for Visit * Reason Comments Immunizations Encounter Details Date Type Department Care Team (Late st Contact Info) Description 06/10/2017 4:30 PM CDT Clinical Support [facility] [address] [place] [address] [address] [place] [phone] Social History Tobacco Use Types Packs/Day Years Used Date Smoking Tobacco: Never Smokeless Tobacco: Never Alcohol Use Standard Drinks/Week Comments No 0 (1 standard drink = 0.6 oz pur e alcohol) Sex and Gender Information Value Date Recorded Sex Assigned at Not on file Legal Sex Male 2:09 PM NETSUITE CONSULTANT Gender Identity Male 11/26/2021 10:53 AM CDT Sexual Orientation Straight 11/22/2019 5: 22 PM CDT documented as of this encounter Plan of Treatment Not on file documented as of this encounter Visit Diagnoses Not on filedocumented in this encounter Orders Immunization/Injection Count Last Ordered Date First Ordered Date FLU VACCINE QUAD PRESV FREE 3 YRS & OLDER IM 1 06/10/2017 documented in this encounter Care Teams Control Officer Manager Relationship Specialty Start Date End Date Alessandro Velasco MD PCP - General 11/08/16 01/08/22 documented as of this encounter
--- OUTSIDE RECORDS SUMMARY | 2024-08-21 22:29 | XMS_ITS | Encounter Summary ---
Author Organization [facility] Healthcare Address [address] [place] [address] Care Team Providers Care Criminal Justice Instructor Name Role Phone Alessandro Velasco MD Primary Care Provider [phone] Encounter Details Date Type Department Care Team (Late st Contact Info) Description 11/11/2012 7:25 PM CDT - 11/11/2012 11:59 PM CDT Hospital Encounter [facility] Jama Laird, DO [address] [place] [address] Sleep disturbance; Hypersomnia with sleep apnea Social History Tobacco Use Types Packs/Day Years Used Date Smoking Tobacco: Never Alcohol Use Standard Drinks/Week Comments No 0 (1 standard drink = 0.6 oz pur e alcohol) Sex and Gender Information Value Date Recorded Sex Assigned at Not on file 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 Sex Male 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 Gender Identity Male 11/26/2021 10:53 AM CDT Sexual Orientation Straight 11/22/2019 5: 22 PM CDT documented as of this encounter Medications at Time of Discharge amLODIPine (NORVASC) 5 mg tablet TAKE ONE TABLET BY MOUTH EVERY MORNING 90 3 12/21/2010 12/15/2017 amLODIPine (NORVASC) 5 mg tablet take 1 tablet (5MG) by oral route every morning 90 3 12/21/2010 04/24/2017 fluticasone (FLONASE) 50 mcg/actuation nasal spray [...] Procedure Name Priority Date/Time Associated Diagnosis Comments PSG (SIMPLE) Routine 11/11/2012 12:00 AM CDT documented in this encounter Results * PSG (SIMPLE) (11/11/2012 12:00 AM CDT) 11/11/2012 Narrative HISTORICAL RESULTS - 11/16/2012 1:08 PM CDT ?SLEEP DISORDER REPORT Patient: ??MARIFER PARNELL Account: ??[id number] ? Room No: : ?1970 ? Patient Type: ?ANC Attend.: ??Jama Stiles ?Admit Date: ??11/11/2012 Dict.: ?Violeta Castandea M.D., D.MLars ?Disch. Date: 11/11/2012 ?COMPREHENSIVE POLYSOMNOGRAM DATE OF STUDY: ??11/11/2012. INDICATION FOR STUDY: ??Mr. Parnell is a 42-year-old, obese gentleman with chief complaint of snoring, witnessed stoppage of breath while sleeping, and excessive daytime fatigue. ??The patient's [place] Sleepiness Scale score is 6. PAST MEDICAL HISTORY: ??Hypertension, insomnia and hypercholesterolemia. VITAL STATISTICS: Age: ??42 years. Height: ??65 inches. Weight: ??210 pounds. Body mass index: ??35.0. PROCEDURE: ??The patient underwent an overnight polysomnogram with multiple channel polysomnography to include EEG, sleep stage recording, cardiorespiratory monitoring, as well as videotaping. DESCRIPTION OF POLYSOMNOGRAPHY FINDINGS: ??The patient's total time in bed was 381.8 minutes. ??Total sleep time of 283 minutes. ??Sleep efficiency was 74.1%. Latency from lights out to stage N1 was 27.5 minutes, latency to stage N2 was 34 minutes and latency to stage REM was 227.5 minutes. ??Stage awake 100.5 minutes. Stage NREM comprised 259 minutes (91.5% of total sleep time). ??This includes stage N1 of 29.5 minutes (10.4% of total sleep time). ??Stage N2 of 229.5 minutes (81.1% of total sleep time). ??Stage REM comprised 24 minutes (8.5% of total sleep time). Arousal analysis revealed a total of 78 arousals. ??Arousal index was 16.5. There were 30 spontaneous arousals. ??Spontaneous arousal index was 6.4. ??The apnea/hypopnea index (AHI) was 14.2. ??The AHI was 15.8 in supine position and none in the non-supine position. ??REM sleep revealed an apnea/hypopnea index of 82.5. ??One obstructive apnea and 66 hypopneas were recorded. ??Baseline oxygen saturation was 93.7%. ??Lowest oxygen saturation was 78.1. ??There was a total of 67 oxygen desaturations. ??The longest oxygen desaturation was 43.9 seconds. Limb movement recording did not reveal periodic limb movements. ??Average heart rate during awake was 61.5, during sleep was 61.2. ??The heart rhythm was sinus rhythm. IMPRESSION: ??The above polysomnogram documents evidence of: ??1. ??Reduction in sleep efficiency. ??2. ??Obstructive sleep apnea syndrome. ??This seems to be moderate in supine ?position and extremely severe in REM sleep. ??3. ??Mild occasional loud snores were noted. ??4. ??It is recommended patient treatment for the above ?condition. Treatment options include surgery, positive pressure ?therapy or dental devices. ??If positive pressure therapy is desired, ?this will require a full night follow-up recording. Clinical correlation is recommended. [place] A: ??Obstructive sleep apnea 327.23. Socorro B: ??Polysomnogram [id number]. ? Diplomate in Sleep Medicine ? ([place] Board of ? Psychiatry and Neurology) Violeta Castaneda M.D., D.M. AR/kd Job #: ??[id number] DD: ??11/13/2012 13:52 TD: ??11/14/2012 11:17 Authenticated and Edited by Violeta Castaneda MD On 11/16/12 12:06:30 PM us Historical Provider SLEEP CENTER ORDERABLES F inal Result HISTORICAL RESULTS documented in this encounter Visit Diagnoses Diagnosis Sleep disturbance Unspecified sleep disturbance Hypersomnia with sleep apnea Hypersomnia with sleep apnea, unspecified documented in this encounter Care Teams Criminal Justice Instructor Relationship Specialty Start Date End Date Alessandro Velasco MD PCP - General 08/08/09 04/03/14 documented as of this encounter
--- OUTSIDE RECORDS SUMMARY | 2024-08-21 22:29 | XMS_ITS | Encounter Summary ---
Author Organization [facility] Address [address] [place] [address] Care Team Providers Care Natural Resources Technician Name Role Phone Alessandro Velasco MD Primary Care Provider [phone] Reason for Visit * Reason Comments Follow-up Encounter Details Date Type Department Care Team (Late st Contact Info) Description 01/27/2018 11:00 AM CDT Office Visit [facility] [address] [place] [address] Violeta Castaneda MD [address] [place] [address] [address] [place] [address] JAYLA (obstructive sleep apnea) (Primary Dx); Hypersomnia with sleep apnea; Obesity (BMI 30.0-34.9) Social History Tobacco Use Types Packs/Day Years Used Date Smoking Tobacco: Never Smokeless Tobacco: Never Alcohol Use Standard Drinks/Week Comments No 0 (1 standard drink = 0.6 oz pur e alcohol) Sex and Gender Information Value Date Recorded Sex Assigned at Not on file Legal Sex Male 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 Gender Identity Male 11/26/2021 10:53 AM CDT Sexual Orientation Straight 11/22/2019 5: 22 PM CDT documented as of this encounter Last Filed Vital Signs Vital Sign Reading Time Taken Comments Blood Pressure 152/85 01/27/2018 11:22 AM CDT Pulse 81 01/27/2018 11:22 AM CDT Temperature - - Respiratory Rate - - Oxygen Saturation - - Inhaled Oxygen Concentration - - Weight 95.2 kg (209 lb 12.8 oz) 018 11:22 AM CDT Height 165.1 cm (5' 5 ) 01/27/2018 11:2 2 AM CDT Body Mass Index 34.91 01/27/2018 11:22 AM CDT documented in this encounter Progress Notes * Violeta Castaneda MD - 01/27/2018 11:00 AM CDT HPI 1. Obstructive sleep apnea syndrome: Mr. Wise presents for follow-up regarding his above condition.He is a very pleasant 47-year-old gentleman who reports that he was diagnosed with obstructive sleep apnea syndrome and has been on positive pressure therapy goes to bed at 11:30 p.m., awakens at 6:30 a.m.. Takes less than 5 min to fall asleep. Patient reports that despite using positive pressure therapy he has been known to snore and has been witnessed. Breath while sleeping. Awakens with restless sleep. Following his initial visit he was recommended a positive pressure titration study given subjective symptoms. His titration study was denied. 2. Hypersomnia reports continued symptoms daytime fatigue. [place] Sleepiness Scale score is 4 3. Obesity: Stable weight since last visit. Review of Systems BP 152/85 Pulse 81 Ht 165.1 cm (5' 5 ) Wt 95.2 kg (209 lb 12.8 oz) BMI 34.91 kg/m?? Physical Exam Constitutional: Appears well-developed and well-nourished. HENT: Head: Normocephalic and atraumatic. Mouth/Throat: Oropharynx is clear and moist. Eyes: Conjunctivae and EOM are normal. eye exhibits no discharge. No scleral icterus. Neck: Normal range of motion. Neck supple. No thyromegaly present. Cardiovascular: Normal rate, regular rhythm and normal heart sounds. Exam reveals no gallop and no friction rub. No murmur heard. Pulmonary/Chest: Effort normal and breath sounds normal. No respiratory distress. has no wheezes. has no rales. Exhibits no tenderness. Abdominal: Soft. exhibits no distension and no mass. There is no tenderness. Musculoskeletal: Normal passive range of movements; no muscle tenderness Neurological: Alert and oriented to person, place, and time. No cranial nerve deficit. Exhibits normal muscle tone. Skin: Skin is warm. No rash noted. No erythema. Psychiatric: normal mood and affect. Judgment normal. AP 1. Obstructive sleep apnea syndrome: Patient reports subjective symptoms of unrefreshing sleep despite compliance with therapy. Patient sleep titration study has been denied. Patient would be set up with automatic positive pressure therapy of 4-20 cm. Optimize therapy based on compliance download. The physiology of sleep disordered breathing and its increased association with hypertension, diabetes, heart arrhythmia, strokes, heart attacks, heart failure, hypersomnia, obesity and mood disorders was discussed. 2. Hypersomnia with sleep apnea: Monitor response to optimization of positive pressure therapy. 3. Obesity: Stable weight since last visit. The effects of obesity obstructive sleep apnea syndromeand other morbidities was discussed. Recommended diet and exercise in losing weight. Patient verbalizes an understanding. documented in this encounter Plan of Treatment Not on file documented as of this encounter Visit Diagnoses Diagnosis JAYLA (obstructive sleep apnea)- Primary Obstructive sleep apnea (adult) (pediatric) Hypersomnia with sleep apnea Hypersomnia with sleep apnea, unspecified Obesity (BMI 30.0-34.9) documented in this encounter Care Teams Natural Resources Technician Relationship Specialty Start Date End Date Alessandro Velasco MD PCP - General 11/08/16 01/08/22 documented as of this encounter
--- OUTSIDE RECORDS SUMMARY | 2024-08-21 22:29 | XMS_ITS | Encounter Summary ---
Author Organization [facility] Address [address] [place] [address] Care Team Providers Care Parachute Officer Name Role Phone Alessandro Velasco MD Primary Care Provider [phone] Reason for Visit * Reason Comments Follow-up Encounter Details Date Type Department Care Team (Late st Contact Info) Description 05/28/2018 3:15 PM CDT Office Visit [facility] [address] [place] [address] Violeta Castaneda MD [address] [place] [address] [address] [place] [address] Sleep apnea with use of continuous positive airway pressure (CPAP) (Primary Dx); Hypersomnia with sleep apnea; Obesity (BMI 30.0-34.9); Myoclonic jerking Social History Tobacco Use Types Packs/Day Years Used Date Smoking Tobacco: Never Smokeless Tobacco: Never Alcohol Use Standard Drinks/Week Comments No 0 (1 standard drink = 0.6 oz pur e alcohol) Sex and Gender Information Value Date Recorded Sex Assigned at Not on file 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 Sex 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 Gender Identity Male 11/26/2021 10:53 AM CDT Sexual Orientation Straight 11/22/2019 5: 22 PM CDT documented as of this encounter Last Filed Vital Signs Vital Sign Reading Time Taken Comments Blood Pressure 137/77 05/28/2018 3:27 PM CDT Pulse 79 05/28/2018 3:27 PM CDT Temperature - - Respiratory Rate - - Oxygen Saturation - - Inhaled Oxygen Concentration - - Weight 93.2 kg (205 lb 6.4 oz) 05/28/2018 3:27 P M CDT Height 165.1 cm (5' 5 ) 05/28/2018 3:27 PM CDT Body Mass Index 34.18 05/28/2018 3:27 PM CDT documented in this encounter Progress Notes * Violeta Castaneda MD - 05/28/2018 3:15 PM CDT HPI 1. Obstructive sleep apnea syndrome: Mr. Wise presents for follow-up. He is a very pleasant 47-year-old with obstructive sleep apnea syndrome endorses optimal compliance and tolerance of positive pressure therapy. Presently on Continuous positive airway pressure pressure therapy of 8-14 cm which was change following his last visit. Awakens significantly rested. No intolerance to pressure or mask. ?? 2. Hypersomnia: Reports considerable improvement in daytime alertness post therapy. [place] Sleepiness Scale score is 4 ?? 3. Obesity: Stable weight since last visit. 4. Jerking in sleep: Following his last visit, patient started on clonazepam 0.5 mg reports complete resolution of his jerking. No side effects of therapy ?? BP 137/77 Pulse 79 Ht 165.1 cm (5' 5 ) Wt 93.2 kg (205 lb 6.4 oz) BMI 34.18 kg/m? Physical Exam ?? Constitutional: He appears [...] hypersomnia, obesity and mood disorders was discussed. Verbalizes understanding. -compliance data: Compliance download from 02/26/2018-05/26/2018 was [...] response of his myoclonic- like jerks to clonazepam. EEG normal. Continue present regimen. Risks, benefits and alternatives were discussed. Verbalizes understanding. documented in this encounter Plan of Treatment Not on file documented as of this encounter Visit Diagnoses Diagnosis Sleep apnea with use of continuous positive airway pressure (CPAP)- Primary Hypersomnia with sleep apnea Hypersomnia with sleep apnea, unspecified Obesity (BMI 30.0-34.9) Myoclonic jerking Myoclonus documented in this encounter Care Teams Parachute Officer Relationship Specialty Start Date End Date Alessandro Velasco MD PCP - General 11/08/16 01/08/22 documented as of this encounter
--- OUTSIDE RECORDS SUMMARY | 2024-08-21 22:29 | XMS_ITS | Encounter Summary ---
Author Organization [facility] Healthcare Address [address] [place] [address] Care Team Providers Care Assembler Knife Name Role Phone Alessandro Velasco MD Primary Care Provider [phone] Encounter Details Date Type Department Care Team (Late st Contact Info) Description 03/28/2015 10:28 AM CDT - 03/28/2015 11:59 PM CDT Hospital Encounter [facility] CLINCONV Alessandro Velasco MD [address] [place] [address] [address] Mixed hyperlipidemia; Leukocytosis; Essential hypertension Social History Tobacco Use Types Packs/Day Years Used Date Smoking Tobacco: Never Alcohol Use Standard Drinks/Week Comments No 0 (1 standard drink = 0.6 oz pur e alcohol) Sex and Gender Information Value Date Recorded Sex Assigned at Not on file Legal Sex Male 2:09 PM RELIABILITY TECHNICIAN Gender Identity Male 11/26/2021 10:53 AM [...] this encounter Visit Diagnoses Diagnosis Mixed hyperlipidemia Leukocytosis Leukocytosis, unspecified Essential hypertension Unspecified essential hypertension documented in this encounter Care Teams Assembler Knife Relationship Specialty Start Date End Date Alessandro Velasco MD PCP - General 04/04/14 10/07/16 documented as of this encounter
--- OUTSIDE RECORDS SUMMARY | 2024-08-21 22:29 | XMS_ITS | Encounter Summary ---
Author Organization [facility] Healthcare Address [address] [place] [address] Care Team Providers Care Clip Riveter Name Role Phone Alessandro Velasco MD Primary Care Provider [phone] Encounter Details Date Type Department Care Team (Late st Contact Info) Description 01/22/2013 6:59 PM CDT - 01/22/2013 11:59 PM CDT Hospital Encounter [facility] Jama Laird, DO [address] [place] [address] Obstructive sleep apnea Social History Tobacco Use Types Packs/Day Years Used Date Smoking Tobacco: Never Alcohol Use Standard Drinks/Week Comments No 0 (1 standard drink = 0.6 oz pur e alcohol) Sex and Gender Information Value Date Recorded Sex Assigned at Not on file 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 Room No: : ?1970 ? Patient Type: ?ANC Attend.: ??Jama Stiles ?Admit Date: ??01/22/2013 Dict.: ?Violeta Castaneda M.D., D.MLars ?Disch. Date: 01/22/2013 ?COMPREHENSIVE POLYSOMNOGRAM Date of procedure: 01/22/13 INDICATIONS FOR STUDY: ??The patient is a 42-year-old obese gentleman with chief complaints of snoring, witnessed stoppage of breath while sleeping, excessive daytime hypersomnolence, fatigue. ??The patient's [place] sleepiness scale score is 6. ??A polysomnogram obtained on 11/11/12 revealed evidence of obstructive sleep apnea syndrome, which was moderate in the supine position, severe in the REM sleep. ??The present study is for the purpose titration of positive pressure therapy. VITAL STATISTICS: Age: 42 years. ??Height: 65 inches. ??Weight: 210 pounds. ??BMI: 35.7. PROCEDURE: ??The patient underwent an overnight polysomnogram with multiple channel polysomnography to include EEG, sleep stage recording, cardiorespiratory monitoring, positive pressure therapy as well as videotaping. DESCRIPTION OF POLYSOMNOGRAPHIC FINDINGS: ??The patient's total time in bed was 452.1 minutes. ??Total sleep time was 388 minutes. ??Sleep efficiency was 85.8%. Latency from lights out to stage N1 was 32.4 minutes, latency to stage N2 was 45.4 minutes, latency to stage N3 was 86.4 minutes and latency to stage REM was 33.5 minutes. ??Sleep stage recording revealed stage awake of 54.5 minutes. Stage non-REM comprised of 319 minutes (82.2% of total sleep time). ??This included a stage N1 of 54 minutes (13.9% of total sleep time), stage N2 of 263 minutes (67.8% of total sleep time) and stage N3 of 2 minutes (0.5% of total sleep time). ??Stage REM comprised of 69 minutes (17.8% of total sleep time). Continuous positive pressure therapy revealed a pressure of 4 to 15 cm of water was attempted. ??A pressure of 15 cm seems to be optimal. ??Total recording time was 311.5 minutes. ??Sleep efficiency was 92%. ??Adequate REM supine was obtained. ??The residual apnea/hypopnea index was 0.6. ??The lowest oxygen saturation was 91.6%. ??A small Quattro full face mask was used. Limb movement recording did not reveal any periodic limb movements. ??Average heart rate during wake was 69.8 and during sleep was 55.2. ??The heart rhythm is sinus rhythm. IMPRESSION: ??The above polysomnogram documents evidence of: ??1) Positive pressure therapy is effective in treating the patient's ? obstructive sleep apnea syndrome. ??2) A pressure of 15 cm seems to be optimal. ??3) A small Quattro full face mask was used. ?? Clinical correlation is recommended. Shoshone A: ??Obstructive sleep apnea syndrome, 327.23. Shoshone B: Polysomnogram, 27100. ? Diplomate in Sleep Medicine ? ([place] Board of ? Psychiatry and Neurology) Violeta Castaneda M.D., D.M. PATTIE/tlt Job #: ??[id number] DD: ??01/26/2013 13:40 TD: ??01/27/2013 05:53 Authenticated and Edited by Violeta Castaneda MD On 02/01/13 11:25:29 AM us Historical Provider SLEEP [facility]ENTER ORDERABLES F inal Result HISTORICAL RESULTS documented in this encounter Visit Diagnoses Diagnosis Obstructive sleep apnea Obstructive sleep apnea (adult) (pediatric) documented in this encounter Care Teams Clip Riveter Relationship Specialty Start Date End Date Alessandro Velasco MD PCP - General 08/08/09 04/03/14 documented as of this encounter
--- OUTSIDE RECORDS SUMMARY | 2024-08-21 22:29 | XMS_ITS | Encounter Summary ---
Author Organization [facility] Medical Group Address [address] [place] [address] Care Team Providers Care Cook Cold Meat Name Role Phone Alessandro Velasco MD Primary Care Provider [phone] Encounter Details Date Type Department Care Team (Late st Contact Info) Description 01/08/2018 Telephone [facility] [address] [place] [phone] Violeta Castaneda MD [address] [place] [address] Social History Tobacco Use Types Packs/Day Years Used Date Smoking Tobacco: Never Smokeless Tobacco: Never Alcohol Use Standard Drinks/Week Comments No 0 (1 standard drink = 0.6 oz pur e alcohol) Sex and Gender Information Value Date Recorded Sex Assigned at Not on file 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 Castaneda spoke to Dr Wall from [facility]. Titration study has been denied, they recommend auto cpap. Patient notified. Order faxed to [facility] Homecare for auto cpap. * Telephone Encounter - Neva Hernandez - 01/09/2018 11:48 AM CDT [id number]-nm-gmsy physician will call on 01/13/18 between 8am - noon. * Telephone Encounter - Violeta Castaneda MD - 01/09/2018 10:05 AM CDT Yes please * Telephone Encounter - Neva Hernandez - 01/08/2018 10:50 AM CDT Insurance co has denied titration study. Do you want to do [id number]? documented in this encounter Plan of Treatment Not on file documented as of this encounter Visit Diagnoses Not on filedocumented in this encounter Care Teams Cook Cold Meat Relationship Specialty Start Date End Date Alessandro Velasco MD PCP - General 11/08/16 01/08/22 documented as of this encounter
--- OUTSIDE RECORDS SUMMARY | 2024-08-21 22:29 | XMS_ITS | Encounter Summary ---
Author Organization [facility] Healthcare Address [address] [place] [address] Care Team Providers Care Calculator Operator Name Role Phone Alessandro Velasco MD Primary Care Provider [phone] Encounter Details Date Type Department Care Team (Late st Contact Info) Description 04/24/2017 4:40 PM CDT Lab [address] [address] Decreased libido Social History Tobacco Use Types Packs/Day Years Used Date Smoking Tobacco: Never Smokeless Tobacco: Never Alcohol Use Standard Drinks/Week Comments No 0 (1 standard drink = 0.6 oz pur e alcohol) Sex and Gender Information Value Date Recorded Sex Assigned at Not on file 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 Gender Identity Male 11/26/2021 10:53 AM CDT Sexual Orientation Straight 11/22/2019 5: 22 PM CDT documented as of this encounter Progress Notes * Alessandro Velasco MD - 04/24/2017 4:40 PM CDT Okay to leave a message testosterone level normal documented in this encounter Plan of Treatment Not on file documented as of this encounter Procedures Procedure Name Priority Date/Time Associated Diagnosis Comments TESTOSTERONE, TOTAL AND FREE, SERUM Routine 04/24/2017 9:55 AM CDT Decreased libido documented in this encounter Results * Testosterone, free, total (04/24/2017 9:55 AM CDT) Testosterone 262 240 - 950 ng/dL FRANK Comment: ADDITIONAL INFORMATION Testing performed by Liquid Chromatography-Tandem Mass Spectrometry (LC-MS/MS). This test was developed and its performance characteristics determined by [facility] in a manner consistent with CLIA requirements. This test has not been cleared or approved by the U.S. Food and Drug Administration. Test Performed by: [facility] - [address] [address] Testosterone, free 10.5 4.26 - 16.4 ng/dL [facility] Comment: ADDITIONAL INFORMATION Testing performed by [facility]. This test was developed and its performance characteristics determined by [facility] in a manner consistent with CLIA requirements. This test has not been cleared or approved by the U.S. Food and Drug Administration. Blood specimen (specimen) 04/24/2017 9:55 AM CDT 04/24/2017 4:32 PM CDT Alessandro Velasco MD LAB BLOOD ORDERABLES Final Res ult [facility] [address] Department of Laboratories [place], [place] [id number] documented in this encounter Visit Diagnoses Diagnosis Decreased libido documented in this encounter Care Teams Calculator Operator Relationship Specialty Start Date End Date Alessandro Velasco MD PCP - General 11/08/16 01/08/22 documented as of this encounter
--- OUTSIDE RECORDS SUMMARY | 2024-08-21 22:29 | XMS_ITS | Encounter Summary ---
Author Organization [facility] Healthcare Address [address] [place] [address] Care Team Providers Care Dynamometer Mechanic Name Role Phone Alessandro Velasco MD Primary Care Provider [phone] Encounter Details Date Type Department Care Team (Late st Contact Info) Description 11/02/2018 8:20 AM CDT [address] [address] Alessandro Velasco MD [address] [place] [address] Discharge Disposition: Discharge to home or self care Social History Tobacco Use Types Packs/Day Years Used Date Smoking Tobacco: Never Smokeless Tobacco: Never Alcohol Use Standard Drinks/Week Comments No 0 (1 standard drink = 0.6 oz pur e alcohol) Sex and Gender Information Value Date Recorded Sex Assigned at Not on file 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 Gender Identity Male 11/26/2021 10:53 AM CDT Sexual Orientation Straight 11/22/2019 5: 22 PM CDT documented as of this encounter Discharge Disposition Disposition Code Departure Means Destination Discharge to home or self care documented in this encounter Plan of Treatment Not on file documented as of this encounter Procedures Procedure Name Priority Date/Time Associated Diagnosis Comments EGFR Routine 11/02/2018 8:17 AM CDT DIFFERENTIAL AUTO Routine 11/02/2018 8:1 7 AM CDT PSA SCREEN Routine 11/02/2018 8:17 AM CDT CBC WITH AUTO DIFFERENTIAL Routine 11/02/2018 8:17 AM CDT LIPID PANEL Routine 11/02/2018 8:17 AM CDT COMPREHENSIVE METABOLIC PANEL Routine 11/02/2018 8:17 AM CDT URINALYSIS, MACROSCOPIC Routine 11/02/2018 7:20 AM CDT documented in this encounter Results * PSA screen (11/02/2018 8:17 AM CDT) PSA-Total 0.34 ng/mL FRANK LINARES (YOSEPH) Comment: Interpretive Data ?AGE ? SEX ?REFERENCE INTERVAL 0 minutes-150 years ?Female ?None 0 minutes-49 years ? Male ?None ? 50-59 years ? Male ?0-3.90 ? 60-69 years ? Male ?0-5.40 ? 70-79 years ? Male ?0-6.20 ? 80-150 years ?Male ?0-6.20 Current interpretive data last revised 2018. Testing performed by: [facility], [address] [place] [address], [place]., [address] Blood specimen (specimen) 11/02/2018 8:17 AM CDT 11/02/2018 11:12 AM CDT Narrative FRANK LINARES (YOSEPH) - 11/02/2018 11:44 AM CDT us Alessandro Velasco MD LAB BLOOD ORDERABLES Final Res ult [facility] LINARES (YOSEPH) [address] [facility] [place] [address] * eGFR (11/02/2018 8:17 AM CDT) eGFR 79 mL/min/1.7 3 m2 [facility] LINARES (YOSEPH) Comment: Interpretive Data Reference Interval Normal ?>/= 90 mL/min/1.73m2 Mildly decreased* ? 60 - 89 mL/min/1.73m2 Mildly to moderately decreased ?45 - 59 mL/min/1.73m2 Moderately to severely decreased ??30 - 44 mL/min/1.73m2 Severely decreased ?15 - 29 mL/min/1.73m2 Kidney Failure ?< 15 ??mL/min/1.73m2 *Relative to young adult level If -Albanian multiply value by 1.16. Estimated glomerular filtration [...] was last reviewed 2016. Blood specimen (specimen) 11/02/2018 8:17 AM CDT 11/02/2018 8:34 AM CDT Narrative FRANK VO) - 11/02/2018 9:07 AM CDT us Alessandro Velasco MD LAB BLOOD ORDERABLES Final Res ult Performing Organization Address City/[facility] Co de Phone Number FRANK LINARES (YOSEPH) [address] [facility] Department [email or web address] [address] * Lipid panel (11/02/2018 8:17 AM CDT) [facility] Signature Cholesterol 176 30 - 199 mg/dL FRANK LINARES (YOSEPH) [...] Data was last revised on 2018. Triglycerides 130 <=149 mg/dL FR[facility] LINARES (YOSEPH) Comment: Interpretive [...] Data was last revised on 2018. HDL 48 >=40 mg/dL FRANK VO) Comment: Interpretive Data [...] was last revised on 2018. LDL, calculated 102 <=129 mg/dL FRANK LINARES (YOSEPH) Comment: Interpretive [...] was last revised on 2018. Non-HDL Cholesterol 128 mg/dL [facility] LINARES (YOSEPH) Comment: Interpretive Data [...] [facility] ([facility]) Blood specimen (specimen) 11/02/2018 8:17 AM CDT 11/02/2018 8:34 AM CDT Narrative [facility] ([facility]) - 11/02/2018 9:07 AM CDT us Alessandro Velasco MD LAB BLOOD ORDERABLES Final Res ult [facility] ([place]) [address] [facility] Department [place] [address] * Comprehensive metabolic panel (11/02/2018 8:17 AM CDT) Sodium 141 135 - 145 mmol/L [facility] ([facility]) Potassium, pl 4.1 3.3 - 4.9 mmol/L [facility] ([place]) Chloride 104 97 - 110 mmol/L [facility] ([place]) CO2 27 22 - 32 mmol/L [facility] ([place]) Anion gap 10 2 - 15 mmol/L [facility] ([place]) BUN 17 8 - 25 mg/dL [facility] ([place]) Creatinine 1.09 0.80 - 1.30 mg/dL [facility] ([place]) [...] interpretive data was last revised 2017. Calcium 8.7 8.5 - 10.3 mg/dL [facility] ([place]) Bilirubin, total <0.2 0.1 - 1.2 mg/dL [facility] ([place]) Protein, pl 7.6 6.5 - 8.5 g/dL [facility] ([place]) Albumin 4.4 3.5 - 5.0 g/dL [facility] ([place]) Alk phos 64 40 - 130 Units/L [facility] ([place]) ALT 22 7 - 55 Units/L [facility] ([place]) AST 26 10 - 50 Units/L [facility] ([facility]) Comment: Hemolysis present. ??Results may be affected. Slightly Hemolyzed Specimen Blood specimen (specimen) 11/02/2018 8:17 AM CDT 11/02/2018 8:34 AM CDT Narrative [facility] ([facility]) - 11/02/2018 9:07 AM CDT us Alessandro Velasco MD LAB BLOOD ORDERABLES Final Res ult [facility] ([place]) [address] [place] [address] [place] [address] * Differential, auto (11/02/2018 8:17 AM CDT) Neutrophil abs 6.3 1.7 - 6.5 K/cumm [facility] ([place]) Imm gran abs 0.0 0.0 - 0.1 K/cumm [facility] ([place]) Lymphocyte abs 1.8 0.8 - 3.3 K/cumm [facility] ([place]) Monocyte abs 0.8 0.2 - 0.8 K/cumm [facility] ([place]) Eosinophil abs 0.2 0.0 - 0.5 K/cumm [facility] ([place]) Basophil abs 0.1 0.0 - 0.1 K/cumm [facility] ([place]) Neutrophil pct 67.8 % [facility] ([facility]) Comment: Interpretive [...] was last revised on 2017. Lymphocyte pct 19.7 % [facility] ([facility]) Comment: Interpretive Data Percent cell count reference ranges are not reported, since discordance with absolute values may lead to misinterpretation of CBC data. Current Interpretive Data was last revised on 2017. Monocyte pct 8.9 % [facility] LINARES (YOSEPH) Comment: Interpretive Data [...] revised on 2017. Basophil pct 0.6 % [facility]ANK LINARES (YOSEPH) Comment: Interpretive Data Percent cell count reference ranges are not reported, since discordance with absolute values may lead to misinterpretation of CBC data. Current Interpretive Data was last revised on 2017. Blood specimen (specimen) 11/02/2018 8:17 AM CDT 11/02/2018 8:34 AM CDT Narrative [facility] LINARES (YOSEPH) - 11/02/2018 8:39 AM CDT us Alessandro Velasco MD LAB BLOOD ORDERABLES Final Res ult [facility] ([place]) [address] [facility] Department [place] [address] * (ABNORMAL) CBC with auto differential (11/02/2018 8:17 AM CDT) WBC 9.2 3.8 - 9.9 K/cumm [facility] LINARES ([place]) Hgb 10.3(L) 13.0 - 17.5 g/dL [facility] LINARES (YOSEPH) Hct 36.4(L) 38.9 - 50.3 % [facility] ([place]) Plt 310 150 - 400 K/cumm [facility] ([place]) MPV 10.1 9.1 - 12.3 fL [facility] ([place]) RBC 5.41 4.30 - 5.80 M/cumm [facility] ([place]) MCV 67.3(L) 81.3 - 96.4 fL [facility] ([place]) MCH 19.0(L) 27.1 - 33.3 pg [facility] ([place]) MCHC 28.3(L) 32.3 - 35.7 g/dL [facility] ([place]) RDW CV 18.8(H) 11.1 - 14.9 % [facility] ([place]) NRBC abs 0.00 0.00 - 0.01 K/cumm [facility] ([place]) Blood specimen (specimen) 11/02/2018 8:17 AM CDT 11/02/2018 8:34 AM CDT Narrative [facility] ([facility]) - 11/02/2018 8:39 AM CDT us Alessandro Velasco MD LAB BLOOD ORDERABLES Final Res ult [facility] [address] [facility] Department [place] [address] * Urinalysis, macroscopic Urine, clean voided (11/02/2018 7:20 AM CDT) Color, ur Yellow Yellow [facility] ([place]) Clarity, ur Clear Clear [facility] ([place]) Specific gravity, ur 1.025 1.010 - 1.025 [facility] ([place]) pH, urine 7.5 [facility] ([place]) Protein, ur ql Negative Negative [facility] ([place]) Glucose, ur ql Negative Negative [facility] ([place]) Ketones, ur Negative Negative [facility] ([place]) Bilirubin, ur Negative Negative [facility] ([place]) Blood, ur Negative Negative [facility] ([place]) Urobilinogen, ur 0.2 mg/dL [facility] ([place]) Nitrite, ur Negative Negative [facility] ([place]) Leukocyte esterase, ur Negative Negative [facility] ([place]) Urine, clean voided 11/02/2018 7:20 AM CDT 11/02/2018 8:32 AM CDT Narrative [facility] LINARES (YOSEPH) - 11/02/2018 9:19 AM CDT ?? Urine pH is affected by diet, medications, systemic acid-base disturbances, and renal tubular function. ??pH may affect urinary stone formation. ??For example, urine pH below 6.0 may help reduce the tendency for calcium phosphate stones and pH greater than 6.0 may reduce the tendency for uric acid stone formation. Source: [employer]. Last revised 08-21-2017 us Alessandro Velasco MD LAB MICROBIOLOGY - GENERAL ORD ERABLES Final Result [facility] LINAR[facility] ([place]) [address] [facility] [place] [address] documented in this encounter Visit Diagnoses Not on filedocumented in this encounter Care Teams Dynamometer Mechanic Relationship Specialty Start Date End Date Alessandro Velasco MD PCP - General 11/08/16 01/08/22 documented as of this encounter
--- OUTSIDE RECORDS SUMMARY | 2024-08-21 22:29 | XMS_ITS | Encounter Summary ---
Author Organization [facility] Healthcare Address [address] [place] [address] Care Team Providers Care High School Counselor Name Role Phone Alessandro Velasco MD Primary Care Provider [phone] Encounter Details Date Type Department Care Team (Late st Contact Info) Description 10/08/2016 8:45 AM INSOLE DEPARTMENT WORKER - 10/08/2016 11:59 PM INSOLE DEPARTMENT WORKER Hospital Encounter [facility] INTERIM Alessandro Velasco MD [address] [place] [address] Discharge Disposition: Discharge to home or self care Social History Tobacco Use Types Packs/Day Years Used Date Smoking Tobacco: Never Alcohol Use Standard Drinks/Week Comments No 0 (1 standard drink = 0.6 oz pur e alcohol) Sex and Gender Information Value Date Recorded Sex Assigned at Not on file 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
--- OUTSIDE RECORDS SUMMARY | 2024-08-21 22:29 | XMS_ITS | Encounter Summary ---
Author Organization [facility] Medical Group Address [address] [place] [address] Care Team Providers Care Door Assembler Name Role Phone Alessandro Velasco MD Primary Care Provider [phone] Encounter Details Date Type Department Care Team (Late st Contact Info) Description 10/29/2018 Telephone [place] [facility] [address] [place] [address] Alessandro Velasco MD [address] [place] [address] Social History Tobacco Use Types Packs/Day Years Used Date Smoking Tobacco: Never Smokeless Tobacco: Never Alcohol Use Standard Drinks/Week Comments No 0 (1 standard drink = 0.6 oz pur e alcohol) Sex and Gender Information Value Date Recorded Sex Assigned at Not on file 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 * Telephone Encounter - Alessandro Velasco MD - 10/29/2018 12:29 PM CDT PSA lipid CMP UA CBC * Telephone Encounter - Tete Marcus MA - 10/29/2018 10:27 AM CDT Which labs would you like ordered? * Telephone Encounter - Alessandro Velasco MD - 10/29/2018 10:22 AM CDT Okay have the his lab work done at the hospital or wherever he wishes to have it done * Telephone Encounter - Tete Marcus MA - 10/29/2018 9:00 AM CDT JR * Telephone Encounter - Tete Marcus MA - 10/29/2018 9:00 AM CDT Regarding: Non-Urgent Medical Question Contact: ----- Message from Kari Bernabe sent at 10/28/2018 4:25 PM CDT ----- Dr Velasco, I want to take my blood test at the outpatient clinic at [facility]. I was just wondering if you could send the order there before my appointment with you on November 09. I have a different job and usually work 7 am-3pm. Since I'm still relatively new, I'm not sure what their policy is about doctorappointments. If you send it there, I could go by this weekend or possibly one day next week beforework. Thanks, Miguel Wise documented in this encounter Plan of Treatment Not on file documented as of this encounter Visit Diagnoses Not on filedocumented in this encounter Care Teams Door Assembler Relationship Specialty Start Date End Date Alessandro Velasco MD PCP - General 11/08/16 01/08/22 documented as of this encounter
--- OUTSIDE RECORDS SUMMARY | 2024-08-21 22:29 | XMS_ITS | Encounter Summary ---
Author Organization [facility] Medical Group Address [address] [place] [address] Care Team Providers Care Pick Out Hand Name Role Phone Alessandro Velasco MD Primary Care Provider [phone] Encounter Details Date Type Department Care Team (Late st Contact Info) Description 10/22/2017 8:30 AM CDT [facility] Internal Medicine [address] [place] [address] [address] [place] [phone] Mixed hyperlipidemia Social History Tobacco Use Types Packs/Day Years Used Date Smoking Tobacco: Never Smokeless Tobacco: Never Alcohol Use Standard Drinks/Week Comments No 0 (1 standard drink = 0.6 oz pur e alcohol) Sex and Gender Information Value Date Recorded Sex Assigned at Not on file 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
--- OUTSIDE RECORDS SUMMARY | 2024-08-21 22:29 | XMS_ITS | Encounter Summary ---
Author Organization [facility] Healthcare Address [address] [place] [address] Care Team Providers Care Chain Mender Name Role Phone Alessandro Velasco MD Primary Care Provider [phone] Encounter Details Date Type Department Care Team (Late st Contact Info) Description 10/19/2013 8:54 AM CDT - 10/19/2013 11:08 AM CDT Hospital Encounter [facility] Green Hemorrhage of rectum and anus; Benign neoplasm of colon; Internal hemorrhoids; External hemorrhoids Social History Tobacco Use Types Packs/Day Years Used Date Smoking Tobacco: Never Alcohol Use Standard Drinks/Week Comments No 0 (1 standard drink = 0.6 oz pur e alcohol) Sex and Gender Information Value Date Recorded Sex Assigned at Not on file 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 Admit Date: 10/19/2013 Dict.: Jennifer Clark M.D. Disch. Date: 10/19/2013 NAME OF PROCEDURE: COLONOSCOPY DATE OF PROCEDURE: 10/19/2013 REFERRED BY: Alessandro Velasco M.D. PREVIOUS PROCEDURE: None. X-RAYS: None. HISTORY AND PHYSICAL EXAM: The patient is a 43-year-old white male with a history of bright red blood per rectum. We have been asked to see him now for endoscopic evaluation of his colon. Physical examination today is that of a well-developed, well-nourished white male in no acute distress. He is anicteric. His lungs are clear. Heart is regular. Abdomen is soft and supple. Extremities show no calf pain, cords, or edema. PRE-PROCEDURE DIAGNOSIS: Rectal bleeding in a 43-year-old male. ENDOSCOPIST: Jennifer Clark M.D. INSTRUMENT USED: RecordSetter video endoscope. MEDICATIONS: Per Anesthesia. FINDINGS: The colonoscope was introduced into the rectum in the left lateral position and passed to the cecum. The patient tolerated the procedure well. There were no complications. On withdrawal of the colonoscope the mucosa appeared normal with normal vascular pattern. In the proximal right colon a small sessile polyp was encountered. This was picked up, hot biopsied, and removed. The remainder of the cecum, right, transverse, left, rectosigmoid and rectum was normal. Retroflexed view of the internal anal area showed small to moderate internal hemorrhoidal tissue. Perianal exam showed moderate to moderately extensive external hemorrhoidal tissue and tags. No anal fissures. No fistulas. Prostate was normal for age. No rectal masses. COMPLICATIONS: None. POST-PROCEDURE DIAGNOSIS: 1. Polyp, right colon, status post hot biopsy and removal. 2. Bright red blood per rectum consistent with perianal bleeding. 3. Otherwise normal colonoscopy to the cecum, with a withdrawal time of 9 minutes and 53 seconds. Preparation was excellent. POST-PROCEDURE ORDERS: 1. Post-sedation instructions. 2. High-fiber diet. 3. Check pathology. 4. Follow-up with Dr. Velasco. 5. Repeat colonoscopy in five years pending pathology report. Jennifer Clark M.D. MADELYN/ TD: 10/20/2013 10:39 CC: Alessandro Velasco M.D. Authenticated by Jennifer Clark MD On 10/29/2013 11:43:16 AM documented in this encounter Plan of Treatment Not on file documented as of this encounter Procedures Procedure Name Priority Date/Time Associated Diagnosis Comments SURGICAL PATHOLOGY REPORT Routine 10/19/2013 12:09 PM CDT DISCHARGE LABORATORY CUMULATIVE REPORT Routine 10/19/2013 12:00 AM CDT COLONOSCOPY 10/19/2013 12:00 AM CDT documented in this encounter Results * Surgical Pathology Report (10/19/2013 12:09 PM CDT) 10/19/2013 12:0 9 PM CDT Narrative HISTORICAL RESULTS - 10/20/2013 12:12 PM CDT [facility] Patient No: [id number] Patient Name: MARIFER PARNELL )[id number] Age: 43 YRS ?? : 1970 Admit Phys: JENNIFER CLARK MD Case #: [id number] ? Date: 10/19/13 SPECIMEN SOURCE: ? Polyp right colon. CLINICAL INFORMATION AND IMPRESSION: ? Blood in stool. ??Polyp. ??Colonoscopy. GROSS DESCRIPTION: ? The specimen is submitted in one container labeled Marifer ? Frandy and right colon polyp. It is submitted in formalin ? and consists of one fragment of jones soft tissue that measures ? 0.2 cm in maximum dimensions. ??All submitted in one cassette. ? SR/as/lm MICROSCOPIC DESCRIPTION: ? Sections show a fragment of mucosa showing features of ? tubular adenoma. ??No high-grade dysplasia is evident. ? SJ/lm DIAGNOSIS: ? RIGHT COLON POLYP, BIOPSY: ? -TUBULAR ADENOMA ? [id number], [id number], [id number], [id number] ? Pathologist: AL ONEILL MD Electronic ?signature ? SMJ SMJ/LM 10/20/13 us Historical Provider LAB PATHOLOGY ORDERABLES Final Result HISTORICAL RESULTS * Discharge Laboratory Cumulative Report (10/19/2013 12:00 AM CDT) 10/19/2013 Narrative HISTORICAL RESULTS - 10/21/2013 12:35 AM CDT Patient No: [id number] ? [facility] Patient Name: MARIFER PARNELL ?[facility] Healthcare Age: 43 YRS ?: 1970 ?Sex:M ?[address] )[id number] ?? Adm Dt: 10/19/2013 ?KYLER Oates ??[id number] Created: 10/21/2013 ??0035 ?? Pt. Type: U ? Discharge Dt: 10/19/2013 ? Pathologists: Liv Wade MD Admit Dr. Mae Dr: JENNIFER CLARK MD ?S Alyssia Ramires G Ximena Maurice ?P A T H O L O G Y ?R E P O R T ? Case #: ?[id number] ? Date: 10/19/13 SPECIMEN SOURCE: ? Polyp right colon. CLINICAL INFORMATION AND IMPRESSION: ? Blood in stool. ??Polyp. ??Colonoscopy. GROSS DESCRIPTION: ? The specimen is submitted in one container labeled Marifer Parnell and right ? colon polyp. It is submitted in formalin and consists of one fragment of jones ? soft tissue that measures 0.2 cm in maximum dimensions. ??All submitted in one ? cassette. ?? SR/as/lm MICROSCOPIC DESCRIPTION: ? Sections show a fragment of mucosa showing features of tubular adenoma. ??No ? high-grade dysplasia is evident. ?SJ/lm DIAGNOSIS: ? RIGHT COLON POLYP, BIOPSY: ? -TUBULAR ADENOMA ? [id number], [id number], [id number], [id number] ? Pathologist: AL ONEILL MD Electronic signature ? SMJ SMJ/LM 10/20/13 ?? END OF CHART ? Page: ?? 1 us Historical Provider LAB BLOOD ORDERABLES Trang l Result HISTORICAL RESULTS * COLONOSCOPY (10/19/2013 12:00 AM CDT) Anatomical Region Laterality Modality Other Narrative 10/19/2013 12:00 AM CDT Ordered by an unspecified provider. Procedure Note Provider, Fadia, - 10/19/2013 12:00 AM CDT PROCEDURE REPORT Patient: MARIFER PARNELL Account: [id number] Room No: : 1970 Patient Type: SDS Attend.: Jennifer Clark M.D. Admit Date: 10/19/2013 Dict.: Jennifer Clark M.D. Disch. Date: 10/19/2013 NAME OF PROCEDURE: COLONOSCOPY DATE OF PROCEDURE: 10/19/2013 REFERRED BY: Alessandro Velasco M.D. PREVIOUS PROCEDURE: None. X-RAYS: None. HISTORY AND PHYSICAL EXAM: The patient is a 43-year-old white male witha history of bright red blood per rectum. We have been asked to see him nowfor endoscopic evaluation of his colon. Physical examination today is that ofa well-developed, well-nourished white male in no acute distress. He is anicteric. His lungs are clear. Heart is regular. Abdomen is soft andsupple. Extremities show no calf pain, cords, or edema. PRE-PROCEDURE DIAGNOSIS: Rectal bleeding in a 43-year-old male. ENDOSCOPIST: Jennifer Clark M.D. INSTRUMENT USED: Olympus video endoscope. MEDICATIONS: Per Anesthesia. FINDINGS: The colonoscope was introduced into the rectum in the leftlateral position and passed to the cecum. The patient tolerated the procedurewell. There were no complications. On withdrawal of the colonoscope the mucosa appeared normal with normal vascular pattern. In the proximal right colona small sessile polyp was encountered. This was picked up, hot biopsied,and removed. The remainder of the cecum, right, transverse, left, rectosigmoidand rectum was normal. Retroflexed view of the internal anal area showed smallto moderate internal hemorrhoidal tissue. Perianal exam showed moderate to moderately extensive external hemorrhoidal tissue and tags. No analfissures. No fistulas. Prostate was normal for age. No rectal masses. COMPLICATIONS: None. POST-PROCEDURE DIAGNOSIS: 1. Polyp, right colon, status post hot biopsy and removal. 2. Bright red blood per rectum consistent with perianal bleeding. 3. Otherwise normal colonoscopy to the cecum, with a withdrawal time of9 minutes and 53 seconds. Preparation was excellent. POST-PROCEDURE ORDERS: 1. Post-sedation instructions. 2. High-fiber diet. 3. Check pathology. 4. Follow-up with Dr. Velasco. 5. Repeat colonoscopy in five years pending pathology report. Jennifer Clark M.D. MADELYN/ TD: 10/20/2013 10:39 CC: Alessandro Velasco M.D. Authenticated by Jennifer Clark MD On 10/29/2013 11:43:16 AM Historical Provider ENDOSCOPY PROCEDURES Trang l Result documented in this encounter Visit Diagnoses Diagnosis Hemorrhage of rectum and anus Benign neoplasm of colon Internal hemorrhoids Internal hemorrhoids without mention of complication External hemorrhoids External hemorrhoids without mention of complication documented in this encounter Care Teams Chain Mender Relationship Specialty Start Date End Date Alessandro Velasco MD PCP - General 08/08/09 04/03/14 documented as of this encounter
--- OUTSIDE RECORDS SUMMARY | 2024-08-21 22:29 | XMS_ITS | Encounter Summary ---
Author Organization [facility] Address [address] [place] [address] Care Team Providers Care Paperhanger Assistant Name Role Phone Alessandro Velasco MD Primary Care Provider [phone] Reason for Visit * Reason Comments Injections flu shot Encounter Details Date Type Department Care Team (Latest Contact Info) Description 06/12/2018 3:30 PM CDT Clinical Support [facility] [address] [place] [address] [address] [place] [phone] Need for immunization against influenza (Primary Dx) Social History Tobacco Use Types Packs/Day Years Used Date Smoking Tobacco: Never Smokeless Tobacco: Never Alcohol Use Standard Drinks/Week Comments No 0 (1 standard drink = 0.6 oz pur e alcohol) Sex and Gender Information Value Date Recorded Sex Assigned at Not on file 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 Gender Identity Male 11/26/2021 10:53 AM CDT Sexual Orientation Straight 11/22/2019 5: 22 PM CDT documented as of this encounter Plan of Treatment Not on file documented as of this encounter Visit Diagnoses Diagnosis Need for immunization against influenza- Primary Need for prophylactic vaccination and inoculation against influenza documented in this encounter Orders Immunization/Injection Count Last Ordered Date First Ordered Date FLU VACCINE QUAD PF 3Y+ IM - FLUZONE 1 09/2017 documented in this encounter Care Teams Paperhanger Assistant Relationship Specialty Start Date End Date Alessandro Velasco MD PCP - General 11/08/16 01/08/22 documented as of this encounter
--- OUTSIDE RECORDS SUMMARY | 2024-08-21 22:29 | XMS_ITS | Encounter Summary ---
Author Organization [facility] Medical [facility] Address [address] [place] [address] Care Team Providers Care Wall Scraper Name Role Phone Alessandro Velasco MD Primary Care Provider [phone] Encounter Details Date Type Department Care Team (Late st Contact Info) Description 04/24/2017 10:30 AM CDT [facility] Internal Medicine [address] [place] [address] [address] [place] [phone] Diminished libido Social History Tobacco Use Types Packs/Day Years Used Date Smoking Tobacco: Never Smokeless Tobacco: Never Alcohol Use Standard Drinks/Week Comments No 0 (1 standard drink = 0.6 oz pur e alcohol) Sex and Gender Information Value Date Recorded Sex Assigned at Not on file 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
--- OUTSIDE RECORDS SUMMARY | 2024-08-21 22:29 | XMS_ITS | Encounter Summary ---
Author Organization [facility] Healthcare Address [address] [place] [address] Care Team Providers Care Cook Sauce Name Role Phone Alessandro Velasco MD Primary Care Provider [phone] Encounter Details Date Type Department Care Team (Latest Contact Info) Description 10/03/2011 11:04 AM ETIQUETTE TEACHER - 10/03/2011 1:12 PM [facility] Hospital Encounter [facility] Afua Moore MD Hemangioma of skin and subcutaneous tissue Social History Tobacco Use Types Packs/Day Years Used Date Smoking Tobacco: Never Assessed Sex and Gender Information Value Date Recorded Sex Assigned at Not on file Legal Sex Male 2:09 PM [facility] Gender Identity Male 11/26/2021 10:53 AM CDT [...] per day 1 Bottle 12 04/12/2009 04/24/2017 documented as of this encounter Plan of Treatment Not on file documented as of this encounter Visit Diagnoses Diagnosis Hemangioma of skin and subcutaneous tissue documented in this encounter Care Teams Cook Sauce Relationship Specialty Start Date End Date Alessandro Velasco MD PCP - General 08/08/09 04/03/14 documented as of this encounter
--- OUTSIDE RECORDS SUMMARY | 2024-08-21 22:29 | XMS_ITS | Encounter Summary ---
Author Organization [facility] Medical [facility] Address [address] [place] [address] Care Team Providers Care Chaperone Name Role Phone Alessandro Velasco MD Primary Care Provider [phone] Reason for Visit * Reason Comments Sleeping Problem New Encounter Details Date Type Department Care Team (Late st Contact Info) Description 12/15/2017 11:15 AM CDT Office Visit [facility] [address] [place] [address] Violeta Castaneda MD [address] [place] [address] [address] [place] [address] JAYLA (obstructive sleep apnea) (Primary [...] on file 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 Gender Identity Male 11/26/2021 10:53 AM CDT Sexual Orientation Straight 11/22/2019 5: 22 PM CDT documented as of this encounter Last Filed Vital Signs Vital Sign Reading Time Taken Comments Blood Pressure 145/82 12/15/2017 11:27 AM CDT Pulse 81 12/15/2017 11:27 AM CDT Temperature - - Respiratory Rate - - Oxygen Saturation - - Inhaled Oxygen Concentration - - Weight 94.6 kg (208 lb 9.6 oz) 12/15/2017 11:27 AM CDT Height 165.1 cm (5' 5 ) 12/15/2017 11:27 AM CDT Body Mass Index 34.71 12/15/2017 11:27 AM CDT documented in this encounter Progress Notes * Violeta Castaneda MD - 12/15/2017 11:15 AM CDT Chief complaints: Obstructive sleep apnea syndrome and hypersomnia HPI Mr. Wise presents for consultation. He has been referred by his primary care physician Dr. Velasco for opinion regarding his above symptoms. He is a very pleasant 47-year-old gentleman who reports thathe was diagnosed with obstructive sleep apnea syndrome and has been on positive pressure therapy goes to bed at 11:30 p.m., awakens at 6:30 a.m.. Takes less than 5 min to fall asleep. Patient reportsthat despite using positive pressure therapy he has been known to snore and has been witnessed. Breath while sleeping. Awakens with restless sleep. He endorses symptoms of creepy crawly feeling in legs and leg jerks. Denies awakening gasping for air, talking in sleep, walking sleep, nighttime wheezing. Awakens once, usually go to the restroom. Falls asleep within 5 min. Awakens with a perception of non refreshing sleep. [place] Sleepiness Scale score is 4. Does not take daytime naps. Denies symptoms of cataplexy, hypnagogic hallucination and sleep paralysis. Does feel tired and fatigued in the daytime so. Patient feels that his sleep quality perception is not as good as when he initially started on positive pressure therapy 5 years ago. He has been compliant with supply change. Past Medical History: Diagnosis Date ??? Hyperlipidemia Hyperlipidemia ??? Hypertension Hypertension Family History Problem Relation Age of Onset ??? Hypertension Mother 61 Hypertension; ??? Other Father 62 Alive and well; ??? Other Brother 37 Alive and well; ??? Other Brother 30 Alive and well; ??? Hypertension Other Family history of Hypertension; ??? Diabetes Other Family history of Diabetes mellitus; ??? Heart disease Other Family history of Heart disease; Social History Social History ??? Marital status: Spouse name: N/A ??? Number of children: N/A ??? Years of education: N/A Occupational History ??? Not on file. Social History Main Topics ??? Smoking status: Never Smoker ??? Smokeless tobacco: Never Used ??? Alcohol use No ??? Drug use: No ??? Sexual activity: Not on file Other Topics Concern ??? Not on file Social History Narrative ??? No narrative on file Review of Systems Constitutional: Positive for fatigue. HENT: Negative. Eyes: Negative. Respiratory: Negative. Cardiovascular: Negative. Gastrointestinal: Negative. Endocrine: Negative. Genitourinary: Negative. Musculoskeletal: Negative. Skin: Negative. Allergic/Immunologic: Negative. Neurological: Negative. Hematological: Negative. Psychiatric/Behavioral: Negative. BP 145/82 Pulse 81 Ht 165.1 cm (5' 5 ) Wt 94.6 kg (208 lb 9.6 oz) BMI 34.71 kg/m?? Physical Exam Constitutional: He appears well-developed [...] mood and affect. AP 1. Obstructive sleep apnea: Endorses symptoms suggestive of obstructive sleep apnea syndrome. Patient has an established diagnosis of obstructive sleep apnea syndrome. Reports symptoms of unrefreshing sleep despite compliance with therapy and reports snoring and witnessed stoppage of breath while sleeping while using Continuous positive airway pressure. The physiology of sleep disordered breathing and its increased association with hypertension, diabetes, heart arrhythmia, strokes, heart attacks, heart failure, hypersomnia, obesity and mood disorders was discussed. The compliance download reveals compliant ineffective therapy. There is a description sleep between the patient's subjective symptoms and patient objective data. Recommended the patient undergo a titration study to reassess hisoptimal therapy. Meanwhile continue compliance with therapy Patient's compliance download reveals 100% usage. Average use was 6 hr and 32 min residual AHI 0.7 2. Hypersomnia: Reports symptoms of daytime fatigue but normal [place] Sleepiness Scale score. Monitor response to optimization of sleep disorder breathing therapy. 3. Obesity: The effects of obesity obstructive sleep apnea syndrome and other morbidities was discussed. Recommended diet and exercise in losing weight. Patient verbalizes an understanding. documented in this encounter Miscellaneous Notes * Addendum Note - Efra Urias - 12/15/2017 11:15 AM CDTAddended by: EFRA URIAS on: 12/15/2017 01:03 PM Modules accepted: Orders documented in this encounter Plan of Treatment Not on file documented as of this encounter Visit Diagnoses Diagnosis JAYLA (obstructive sleep apnea)- Primary Obstructive sleep apnea (adult) (pediatric) Hypersomnia with sleep apnea Hypersomnia with sleep apnea, unspecified Obesity (BMI 30.0-34.9) documented in this encounter Care Teams Chaperone Relationship Specialty Start Date End Date Alessandro Velasco MD PCP - General 11/08/16 01/08/22 documented as of this encounter
--- OUTSIDE RECORDS SUMMARY | 2024-08-21 22:29 | XMS_ITS | Encounter Summary ---
Author Organization [facility] Healthcare Address [address] [place] [address] Care Team Providers Care [employer] Task Force Planners Name Role Phone Alessandro Velasco MD Primary Care Provider [phone] Encounter Details Date Type Department Care Team (Late st Contact Info) Description 01/10/2009 12:01 AM CDT - 01/10/2009 11:59 PM CDT Hospital Encounter [facility] Amanda Hoffman MD [address] [place] [address] Other dyspnea and respiratory abnormality; Deviated nasal septum; Sleep apnea Social History Tobacco Use Types Packs/Day Years Used Date Smoking Tobacco: Never Assessed Sex and Gender Information Value Date Recorded Sex Assigned at Not on file 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
--- OUTSIDE RECORDS SUMMARY | 2024-08-21 22:29 | XMS_ITS | Encounter Summary ---
Author Organization [facility] Medical [facility] Address [address] [place] [address] Care Team Providers Care Customer Service Cashier Name Role Phone Alessandro Velasco MD Primary Care Provider [phone] Reason for Visit * Reason Comments Preventative Care cpe Encounter Details Date Type Department Care Team (Late st Contact Info) Description 10/29/2017 9:00 AM CDT Office Visit [facility] [address] [place] [address] [address] [place] [address] Alessandro Velasco MD [address] [place] [address] [address] [place] [address] Encounter for wellness examination in adult (Primary Dx); BMI 34.0-34.9,adult; Mixed hyperlipidemia; Essential hypertension; Chronic GERD; Drug-induced erectile dysfunction; Generalized anxiety disorder; Grade III hemorrhoids; Sleep apnea with use of continuous positive airway pressure (CPAP); History of colon polyps Social History Tobacco Use Types Packs/Day Years Used Date Smoking Tobacco: Never Smokeless Tobacco: Never Alcohol Use Standard Drinks/Week Comments No 0 (1 standard drink = 0.6 oz pur e alcohol) Sex and Gender Information Value Date Recorded Sex Assigned at Not on file Legal Sex Male 2:09 PM SHERIFFS OFFICER Gender Identity Male 11/26/2021 10:53 AM CDT Sexual Orientation Straight 11/22/2019 5: 22 PM CDT documented as of this encounter Last Filed Vital Signs Vital Sign Reading Time Taken Comments Blood Pressure 138/70 10/29/2017 8:52 AM CDT Pulse 80 10/29/2017 8:52 AM CDT Temperature - - Respiratory Rate 18 10/29/2017 8:52 AM CDT Oxygen Saturation - - Inhaled Oxygen Concentration - - Weight 95.3 kg (210 lb) 10/29/2017 8:52 AM CDT Height 166 cm (5' 5.35 ) 10/29/2017 8:52 AM CDT Body Mass Index 34.57 10/29/2017 8:52 AM CDT documented in this encounter Ordered Prescriptions Prescription Sig Dispense Quantity Refills Last Filled Start Date End Date triamcinolone (KENALOG) 0.1 % cream Apply to affected area 1-2 times daily as needed. Avoid face and groin. 30 g 5 10/29/2017 9 cephalexin (KEFLEX) 500 mg capsule Take 1 capsule (500 mg total) by mouth 4 (four) times a day for 10 days. 40 capsule 10/29/2017 8 documented in this encounter Progress Notes * Alessandro Velasco MD - 10/29/2017 9:00 AM CDT Subjective/Objective Patient ID: Minh Wise is a 47 y.o. male. Chief Complaint Preventative Care (cpe) HPI 47-year-old gentleman seen today for his annual well examination he does take a blood pressure medication called amlodipine 5 mg daily blood pressures home usually better than here usually 130/70 or less at home his anxieties under good control with current therapies reflux under good control he takes Flonase for allergies allergic rhinitis seems to be working well he does have a history of colonpolyps is due back for repeat colonoscopy October 2018 Allergies none tobacco never alcohol none Medical surgical hypertension hyperlipidemia left arthroscopic knee surgery rectal dysfunction secondary medications sleep apnea with CPAP therapy history of hemorrhoids and hemorrhoid tags history of colon polyps history of chronic not alert seasonal allergic rhinitis history of due to medicationslibido Family social history 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 about 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 his mom Shaila has a history of high blood pressure patient in the practice his father is living Review of Systems Review of Systems neurological [...] ideation hematological no bleeding or bruising Vitals: 10/29/17 0852 BP: 138/70 BP Location: Left arm Patient Position: Sitting Pulse: 80 Resp: 18 Weight: 95.3 kg (210 lb) Height: 166 cm (5' 5.35 ) Physical Exam HEAD: normocephalic and atraumatic [...] nodule stools negative for occult blood patient has a extensive external hemorrhoid tags EXTREMITIES: no edema or cyanosis with good pulses throughout full range of motion throughout NEURO : cranial nerves 2-12 were intact muscle strength is 5 5 throughout DTRs are 2/4 throughout toe signs are downgoing gait normal SKIN no suspicious lesions ecchymosis or petechiae Assessment/Plan Diagnoses and all orders for this visit: Encounter for wellness examination in adult (Primary) BMI 34.0-34.9,adult Mixed hyperlipidemia Essential hypertension Chronic GERD Drug-induced erectile dysfunction Generalized anxiety disorder Grade III hemorrhoids Sleep apnea with use of continuous positive airway pressure (CPAP) History of colon polyps Patient will be referred to Dr. Castaneda for sleep consultation his is concerned he may have sleep apnea along with restless leg syndrome he is compliant with his CPAP currently Blood pressure is doing okay with current regimen low bit better at home that here continue monitoring stands will keep 130/80 or less if not he will let us know Reflux is controlled with Zantac does not feel like he needs a PPI therapy will continue same Laboratory workup print out out for him he is on my chart does have a pressure homes lab was printed for the patient Hemorrhoidal tags high-fiber diet stool softeners as necessary recommend hemorrhoidal surgical consultation recommended a hand spray on the toilet for cleaning purposes Immunizations he will get a flu shot each fall which she typically does he update tetanus next cutter scrape Patient does have a low redness on the distal left posterior leg had little scrape on it looks likea cellulitis will going to put him on antibiotic does not resolve he will follow up here Side effects, risks, interactions reviewed with patient. [...] Procedure Name Priority Date/Time Associated Diagnosis Comments PSA SCREENING Routine 10/22/2017 documented in this encounter Results * PSA SCREENING (10/22/2017) PSA Normal us Historical Provider MD HEALTH MAINTENANCE Final Result documented in this encounter Visit Diagnoses Diagnosis Encounter for wellness examination in adult- Primary BMI 34.0-34.9,adult Mixed hyperlipidemia Essential hypertension Unspecified essential hypertension Chronic GERD Drug-induced erectile dysfunction Generalized anxiety disorder Grade III hemorrhoids Sleep apnea with use of continuous positive airway pressure (CPAP) History of colon polyps documented in this encounter Historical Medications * This list may reflect changes made after this encounter. raNITIdine (ZANTAC) 150 mg tablet Take 300 mg by mouth nightly 07/27/2019 buPROPion XL (WELLBUTRIN XL) 300 mg 24 hr tablet Take 300 mg by mouth daily. 10/06/2017 11/09/2018 added in this encounter Care Teams Customer Service Cashier Relationship Specialty Start Date End Date Alessandro Velasco MD PCP - General 11/08/16 01/08/22 documented as of this encounter
--- OUTSIDE RECORDS SUMMARY | 2024-08-21 22:29 | XMS_ITS | Encounter Summary ---
Author Organization [facility] Medical [facility] Address [address] [place] [address] Care Team Providers Care Hog Scraper Name Role Phone Alessandro Velasco MD Primary Care Provider [phone] Encounter Details Date Type Department Care Team (Late st Contact Info) Description 04/24/2017 Telephone [facility] [address] [facility] [address] [place] [address] Alessandro Velasco MD [address] [facility] [address] [place] [address] Social History Tobacco Use Types Packs/Day Years Used Date Smoking Tobacco: Never Smokeless Tobacco: Never Alcohol Use Standard Drinks/Week Comments No 0 (1 standard drink = 0.6 oz pur e alcohol) Sex and Gender Information Value Date Recorded Sex Assigned at Not on file Legal Sex Male 2: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 Does he need to get another sleep study done? Please advise. documented in this encounter Plan of Treatment Not on file documented as of this encounter Visit Diagnoses Not on filedocumented in this encounter Care Teams Hog Scraper Relationship Specialty Start Date End Date Alessandro Velasco MD PCP - General 11/08/16 01/08/22 documented as of this encounter
--- OUTSIDE RECORDS SUMMARY | 2024-08-21 22:29 | XMS_ITS | Encounter Summary ---
Author Organization [facility] Medical [facility] Address [address] [place] [address] Care Team Providers Care Radiology Equipment Servicer Name Role Phone Alessandro Velasco MD Primary Care Provider [phone] Encounter Details Date Type Department Care Team (Late st Contact Info) Description 09/10/2018 Telephone [facility] [address] [facility] [address] [place] [address] Alessandro Velasco MD [address] [place] [address] [address] [place] [address] Social History Tobacco Use Types Packs/Day Years Used Date Smoking Tobacco: Never Smokeless Tobacco: Never Alcohol Use Standard Drinks/Week Comments No 0 (1 standard drink = 0.6 oz pur e alcohol) Sex and Gender Information Value Date Recorded Sex Assigned at Not on file Legal Sex Male 2:09 PM METER RECORD CLERK Gender Identity Male 11/26/2021 10:53 AM CDT Sexual Orientation Straight 11/22/2019 5: 22 PM CDT documented as of this encounter Miscellaneous Notes * Telephone Encounter - Marissa Adams - 09/14/2018 9:46 AM CST Noted. R RECORD CLERK documented in this encounter Plan of Treatment Not on file documented as of this encounter Visit Diagnoses Not on filedocumented in this encounter Care Teams Radiology Equipment Servicer Relationship Specialty Start Date End Date Alessandro Velasco MD PCP - General 11/08/16 01/08/22 documented as of this encounter
--- OUTSIDE RECORDS SUMMARY | 2024-08-21 22:29 | XMS_ITS | Encounter Summary ---
Author Organization [facility] Medical [facility] Address [address] [place] [address] Care Team Providers Care Supervisor Ovens Name Role Phone Alessandro Velasco MD Primary Care Provider [phone] Case Bragg NODE JS DEVELOPER Unavailable [phone] Encounter Details Date Type Department Care Team (Late st Contact Info) Description 04/24/2017 Orders Only [facility] [address] [facility] [address] [place] [id number] Alessandro Velasco MD [address] [place] [address] [place] [address] [place], [place] [id number] Obstructive sleep apnea syndrome (Primary Dx) Social History Tobacco Use Types Packs/Day Years Used Date Smoking Tobacco: Never Smokeless Tobacco: Never Alcohol Use Standard Drinks/Week Comments No 0 (1 standard drink = 0.6 oz pur e alcohol) PHQ-2 Answer Date Recorded PHQ-2 Total Score (If total score is 3 or more points, staff should administer the PHQ-9) 0 05/01/2020 Sex and Gender Information Value Date Recorded Sex Assigned at Not on file Legal Sex Male 2:09 PM SETTER OUT Gender Identity Male 11/26/2021 10:53 AM CDT [...] syndrome- Primary Obstructive sleep apnea (adult) (pediatric) documented in this encounter Care Teams Supervisor Ovens Relationship Specialty Start Date End Date Alessandro Velasco MD PCP - General 11/08/16 01/08/22 Case Bragg NP [address] [place] [address] DR MELENDEZ [address] [place] [id number] Nurse Practitioner Nurse Practitioner 05/29/20 documented as of this encounter
--- OUTSIDE RECORDS SUMMARY | 2024-08-21 22:29 | XMS_ITS | Encounter Summary ---
Author Organization [facility] Healthcare Address [address] [place] [address] Care Team Providers Care Lime Hide Inspector Name Role Phone Alessandro Velasco MD Primary Care Provider [phone] Encounter Details Date Type Department Care Team (Late st Contact Info) Description 04/12/2009 12:01 AM CDT - 04/12/2009 11:59 PM CDT Hospital Encounter [facility] Amanda Hoffman MD [address] [place] [address] Sleep apnea; Other dyspnea and respiratory abnormality; Deviated nasal septum Social History Tobacco Use Types Packs/Day Years Used Date Smoking Tobacco: Never Assessed Sex and Gender Information Value Date Recorded Sex Assigned at Not on file Legal Sex Male 2:09 PM GUN REPAIR CLERK Gender Identity Male 11/26/2021 10:53 AM CDT Sexual Orientation Straight 11/22/2019 5: 22 PM CDT documented as of this encounter Medications at Time of Discharge fluticasone (FLONASE) 50 mcg/actuation nasal spray Two sprays in each nostil one time per day 1 Bottle 12 04/12/2009 04/24/2017 documented as of this encounter Plan of Treatment Not on file documented as of this encounter Visit Diagnoses Diagnosis Sleep apnea Unspecified sleep apnea Other dyspnea and respiratory abnormality Deviated nasal septum documented in this encounter Care Teams Lime Hide Inspector Relationship Specialty Start Date End Date Alessandro Velasco MD PCP - General 12/20/08 04/23/09 documented as of this encounter
--- OUTSIDE RECORDS SUMMARY | 2024-08-21 22:29 | XMS_ITS | Encounter Summary ---
Author Organization [facility] Healthcare Address [address] [place] [address] Care Team Providers Care Trap Operator Name Role Phone Alessandro Velasco MD Primary Care Provider [phone] Encounter Details Date Type Department Care Team (Late st Contact Info) Description 10/05/2015 9:05 AM EXCHANGE TELLER - 10/05/2015 11:59 PM [facility] Hospital Encounter [facility] Alessandro Kenyon MD [address] [place] [address] [address] Encounter for general adult medical examination without abnormal findings; Encounter for screening for malignant neoplasm of prostate Social History Tobacco Use Types Packs/Day Years Used Date Smoking Tobacco: Never Alcohol Use Standard Drinks/Week Comments No 0 (1 standard drink = 0.6 oz pur e alcohol) Sex and Gender Information Value Date Recorded Sex Assigned at Not on file Legal Sex Male 2:09 PM [facility] Gender Identity Male 11/26/2021 10:53 AM CDT [...] this encounter Visit Diagnoses Diagnosis Encounter for general adult medical examination without abnormal findings Encounter for screening for malignant neoplasm of prostate documented in this encounter Care Teams Trap Operator Relationship Specialty Start Date End Date Alessandro Velasco MD PCP - General 04/04/14 10/07/16 documented as of this encounter
--- OUTSIDE RECORDS SUMMARY | 2024-08-21 22:29 | XMS_ITS | Encounter Summary ---
Author Organization [facility] Healthcare Address [address] [place] [address] Care Team Providers Care Office Machine Technician Name Role Phone Alessandro Velasco MD Primary Care Provider [phone] Encounter Details Date Type Department Care Team (Late st Contact Info) Description 09/27/2014 10:37 AM WAREHOUSE PULLER - 09/27/2014 11:59 PM WAREHOUSE PULLER Hospital Encounter [facility] Alessandro Kenyon MD [address] [place] [address] [address] Routine general medical examination at a health care facility Social History Tobacco Use Types Packs/Day Years Used Date Smoking Tobacco: Never Alcohol Use Standard Drinks/Week Comments No 0 (1 standard drink = 0.6 oz pur e alcohol) Sex and Gender Information Value Date Recorded Sex Assigned at Not on file Legal Sex Male 2:09 PM WAREHOUSE PULLER Gender Identity Male 11/26/2021 10:53 AM CDT [...] as of this encounter Visit Diagnoses Diagnosis Routine general medical examination at a health care facility documented in this encounter Care Teams Office Machine Technician Relationship Specialty Start Date End Date Alessandro Velasco MD PCP - General 04/04/14 10/07/16 documented as of this encounter
--- OUTSIDE RECORDS SUMMARY | 2024-08-21 22:29 | XMS_ITS | Encounter Summary ---
Author Organization [facility] Healthcare Address [address] [place] [address] Care Team Providers Care Energy Sales Broker Name Role Phone Alessandro Velasco MD Primary Care Provider [phone] Encounter Details Date Type Department Care Team (Late st Contact Info) Description 10/22/2016 10:48 AM CDT - 10/22/2016 11:59 PM CDT Hospital Encounter [facility] Alessandro Velasco MD [address] [place] [address] Discharge Disposition: Discharge to home or self care Social History Tobacco Use Types Packs/Day Years Used Date Smoking Tobacco: Never Alcohol Use Standard Drinks/Week Comments No 0 (1 standard drink = 0.6 oz pur e alcohol) Sex and Gender Information Value Date Recorded Sex Assigned at Not on file Legal Sex Male 2:09 PM SENIOR POLICY ASSOCIATE Gender Identity Male 11/26/2021 10:53 AM CDT [...] on filedocumented in this encounter Care Teams Energy Sales Broker Relationship Specialty Start Date End Date Alessandro Velasco MD PCP - General 10/08/16 11/07/16 documented as of this encounter
--- OUTSIDE RECORDS SUMMARY | 2024-08-21 22:29 | XMS_ITS | Encounter Summary ---
Author Organization [facility] Healthcare Address [address] [place] [address] Care Team Providers Care Telesales Representative Name Role Phone Alessandro Velasco MD Primary Care Provider [phone] Reason for Referral * Neurology (Routine) - Closed Specialty Diagnoses / Procedures Referred By Luca starks Referred To Contact Diagnoses Myoclonic jerking while sleeping Procedures EEG Violeta Castaneda MD Phone: tel: fax: Referral ID Status Reason Start Date Expiration Date Visits Re quested Visits Authorized [id number] Closed 03/19/2018 09/28/2019 1 1 Reason for Visit * Neurology (Routine) - Closed Specialty Diagnoses / Procedures Referred By Luca starks Referred To Contact Diagnoses Myoclonic jerking while sleeping Procedures EEG Violeta Castaneda MD Phone: tel: fax: Referral ID Status Reason Start Date Expiration Date Visits Re quested Visits Authorized [id number] Closed 03/19/2018 09/28/2019 1 1 Encounter Details Date Type Department Care Team (Latest Contact Info) Description 03/25/2018 8:50 AM CDT - 03/25/2018 11:59 PM CDT Hospital Encounter [facility] Neurological Disorders Testing [address] [place] [address] Violeta Castaneda MD [address] [place] [address] DR NICKERSON B [address] [address] Myoclonic jerking while sleeping Discharge Disposition: Discharge to home or self care Social History Tobacco Use Types Packs/Day Years Used Date Smoking Tobacco: Never Smokeless Tobacco: Never Alcohol Use Standard Drinks/Week Comments No 0 (1 standard drink = 0.6 oz pur e alcohol) Sex and Gender Information Value Date Recorded Sex Assigned at Not on file Legal Sex Male 2:09 PM RAG COLLECTOR Gender Identity Male 11/26/2021 10:53 AM CDT Sexual Orientation Straight 11/22/2019 5: 22 PM CDT documented as of this encounter Medications at Time of Discharge fluticasone (FLONASE) 50 mcg/actuation nasal spray Administer 2 sprays into each nostril daily. 16 g 11 06/13/2017 8 triamcinolone (KENALOG) 0.1 % cream Apply to affected area 1-2 times daily as needed. Avoid face and groin. 30 g 5 10/29/2017 9 amLODIPine (NORVASC) 5 mg tablet TAKE ONE TABLET BY MOUTH EVERY MORNING 90 tablet 3 12/15/2017 9 buPROPion XL (WELLBUTRIN XL) 300 mg 24 hr tablet Take 300 mg by mouth daily. 10/06/2017 9 clonazePAM (KlonoPIN) 0.5 mg tablet Take 1 tablet (0.5 mg total) by mouth nightly. 30 tablet 03/19/2018 8 raNITIdine (ZANTAC) 150 mg tablet Take 300 mg by mouth nightly 9 tadalafil (CIALIS) 20 mg tablet take 1 tablet by oral route every day 0 0 10/22/2016 8 documented as of this encounter Discharge Disposition Disposition Code Departure Means Destination Discharge to home or self care documented in this encounter Procedure Notes * Violeta Castaneda MD - 03/25/2018 12:00 AM CDTAssociated Order(s): EEG EEG REPORT Indication for Study Mr. Wise is a 47-year-old with chief complaints of episodes of abnormal movements. EEG was obtainedusing International 10/20 system of electrode placement. Background activity consisted of bilateral, synchronous, posterior dominant alpha range activity. The record shows spontaneous variability. No focal, lateralized, or epileptiform abnormalities were noted. Impression This is a normal awake EEG. Job ID/VF Job ID: [id number] documented in this encounter Plan of Treatment Not on file documented as of this encounter Procedures Procedure Name Priority Date/Time Associated Diagnosis Comments EEG Routine 03/25/2018 11:12 AM CDT Myoclonic jerking while sleeping documented in this encounter Results * EEG (03/25/2018 11:12 [...] normal awake EEG. Job ID/VF Job ID: [id number] Violeta Castaneda MD NEUROLOGY ORDERABLES Final Resul t documented in this encounter Visit Diagnoses Diagnosis Myoclonic jerking while sleeping documented in this encounter Care Teams Telesales Representative Relationship Specialty Start Date End Date Alessandro Velasco MD PCP - General 11/08/16 01/08/22 documented as of this encounter
--- OUTSIDE RECORDS SUMMARY | 2024-08-21 22:29 | XMS_ITS | Encounter Summary ---
Author Organization [facility] Address [address] [place] [address] Care Team Providers Care Upper Inspector Name Role Phone Alessandro Velasco MD Primary Care Provider [phone] Reason for Visit * Reason Comments Follow-up Encounter Details Date Type Department Care Team (Late st Contact Info) Description 04/24/2017 9:00 AM CDT Office Visit [facility] [address] [place] [address] [address] [place] [id number] Alessandro Velasco MD [address] [place] [address] [address] [place] [address] Diminished libido (Primary Dx); BMI 34.0-34.9,adult; Mixed hyperlipidemia; Essential hypertension Social History Tobacco Use Types Packs/Day Years Used Date Smoking Tobacco: Never Smokeless Tobacco: Never Alcohol Use Standard Drinks/Week Comments No 0 (1 standard drink = 0.6 oz pur e alcohol) Sex and Gender Information Value Date Recorded Sex Assigned at Not on file Legal Sex Male 2:09 PM GEOSPATIAL INFORMATION SCIENTIST Gender Identity Male 11/26/2021 10:53 AM CDT Sexual Orientation Straight 11/22/2019 5: 22 PM CDT documented as of this encounter Last Filed Vital Signs Vital Sign Reading Time Taken Comments Blood Pressure 136/82 04/24/2017 8:51 AM CDT Pulse 72 04/24/2017 8:51 AM CDT Temperature - - Respiratory Rate 16 04/24/2017 8:51 AM CDT Oxygen Saturation - - Inhaled Oxygen Concentration - - Weight 94.8 kg (209 lb) 04/24/2017 8:51 AM CDT Height 166 cm (5' 5.35 ) 04/24/2017 8:51 AM CDT Body Mass Index 34.41 04/24/2017 8:51 AM CDT documented in this encounter Progress Notes * Alessandro Velasco MD - 04/24/2017 9:00 AM CDT Subjective/Objective Patient ID: Minh Wise is a 46 y.o. male. Chief Complaint Follow-up HPI She is seen today was little decreased libido wears pulses check his testosterone back in October butsome reason they did not detected for total knee level on him so will get the testosterone levels checked and do not charge him for the Cialis is working well for his erections he takes Wellbutrin XL300 amlodipine 5 mg daily and Cialis p.r.n. 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 Diminished libido (Primary) 2. BMI 34.0-34.9,adult 3. Mixed hyperlipidemia 4. Essential hypertension He has little constipated on exercise weight loss even get blood pressure down low bit more will check free testosterone level today regarding his diminished libido will continue Cialis for erectile dysfunction Wellbutrin for anxiety see me in 6 months for physical colon next week for lab tests documented in this encounter Plan of Treatment Not on file documented as of this encounter Procedures Procedure Name Priority Date/Time Associated Diagnosis Comments PSA SCREENING Routine 10/08/2016 COLONOSCOPY Routine 10/19/2013 documented in this encounter Results * PSA SCREENING (10/08/2016) PSA Normal Comment:0.20 Historical Provider HEALTH MAINTENANCE Final Result * COLONOSCOPY (10/19/2013) Colonoscopy Abnormal Comment:Polyp. FU in 5 years pending path report Historical Provider HEALTH MAINTENANCE Final Result documented in this encounter Visit Diagnoses Diagnosis Diminished libido- Primary Decreased libido BMI 34.0-34.9,adult Mixed hyperlipidemia Essential hypertension Unspecified essential hypertension documented in this encounter Discontinued Medications Medication Sig Discontinue Reason Start Date End Da te amLODIPine (NORVASC) 5 mg tablet take 1 tablet (5MG) by oral route every morning 12/21/2010 04/24/2017 buPROPion XL (WELLBUTRIN XL) 300 mg 24 hr tablet take 1 tablet by oral route every day 10/04/2013 04/24/2017 fluticasone (FLONASE) 50 mcg/actuation nasal spray Two sprays in each nostil one time per day 04/12/2009 04/24/2017 fluticasone (FLONASE) 50 mcg/actuation nasal spray INHALE 2 SPRAYS IN EACH NOSTRIL ONCE DAILY 10/19/2015 04/24/2017 triamcinolone (KENALOG) 0.5 % cream apply by topical route 2 times every day a thin layer to the affected area(s) 10/01/2012 04/24/2017 sertraline (ZOLOFT) 100 mg tablet take 1 tablet (100MG) by oral route every day 10/01/2012 04/24/2017 documented as of this encounter Care Teams Upper Inspector Relationship Specialty Start Date End Date Alessandro Velsaco MD PCP - General 11/08/16 01/08/22 documented as of this encounter
--- OUTSIDE RECORDS SUMMARY | 2024-08-21 22:32 | XMS_ITS | Encounter Summary ---
Author Organization [facility] Address [address] [place] [address] Care Team Providers Care Senior Research Project Manager Name Role Phone Amandeep Colmenares MD Primary Care Provider [phone] Reason for Visit * Reason Onset Date Comments Medication Refill 07/27/2023 Encounter Details Date Type Department Care Team (Late Contact Info) Description 07/27/2023 Refill [facility] [address] [place] [address] [address] [place] [address] Consuelo Quinones, [facility] [address] [place] [address] Social History Tobacco Use Types Packs/Day Years Used Date Smoking Tobacco: Never Passive Smoke Exposure: Never Smokeless Tobacco: Never Alcohol Use Standard Drinks/Week Comments Not Currently 1 (1 standard drink = 0.6 oz pure alcohol) Do not drink very often at all. Sex and Gender Information Value Date Recorded Sex Assigned at Male 05/03/2024 8:10 PM CDT Gender Identity Male 05/03/2024 8:10 PM CDT Sexual Orientation Straight 05/03/2024 8: 10 PM CDT documented as of this encounter Plan of Treatment Upcoming Encounters Date Type Department Care Team (Late st Contact Info) Description 09/27/2024 3:45 PM HOME INSURANCE AGENT Office Visit [facility] At [place] [address] [facility] [address] [place] [address] Porfirio Gregory MD [address] [facility] [address] [place] [address] 01/17/2025 4:00 PM CDT Office Visit [facility] [address] [place] [address] Amandeep Colmenares MD [address] [place] [address] [address] [place] [address] documented as of this encounter Visit Diagnoses Not on filedocumented in this encounter Care Teams Senior Research Project Manager Relationship Specialty Start Date End Date Amandeep Colmenares MD [address] [place] [address] [place] [address] PCP - General Internal Medicine 04/08/22 documented as of this encounter
--- OUTSIDE RECORDS SUMMARY | 2024-08-21 22:32 | XMS_ITS | Encounter Summary ---
Author Organization [facility] Address [address] [place] [address] Care Team Providers Care Small Appliance Assembly Supervisor Name Role Phone Amandeep Colmenares MD Primary Care Provider Reason for Visit * Reason Onset Date Comments Medication Refill 04/03/2024 Encounter Details Date Type Department Care Team (Late Contact Info) Description 04/03/2024 Refill [facility] Care [address] [place] [address] Amandeep Colmenares MD [address] [place] [address] [address] [place] [address] Other specified anxiety disorders Social History Tobacco Use Types Packs/Day Years [...] Encounters Date Type Department Care Team (Late Contact Info) Description 09/27/2024 3:45 PM CIGARETTE PACKING MACHINE OPERATOR Office Visit [facility] At [place] [address] [facility] [address] [place] [address] Porfirio Gregory MD [address] [facility] [address] [place] [address] 01/17/2025 4:00 PM CDT Office Visit [facility] Care [address] [place] [address] Amandeep Colmenares MD [address] [place] [address] [address] [place] [address] documented as of this encounter Visit Diagnoses Diagnosis Other specified anxiety disorders documented in this encounter Care Teams Small Appliance Assembly Supervisor Relationship Specialty Start Date End Date Amandeep Colmenares MD [address] [place] [address] [address] [place] [phone] PCP - General Internal Medicine 04/08/22 documented as of this encounter
--- OUTSIDE RECORDS SUMMARY | 2024-08-21 22:32 | XMS_ITS | Encounter Summary ---
Author Organization [facility] Address [address] [place] [address] Care Team Providers Care Shirt Bander Name Role Phone Amandeep Colmenares MD Primary Care Provider Reason for Referral * Eval and Treat (Routine) - Closed Specialty Diagnoses / Procedures Referred By Luca starks Referred To Contact Diagnoses Other sleep apnea Amandeep Colmenares MD [address] [place] [phone] Referral ID Status Reason Start Date Expiration Date Visits Re quested Visits Authorized [id number] Closed 07/15/2022 07/15/2023 1 1 CCO SAMPLE PULLER * Eval and Treat (Routine) - Closed Specialty Diagnoses / Procedures Referred By Luca starks Referred To Contact Surgery / General Surgery Diagnoses Hemorrhoids, unspecified hemorrhoid type Amandeep Colmenares MD [address] [place] [phone] Sana Silva MD [address] [place] [address] [place] [phone] Referral ID Status Reason Start Date Expiration Date Visits Re quested Visits Authorized [id number] Closed 07/15/2022 07/15/2023 1 1 CCO SAMPLE PULLER Reason for Visit * Reason Comments Hypertension Encounter Details Date Type Department Care Team (Late st Contact Info) Description 07/15/2022 3:40 PM TOBACCO SAMPLE PULLER [facility] [address] [place] [address] [address] [place] [address] Amandeep Colmenares MD [address] [facility] [address] [place] [address] Hemorrhoids, unspecified hemorrhoid type (Primary Dx); Essential hypertension, benign; Erectile dysfunction, unspecified erectile dysfunction type; Other sleep apnea; Dilated aortic root; Eczema, unspecified type Social History Tobacco Use Types Packs/Day Years Used Date Smoking Tobacco: Never Smokeless Tobacco: Never Tobacco Cessation:Counseling Given: Not Answered Alcohol Use Standard Drinks/Week Comments Not Currently 1 (1 standard drink = 0.6 oz pure alcohol) Do not drink very often at all. Sex and Gender Information Value Date Recorded Sex Assigned at Male 05/03/2024 8:10 PM CDT Gender Identity Male 05/03/2024 8:10 PM CDT Sexual Orientation Straight 05/03/2024 8: 10 PM CDT COVID-19 Exposure Response Date Recorded In the last 10 days, have yo u been in contact with someone who was confirmed or suspected to have Coronavirus/COVID-19? No / Unsure 07/15/2022 3:47 PM TOBACCO SAMPLE PULLER documented as of this encounter Last Filed Vital Signs Vital Sign Reading Time Taken Comments Blood Pressure 134/84 07/15/2022 3:51 PM TOBACCO SAMPLE PULLER Pulse 79 07/15/2022 3:51 PM TOBACCO SAMPLE PULLER Temperature 37.1 ??C (98.7 ??F) 07/15/2022 3:51 PM CS T Respiratory Rate - - Oxygen Saturation 97% 07/15/2022 3:51 PM TOBACCO SAMPLE PULLER Inhaled Oxygen Concentration - - Weight 97.1 kg (214 lb) 07/15/2022 3:51 PM TOBACCO SAMPLE PULLER Height 163.8 cm (5' 4.5 ) 07/15/2022 3:51 PM TOBACCO SAMPLE PULLER Body Mass Index 36.17 07/15/2022 3:51 PM TOBACCO SAMPLE PULLER documented in this encounter Progress Notes * Amandeep Colmenares MD - 07/15/2022 3:59 PM CST Subjective: Minh Wise is a 52 y.o. male. Hpi Bp ok Still edema Ed better with daily cialis Rash on hands--using gloves at work On cpap Med reviewed Last lab reviewed Hx anemia--freq bleeding hemorrhoids Patient Active Problem List Diagnosis Date Noted Eczema 07/15/2022 Dilated aortic root 06/29/2022 Overview Note: Echo 11 22 Essential hypertension, benign 04/08/2022 Generalized edema 04/08/2022 Other sleep apnea 04/08/2022 Other specified anxiety disorders 04/08/2022 Erectile dysfunction 04/08/2022 Exam/Objective: BP 134/84 Pulse 79 Temp 98.7 ??F (37.1 ??C) Ht 5' 4.5 (1.638 m) Wt 97.1 kg (214 lb) UeV654% BMI 36.17 kg/m?? General appearance: over wt nad Head: Normocephalic, without obvious abnormality, atraumatic Eyes: conjunctivae/corneas clear. PERRLA, EOM's intact. Lids appear normal. Ears: normal TM's (shiny without retraction) and external ear canals AU. No apparent lesions or masses. Hearing grossly normal. Nose: mask Throatmask Neck: supple, symmetrical, trachea midline, no lymphadenopathy, and thyroid: not enlarged, symmetric, no tenderness/mass/nodules. Lungs: breath sounds equal, clear to auscultation bilaterally, no retractions, no stridor, normal respiratory effort Heart: regular rate and rhythm, S1, S2 normal, no murmur, click, rub, gallop, or abnormal sounds. Abdomen: soft, non-tender. Bowel sounds normal. No masses, no organomegaly. Active bowel sounds. Skin eczematous changes hands Lymphatics: No focal or generalized lymphadenopathy. Neck Ext 1-2 +edema Mood stable Assessment and Plan: ASSESSMENT: ICD-10-CM ICD-9-CM 1. Hemorrhoids, unspecified hemorrhoid type K64.9 455.6 AMB REFERRAL TO GENERAL SURGERY CBC WITH DIFFERENTIAL CBC WITH DIFFERENTIAL 2. Essential hypertension, benign I10 401.1 COMPREHENSIVE METABOLIC PANEL LIPID PANEL TSH TSH LIPID PANEL COMPREHENSIVE METABOLIC PANEL 3. Erectile dysfunction, unspecified erectile dysfunction type N52.9 607.84 TESTOSTERONE FREE AND TOTAL TESTOSTERONE FREE AND TOTAL 4. Other sleep apnea G47.39 327.29 AMB REFERRAL TO SLEEP STUDIES 5. Dilated aortic root I77.810 447.71 6. Eczema, unspecified type L30.9 692.9 Sleep apnea refer repeat study Bp Edema Dc amlodipine Start Bystolic Send readings Dilated aortic root--monitor add beta yumiko Hemorrhoids refer Ed cont med better Check T level Anxiety , doing ok with just WEllbutrin Eczema ok cream see about alt soap, gloves at work PLAN: Orders Placed This Encounter CBC WITH DIFFERENTIAL (Favorites) COMPREHENSIVE METABOLIC PANEL (Favorites) LIPID PANEL (Favorites) TSH (Favorites) TESTOSTERONE FREE AND TOTAL (Chemistry) *Sana Silva MD (Colorectal) Generic Referral to Sleep Medicine triamcinolone acetonide (KENALOG) 0.1 % Cream nebivoloL (BYSTOLIC) 5 mg Tablet Appropriate medications prescribed Appropriate patient instructions provided Follow-up as I have indicated. Medications and options explained to include common side effects. Understanding of medications, course, diagnosis, and expectations were expressed by patient/guardian. CCO SAMPLE PULLER documented in this encounter Plan of Treatment Upcoming Encounters Date Type Department Care Team (Late st Contact Info) Description 09/27/2024 3:45 PM TOBACCO SAMPLE PULLER [facility] Visit [facility] At [place] [address] [facility] [address] [place] [address] Porfirio Gregory MD [facility] [address] [facility] [address] [place] [address] 01/17/2025 4:00 PM CDT [facility] [place] [address] [place] [address] Amandepe Colmenares MD [address] [place] [address] [address] [place] [address] Scheduled Orders Name Type Priority Associated Diagnoses Orde r Schedule CBC WITH DIFFERENTIAL Lab Routine Hemorrhoids, unspecified hemorrhoid type Expected: 01/06/2023 (Approximate), Expires: 07/15/2023 COMPREHENSIVE METABOLIC PANEL Lab Routine Essential hypertension, benign Expected: 01/06/2023 (Approximate), Expires: 07/15/2023 LIPID PANEL Lab Routine Essential hypertension, benign Expected: 01/06/2023 (Approximate), Expires: 07/15/2023 TSH Lab Routine Essential hypertension, benign Expected: 01/06/2023 (Approximate), Expires: 07/15/2023 TESTOSTERONE FREE AND TOTAL Lab Routine Erectile dysfunction, unspecified erectile dysfunction type Expected: 01/06/2023 (Approximate), Expires: 07/15/2023 Scheduled Referrals Name Type Priority Associated Diagnoses Orde r Schedule AMB REFERRAL TO GENERAL SURGERY Outpatient Referral Routine Hemorrhoids, unspecified hemorrhoid type Ordered: 07/15/2022 AMB REFERRAL TO SLEEP STUDIES Outpatient Referral Routine Other sleep apnea Ordered: 07/15/2022 documented as of this encounter Visit Diagnoses Diagnosis Hemorrhoids, unspecified hemorrhoid type- Primary Essential hypertension, benign Erectile dysfunction, unspecified erectile dysfunction type Other sleep apnea Dilated aortic root Aortic ectasia, unspecified site Eczema, unspecified type documented in this encounter Care Teams Shirt Bander Relationship Specialty Start Date End Date Amandeep Colmenares MD [address] [place] [address] PCP - General Internal Medicine 04/08/22 documented as of this encounter
--- OUTSIDE RECORDS SUMMARY | 2024-08-21 22:32 | XMS_ITS | Encounter Summary ---
Author Organization [facility] Address [address] [place] [address] Care Team Providers Care Forensic Economist Name Role Phone Amandeep Colmenares MD Primary Care Provider Reason for Visit * Reason Comments Med Refill Encounter Details Date Type Department Care Team (Late st Contact Info) Description 01/19/2023 Refill [facility] Primary Care [address] [place] [address] Amandeep Colmenares MD [address] [place] [address] [address] [place] [address] Other specified anxiety disorders Social [...] st Contact Info) Description 09/27/2024 3:45 PM DESKTOP SPECIALIST Office Visit [facility] At [address] [place] [address] Porfirio Gregory MD [address] [place] [address] [address] [place] [address] 01/17/2025 4:00 PM CDT Office Visit [facility] Care [address] [place] [address] Amandeep Colmenares MD [address] [place] [address] [address] [place] [address] documented as of this encounter Visit Diagnoses Diagnosis Other specified anxiety disorders documented in this encounter Care Teams Forensic Economist Relationship Specialty Start Date End Date Amandeep Colmenares MD [address] [place] [address] [place] [address] PCP - General Internal Medicine 04/08/22 documented as of this encounter
--- OUTSIDE RECORDS SUMMARY | 2024-08-21 22:32 | XMS_ITS | Encounter Summary ---
Author Organization [facility] Address [address] [place] [address] Care Team Providers Care Human Factors Engineer Name Role Phone Amandeep Colmenares MD Primary Care Provider [phone] Reason for Visit * Reason Comments Med Refill Encounter Details Date Type Department Care Team (Late st Contact Info) Description 07/28/2023 Refill [facility] [place] [facility] [address] [place] [address] Stacie Consueloanya Mcnair, [facility] [address] [place] [address] Social History Tobacco Use Types [...] encounter Miscellaneous Notes * Telephone Encounter - Debbi Borja LPN - 07/28/2023 2:15 PM RESTAURANT MANAGEMENT INTERNSHIP TANNER: 07/24/2023 NOV: 01/22/2024 AURANT MANAGEMENT INTERNSHIP documented in this encounter Plan of Treatment Upcoming Encounters Date Type Department Care Team (Late st Contact Info) Description 09/27/2024 3:45 PM RESTAURANT MANAGEMENT INTERNSHIP Office Visit [facility] [place] [facility] At [facility] [address] [facility] [address] [place] [address] Porfirio Gregory MD [address] [facility] [address] [place] [address] 01/17/2025 4:00 PM CDT Office Visit [facility] [place] [facility] [address] [place] [phone] Amandeep Colmenares MD [address] [place] [address] [address] [place] [address] documented as of this encounter Visit Diagnoses Not on filedocumented in this encounter Care Teams Human Factors Engineer Relationship Specialty Start Date End Date Amandeep Colmenares MD [address] [place] [address] [address] [place] [address] PCP - General Internal Medicine 04/08/22 documented as of this encounter
--- OUTSIDE RECORDS SUMMARY | 2024-08-21 22:32 | XMS_ITS | Encounter Summary ---
Author Organization [facility] Address [address] [facility] [place] [address] Care Team Providers Care Paradichlorobenzene Tender Name Role Phone Amandeep Colmenares MD Primary Care Provider Reason for Visit * Radiology Services (Routine) - Closed Specialty Diagnoses / Procedures Referred By Contac t Referred To Contact Radiology Diagnoses Local edema Procedures US VENOUS DOPPLER LEG LEFT Amandeep Colmenares MD [address] [place] [address] [address] [place] [address] Stlo Diag Cardio Svcs Celeste Monson [address] [facility] [address] [place] [address] Referral ID Status Reason Start Date Expiration Date Visits Re quested Visits Authorized [id number] Closed 01/20/2023 02/20/2024 1 1 Encounter Details Date Type Department Care Team (Late st Contact Info) Description 12/26/2023 8:00 AM CDT Ancillary Procedure [facility] [address] [place] [address] Amandeep Colmenares MD [address] [place] [address] [address] [place] [address] Local edema Social History Tobacco Use Types Packs/Day Years [...] st Contact Info) Description 09/27/2024 3:45 PM EMAIL DESIGNER [facility] Visit [facility] [address] [facility] [address] [place] [address] Porfirio Gregory MD [address] [facility] [address] [place] [address] 01/17/2025 4:00 PM CDT [facility] Visit [facility] [address] [place] [address] Amandeep Colmenares MD [address] [place] [address] [address] [place] [address] documented as of this encounter Procedures Procedure Name Priority Date/Time Associated Diagnosis Comments US VENOUS DOPPLER LEG LEFT Routine 12/26/2023 8:22 AM CDT Local edema documented in this encounter Results * US VENOUS DOPPLER LEG LEFT (12/26/2023 8:22 AM CDT) Anatomical Region Laterality Modality Lower Extremity Ultrasound 12/26/2023 8:22 AM CDT Impressions 12/26/2023 8:26 AM CDT IMPRESSION: ?? 1. No evidence of deep vein thrombosis in the left lower extremity. Narrative 12/26/2023 8:26 AM CDT EXAM: US VENOUS DOPPLER LEG LEFT DATE: 12/26/2023 HISTORY: Local edema COMPARISON: None. FINDINGS: The veins of the left lower extremity were examined with ultrasound at the level of the common femoral, deep femoral, superficial femoral, popliteal, posterior tibial veins. The veins are patent with normal compressibility seen. Procedure Note Steve Burnett MD - 12/26/2023 EXAM: US VENOUS DOPPLER LEG LEFT DATE: 12/26/2023 HISTORY: Local edema COMPARISON: None. FINDINGS: The veins of the left lower extremity were examined with ultrasound at the level of the common femoral, deep femoral, superficial femoral, popliteal, posterior tibial veins. The veins are patent with normal compressibility seen. IMPRESSION: 1. No evidence of deep vein thrombosis in the left lower extremity. Amandeep Colmenares MD US ORDERABLES documented in this encounter Visit Diagnoses Diagnosis Local edema Edema documented in this encounter Care Teams Paradichlorobenzene Tender Relationship Specialty Start Date End Date Amandeep Colmenares MD [address] [place] [address] PCP - General Internal Medicine 04/08/22 documented as of this encounter
--- OUTSIDE RECORDS SUMMARY | 2024-08-21 22:32 | XMS_ITS | Encounter Summary ---
Author Organization [facility] Address [address] [place] [address] Care Team Providers Care Wood Cabinet Finisher Name Role Phone Amandeep Colmenares MD Primary Care Provider Reason for Visit * Reason Onset Date Comments Medication Refill 09/27/2023 Encounter Details Date Type Department Care Team (Late Contact Info) Description 09/27/[address] [facility] Primary Care [address] [place] [address] Amandeep Colmenares MD [address] [place] [address] [address] [place] [address] Other specified anxiety disorders Social [...] (Late Contact Info) Description 09/27/2024 3:45 PM MANAGER CONTROL Office Visit [facility] Heart and Vascular At [place] [address] [facility] [address] [place] [address] Porfirio Gregory MD [address] [facility] [address] [place] [address] 01/17/2025 4:00 PM CDT Office Visit [facility] Primary Care [address] [place] [address] Amandeep Colmenares MD [address] [place] [address] [address] [place] [address] documented as of this encounter Visit Diagnoses Diagnosis Other specified anxiety disorders documented in this encounter Care Teams Wood Cabinet Finisher Relationship Specialty Start Date End Date Amandeep Colmenares MD [address] [place] [address] [address] [place] [phone] PCP - General Internal Medicine 04/08/22 documented as of this encounter
--- OUTSIDE RECORDS SUMMARY | 2024-08-21 22:32 | XMS_ITS | Encounter Summary ---
Author Organization [facility] Address [address] [place] [address] Care Team Providers Care Cake Tester Name Role Phone Amandeep Colmenares MD Primary Care Provider [phone] Reason for Referral * Eval and Treat (Routine) - Closed Specialty Diagnoses / Procedures Referred By Luca t Referred To Contact Intermediate Care Facility / Cardiology Diagnoses Left ventricular dilation Procedures CA OFFICE/OUTPATIENT ESTABLISHED MOD MDM 30 MIN CA OFFICE/OUTPATIENT NEW MODERATE MDM 45 MINUTES Amandeep Colmenares MD [address] [place] [address] [address] [place] [address] [facility] [address] [facility] [address] [place] [address] Referral ID Status Reason Start Date Expiration Date Visits Re quested Visits Authorized [id number] Closed 01/22/2024 01/21/2025 1 1 * Eval and Treat (Routine) - Open Specialty Diagnoses / Procedures Referred By Contestela t Referred To Contact Pulmonology Diagnoses Other sleep apnea Procedures CA OFFICE/OUTPATIENT ESTABLISHED MOD MDM 30 MIN CA OFFICE/OUTPATIENT NEW MODERATE MDM 45 MINUTES Amandeep Colmenares MD [address] [place] [address] [address] [place] [address] [facility] [address] [facility] [address] [address] [facility] [address] [place] [address] Referral ID Status Reason Start Date Expiration Date Visits Re quested Visits Authorized [id number] Open 01/22/2024 01/21/2025 1 1 Reason for Visit * Reason Comments 6m Encounter Details Date Type Department Care Team (Late st Contact Info) Description 01/22/2024 4:00 PM CDT Office Visit [facility] [address] [place] [address] [address] [place] [address] Amandeep Colmenares MD [address] [place] [address] [address] [place] [address] Other sleep apnea (Primary Dx); Left ventricular dilation; Dilated aortic root; Essential hypertension, benign; Abnormal glucose; Other specified anxiety disorders; Need for vaccination for Strep pneumoniae; Screening PSA (prostate specific antigen) Social History Tobacco Use Types Packs/Day Years Used Date Smoking Tobacco: Never Passive Smoke Exposure: Never Smokeless Tobacco: Never Tobacco Cessation:Counseling Given: No Alcohol Use Standard Drinks/Week Comments Not Currently [...] Sign Reading Time Taken Comments Blood Pressure 135/85 01/22/2024 3:55 PM CDT Pulse 65 01/22/2024 3:55 PM CDT Temperature - - Respiratory Rate - - Oxygen Saturation - - Inhaled Oxygen Concentration - - Weight 93 kg (205 lb) 01/22/2024 3:55 PM CDT Height 163.8 cm (5' 4.5 ) 01/22/2024 3:55 PM CDT Body Mass Index 34.64 01/22/2024 3:55 PM CDT documented in this encounter Progress Notes * Amandeep Colmenares MD - 01/22/2024 3:57 PM CDT Answers submitted by the patient for this visit: High Blood Pressure Questionnaire (Submitted on 01/15/2024) Chief Complaint: Hypertension anxiety: No blurred vision: No chest pain: No headaches: No malaise/fatigue: No neck pain: No orthopnea: No palpitations: No peripheral edema: Yes PND: No shortness of breath: No sweats: No Compliance problems: diet, exercise Bp ok Lab stable Echo dlated atrium left ventricle Dilated aortic root same Med reviewed Hm reviewed Patient Active Problem List Diagnosis Code Essential hypertension, benign I10 Generalized edema R60.1 Other sleep apnea G47.39 Other specified anxiety disorders F41.8 Erectile dysfunction N52.9 Dilated aortic root I77.810 Eczema L30.9 exam BP 135/85 Pulse 65 Ht 5' 4.5 (1.638 m) Wt 93 kg (205 lb) BMI 34.64 kg/m?? General appearance: over wt nad Head: Normocephalic, without obvious abnormality, atraumatic Eyes: conjunctivae/corneas clear. PERRLA, EOM's intact. Lids appear normal. Ears: normal TM's (shiny without retraction) and external ear canals AU. No apparent lesions or masses. Hearing grossly normal. Neck: supple, symmetrical, trachea midline, no lymphadenopathy, and thyroid: not enlarged, symmetric, no tenderness/mass/nodules. Lungs: breath sounds equal, clear to auscultation bilaterally, no retractions, no stridor, normal respiratory effort Heart: regular rate and rhythm Abdomen: soft, non-tender. Skin: Skin color, texture, turgor normal. Lymphatics: No focal or generalized lymphadenopathy. Neck Ext no edema Mood stable ASSESSMENT: Encounter Diagnoses Name Primary? Other sleep apnea Yes Left ventricular dilation Dilated aortic root Essential hypertension, benign Abnormal glucose Other specified anxiety disorders Need for vaccination for Strep pneumoniae Screening PSA (prostate specific antigen) Sleep apnea on cpap send reeval Lv dilation, lae send cardiology Bp stable cont mdd Dilated aortic root stable monitor Anxiety stable reviewed Normal BMI Range: 18 & older: > or = 18.5 and < 25 Body mass index is 34.64 kg/m??. Abnormal high BMI: Patient counseled on lifestyle modifications including weight loss and daily exercise. Health Maintenance Topic Date Due HEPATITIS B VACCINES (1 3 - 19+ 3-dose series) Never done COVID-19 Vaccine (24 season) 2023 Pre-Diabetes and Diabetes Screening 01/15/2027 DTAP/TDAP/TD VACCINES (4 - Td or Tdap) 01/17/2030 Colorectal Cancer Screening 11/25/2031 ZOSTER VACCINE Completed INFLUENZA VACCINE Completed Preventative Visit- Commercial Completed PNEUMOCOCCAL VACCINE 0-64 YEARS Aged Out Prevnar PLAN: Orders Placed This Encounter (PREVNAR 20)(6 WKS UP) PNEUMOCOCCAL CONJUGATE VACCINE 20-VALENT (PCV20), POLYSACCHARIDE NUX702 CONJUGATE, ADJUVANT 0.5 ML (PF) IM CBC WITH DIFFERENTIAL COMPREHENSIVE METABOLIC PANEL LIPID PANEL TSH HEMOGLOBIN A1C PSA (Chemistry) *[facility] *[facility] documented in this encounter Plan of Treatment Upcoming Encounters Date Type Department Care Team (Late st Contact Info) Description 09/27/2024 3:45 PM WEB CONTENT EDITOR Office Visit [facility] At [facility] [address] [facility] [address] [place] [address] Porfirio Gregory MD [address] [place] [address] [address] [place] [address] 01/17/2025 4:00 PM CDT Office Visit [facility] Primary Care [place] [address] [place] [phone] Amandeep Colmenares MD [address] [place] [address] [address] [place] [address] Scheduled Referrals Name Type Priority Associated Diagnoses Orde r Schedule AMB REFERRAL TO PULMONARY Outpatient Referral Routine Other sleep apnea Ordered: 01/22/2024 AMB REFERRAL TO CARDIOLOGY Outpatient Referral Routine Left ventricular dilation Ordered: 01/22/2024 documented as of this encounter Procedures Procedure Name Priority Date/Time Associated Diagnosis Comments CBC WITH DIFFERENTIAL Routine 07/16/2024 8:41 AM WEB CONTENT EDITOR Essential hypertension, benign TSH Routine 07/16/2024 8:41 AM WEB CONTENT EDITOR Essential hypertension, benign PSA Routine 07/16/2024 8:41 AM WEB CONTENT EDITOR Screening PSA (prostate specific antigen) HEMOGLOBIN A1C Routine 07/16/2024 8:41 AM WEB CONTENT EDITOR Abnormal glucose LIPID PANEL Routine 07/16/2024 8:41 AM WEB CONTENT EDITOR Essential hypertension, benign COMPREHENSIVE METABOLIC PANEL Routine 07/16/2024 8:41 AM WEB CONTENT EDITOR Essential hypertension, benign documented in this encounter Results * PSA (07/16/2024 8:41 AM WEB CONTENT EDITOR) PSA 0.47 < OR = 4.00 ng/mL [facility] Comment: The total PSA value from this assay system is standardized against the WHO standard. The test result will be approximately 20% lower when compared to the equimolar-standardized total PSA (Susi Bevington). Comparison of serial PSA results should be interpreted with this fact in mind. This test was performed using the Siemens chemiluminescent method. Values obtained from different assay methods cannot be used interchangeably. PSA levels, regardless of value, should not be interpreted as absolute evidence of the presence or absence of disease. Test Performed at: [facility] [address] [place], [place] ??[phone] Alicia Singer MD Blood 07/16/2024 8:41 AM WEB CONTENT EDITOR 07/16/2024 8:41 AM WEB CONTENT EDITOR Amandeep Colmenares MD CHEMISTRY ORDERABLES [facility] [phone] [facility] [address] [place] [address] * HEMOGLOBIN A1C (07/16/2024 8:41 AM WEB CONTENT EDITOR) HEMOGLOBIN A1C 5.2 <5.7 % of total Hgb [facility] Comment: For the purpose of screening for the presence of diabetes: <5.7% ? Consistent with the absence of diabetes 5.7-6.4% ?Consistent with increased risk for diabetes ?(prediabetes) > or =6.5% ??Consistent with diabetes This assay result is consistent with a decreased risk of diabetes. Currently, no consensus exists regarding use of hemoglobin A1c for diagnosis of diabetes in children. According to [place] Diabetes Association (ADA) guidelines, hemoglobin A1c <7.0% represents optimal control in non- diabetic patients. Different metrics may apply to specific patient populations. Standards of Medical Care in Diabetes(ADA). ?? ESTIMATED AVERAGE GLUCOSE (MG/DL) 103 mg/dL [facility] ESTIMATED AVERAGE GLUCOSE (MMOL/L) 5.7 mmol/L [facility] Comment: Test Performed at: [facility] [address] [place], [place] ??[address] Alicia Singer Blood 07/16/2024 8:41 AM WEB CONTENT EDITOR 07/16/2024 8:41 AM WEB CONTENT EDITOR Amandeep Colmenares MD CHEMISTRY ORDERABLES Performing Organization Address City/State[place]ZIP [facility] Phone Number [facility] [phone] [facility] [place] [address] [place] [address] * TSH (07/16/2024 8:41 AM WEB CONTENT EDITOR) TSH 2.42 0.40 - 4.50 mIU/L [facility] Comment: Test Performed at: [facility] [address] [place], [place] ??[address] Alicia Singer MD Blood 07/16/2024 8:41 AM WEB CONTENT EDITOR 07/16/2024 8:41 AM WEB CONTENT EDITOR Amandeep Colmenares MD CHEMISTRY ORDERABLES [facility] [phone] [facility] [address] [place] [address] * (ABNORMAL) LIPID PANEL (07/16/2024 8:41 AM WEB CONTENT EDITOR) CHOLESTEROL 184 <200 mg/dL [facility] HDL 45 > OR = 40 mg/dL [facility] TRIGLYCERIDE 84 <150 mg/dL [facility] LDL CALCULATED 121(H) mg/dL (calc) [facility] Comment: Reference range: <100 Desirable range <100 mg/dL for primary prevention; ?? <70 mg/dL for patients with CHD or diabetic patients with > or = 2 CHD risk factors. LDL-C is now calculated using the Steve-Waite calculation, which is a validated novel method providing better accuracy than the Friedewald equation in the estimation of LDL-C. Steve SS et al. JENNY. 2013;310(22): 1945-4868 (http://education.EcoDirect/faq/CHT242) CHOL/HDL RATIO 4.1 <5.0 (calc) [facility] NON-HDL CHOLESTEROL 139(H) <130 mg/dL (calc) [facility] Comment: For patients with diabetes plus 1 major ASCVD risk factor, treating to a non-HDL-C goal of <100 mg/dL (LDL-C of <70 mg/dL) is considered a therapeutic option. Test Performed at: [facility] [address] [place], [place] ??[phone] Alicia Singer MD Blood 07/16/2024 8:41 AM WEB CONTENT EDITOR 07/16/2024 8:41 AM WEB CONTENT EDITOR Amandeep Colmenares MD CHEMISTRY ORDERABLES [facility] [phone] [facility] [address] [place] [address] * (ABNORMAL) COMPREHENSIVE METABOLIC PANEL (07/16/2024 8:41 AM WEB CONTENT EDITOR) Pathologist [facility] GLUCOSE 111(H) 65 - 99 mg/dL [facility] Comment: ? Fasting reference interval For someone without known diabetes, a glucose value between 100 and 125 mg/dL is consistent with prediabetes and should be confirmed with a follow-up test. BUN 19 7 - 25 mg/dL [facility] CREATININE 1.24 0.70 - 1.30 mg/dL [facility] GFR 69 > OR = 60 mL/min/1. 73m2 [facility] BUN/CREAT RATIO SEE NOTE: 6 - 22 (calc) [facility] Comment: ?? Not Reported: BUN and Creatinine are within ?? reference range. ? SODIUM 139 135 - 146 mmol/L [facility] POTASSIUM 4.0 3.5 - 5.3 mmol/L [facility] CHLORIDE 103 98 - 110 mmol/L [facility] CO2 29 20 - 32 mmol/L [facility] CALCIUM 9.2 8.6 - 10.3 mg/dL [facility] TOTAL PROTEIN 6.6 6.1 - 8.1 g/dL [facility] ALBUMIN 4.2 3.6 - 5.1 g/dL [facility] GLOBULIN 2.4 1.9 - 3.7 g/dL (calc) [facility] ALBUMIN/GLOBULIN RATIO 1.8 1.0 - 2.5 (calc) [facility] BILIRUBIN TOTAL 0.5 0.2 - 1.2 mg/dL [facility] ALKALINE PHOSPHATASE 49 35 - 144 U/L [facility] AST 19 10 - 35 U/L [facility] ALT 28 9 - 46 U/L [facility] Comment: Test Performed at: [facility] [address] [place] ??[phone] Alicia Singer MD Blood 07/16/2024 8:41 AM WEB CONTENT EDITOR 07/16/2024 8:41 AM WEB CONTENT EDITOR Amandeep Colmenares MD CHEMISTRY ORDERABLES [facility] [phone] [facility] [address] [address] [place] [address] * CBC WITH DIFFERENTIAL (07/16/2024 8:41 AM WEB CONTENT EDITOR) WBC 5.8 3.8 - 10.8 Thousand/u L [facility] RBC 4.54 4.20 - 5.80 Million/uL [facility] HEMOGLOBIN 13.2 13.2 - 17.1 g/dL [facility] HEMATOCRIT 40.3 38.5 - 50.0 % [facility] MCV 88.8 80.0 - 100.0 fL [facility] MCH 29.1 27.0 - 33.0 pg [facility] MCHC 32.8 32.0 - 36.0 g/dL [facility] Comment: For adults, a slight decrease in the calculated MCHC value (in the range of 30 to 32 g/dL) is most likely not clinically significant; however, it should be interpreted with caution in correlation with other red cell parameters and the patient's clinical condition. RDW 13.1 11.0 - 15.0 % [facility] PLATELETS 219 140 - 400 Thousand/u L [facility] MPV 12.1 7.5 - 12.5 fL [facility] NEUTROPHIL ABSOLUTE 3,677 1,500 - 7,800 cells/uL [facility] LYMPHOCYTE ABSOLUTE 1,085 850 - 3,900 cells/uL [facility] MONOCYTE ABSOLUTE 696 200 - 950 cells/uL [facility] EOSINOPHIL ABSOLUTE 302 15 - 500 cells/uL [facility] BASOPHILS ABSOLUTE 41 0 - 200 cells/uL [facility] NEUTROPHIL 63.4 % [facility] LYMPHOCYTES 18.7 % [facility] MONOCYTE 12.0 % [facility] EOSINOPHILS 5.2 % [facility] BASOPHILS 0.7 % [facility] Comment: Test Performed at: [facility] [address] [place] ??[address] Alicia Singer MD Blood 07/16/2024 8:41 AM WEB CONTENT EDITOR 07/16/2024 8:41 AM WEB CONTENT EDITOR Amandeep Colmenares MD HEMATOLOGY ORDERABLE S [facility] [phone] [facility] [address] [place] [address] documented in this encounter Visit Diagnoses Diagnosis Other sleep apnea- Primary Left ventricular dilation Cardiomegaly Dilated aortic root Aortic ectasia, unspecified site Essential hypertension, benign Abnormal glucose Other abnormal glucose Other specified anxiety disorders Need for vaccination for Strep pneumoniae Need for prophylactic vaccination against streptococcus pneumoniae (pneumococcus) Screening PSA (prostate specific antigen) Special screening for malignant neoplasm of prostate documented in this encounter Care Teams Cake Tester Relationship Specialty Start Date End Date Amandeep Colmenares MD [address] [place] [address] PCP - General Internal Medicine 04/08/22 documented as of this encounter
--- OUTSIDE RECORDS SUMMARY | 2024-08-21 22:32 | XMS_ITS | Encounter Summary ---
Author Organization [facility] Address [address] [place] [address] Care Team Providers Care Pay Agent Name Role Phone Amandeep Colmenares MD Primary Care Provider [phone] Reason for Visit * Reason Comments Med Refill Encounter Details Date Type Department Care Team (Late st Contact Info) Description 07/03/2024 Refill [facility] Primary Care [address] [place] [phone] Amandeep Colmenares MD [address] [place] [address] [address] [place] [address] Social History Tobacco Use Types Packs/Day Years [...] 8:10 PM CDT Sexual Orientation Straight 05/03/2024 8 :10 PM CDT documented as of this encounter Plan of Treatment Upcoming Encounters Date Type Department Care Team (Late st Contact Info) Description 09/27/2024 3:45 PM TEXTILE CHEMIST Office Visit [facility] Heart and Vascular At [address] [place] [address] Porfirio Gregory MD [address] [place] [address] [address] [place] [address] 01/17/2025 4:00 PM CDT Office Visit [facility] Primary Care [address] [place] [address] Amandeep Colmenares MD [address] [place] [address] [address] [place] [address] documented as of this encounter Visit Diagnoses Not on filedocumented in this encounter Care Teams Pay Agent Relationship Specialty Start Date End Date Amandeep Colmenares MD [address] [place] [address] [address] [place] [address] PCP - General Internal Medicine 04/08/22 documented as of this encounter
--- OUTSIDE RECORDS SUMMARY | 2024-08-21 22:32 | XMS_ITS | Encounter Summary ---
Author Organization [facility] Address [address] [place] [address] Care Team Providers Care Box Turner Name Role Phone Amandeep Colmenares MD Primary Care Provider Reason for Visit * Reason Comments Med Refill Encounter Details Date Type Department Care Team (Late st Contact Info) Description 09/22/2022 Refill [facility] Primary Care [address] [place] [address] Amandeep Colmenares MD [address] [place] [address] [address] [place] [address] Other specified anxiety disorders Social [...] encounter Miscellaneous Notes * Telephone Encounter - Ofe Barraza RN - 09/22/2022 1:18 PM MOBILE QA TESTER Last office visit: 07/15/22 Next office visit: 01/20/23 Last refill: 06/17/22 Quantity: 30 refill 2 Requested Prescriptions Pending Prescriptions Disp Refills clonazePAM 0.5 mg tablet (KlonoPIN) [Pharmacy Med Name: CLONAZEPAM 0.5 MG TABLET] 30 Tablet Sig: TAKE 1 TABLET BY MOUTH NIGHTLY LE QA TESTER documented in this encounter Plan of Treatment Upcoming Encounters Date Type Department Care Team (Late st Contact Info) Description 09/27/2024 3:45 PM MOBILE QA TESTER Office Visit [facility] Heart and Vascular At [address] [place] [address] Porfirio Gregory MD [address] [place] [address] [address] [place] [address] 01/17/2025 4:00 PM CDT Office Visit [facility] Primary Care [place] [phone] Amandeep Colmenares MD [address] [place], [place] [phone] documented as of this encounter Visit Diagnoses Diagnosis Other specified anxiety disorders documented in this encounter Care Teams Box Turner Relationship Specialty Start Date End Date Amandeep Colmenares MD [address] [place] [address] PCP - General Internal Medicine 04/08/22 documented as of this encounter
--- OUTSIDE RECORDS SUMMARY | 2024-08-21 22:32 | XMS_ITS | Encounter Summary ---
Author Organization [facility] Address [address] [place] [address] Care Team Providers Care Fire Support Man Name Role Phone Amandeep Clomenares MD Primary Care Provider [phone] Encounter Details Date Type Department Care Team (Late st Contact Info) Description 12/30/2023 External Device Data ST[facility] ABSTRACTION Provider, Abstract NO ADDRESS ON FILE Social History Tobacco Use Types Packs/Day Years [...] st Contact Info) Description 09/27/2024 3:45 PM FRONT DESK PERSON Office Visit [facility] Heart and Vascular At [place] [address] [facility] [address] [place] [address] Porfirio Gregory MD [facility] [address] [facility] [address] [place] [address] 01/17/2025 4:00 PM CDT Office Visit [facility] Primary Care [address] [place] [address] Amandeep Colmenares MD [address] [place] [address] [place] [address] documented as of this encounter Visit Diagnoses Not on filedocumented in this encounter Care Teams Fire Support Man Relationship Specialty Start Date End Date Amandeep Colmenares MD [address] [place] [address] [place] [address] PCP - General Internal Medicine 04/08/22 documented as of this encounter
--- OUTSIDE RECORDS SUMMARY | 2024-08-21 22:32 | XMS_ITS | Encounter Summary ---
Author Organization [facility] Address [address] [place] [address] Care Team Providers Care Motor Home Electrical Foreman Name Role Phone Amandeep Colmenares MD Primary Care Provider [phone] Reason for Visit * Reason Comments Med Refill Encounter Details Date Type Department Care Team (Late st Contact Info) Description 08/07/2022 Refill [facility] Primary Care [address] [place] [address] Amandeep Colmenares MD [address] [facility] [address] [place] [address] Essential hypertension, benign (Primary Dx) Social History Tobacco Use Types [...] Coronavirus/COVID-19? No / Unsure 07/15/2022 3:47 PM SUPERVISOR MACHINE SETTER documented as of this encounter Plan of Treatment Upcoming Encounters Date Type Department Care Team (Late st Contact Info) Description 09/27/2024 3:45 PM SUPERVISOR MACHINE SETTER Office Visit [facility] At [facility] [address] [facility] [address] [place] [address] Porfirio Gregory MD [address] [facility] [address] [place] [address] 01/17/2025 4:00 PM CDT Office Visit [facility] Primary Care [facility] [address] [place] [address] [address] [place] [address] Amandeep Colmenares MD [address] [place] [address] [address] [place] [address] documented as of this encounter Visit Diagnoses Diagnosis Essential hypertension, benign- Primary documented in this encounter Care Teams Motor Home Electrical Foreman Relationship Specialty Start Date End Date Amandeep Colmenares MD [address] [place] [address] [address] [place] [phone] PCP - General Internal Medicine 04/08/22 documented as of this encounter
--- OUTSIDE RECORDS SUMMARY | 2024-08-21 22:32 | XMS_ITS | Encounter Summary ---
Author Organization [facility] Address [address] [place] [address] Care Team Providers Care Life Enrichment Assistant Name Role Phone Amandeep Colmenares MD Primary Care Provider [phone] Reason for Visit * Reason Comments Med Refill Encounter Details Date Type Department Care Team (Late st Contact Info) Description 07/31/2024 Refill [facility] Primary Care [address] [place] [address] Amandeep Colmenares MD [address] [place] [address] [address] [place] [address] Other specified anxiety disorders Social [...] (Late Contact Info) Description 09/27/2024 3:45 PM BRAILLE DUPLICATING MACHINE OPERATOR Office Visit [facility] Heart and Vascular At [address] [place] [phone] Porfirio Gregory MD [address] [place] [address] [address] [place] [address] 01/17/2025 4:00 PM CDT Office Visit [facility] Primary Care [address] [place] [address] Amandeep Colmenares MD [address] [place] [address] [address] [place] [address] documented as of this encounter Visit Diagnoses Diagnosis Other specified anxiety disorders documented in this encounter Care Teams Life Enrichment Assistant Relationship Specialty Start Date End Date Amandeep Colmenares MD [address] [place] [phone] PCP - General Internal Medicine 04/08/22 documented as of this encounter
--- OUTSIDE RECORDS SUMMARY | 2024-08-21 22:32 | XMS_ITS | Encounter Summary ---
Author Organization [facility] Address [address] [place] [address] Care Team Providers Care Senior Systems Developer Name Role Phone Amandeep Colmenares MD Primary Care Provider [phone] Encounter Details Date Type Department Care Team (Late st Contact Info) Description 11/26/2023 External Device Data STL ABSTRACTION Provider, Abstract [...] st Contact Info) Description 09/27/2024 3:45 PM FEED ELEVATOR WORKER Office Visit [facility] Heart [facility] V[facility] At [place] [address] [facility] [address] [place] [address] Porfirio Gregory MD [facility] [address] [facility] [address] [place] [address] 01/17/2025 4:00 PM CDT Office Visit [facility] Primary Care [address] [place] [address] Amandeep Colmenares MD [address] [place] [address] [place] [address] documented as of this encounter Visit Diagnoses Not on filedocumented in this encounter Care Teams Senior Systems Developer Relationship Specialty Start Date End Date Amandeep Colmenraes MD [address] [place] [address] [place] [address] PCP - General Internal Medicine 04/08/22 documented as of this encounter
--- OUTSIDE RECORDS SUMMARY | 2024-08-21 22:32 | XMS_ITS | Encounter Summary ---
Author Organization [facility] Address [address] [place] [address] Care Team Providers Care Surface Lay Out Technician Name Role Phone Amandeep Colmenares MD Primary Care Provider Reason for Visit * Reason Comments Med Refill Encounter Details Date Type Department Care Team (Late st Contact Info) Description 03/08/2023 Refill [facility] Primary Care [address] [place] [address] Amandeep Colmenares MD [address] [place] [address] [address] [place] [address] Essential hypertension, benign; Other specified anxiety disorders Social History Tobacco [...] (Late Contact Info) Description 09/27/2024 3:45 PM 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 Office Visit [facility] Heart and Vascular At [address] [place] [phone] Porfirio Gregory MD [address] [place] [address] [address] [place] [address] 01/17/2025 4:00 PM CDT Office Visit [facility] Primary Care [address] [phone] Amandeep Colmenares MD [address] [place] [address] [address] [place] [address] documented as of this encounter Visit Diagnoses Diagnosis Essential hypertension, benign Other specified anxiety disorders documented in this encounter Care Teams Surface Lay Out Technician Relationship Specialty Start Date End Date Amandeep Colmenares MD [address] [place] [address] PCP - General Internal Medicine 04/08/22 documented as of this encounter
--- OUTSIDE RECORDS SUMMARY | 2024-08-21 22:32 | XMS_ITS | Encounter Summary ---
Author Organization [facility] Address [address] [place] [address] Care Team Providers Care Document Management Specialist Name Role Phone Amandeep Colmenares MD Primary Care Provider Reason for Referral * Echocardiography (Routine) - Closed Specialty Diagnoses / Procedures Referred By Contac t Referred To Contact Radiology Diagnoses Dilated aortic root Procedures ECHO COMPLETE Amandeep Colmenares MD [address] [place] [phone] [facility] [address] [place] [phone] Referral ID Status Reason Start Date Expiration Date Visits Re quested Visits Authorized [id number] Closed 01/20/2023 02/20/2024 1 1 * Radiology Services (Routine) - Closed Specialty Diagnoses / Procedures Referred By Contac t Referred To Contact Radiology Diagnoses Local edema Procedures US VENOUS DOPPLER LEG LEFT Amandeep Colmenares MD [address] [place] [address] [address] [place] [address] [facility] [address] [place] [address] Referral ID Status Reason Start Date Expiration Date Visits Re quested Visits Authorized [id number] Closed 01/20/2023 02/20/2024 1 1 Reason for Visit * Reason Comments Hypertension Encounter Details Date Type Department Care Team (Late st Contact Info) Description 01/20/2023 4:00 PM CDT Office Visit [facility] [address] [place] [address] Amandeep Colmenares MD [address] [facility] [address] [place] [address] Encounter for routine adult health examination with abnormal findings (Primary Dx); Essential hypertension, benign; Other sleep apnea; Dilated aortic root; Generalized edema; Local edema; Erectile dysfunction, unspecified erectile dysfunction type Social History Tobacco Use Types Packs/Day [...] Sign Reading Time Taken Comments Blood Pressure 134/82 01/20/2023 3:48 PM CDT Pulse 75 01/20/2023 3:48 PM CDT Temperature 36.5 ??C (97.7 ??F) 01/20/2023 3:48 PM CD T Respiratory Rate 16 01/20/2023 3:48 PM CDT Oxygen Saturation 96% 01/20/2023 3:48 PM CDT Inhaled Oxygen Concentration - - Weight 94.4 kg (208 lb 3.2 oz) 01/20/2023 3:48 P M CDT Height 163.8 cm (5' 4.5 ) 01/20/2023 3:48 PM CDT Body Mass Index 35.19 01/20/2023 3:48 PM CDT documented in this encounter Progress Notes * Amandeep Colmenares MD - 01/20/2023 4:01 PM CDT Answers submitted by the patient for this visit: High Blood Pressure Questionnaire (Submitted on 01/17/2023) Chief Complaint: Hypertension anxiety: No blurred vision: No chest pain: No headaches: No malaise/fatigue: No neck pain: No orthopnea: No palpitations: No peripheral edema: Yes PND: No shortness of breath: No sweats: No Compliance problems: diet, exercise Bp ok Lab pend Edema same Med reviewed Recent lab reviewed Last left leg pain Patient Active Problem List Diagnosis Code Essential hypertension, benign I10 Generalized edema R60.1 Other sleep apnea G47.39 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 General appearance: over wt nad Head: [...] regular rate and rhythm Abdomen: soft, non-tender. Bowel sounds normal. No masses, no organomegaly. Active bowel sounds. Skin: Skin color, texture, turgor normal. Lymphatics: No focal or generalized lymphadenopathy. Neck Ex left le edema lat calf tenderness Mood stable ASSESSMENT: Encounter Diagnoses Name Primary? Encounter for routine adult health examination with abnormal findings Yes Essential hypertension, benign Other sleep apnea Dilated aortic root Generalized edema Local edema Erectile dysfunction, unspecified erectile dysfunction type Bp cont med Leg , check doppler Sleep apnea stable Aortic root recheck echo Ed cont med helping Normal BMI Range: 18 & older: > or = 18.5 and < 25 Body mass index is 35.19 kg/m??. Abnormal high BMI: Patient counseled on lifestyle modifications including weight loss and daily exercise. Health Maintenance Topic Date Due HEPATITIS B VACCINES (1 of 3 - 3-dose series) Never done DTAP/TDAP/TD VACCINES (3 - Td or Tdap) 09/22/2029 Colorectal Cancer Screening 11/25/2031 ZOSTER VACCINE Completed INFLUENZA VACCINE Completed COVID-19 Vaccine Completed Preventative Visit- Commercial Completed PNEUMOCOCCAL VACCINE 0-64 YEARS Aged Out PLAN: Orders Placed This Encounter US VENOUS DOPPLER LEG LEFT CBC WITH DIFFERENTIAL (Favorites) COMPREHENSIVE METABOLIC PANEL (Favorites) LIPID PANEL (Favorites) TSH (Favorites) TESTOSTERONE FREE AND TOTAL (Chemistry) ECHO COMPLETE documented in this encounter Plan of Treatment Upcoming Encounters Date Type Department Care Team (Late st Contact Info) Description 09/27/2024 3:45 PM SENIOR PROGRAM MANAGER Office Visit [facility] [address] [place] [address] Porfirio Gregory MD [address] [place] [address] [address] [place] [address] 01/17/2025 4:00 PM CDT Office Visit [facility] Primary [facility] [address] [place] [address] Amandeep Colmenares MD [address] [place] [address] [address] [place] [address] documented as of this encounter Procedures Procedure Name Priority Date/Time Associated Diagnosis Comments TEST IN QUESTION Routine 02/21/2023 8:31 AM CDT TESTOSTERONE FREE AND TOTAL Routine 02/21/2023 8:31 AM CDT Erectile dysfunction, unspecified erectile dysfunction type CBC WITH DIFFERENTIAL Routine 02/21/2023 8:31 AM CDT Essential hypertension, benign TSH Routine 02/21/2023 8:31 AM CDT Essential hypertension, benign LIPID PANEL Routine 02/21/2023 8:31 AM CDT Essential hypertension, benign COMPREHENSIVE METABOLIC PANEL Routine 02/21/2023 8:31 AM CDT Essential hypertension, benign documented in this encounter Results * ECHO COMPLETE (01/09/2024 4:49 PM CDT) EJECTION FRACTION 60 INTERFACE SYSTEM 01/09/2024 4:10 PM CDT Narrative INTERFACE SYSTEM - 01/10/2024 7:34 AM CDT [address] [address] [email or web address] Transthoracic Echocardiogram Patient: ? Minh Wise: ? [id number] Study ID: ?[id number] Gender: ?M : ? 1970 Age: ? 53 Race: ?CAU Height ? 163.8cm Study Date: ?01/09/2024 Weight: ?97.5kg Access. #: ? [id number] Account #: ? [id number] BP: *Referring Physician:* Amandeep Colmenares Andrew M *Ordering Physician:* ??Amandeep Colmenares solutions specialist: Nurse: Indications: Hypertension. JAYLA. Dilated aortic root. STUDY CONCLUSIONS: SUMMARY: - Left ventricle: The cavity size was mildly dilated. Wall thickness was ??increased in a pattern of mild LVH. Global systolic function is normal by ??the biplane method of disks. For Epic reporting: the left ventricular ??ejection fraction is 60% . Features are consistent with a pseudonormal left ??ventricular filling pattern, with concomitant abnormal relaxation and ??increased filling pressure (grade 2 diastolic dysfunction). - Aortic valve: Mild regurgitation. - Aortic root: The root is mildly dilated and 39.0mm diameter. - Left atrium: The atrium is dilated. - Right ventricle: The cavity size is normal. Systolic function is normal. - Tricuspid valve: No significant regurgitation. - Pulmonary arteries: Systolic pressure could not be estimated. Cardiac Anatomy: Left ventricle: ??The cavity size was mildly dilated. Wall thickness was increased in a pattern of mild LVH. Global systolic function is normal by the biplane method of disks. For Epic reporting: the left ventricular ejection fraction is 60% . Features are consistent with a pseudonormal left ventricular filling pattern, with concomitant abnormal relaxation and increased filling pressure (grade 2 diastolic dysfunction). LEFT VENTRICLE: ??The cavity size was mildly dilated. Wall thickness was increased in a pattern of mild LVH. Global systolic function is normal by the biplane method of disks. For Epic reporting: the left ventricular ejection fraction is 60% . Features are consistent with a pseudonormal left ventricular filling pattern, with concomitant abnormal relaxation and increased filling pressure (grade 2 diastolic dysfunction). AORTIC VALVE: ?? Structurally normal valve. Trileaflet. ??Mild regurgitation. The mean systolic gradient is 4mm Hg. The peak systolic gradient is 7mm Hg. The LVOT to aortic valve VTI ratio is 0.65. The valve area is 2.3cm^2. The ratio of LVOT to aortic valve peak velocity is 0.65. AORTA: Aortic root: The root is mildly dilated and 39.0mm diameter. MITRAL VALVE: ?? Structurally normal valve. ?No significant regurgitation. The mean diastolic gradient is 2mm Hg. The peak diastolic gradient is 2mm Hg. LEFT ATRIUM: ??The atrium is dilated. RIGHT VENTRICLE: ??The cavity size is normal. Systolic function is normal. PULMONIC VALVE: ?? Structurally normal valve. ?No significant regurgitation. TRICUSPID VALVE: ?? Structurally normal valve. ?No significant regurgitation. PULMONARY ARTERY: ?? Systolic pressure could not be estimated. RIGHT ATRIUM: ??The atrium was normal in size. SYSTEMIC VEINS: Inferior vena cava: The IVC is normal-sized. PERICARDIUM: ?? There is no pericardial effusion. Measurements Left ventricle ? Value ?Ref ? 06/28/2022 AYLEEN, LAX ? (L) 3.6 ?? cm ? 4.2 - 5.8 2.8 AYLEEN/bsa, LAX ? (L) 1.8 ?? cm/m^2 ?? 2.2 - 3.0 1.4 AYLEEN, LAX chord ? (H) 5.9 ?? cm ? 4.2 - 5.8 4.5 ESD, LAX chord ? (N) 3.6 ?? cm ? 2.5 - 4.0 2.8 AYLEEN/bsa, LAX chord ?? (N) 2.9 ?? cm/m^2 ?? 2.2 - 3.0 2.3 ESD/bsa, LAX chord ?? (N) 1.8 ?? cm/m^2 ?? 1.3 - 2.1 1.4 FS, LAX chord ?(N) 38 ?% ?25 - 43 ?? 37 IVS, ED ?(H) 1.2 ?? cm ? 0.6 - 1.0 1.2 PW, ED ? (H) 1.2 ?? cm ? 0.6 - 1.0 1.2 EDV, 2-p ? (H) 162 ?? ml ? 62 - 150 ??113 ESV, 2-p ? (H) 65 ?ml ? 21 - 61 ?? 39 EF, 2-p ?(N) 60 ?% ?52 - 72 ?? 65 SV, 2-p ?97 ?ml ? --------- 74 SV/bsa, 2-p ?47.8 ??ml/m^2 ?? --------- 37.4 E', lat marjorie, TDI ? (L) 8.5 ?? cm/sec ?? >=10.0 ?11.7 E/e', lat marjorie, TDI ?? (N) 10 ? <=13 ? E', med marjorie, TDI ? (N) 7.7 ?? cm/sec ?? >=7.0 ? 6.8 E/e', med marjorie, TDI ? 11 ? --------- E', avg, TDI ? 8.1 ?? cm/sec ?? --------- E/e', avg, TDI ? (N) 11 ? <=14 ? LVOT ? Value ?Ref ? 06/28/2022 Diam, S ?2.1 ?? cm ? --------- Area ? 3.5 ?? cm^2 ? --------- 3.1 Peak sujata, S ?0.83 ??m/sec ?--------- 1.17 VTI, S ? 20.5 ??cm ? --------- 30.1 Left atrium ?Value ?Ref ? 06/28/2022 AP dim, ES ? (N) 3.9 ?? cm ? 3.0 - 4.0 3.8 AP dim index, ES ? (N) 1.9 ?? cm/m^2 ?? 1.5 - 2.3 SI dim, A4C ?5.1 ?? cm ? --------- 5.4 Area ES, A4C ? (N) 18 ?cm^2 ? <=20 ?18 Area/bsa ES, A4C ? 8.77 ??cm^2/m^2 --------- SI dim, A2C ?6.3 ?? cm ? --------- 5.2 SI dim, shorter ?5.1 ?? cm ? --------- 5.2 Vol, ES, 1-p A4C ? (N) 49 ?ml ? 18 - 58 ?? 47 Vol/bsa, ES, 1-p A4C (N) 24 ?ml/m^2 ?? 12 - 37 ?? 24 Vol, ES, 1-p A2C ? (H) 74 ?ml ? 18 - 58 ?? 49 Vol/bsa, ES, 1-p A2C (N) 36 ?ml/m^2 ?? 11 - 43 ?? 25 LA/Ao root ratio ? 1.05 ? --------- 0.97 Aortic valve ? Value ?Ref ? 06/28/2022 Peak v, S ?1.3 ?? m/sec ?--------- 1.6 Mean v, S ?0.98 ??m/sec ?--------- 1.2 VTI, S ? 31.3 ??cm ? --------- 42.1 Mean grad, S ? 4 ? mm Hg ?--------- 6 Peak grad, S ? 7 ? mm Hg ?--------- 10 LVOT/AV, VTI ratio ? 0.65 ? --------- 0.71 REGINA, VTI ? 2.3 ?? cm^2 ? --------- 2.2 REGINA/bsa, VTI ? 1.12 ??cm^2/m^2 --------- 1.13 LVOT/AV, Vpeak ratio ? 0.65 ? --------- 0.73 REGINA, Vmax ?2.2 ?? cm^2 ? --------- 2.3 REGINA/bsa, Vmax ?1.1 ?? cm^2/m^2 --------- 1.16 Mitral valve ? Value ?Ref ? 06/28/2022 Mean v, D ?0.59 ??m/sec ?--------- Peak E ? 0.87 ??m/sec ?--------- 1.08 Peak A ? 0.65 ??m/sec ?--------- 0.81 Decel time ? 211 ?? ms ? --------- 208 PHT ?96 ?ms ? --------- Mean grad, D ? 2 ? mm Hg ?--------- Peak grad, D ? 2 ? mm Hg ?--------- 5 Peak E/A ratio ? 1.3 ?--------- A-VTI ?34.5 ??cm ? --------- MVA, PHT ? 2.3 ?? cm^2 ? --------- MVA/bsa, PHT ? 1.13 ??cm^2/m^2 --------- Pulmonic valve ? Value ?Ref ? 06/28/2022 Peak v, S ?0.99 ??m/sec ?--------- 1.01 Peak grad, S ? 4 ? mm Hg ?--------- 4 Aortic root ?Value ?Ref ? 06/28/2022 Root diam, ? 3.7 ?? cm ? --------- Ascending aorta ?Value ?Ref ? 06/28/2022 AAo AP diam, S ? 3.4 ?? cm ? --------- AAo AP diam/bsa, S ? 1.7 ?? cm/m^2 ?? --------- Legend: (L) ??and ??(H) ??leticia values outside specified reference range. (N) ??valle values inside specified reference range. Procedure data: Procedure information: ??A transthoracic echocardiogram was performed. Scanning was performed from the parasternal, apical, and subcostal acoustic windows. ?Transthoracic echocardiogram. ??Complete 2D, complete spectral Doppler, and color Doppler. ??Birthdate: ??Patient birthdate: 1970. ??Age: ??Patient is 53year(s) old. ??Sex: ?? gender: male. ??Height: ??163.8cm. 64.5in. Weight: ??97.5kg. 215lb. ??Body mass index: ??36.3kg/m^2. ??Body surface area: 2.03m^2. ??Study date: ??Study date: 01/09/2024. Study time: 04:10 PM. Prepared and Electronically Authenticated Porfirio Gregory [id number]:09 Procedure Note Porfirio Gregory MD - 01/10/[address] [address] [email or web address] Transthoracic Echocardiogram Patient: Minh Wise Study ID: [id number] Gender: M :1970 Age: 53 Race: CAU Height 163.8cm Study Date:01/09/2024 Weight: 97.5kg Access. #:[id number] BP: *Referring Physician:* Amandeep Colmenares Andrew M *Ordering Physician:* Amandeep Colmenares solutions specialist: Nurse: Indications: Hypertension. JAYLA. Dilated aortic root. STUDY CONCLUSIONS: SUMMARY: - Left ventricle: The cavity size was mildly dilated. Wall thickness was increased in a pattern of mild LVH. Global systolic function is normalby the biplane method of disks. For Epic reporting: the left ventricular ejection fraction is 60% . Features are consistent with a pseudonormalleft ventricular filling pattern, with concomitant abnormal relaxation and increased filling pressure (grade 2 diastolic dysfunction). - Aortic valve: Mild regurgitation. - Aortic root: The root is mildly dilated and 39.0mm diameter. - Left atrium: The atrium is dilated. - Right ventricle: The cavity size is normal. Systolic function isnormal. - Tricuspid valve: No significant regurgitation. - Pulmonary arteries: Systolic pressure could not be estimated. Cardiac Anatomy: Left ventricle: The cavity size was mildly dilated. Wall thickness was increased in a pattern of mild LVH. Global systolic function is normal bythe biplane method of disks. For Epic reporting: the left ventricularejection fraction is 60% . Features are consistent with a pseudonormal leftventricular filling pattern, with concomitant abnormal relaxation and increasedfilling pressure (grade 2 diastolic dysfunction). LEFT VENTRICLE: The cavity size was mildly dilated. Wall thickness was increased in a pattern of mild LVH. Global systolic function is normal bythe biplane method of disks. For Epic reporting: the left ventricularejection fraction is 60% . Features are consistent with a pseudonormal leftventricular filling pattern, with concomitant abnormal relaxation and increasedfilling pressure (grade 2 diastolic dysfunction). AORTIC VALVE: Structurally normal valve. Trileaflet. Mildregurgitation. The mean systolic gradient is 4mm Hg. The peak systolic gradient is 7mmHg. The LVOT to aortic valve VTI ratio is 0.65. The valve area is 2.3cm^2.The ratio of LVOT to aortic valve peak velocity is 0.65. AORTA: Aortic root: The root is mildly dilated and 39.0mm diameter. MITRAL VALVE: Structurally normal valve. No significantregurgitation. The mean diastolic gradient is 2mm Hg. The peak diastolic gradient is 2mmHg. LEFT ATRIUM: The atrium is dilated. RIGHT VENTRICLE: The cavity size is normal. Systolic function isnormal. PULMONIC VALVE: Structurally normal valve. No significantregurgitation. TRICUSPID VALVE: Structurally normal valve. No significantregurgitation. PULMONARY ARTERY: Systolic pressure could not be estimated. RIGHT ATRIUM: The atrium was normal in size. SYSTEMIC VEINS: Inferior vena cava: The IVC is normal-sized. PERICARDIUM: There is no pericardial effusion. Measurements Left ventricle Value Ref 06/28/2022 AYLEEN, LAX (L) 3.6 cm 4.2 - 5.8 2.8 AYLEEN/bsa, LAX (L) 1.8 cm/m^2 2.2 - 3.0 1.4 AYLEEN, LAX chord (H) 5.9 cm 4.2 - 5.8 4.5 ESD, LAX chord (N) 3.6 cm 2.5 - 4.0 2.8 AYLEEN/bsa, LAX chord (N) 2.9 cm/m^2 2.2 - 3.0 2.3 ESD/bsa, LAX chord (N) 1.8 cm/m^2 1.3 - 2.1 1.4 FS, LAX chord (N) 38 % 25 - 43 37 IVS, ED (H) 1.2 cm 0.6 - 1.0 1.2 PW, ED (H) 1.2 cm 0.6 - 1.0 1.2 EDV, 2-p (H) 162 ml 62 - 150 113 ESV, 2-p (H) 65 ml 21 - 61 39 EF, 2-p (N) 60 % 52 - 72 65 SV, 2-p 97 ml --------- 74 SV/bsa, 2-p 47.8 ml/m^2 --------- 37.4 E', lat marjorie, TDI (L) 8.5 cm/sec >=10.0 11.7 E/e', lat marjorie, TDI (N) 10 <=13 E', med marjorie, TDI (N) 7.7 cm/sec >=7.0 6.8 E/e', med marjorie, TDI 11 --------- E', avg, TDI 8.1 cm/sec --------- E/e', avg, TDI (N) 11 <=14 LVOT Value Ref 06/28/2022 Diam, S 2.1 cm --------- Area 3.5 cm^2 --------- 3.1 Peak sujata, S 0.83 m/sec --------- 1.17 VTI, S 20.5 cm --------- 30.1 Left atrium Value Ref 06/28/2022 AP dim, ES (N) 3.9 cm 3.0 - 4.0 3.8 AP dim index, ES (N) 1.9 cm/m^2 1.5 - 2.3 SI dim, A4C 5.1 cm --------- 5.4 Area ES, A4C (N) 18 cm^2 <=20 18 Area/bsa ES, A4C 8.77 cm^2/m^2 --------- SI dim, A2C 6.3 cm --------- 5.2 SI dim, shorter 5.1 cm --------- 5.2 Vol, ES, 1-p A4C (N) 49 ml 18 - 58 47 Vol/bsa, ES, 1-p A4C (N) 24 ml/m^2 12 - 37 24 Vol, ES, 1-p A2C (H) 74 ml 18 - 58 49 Vol/bsa, ES, 1-p A2C (N) 36 ml/m^2 11 - 43 25 LA/Ao root ratio 1.05 --------- 0.97 Aortic valve Value Ref 06/28/2022 Peak v, S 1.3 m/sec --------- 1.6 Mean v, S 0.98 m/sec --------- 1.2 VTI, S 31.3 cm --------- 42.1 Mean grad, S 4 mm Hg --------- 6 Peak grad, S 7 mm Hg --------- 10 LVOT/AV, VTI ratio 0.65 --------- 0.71 REGINA, VTI 2.3 cm^2 --------- 2.2 REGINA/bsa, VTI 1.12 cm^2/m^2 --------- 1.13 LVOT/AV, Vpeak ratio 0.65 --------- 0.73 REGINA, Vmax 2.2 cm^2 --------- 2.3 REGINA/bsa, Vmax 1.1 cm^2/m^2 --------- 1.16 Mitral valve Value Ref 06/28/2022 Mean v, D 0.59 m/sec --------- Peak E 0.87 m/sec --------- 1.08 Peak A 0.65 m/sec --------- 0.81 Decel time 211 ms --------- 208 PHT 96 ms --------- Mean grad, D 2 mm Hg --------- Peak grad, D 2 mm Hg --------- 5 Peak E/A ratio 1.3 --------- A-VTI 34.5 cm --------- MVA, PHT 2.3 cm^2 --------- MVA/bsa, PHT 1.13 cm^2/m^2 --------- Pulmonic valve Value Ref 06/28/2022 Peak v, S 0.99 m/sec --------- 1.01 Peak grad, S 4 mm Hg --------- 4 Aortic root Value Ref 06/28/2022 Root diam, 3.7 cm --------- Ascending aorta Value Ref 06/28/2022 AAo AP diam, S 3.4 cm --------- AAo AP diam/bsa, S 1.7 cm/m^2 --------- Legend: (L) and (H) leticia values outside specified reference range. (N) valle values inside specified reference range. Procedure data: Procedure information: A transthoracic echocardiogram was performed.Scanning was performed from the parasternal, apical, and subcostal acousticwindows. Transthoracic echocardiogram. Complete 2D, complete spectralDoppler, and color Doppler. Birthdate: Patient birthdate: 1970. Age:Patient is 53year(s) old. Sex: gender: male. Height: 163.8cm. 64.5in. Weight: 97.5kg. 215lb. Body mass index: 36.3kg/m^2. Body surfacearea: 2.03m^2. Study date: Study date: 01/09/2024. Study time: 04:10 PM. Prepared and Electronically Authenticated Porfirio Gregory [id number] Amandeep Colmenares MD US ORDERABLES INTERFACE SYSTEM Refer to clinic/hospital department * US VENOUS DOPPLER LEG LEFT (12/26/2023 [...] lower extremity. Amandeep Colmenares MD US ORDERABLES * TEST IN QUESTION (02/21/2023 8:31 AM CDT) REPORT/SPECIMEN COMMENT [facility] Comment: Whole blood, unspun or partially spun gel barrier tube was received more than 6 hours since collection. A false elevation of K, Phos and LD as well as a false decrease in glucose may occur due to prolonged contact with red cells. FASTING:YES FASTING: YES Test Performed at: [facility] [address] [place], [place] ??[phone] Alicia Singer MD 02/21/2023 8:31 AM CDT 02/21/2023 8:31 AM CDT Amandeep Colmenares MD CHEMISTRY ORDERABLES [facility] [phone] [facility] [phone] * TESTOSTERONE FREE AND TOTAL (02/21/2023 8:31 AM CDT) TESTOSTERONE 301 250 - 1100 ng/dL [facility] Comment: Men with clinically significant hypogonadal symptoms and testosterone values repeatedly in the range of the 200-300 ng/dL or less, may benefit from testosterone treatment after adequate risk and benefits counseling. For additional information, please refer to https://education.[employer]Copyright.[employer]/faq/RBH176 (This link is being provided for informational/educational purposes only.) (Note) This test was developed and its analytical performance characteristics have been determined by [employer]. It has not been cleared or approved by the FDA. This assay has been validated pursuant to the CLIA regulations and is used for clinical purposes. TESTOSTERONE FREE 49.9 35.0 - 155.0 pg/mL [facility] Comment: (Note) This test was developed and its analytical performance characteristics have been determined by [employer]. It has not been cleared or approved by the FDA. This assay has been validated pursuant to the CLIA regulations and is used for clinical purposes. [facility] [address] [facility] [place] [address],[address] [place] [address] Junito Brennan MD FASTING:YES FASTING: YES Test Performed at: [facility] [address] [place] [address], [address] [place] [address] ??[phone] Porfirio Fu MD Blood 02/21/2023 8:31 AM CDT 02/21/2023 8:31 AM CDT Amandeep Colmenares MD CHEMISTRY ORDERABLES Performing Organization Address City/[facility]/ZIP Co de Phone Number [facility] [phone] [facility] [address] [place] [address], [address] [place] [phone] * TSH (02/21/2023 8:31 AM CDT) Pathologist [facility] TSH 1.81 0.40 - 4.50 mIU/L [facility] Comment: FASTING:YES FASTING: YES Test Performed at: [facility] [address] [place] ??[phone] Alicia Singer MD Blood 02/21/2023 8:31 AM CDT 02/21/2023 8:31 AM CDT Amandeep Colmenares MD CHEMISTRY ORDERABLES Performing Organization Address [facility]/ZIP Co de Phone Number [facility] [phone] [facility] [address] [place] [address] * LIPID PANEL (02/21/2023 8:31 AM CDT) CHOLESTEROL 151 <200 mg/dL [facility] HDL 43 > OR = 40 mg/dL [facility] TRIGLYCERIDE 96 <150 mg/dL [facility] LDL CALCULATED 89 mg/dL (calc) [facility] Comment: Reference range: <100 Desirable range <100 mg/dL for primary prevention; ?? <70 mg/dL for patients with CHD or diabetic patients with > or = 2 CHD risk factors. LDL-C is now calculated using the Steve-Waite calculation, which is a validated novel method providing better accuracy than the Friedewald equation in the estimation of LDL-C. Steve MAGUIRE et al. JENNY. 2013;310(19): 0852-8943 (http://education.[employer]/faq/KLL207) CHOL/HDL RATIO 3.5 <5.0 (calc) [facility] TOTAL NON-HDL CHOL(LDL+VLDL) 108 <130 mg/dL (calc) [facility] Comment: For patients with diabetes plus 1 major ASCVD risk factor, treating to a non-HDL-C goal of <100 mg/dL (LDL-C of <70 mg/dL) is considered a therapeutic option. FASTING:YES FASTING: YES Test Performed at: [facility] [address] [place] [address] ??[phone] Alicia Singer MD Blood 02/21/2023 8:31 AM CDT 02/21/2023 8:31 AM CDT Amandeep Colmenares MD CHEMISTRY ORDERABLES [facility] [phone] [facility] [address] * (ABNORMAL) COMPREHENSIVE METABOLIC PANEL (02/21/2023 8:31 AM CDT) GLUCOSE 107(H) 65 - 99 mg/dL [facility] Comment: ? Fasting reference interval For someone without known diabetes, a glucose value between 100 and 125 mg/dL is consistent with prediabetes and should be confirmed with a follow-up test. BUN 21 7 - 25 mg/dL [facility] CREATININE 1.13 0.70 - 1.30 mg/dL [facility] GFR 78 > OR = 60 mL/min/1. 73m2 [facility] Comment: The eGFR is based on the CKD-EPI 2020 equation. To calculate the new eGFR from a previous Creatinine or Cystatin C result, go to https://www.kidney.org/professionals/ kdoqi/gfr%5Fcalculator BUN/CREAT RATIO NOT APPLICABLE 6 - 22 (calc) [facility] SODIUM 140 135 - 146 mmol/L [facility] POTASSIUM 3.9 3.5 - 5.3 mmol/L [facility] CHLORIDE 103 98 - 110 mmol/L [facility] CO2 28 20 - 32 mmol/L [facility] CALCIUM 9.0 8.6 - 10.3 mg/dL [facility] TOTAL PROTEIN 6.7 6.1 - 8.1 g/dL [facility] ALBUMIN 4.2 3.6 - 5.1 g/dL [facility] GLOBULIN 2.5 1.9 - 3.7 g/dL (calc) [facility] ALBUMIN/GLOBULI N RATIO 1.7 1.0 - 2.5 (calc) [facility] BILIRUBIN TOTAL 0.5 0.2 - 1.2 mg/dL [facility] ALKALINE PHOSPHATASE 50 35 - 144 U/L [facility] AST 18 10 - 35 U/L [facility] ALT 20 9 - 46 U/L [facility] Comment: FASTING:YES FASTING: YES Test Performed at: [facility] [address] [place], [place] ??[phone] Alicia Singer MD Blood 02/21/2023 8:31 AM CDT 02/21/2023 8:31 AM CDT Amandeep Colmenares MD CHEMISTRY ORDERABLES [facility] [phone] [facility] [address] [place] [address] * (ABNORMAL) CBC WITH DIFFERENTIAL (02/21/2023 8:31 AM CDT) WBC 6.7 3.8 - 10.8 Thousand/u L [facility] RBC 4.52 4.20 - 5.80 Million/uL [facility] HEMOGLOBIN 12.7(L) 13.2 - 17.1 g/dL [facility] HEMATOCRIT 39.2 38.5 - 50.0 % [facility] MCV 86.7 80.0 - 100.0 fL [facility] MCH 28.1 27.0 - 33.0 pg [facility] MCHC 32.4 32.0 - 36.0 g/dL [facility] RDW 12.9 11.0 - 15.0 % [facility] PLATELETS 221 140 - 400 Thousand/u L [facility] MPV 11.5 7.5 - 12.5 fL [facility] NEUTROPHIL ABSOLUTE 4,275 1,500 - 7,800 cells/uL [facility] LYMPHOCYTE ABSOLUTE 1,280 850 - 3,900 cells/uL [facility] MONOCYTE ABSOLUTE 697 200 - 950 cells/uL [facility] EOSINOPHIL ABSOLUTE 395 15 - 500 cells/uL [facility] BASOPHILS ABSOLUTE 54 0 - 200 cells/uL [facility] NEUTROPHIL 63.8 % [facility] LYMPHOCYTES 19.1 % [facility] MONOCYTE 10.4 % [facility] EOSINOPHILS 5.9 % [facility] BASOPHILS 0.8 % [facility] Comment: FASTING:YES FASTING: YES Test Performed at: [facility] [address] [place], [place] ??[phone] Alicia Singer MD Blood 02/21/2023 8:31 AM CDT 02/21/2023 8:31 AM CDT Amandeep Colmenares MD HEMATOLOGY ORDERABLE S [facility] [phone] [facility] [address] [place] [address] documented in this encounter Visit Diagnoses Diagnosis Encounter for routine adult health examination with abnormal findings- Primary Essential hypertension, benign Other sleep apnea Dilated aortic root Aortic ectasia, unspecified site Generalized edema Edema Local edema Edema Erectile dysfunction, unspecified erectile dysfunction type Local edema Edema Dilated aortic root Aortic ectasia, unspecified site documented in this encounter Care Teams Document Management Specialist Relationship Specialty Start Date End Date Amandeep Colmenares MD [address] [place] [address] PCP - General Internal Medicine 04/08/22 documented as of this encounter
--- OUTSIDE RECORDS SUMMARY | 2024-08-21 22:32 | XMS_ITS | Encounter Summary ---
Author Organization [facility] Address [address] Pak: Epic Prelude ADT [place] [address] Care Team Providers Care Housekeeping Attendant Name Role Phone Amandeep Colmenares MD Primary Care Provider [phone] Encounter Details Date Type Department Care Team (Latest Contact Info) Description 07/15/2022 Travel Social History Tobacco Use Types Packs/Day [...] Coronavirus/COVID-19? No / Unsure 07/15/2022 3:47 PM CERTIFIED OPHTHALMIC ASSISTANT documented as of this encounter Plan of Treatment Upcoming Encounters Date Type Department Care Team (Late st Contact Info) Description 09/27/2024 3:45 PM CERTIFIED OPHTHALMIC ASSISTANT Office Visit [facility] Heart and Vascular At [place] [address] [facility] [address] [place] [address] Porfirio Gregory MD [facility] [address] [facility] [address] [place], [place] [phone] 01/17/2025 4:00 PM CDT Office Visit [facility] Care [address] [place] [phone] Amandeep Colmenares MD [address] [place] [address] [place] [phone] documented as of this encounter Visit Diagnoses Not on filedocumented in this encounter Care Teams Housekeeping Attendant Relationship Specialty Start Date End Date Amandeep Colmenares MD [address] [place] [address] [place] [phone] PCP - General Internal Medicine 04/08/22 documented as of this encounter
--- OUTSIDE RECORDS SUMMARY | 2024-08-21 22:32 | XMS_ITS | Encounter Summary ---
Author Organization [facility] Address [address] [place] [address] Care Team Providers Care Assistant Grocery Name Role Phone Amandeep Colmenares MD Primary Care Provider [phone] Reason for Visit * Reason Comments Establish Care * Eval and Treat (Routine) - Closed Specialty Diagnoses / Procedures Referred By Contac t Referred To Contact Intermediate Care Facility / Cardiology Diagnoses Left ventricular dilation Procedures DE OFFICE/OUTPATIENT ESTABLISHED MOD MDM 30 MIN DE OFFICE/OUTPATIENT NEW MODERATE MDM 45 MINUTES Amandeep Colmenares MD [address] [place] [address] [address] [place] [address] [facility] [address] [facility] [address] [place] [address] Referral ID Status Reason Start Date Expiration Date Visits Re quested Visits Authorized [id number] Closed 01/22/2024 01/21/2025 1 1 Encounter Details Date Type Department Care Team (Late st Contact Info) Description 06/21/2024 3:00 PM DIRECTOR OF HEAD START Office Visit [facility] Heart and V[facility] At [address] [place] [address] Amandeep Colmenares MD [address] [place] [address] [address] [place] [address] Porfirio Gregory MD [facility] [address] [facility] [address] [place] [address] Benign hypertension (Primary Dx); Dilated aortic root; Left ventricular enlargement Social History Tobacco Use Types Packs/Day Years [...] Sign Reading Time Taken Comments Blood Pressure 194/92 06/21/2024 3:17 PM DIRECTOR OF HEAD START Pulse 64 06/21/2024 3:17 PM DIRECTOR OF HEAD START Temperature - - Respiratory Rate - - Oxygen Saturation - - Inhaled Oxygen Concentration - - Weight 92.1 kg (203 lb 1.6 oz) 06/21/2024 3:17 P M DIRECTOR OF HEAD START Height - - Body Mass Index 34.32 01/22/2024 3:55 PM CDT documented in this encounter Progress Notes * Porfirio Gregory MD - 06/21/2024 3:49 PM CST HISTORY OF PRESENT ILLNESS Minh Wise, a 53 y.o. male presents with a Chief Complaint of Establish Care Subjective HPI The patient is seen in consultation requested by Dr. Colmenares for opinion and advice regarding echocardiogram showing LV dilatation, left atrial enlargement, and mild aortic root enlargement. Echocardiogram showing abnormalities in question was performed in December 2023. Aortic root diameter measured at 3.9 cm. Patient denies chest pain, chest pressure, shortness of breath, PND, orthopnea, peripheral edema. No recent change in exercise tolerance. He has a history of hypertension and is on medications for that. Outpatient Encounter Medications as of 06/21/2024 Medication Sig Dispense Refill clonazePAM (KlonoPIN) 0.5 mg Tablet take 1 tablet by mouth every day at night 30 Tablet 3 pantoprazole (PROTONIX) 40 mg Tablet, Delayed Release (E.C.) take 1 tablet by mouth every day 30 Tablet 8 buPROPion HCL (WELLBUTRIN XL) 150 mg Extended Release 24 hour tablet take 1 tablet by mouth every day in the morning 90 Tablet 3 losartan-hydroCHLOROthiazide (HYZAAR) 100-12.5 mg tablet take 1 tablet by mouth every day 90 Tablet3 nebivoloL (BYSTOLIC) 5 mg Tablet Take 1 Tablet (5 mg) by mouth daily. 90 Tablet 3 tadalafil (CIALIS) 5 mg tablet Take 1 Tablet (5 mg) by mouth 1 time daily as needed for Erectile Dysfunction. 90 Tablet 3 triamcinolone acetonide (KENALOG) 0.1 % Cream Apply to affected area 2 times daily. Hands bid 80 Gram 2 [DISCONTINUED] tadalafiL 20 mg tablet Take 20 mg by mouth 1 time daily as needed for Erectile Dysfunction. No facility-administered encounter medications on file as of 06/21/2024. Past Medical History: Diagnosis Date Anemia, unspecified Anxiety GERD (gastroesophageal reflux disease) HTN (hypertension) Sleep apnea Testosterone deficiency Social History Tobacco Use Smoking status: Never Passive exposure: Never Smokeless tobacco: Never Vaping Use Vaping status: Never Used Substance Use Topics Alcohol use: Not Currently Alcohol/week: 1.0 standard drink of alcohol Types: 1 Cans of beer per week Comment: Do not drink very often at all. Drug use: Never Family History Problem Relation Name Age of Onset Other Father Jasper Wise High Cholesterol Mother Shaila Wise Hypertension Mother Shaila Wise Heart Disease Mother Shaila Wise Diabetes Sister Hypertension Brother [place] Wise Diabetes Brother [place] Wise Diabetes Sister Erin Leyva REVIEW OF SYSTEMS Review of Systems Constitutional: Negative for fatigue. HENT: Negative for hearing loss. Eyes: Negative for visual disturbance. Respiratory: Negative for chest tightness and shortness of breath. Cardiovascular: Negative for chest pain, palpitations and leg swelling. Gastrointestinal: Negative for abdominal pain and blood in stool. Genitourinary: Negative for difficulty urinating and dysuria. Musculoskeletal: Negative for back pain and neck pain. Skin: Negative for rash. Neurological: Negative for syncope, light-headedness and headaches. Hematological: Does not bruise/bleed easily. Psychiatric/Behavioral: The patient is not nervous/anxious. Objective PHYSICAL EXAM BP (!) 194/92 Pulse 64 Wt 92.1 kg (203 lb 1.6 oz) BMI 34.32 kg/m?? 178/90 Physical Exam Constitutional: Appearance: He is well-developed. HENT: Head: Normocephalic. Eyes: General: No scleral icterus. Conjunctiva/sclera: Conjunctivae normal. Neck: Vascular: No carotid bruit or JVD. Cardiovascular: Rate and Rhythm: Normal rate and regular rhythm. No extrasystoles are present. Chest Wall: PMI is not displaced. Pulses: Carotid pulses are 2+ on the right side and 2+ on the left side. Dorsalis pedis pulses are 2+ on the right side and 2+ on the left side. Posterior tibial pulses are 2+ on the right side and 2+ on the left side. Heart sounds: S1 normal and S2 normal. No murmur heard. No friction rub. Gallop present. S4 sounds present. Pulmonary: Effort: No tachypnea or respiratory distress. Breath sounds: Normal breath sounds. No wheezing or rales. Abdominal: Palpations: Abdomen is soft. There is no mass. Tenderness: There is no abdominal tenderness. Musculoskeletal: General: Normal range of motion. Cervical back: Normal range of motion and neck supple. No edema. Skin: General: Skin is warm and dry. Findings: No bruising or rash. Nails: There is no clubbing. Neurological: Mental Status: He is alert and oriented to person, place, and time. Sensory: No sensory deficit. Motor: No abnormal muscle tone. Psychiatric: Behavior: Behavior normal. Procedures 01/09/24 Echo: SUMMARY: - Left ventricle: The cavity size [...] arteries: Systolic pressure could not be estimated. Assessment ASSESSMENT and PLAN: ICD-10-CM ICD-9-CM 1. Benign hypertension I10 401.1 EKG 12-LEAD 2. Dilated aortic root I77.810 447.71 39 mm diameter on echo December 2023 3. Left ventricular enlargement I51.7 429.3 Mild dilatation seen on echo December 2023 Echo findings likely based on hypertension. Plan: Patient is on Bystolic and lisinopril/HCTZ for hypertensive control. Will continue for now and follow patient up in 3 months, but will consider increasing Bystolic to higher dosing for better blood pressure control if blood pressure remains elevated on subsequent exam Porfirio Gregory MD, [facility] CTOR OF HEAD START * Parish Madden - 06/21/2024 3:09 PM CST Pt presents in office for a follow up on abnormal ECHO Pt reports swelling in lower left leg Pt declines any recent ED/hospital visits CTOR OF HEAD START documented in this encounter Plan of Treatment Upcoming Encounters Date Type Department Care Team (Late st Contact Info) Description 09/27/2024 3:45 PM DIRECTOR OF HEAD START Office Visit [facility] Heart and Vascular At [facility] [address] [facility] [address] [place] [address] Porfirio Gregory MD [facility] [address] [facility] [address] [place] [address] 01/17/2025 4:00 PM CDT Office Visit [facility] Primary Care [address] [place] [address] Amandeep Colmenares MD [address] [place] [address] [address] [place] [address] Scheduled Orders Name Type Priority Associated Diagnoses Orde r Schedule EKG 12-LEAD ECG Routine Benign hypertension Ordered: 06/28/2024 documented as of this encounter Visit Diagnoses Diagnosis Benign hypertension- Primary Essential hypertension, benign Dilated aortic root Aortic ectasia, unspecified site Left ventricular enlargement Cardiomegaly documented in this encounter Care Teams Assistant Grocery Relationship Specialty Start Date End Date Amandeep Colmenares MD NPI: [id number] [place] [address] PCP - General Internal Medicine 04/08/22 documented as of this encounter
--- OUTSIDE RECORDS SUMMARY | 2024-08-21 22:32 | XMS_ITS | Encounter Summary ---
Author Organization [facility] Address [address] [place] [address] Care Team Providers Care Prop Sawyer Name Role Phone Amandeep Colmenares MD Primary Care Provider Reason for Visit * Reason Onset Date Comments Medication Refill 06/19/2023 Encounter Details Date Type Department Care Team (Late Contact Info) Description 06/19/2023 Refill [facility] Primary Care [address] [place] [address] Amandeep Colmenares MD [address] [place] [address] [address] [place] [address] Social History Tobacco Use Types [...] (Late Contact Info) Description 09/27/2024 3:45 PM SUPERVISOR ELECTROLYTIC TINNING Office Visit [facility] Heart and Vascular At [address] [place] [phone] Porfirio Gregory MD [address] [place] [address] [address] [place] [address] 01/17/2025 4:00 PM CDT Office Visit [facility] Primary Care [address] [place] [phone] Amandeep Colmenares MD [address] [place] [address] [address] [place] [address] documented as of this encounter Visit Diagnoses Not on filedocumented in this encounter Care Teams Prop Sawyer Relationship Specialty Start Date End Date Amandeep Colmenares MD [address] [place] [address] [address] [place] [phone] PCP - General Internal Medicine 04/08/22 documented as of this encounter
--- OUTSIDE RECORDS SUMMARY | 2024-08-21 22:32 | XMS_ITS | Encounter Summary ---
Author Organization [facility] Address [address] [place] [address] Care Team Providers Care Vibratory Pile Driver Name Role Phone Amandeep Colmenares MD Primary Care Provider [phone] Reason for Visit * Reason Comments Med Refill Encounter Details Date Type Department Care Team (Late st Contact Info) Description 05/24/2023 Refill [facility] Primary Care [address] [place] [address] Amandeep Colmenares MD [address] [place] [address] [address] [place] [address] Other specified anxiety disorders Social [...] st Contact Info) Description 09/27/2024 3:45 PM CONFERENCE PLANNER Office Visit [facility] Heart and Vascular At [address] [place] [address] Porfirio Gregory MD [address] [place] [address] [address] [place] [address] 01/17/2025 4:00 PM CDT Office Visit [facility] Primary Care [address] [place] [address] Amandeep Colmenares MD [address] [place] [address] [address] [place] [address] documented as of this encounter Visit Diagnoses Diagnosis Other specified anxiety disorders documented in this encounter Care Teams Vibratory Pile Driver Relationship Specialty Start Date End Date Amandeep Colmenares MD [address] [place] [address] [place] [address] PCP - General Internal Medicine 04/08/22 documented as of this encounter
--- OUTSIDE RECORDS SUMMARY | 2024-08-21 22:32 | XMS_ITS | Encounter Summary ---
Author Organization [facility] Address [address] [place] [address] Care Team Providers Care Tongue And Groove Machine Setter Name Role Phone Amandeep Colmenares MD Primary Care Provider [phone] Reason for Visit * Reason Comments Med Refill Encounter Details Date Type Department Care Team (Late st Contact Info) Description 09/06/[address] [facility] Primary Care [address] [place] [address] Amandeep Colmenares MD [address] [place] [address] [address] [place] [address] Other specified anxiety disorders (Primary Dx) Social History Tobacco Use Types [...] (Late Contact Info) Description 09/27/2024 3:45 PM HYDRATION PLANT OPERATOR Office Visit [facility] Heart and Vascular At [address] [place] [address] Porfirio Gregory MD [address] [place] [address] [address] [place] [address] 01/17/2025 4:00 PM CDT Office Visit [facility] Primary Care [address] [place] [phone] Amandeep Colmenares MD [address] [place] [address] [address] [place] [address] documented as of this encounter Visit Diagnoses Diagnosis Other specified anxiety disorders- Primary documented in this encounter Care Teams Tongue And Groove Machine Setter Relationship Specialty Start Date End Date Amandeep Colmenares MD [address] [place], [place] [phone] PCP - General Internal Medicine 04/08/22 documented as of this encounter
--- OUTSIDE RECORDS SUMMARY | 2024-08-21 22:32 | XMS_ITS | Encounter Summary ---
Author Organization [facility] Address [address] [place] [address] Care Team Providers Care Typists Supervisor Name Role Phone Amandeep Colmenares MD Primary Care Provider [phone] Reason for Visit * Reason Comments Med Refill Encounter Details Date Type Department Care Team (Late st Contact Info) Description 06/13/2023 Refill [facility] Primary Care [address] [address] TuckerStacy, [facility] [address] [facility] [address] [place] [address] Essential hypertension, benign Social History Tobacco Use Types Packs/Day Years [...] st Contact Info) Description 09/27/2024 3:45 PM CHINESE LANGUAGE PROFESSOR Office Visit [facility] Heart and Vascular At [address] [place] [address] Porfirio Gregory MD [facility] [address] [facility] [address] [place] [address] 01/17/2025 4:00 PM CDT Office Visit [facility] Primary Care [address] [place] [address] Amandeep Colmenares MD [address] [place] [address] [address] [place] [address] documented as of this encounter Visit Diagnoses Diagnosis Essential hypertension, benign documented in this encounter Care Teams Typists Supervisor Relationship Specialty Start Date End Date Amandeep Colmenares MD [address] [place] [address] [place] [address] PCP - General Internal Medicine 04/08/22 documented as of this encounter
--- OUTSIDE RECORDS SUMMARY | 2024-08-21 22:32 | XMS_ITS | Encounter Summary ---
Author Organization [facility] Address [address] [place] [address] Care Team Providers Care Paper Products Machine Operator Name Role Phone Amandeep Colmenares MD Primary Care Provider [phone] Reason for Visit * Reason Onset Date Comments Medication Refill 07/31/2024 Encounter Details Date Type Department Care Team (Late Contact Info) Description 07/31/2024 Refill [facility] Primary Care [address] [place] [address] Amandeep Colmenares MD [address] [place] [address] [address] [place] [address] Other specified anxiety disorders Social [...] (Late Contact Info) Description 09/27/2024 3:45 PM EXPANDED DUTY DENTAL ASSISTANT Office Visit [facility] Heart and Vascular At [place] [address] [facility] [address] [place] [address] Porfirio Gregory MD [address] [facility] [address] [place] [address] 01/17/2025 4:00 PM CDT Office Visit [facility] Primary Care [address] [place] [address] Amandeep Colmenares MD [address] [place] [address] [address] [place] [address] documented as of this encounter Visit Diagnoses Diagnosis Other specified anxiety disorders documented in this encounter Care Teams Paper Products Machine Operator Relationship Specialty Start Date End Date Amandeep Colmenares MD [address] [place] [address] [address] [place] [phone] PCP - General Internal Medicine 04/08/22 documented as of this encounter
--- OUTSIDE RECORDS SUMMARY | 2024-08-21 22:32 | XMS_ITS | Encounter Summary ---
Author Organization [facility] Address [address] [place] [address] Care Team Providers Care Bark Scaler Name Role Phone Amandeep Colmenares MD Primary Care Provider [phone] Reason for Visit * Reason Onset Date Comments Medication Refill 05/24/2023 Encounter Details Date Type Department Care Team (Late st Contact Info) Description 05/24/2023 Refill [facility] Primary Care [address] [place] [address] Amandeep Colmenares MD [address] [place] [address] [address] [place] [address] Other specified anxiety disorders Social [...] st Contact Info) Description 09/27/2024 3:45 PM PIANO ASSEMBLER Office Visit [facility] Heart and Vascular At [address] [place] [address] Porfirio Gregory MD [address] [place] [address] [address] [place] [address] 01/17/2025 4:00 PM CDT Office Visit [facility] Care [address] [place] [address] Amandeep Colmenares MD [address] [place] [address] [address] [place] [address] documented as of this encounter Visit Diagnoses Diagnosis Other specified anxiety disorders documented in this encounter Care Teams Bark Scaler Relationship Specialty Start Date End Date Amandeep Colmenares MD [address] [place] [address] [place] [address] PCP - General Internal Medicine 04/08/22 documented as of this encounter
--- OUTSIDE RECORDS SUMMARY | 2024-08-21 22:32 | XMS_ITS | Encounter Summary ---
Author Organization [facility] Address [address] [place] [address] Care Team Providers Care Bellhop Service Captain Name Role Phone Amandeep Colmenares MD Primary Care Provider [phone] Encounter Details Date Type Department Care Team (Late st Contact Info) Description 01/15/2024 External Device Data STL ABSTRACTION Provider, Abstract [...] st Contact Info) Description 09/27/2024 3:45 PM BUS MATRON Office Visit [facility] and [facility]ascular [place] [address] [facility] [address] [place] [address] Porfirio Gregory MD [facility] [address] [facility] [address] [place] [address] 01/17/2025 4:00 PM CDT Office Visit [facility] Primary Care [address] [place] [address] Amandeep Colmenares MD [address] [place] [address] [place] [address] documented as of this encounter Visit Diagnoses Not on filedocumented in this encounter Care Teams Bellhop Service Captain Relationship Specialty Start Date End Date Amandeep Colmenares MD [address] [place] [address] [place] [address] PCP - General Internal Medicine 04/08/22 documented as of this encounter
--- OUTSIDE RECORDS SUMMARY | 2024-08-21 22:32 | XMS_ITS | Encounter Summary ---
Author Organization [facility] Address [address] [place] [address] Care Team Providers Care Cloud Security Architect Name Role Phone Amandeep Colmenares MD Primary Care Provider [phone] Encounter Details Date Type Department Care Team (Late st Contact Info) Description 08/14/2023 External Device Data STL ABSTRACTION Provider, Abstract [...] Contact Info) Description 09/27/2024 3:45 PM SUPERVISOR DETASSELING CREW Office Visit [facility] Heart and Vascular At [place] [address] [facility] [address] [place] [address] Porfirio Gregory MD [facility] [address] [facility] [address] [place] [address] 01/17/2025 4:00 PM CDT Office Visit [facility] Primary Care [address] [place] [address] Amandeep Colmenares MD [address] [place] [address] [place] [address] documented as of this encounter Visit Diagnoses Not on filedocumented in this encounter Care Teams Cloud Security Architect Relationship Specialty Start Date End Date Amandeep Colmenares MD [address] [place] [address] [place] [address] PCP - General Internal Medicine 04/08/22 documented as of this encounter
--- OUTSIDE RECORDS SUMMARY | 2024-08-21 22:32 | XMS_ITS | Encounter Summary ---
Author Organization [facility] Address [address] [place] [address] Care Team Providers Care Eye Dropper Assembler Name Role Phone Amandeep Colmenares MD Primary Care Provider Reason for Visit * Reason Comments Hypertension Encounter Details Date Type Department Care Team (Late st Contact Info) Description 07/24/2023 4:00 PM SYSTEMS SUPPORT OFFICER Office Visit [facility] Primary Care [address] [place] [address] Amandeep Colmenares MD [address] [place] [address] [address] [place] [address] Essential hypertension, benign (Primary Dx); Dilated aortic root; Other specified anxiety disorders; Erectile dysfunction, unspecified erectile dysfunction type; Other sleep apnea Social History Tobacco Use Types [...] Reading Time Taken Comments Blood Pressure 136/82 07/24/2023 4:20 PM SYSTEMS SUPPORT OFFICER Pulse 74 07/24/2023 4:20 PM SYSTEMS SUPPORT OFFICER Temperature 36.6 ??C (97.8 ??F) 07/24/2023 4:20 PM CS T Respiratory Rate 16 07/24/2023 4:20 PM SYSTEMS SUPPORT OFFICER Oxygen Saturation 96% 07/24/2023 4:20 PM SYSTEMS SUPPORT OFFICER Inhaled Oxygen Concentration - - Weight 97.5 kg (215 lb) 07/24/2023 4:20 PM SYSTEMS SUPPORT OFFICER Height 163.8 cm (5' 4.5 ) 07/24/2023 4:20 PM SYSTEMS SUPPORT OFFICER Body Mass Index 36.33 07/24/2023 4:20 PM SYSTEMS SUPPORT OFFICER documented in this encounter Progress Notes * Amandeep Colmenares MD - 07/24/2023 4:22 PM CST Answers submitted by the patient for this visit: High Blood Pressure Questionnaire (Submitted on 01/17/2023) Chief Complaint: Hypertension anxiety: No blurred vision: No chest pain: No headaches: No malaise/fatigue: No neck pain: No orthopnea: No palpitations: No peripheral edema: Yes PND: No shortness of breath: No sweats: No Compliance problems: diet, exercise Ed med helps Bp ok ' Edema stable Echo pend Lab pend Patient Active Problem List Diagnosis Code Essential hypertension, benign I10 Generalized edema R60.1 Other sleep apnea G47.39 Other specified anxiety disorders F41.8 Erectile dysfunction N52.9 Dilated aortic root I77.810 Eczema L30.9 BP 136/82 Pulse 74 Temp 97.8 ??F (36.6 ??C) (Temporal) Resp 16 Ht 5' 4.5 (1.638 m) Wt 97.5 kg (215 lb) SpO2 96% BMI 36.33 kg/m?? General appearance: over wt nad Head: [...] Mood stable ASSESSMENT: Encounter Diagnoses Name Primary? Essential hypertension, benign Yes Dilated aortic root Other specified anxiety disorders Erectile dysfunction, unspecified erectile dysfunction type Other sleep apnea Bp cont med stable Dilated aortic root--echo pend reviewed Anxiety stable med prn ED better cont med Sleep apnea stable monitor Health Maintenance Topic Date Due HEPATITIS B VACCINES (1 of 3 - 3-dose series) Never done COVID-19 Vaccine ( season) 2023 DTAP/TDAP/TD VACCINES (3 - Td or Tdap) 09/22/2029 Colorectal Cancer Screening 11/25/2031 ZOSTER VACCINE Completed INFLUENZA VACCINE Completed Preventative Visit- Commercial Completed PNEUMOCOCCAL VACCINE 0-64 YEARS Aged Out Depression Screen Positive: PHQ-2 score >= 3 or PHQ-9 score >= 9 PHQ-2 Total: 0 (07/24/2023 4:22 PM) DEPRESSION PLAN OF CARE His depression screen was negative. PLAN: Echo Lab pend Med reviewed EMS SUPPORT OFFICER documented in this encounter Plan of Treatment Upcoming Encounters Date Type Department Care Team (Late st Contact Info) Description 09/27/2024 3:45 PM SYSTEMS SUPPORT OFFICER Office Visit [facility] Heart and Vascular At [facility] [address] [facility] [address] [place] [address] Porfirio Gregory MD [facility] [address] [facility] [address] [place] [address] 01/17/2025 4:00 PM CDT Office Visit [facility] Primary Care [place] [address] [place] [address] Amandeep Colmenares MD [address] [place] [address] [address] [place] [address] documented as of this encounter Visit Diagnoses Diagnosis Essential hypertension, benign- Primary Dilated aortic root Aortic ectasia, unspecified site Other specified anxiety disorders Erectile dysfunction, unspecified erectile dysfunction type Other sleep apnea documented in this encounter Care Teams Eye Dropper Assembler Relationship Specialty Start Date End Date Amandeep Colmenares MD [address] [place] [phone] PCP - General Internal Medicine 04/08/22 documented as of this encounter
--- OUTSIDE RECORDS SUMMARY | 2024-08-21 22:32 | XMS_ITS | Encounter Summary ---
Author Organization [facility] Address [address] [facility] [address] Pak: Epic [place] [address] Care Team Providers Care Reinsurance Accountant Name Role Phone Amandeep Colmenares MD Primary Care Provider [phone] Encounter Details Date Type Department Care Team (Latest Contact Info) Description 06/28/2022 Travel Social History Tobacco Use Types Packs/Day Years Used Date Smoking Tobacco: Never Sex and Gender Information Value Date Recorded Sex Assigned at Male 05/03/2024 8:10 PM CDT Gender Identity Male 05/03/2024 8:10 PM CDT Sexual Orientation Straight 05/03/2024 8: 10 PM CDT COVID-19 Exposure Response Date Recorded In the last 10 days, have yo u been in contact with someone who was confirmed or suspected to have Coronavirus/COVID-19? No / Unsure 06/28/2022 12:07 PM SURGICAL DRESSING MAKER documented as of this encounter Plan of Treatment Upcoming Encounters Date Type Department Care Team (Late st Contact Info) Description 09/27/2024 3:45 PM SURGICAL DRESSING MAKER Office Visit [facility] Heart and Vascular At [place] [address] [facility] [address] [place] [address] Porfirio Gregory MD [facility] [address] [facility] [address] [place] [address] 01/17/2025 4:00 PM CDT Office Visit [facility] Primary Care [place] [address] [place] [address] Amandeep Colmenares MD [address] [place] [address] [place] [address] documented as of this encounter Visit Diagnoses Not on filedocumented in this encounter Care Teams Reinsurance Accountant Relationship Specialty Start Date End Date Amandeep Colmenares MD [address] [place] [address] [place] [address] PCP - General Internal Medicine 04/08/22 documented as of this encounter
--- OUTSIDE RECORDS SUMMARY | 2024-08-21 22:32 | XMS_ITS | Encounter Summary ---
Author Organization [facility] Address [address] [place] [address] Care Team Providers Care Registered Clinical Dietitian Name Role Phone Amandeep Colmenares MD Primary Care Provider [phone] Encounter Details Date Type Department Care Team (Late st Contact Info) Description 10/02/2023 External Device Data STL ABSTRACTION Provider, Abstract [...] st Contact Info) Description 09/27/2024 3:45 PM AQUATIC LIFE LABORER Office Visit [facility] Heart and Vascular At [place] [address] [facility] [address] [place] [address] Porfirio Gregory MD [facility] [address] [facility] [address] [place] [address] 01/17/2025 4:00 PM CDT Office Visit [facility] Primary Care [address] [place] [address] Amandeep Colmenares MD [address] [place] [address] [place] [address] documented as of this encounter Visit Diagnoses Not on filedocumented in this encounter Care Teams Registered Clinical Dietitian Relationship Specialty Start Date End Date Amandeep Colmenares MD [address] [place] [address] [place] [address] PCP - General Internal Medicine 04/08/22 documented as of this encounter
--- OUTSIDE RECORDS SUMMARY | 2024-08-21 22:32 | XMS_ITS | Encounter Summary ---
Author Organization [facility] Address [address] [place] [address] Care Team Providers Care Electronic Data Processing Auditor Name Role Phone Amandeep Colmenares MD Primary Care Provider [phone] Reason for Visit * Reason Comments Hypertension 6m Encounter Details Date Type Department Care Team (Late st Contact Info) Description 07/19/2024 4:20 PM UTILITY DIVISION PROJECT MANAGER Office Visit [facility] Primary Care [address] [place] [address] Amandeep Colmenares MD [address] [place] [address] [address] [place] [address] Essential hypertension, benign (Primary Dx); Declined influenza vaccine; Other sleep apnea; Other hyperlipidemia; Abnormal glucose Social History Tobacco Use Types Packs/Day [...] Sign Reading Time Taken Comments Blood Pressure 139/88 07/19/2024 3:48 PM UTILITY DIVISION PROJECT MANAGER Pulse 80 07/19/2024 3:48 PM UTILITY DIVISION PROJECT MANAGER Temperature - - Respiratory Rate - - Oxygen Saturation 97% 07/19/2024 3:48 PM UTILITY DIVISION PROJECT MANAGER Inhaled Oxygen Concentration - - Weight 92.1 kg (203 lb) 07/19/2024 3:48 PM UTILITY DIVISION PROJECT MANAGER Height 163.8 cm (5' 4.5 ) 07/19/2024 3:48 PM UTILITY DIVISION PROJECT MANAGER Body Mass Index 34.31 07/19/2024 3:48 PM UTILITY DIVISION PROJECT MANAGER documented in this encounter Progress Notes * Amandeep Colmenares MD - 07/19/2024 4:55 PM CST Hpi Bp ok at home Inc chol Med reviewed Recent lab reviewed reviewed Bp ok Patient Active Problem List Diagnosis Code Benign hypertension I10 Generalized edema R60.1 Other sleep apnea G47.39 Other specified anxiety disorders F41.8 Erectile dysfunction N52.9 Dilated aortic root I77.810 Eczema L30.9 Left ventricular enlargement I51.7 exam BP 139/88 Pulse 80 Ht 5' 4.5 (1.638 m) Wt 92.1 kg (203 lb) SpO2 97% BMI 34.31 kg/m?? General appearance: over wt nad Head: [...] Mood stable ASSESSMENT: Encounter Diagnoses Name Primary? Declined influenza vaccine Essential hypertension, benign Yes Other sleep apnea Other hyperlipidemia Abnormal glucose Bp cont med call if inc Chol start med Diet reviewed Sleep apnea continue cpap benefits from Abn gluc recheck lab Health Maintenance Topic Date Due HEPATITIS B VACCINES (1 of 3 - 19+ 3-dose series) Never done COVID-19 Vaccine ( season) 2024 Pre-Diabetes and Diabetes Screening 07/16/2027 DTAP/TDAP/TD VACCINES (4 - Td or Tdap) 01/17/2030 Colorectal Cancer Screening 11/25/2031 ZOSTER VACCINE Completed INFLUENZA VACCINE Completed Preventative Visit- Commercial Completed PNEUMOCOCCAL VACCINE 0-64 YEARS Aged Out Flu vac pend PLAN: Orders Placed This Encounter CBC WITH DIFFERENTIAL COMPREHENSIVE METABOLIC PANEL HEMOGLOBIN A1C TSH LIPID PANEL pravastatin (PRAVACHOL) 10 mg tablet ITY DIVISION PROJECT MANAGER documented in this encounter Plan of Treatment Upcoming Encounters Date Type Department Care Team (Late st Contact Info) Description 09/27/2024 3:45 PM UTILITY DIVISION PROJECT MANAGER Office Visit [facility] Heart and Vascular At [facility] [address] [facility] [address] [place] [address] Porfirio Gregory MD [facility] [address] [facility] [address] [place] [address] 01/17/2025 4:00 PM CDT Office Visit [facility] Primary Care [address] [place] [address] Amandeep Colmenares MD [address] [place] [address] [address] [place] [address] Scheduled Orders Name Type Priority Associated Diagnoses Orde r Schedule CBC WITH DIFFERENTIAL Lab Routine Essential hypertension, benign Expected: 01/03/2025 (Approximate), Expires: 07/19/2025 COMPREHENSIVE METABOLIC PANEL Lab Routine Other hyperlipidemia Expected: 01/03/2025 (Approximate), Expires: 07/19/2025 HEMOGLOBIN A1C Lab Routine Abnormal glucose Expected: 01/03/2025 (Approximate), Expires: 07/19/2025 TSH Lab Routine Other hyperlipidemia Expected: 01/03/2025 (Approximate), Expires: 07/19/2025 LIPID PANEL Lab Routine Other hyperlipidemia Expected: 01/03/2025 (Approximate), Expires: 07/19/2025 documented as of this encounter Visit Diagnoses Diagnosis Essential hypertension, benign- Primary Declined influenza vaccine Vaccination not carried out because of patient refusal Other sleep apnea Other hyperlipidemia Abnormal glucose Other abnormal glucose documented in this encounter Care Teams Electronic Data Processing Auditor Relationship Specialty Start Date End Date Amandeep Colmenares MD [address] [place] [address] PCP - General Internal Medicine 04/08/22 documented as of this encounter
--- OUTSIDE RECORDS SUMMARY | 2024-08-21 22:32 | XMS_ITS | Encounter Summary ---
Author Organization [facility] Address [address] [place] [address] Care Team Providers Care Integration Manager Name Role Phone Amandeep Colmenares MD Primary Care Provider [phone] Encounter Details Date Type Department Care Team (Late st Contact Info) Description 09/26/2023 External Device Data STL ABSTRACTION Provider, Abstract [...] st Contact Info) Description 09/27/2024 3:45 PM HEALTH CARE TECHNICIAN Office Visit [facility] Heart and Vascular At [place] [address] [facility] [address] [place] [address] Porfirio Gregory MD [facility] [address] [facility] [address] [place] [address] 01/17/2025 4:00 PM CDT Office Visit [facility] Primary Care [address] [place] [address] Amandeep Colmenares MD [address] [place] [address] [place] [address] documented as of this encounter Visit Diagnoses Not on filedocumented in this encounter Care Teams Integration Manager Relationship Specialty Start Date End Date Amandeep Colmenares MD [address] [place] [address] [place] [address] PCP - General Internal Medicine 04/08/22 documented as of this encounter
--- OUTSIDE RECORDS SUMMARY | 2024-08-21 22:32 | XMS_ITS | Encounter Summary ---
Author Organization [facility] Address [address] [place] [address] Care Team Providers Care Online Merchandiser Name Role Phone Amandeep Colmenares MD Primary Care Provider [phone] Encounter Details Date Type Department Care Team (Late st Contact Info) Description 09/29/2023 External Device Data STL ABSTRACTION Provider, Abstract [...] st Contact Info) Description 09/27/2024 3:45 PM NEGATIVE STRIPPER Office Visit [facility] Heart and Vascular At [place] [address] [facility] [address] [place] [address] Porfirio Gregory MD [facility] [address] [facility] [address] [place] [address] 01/17/2025 4:00 PM CDT Office Visit [facility] Primary Care [address] [place] [address] Amandeep Colmenares MD [address] [place] [address] [place] [address] documented as of this encounter Visit Diagnoses Not on filedocumented in this encounter Care Teams Online Merchandiser Relationship Specialty Start Date End Date Amandeep Colmenares MD [address] [place] [address] [place] [address] PCP - General Internal Medicine 04/08/22 documented as of this encounter
--- OUTSIDE RECORDS SUMMARY | 2024-08-21 22:32 | XMS_ITS | Encounter Summary ---
Author Organization [facility] Address [address] [place] [address] Care Team Providers Care Overage Shortage And Damage Clerk Name Role Phone Amandeep Colmenares MD Primary Care Provider [phone] Reason for Visit * Reason Comments Med Refill Encounter Details Date Type Department Care Team (Late st Contact Info) Description 09/10/2023 Refill [facility] Primary Care [address] [address] TuckerStacy, [facility] [address] [facility] [address] [place] [address] Other specified anxiety disorders; Essential hypertension, benign Social History Tobacco Use [...] st Contact Info) Description 09/27/2024 3:45 PM POWDER CUTTING OPERATOR Office Visit [facility] Heart and Vascular At [address] [place] [address] Porfirio Gregory MD [address] [facility] [address] [place] [address] 01/17/2025 4:00 PM CDT Office Visit [facility] Primary Care [address] [phone] Amandeep Colmenares MD [address] [place] [address] [address] [place] [address] documented as of this encounter Visit Diagnoses Diagnosis Other specified anxiety disorders Essential hypertension, benign documented in this encounter Care Teams Overage Shortage And Damage Clerk Relationship Specialty Start Date End Date Amandeep Colmenares MD [address] [place], [place] [address] PCP - General Internal Medicine 04/08/22 documented as of this encounter
--- OUTSIDE RECORDS SUMMARY | 2024-08-21 22:32 | XMS_ITS | Encounter Summary ---
Author Organization [facility] Address [address] [place] [address] Care Team Providers Care Offset Plate Maker Name Role Phone Amandeep Colmenares MD Primary Care Provider [phone] Reason for Visit * Reason Comments Med Refill Encounter Details Date Type Department Care Team (Late st Contact Info) Description 09/27/2023 Refill [facility] Primary Care [address] [place] [address] Amandeep Colmenares MD [address] [place] [address] [address] [place] [address] Other specified anxiety disorders Social [...] (Late Contact Info) Description 09/27/2024 3:45 PM ANALYSIS CONSULTANT Office Visit [facility] Heart and Vascular At [address] [place] [address] Porfirio Gregory MD [address] [place] [address] [address] [place] [address] 01/17/2025 4:00 PM CDT Office Visit [facility] Primary Care [address] [place] [address] Amandeep Colmenares MD [address] [place] [address] [address] [place] [address] documented as of this encounter Visit Diagnoses Diagnosis Other specified anxiety disorders documented in this encounter Care Teams Offset Plate Maker Relationship Specialty Start Date End Date Amandeep Colmenares MD [address] [place] [address] PCP - General Internal Medicine 04/08/22 documented as of this encounter
--- OUTSIDE RECORDS SUMMARY | 2024-08-21 22:32 | XMS_ITS | Encounter Summary ---
Author Organization [facility] Address [address] [place] [address] Care Team Providers Care Child Support Case Officer Name Role Phone Amandeep Colmenares MD Primary Care Provider [phone] Reason for Visit * Reason Comments Med Refill Encounter Details Date Type Department Care Team (Late st Contact Info) Description 02/15/2024 Refill [facility] Primary Care [facility] [address] [place] [address] Ember Nicholson, ELISE [address] [place] [address] Social History Tobacco Use Types Packs/Day Years [...] st Contact Info) Description 09/27/2024 3:45 PM SALES CLERK SUPERVISOR Office Visit [facility] Heart and Vascular At [address] [place] [address] Porfirio Gregory MD [facility] [address] [facility] [address] [place] [address] 01/17/2025 4:00 PM CDT Office Visit [facility] Primary Care [address] [place] [address] Amandeep Colmenares MD [address] [place] [address] [address] [place] [address] documented as of this encounter Visit Diagnoses Not on filedocumented in this encounter Care Teams Child Support Case Officer Relationship Specialty Start Date End Date Amandeep Colmenares MD [address] [place] [address] [place] [address] PCP - General Internal Medicine 04/08/22 documented as of this encounter
--- OUTSIDE RECORDS SUMMARY | 2024-08-21 22:32 | XMS_ITS | Encounter Summary ---
Author Organization [facility] Address [address] [place] [address] Care Team Providers Care Consumer Recruiter Name Role Phone Amandeep Colmenares MD Primary Care Provider [phone] Reason for Visit * Reason Comments Med Change Request Encounter Details Date Type Department Care Team (Late st Contact Info) Description 07/15/2022 Refill [facility] Primary Care [address] [place] [address] Amandeep Colmenares MD [address] [facility] [address] [place] [address] Social History Tobacco Use Types [...] Coronavirus/COVID-19? No / Unsure 07/15/2022 3:47 PM STEAMTABLE WORKER documented as of this encounter Plan of Treatment Upcoming Encounters Date Type Department Care Team (Late st Contact Info) Description 09/27/2024 3:45 PM STEAMTABLE WORKER Office Visit [facility] Heart and Vascular At [facility] [address] [facility] [address] [place] [address] Porfirio Gregory MD [address] [facility] [address] [place] [address] 01/17/2025 4:00 PM CDT Office Visit [facility] Primary Care [facility] [address] [place] [address] [address] [place] [address] Amandeep Colmenares MD [address] [place] [address] [address] [place] [phone] documented as of this encounter Visit Diagnoses Not on filedocumented in this encounter Care Teams Consumer Recruiter Relationship Specialty Start Date End Date Amandeep Colmenares MD [address] [place] [address] [address] [place] [address] PCP - General Internal Medicine 04/08/22 documented as of this encounter
--- OUTSIDE RECORDS SUMMARY | 2024-08-21 22:32 | XMS_ITS | Encounter Summary ---
Author Organization [facility] Address [address] [place] [address] Care Team Providers Care Stretcher And Drier Name Role Phone Amandeep Colmenarse MD Primary Care Provider Reason for Referral * Echocardiography (Routine) - Closed Specialty Diagnoses / Procedures Referred By Contac t Referred To Contact Radiology Diagnoses Dilated aortic root Procedures ECHO COMPLETE Amandeep Colmenares MD [address] [address] [address] [address] [place] [phone] Referral ID Status Reason Start Date Expiration Date Visits Re quested Visits Authorized [id number] Closed 01/20/2023 02/20/2024 1 1 Reason for Visit * Auth/Cert (Routine) Specialty Diagnoses / Procedures Referred By Contac t Referred To Contact Radiology Amandeep Colmenares MD [address] [place] [address] [address] [place] [address] [address] [facility] [address] [place] [phone] Referral ID Status Reason Start Date Expiration Date Visits Re quested Visits Authorized [id number] 1 1 Encounter Details Date Type Department Care Team (Latest Contact Info) Description 01/09/2024 2:48 PM CDT - 01/09/2024 11:59 PM CDT Hospital Encounter [facility] Diagnostic Cardiology Services [facility] [address] [facility] [address] [place] [address] Amandeep Colmenares MD 636 [facility] [address] [place] [address] Discharge Disposition: Home or Self Care Social History Tobacco Use Types Packs/Day Years [...] this encounter Medications at Time of Discharge Medication Sig Dispensed Refills Start Date End Date buPROPion HCL (WELLBUTRIN XL) 150 mg Extended Release 24 hour tabletIndications:Other specified anxiety disorders take 1 tablet by mouth every day in the morning 90 Tablet 3 09/10/2023 losartan-hydroCHLOROthi azide (HYZAAR) 100-12.5 mg tabletIndications:Essen tial hypertension, benign take 1 tablet by mouth every day 90 Tablet 3 09/10/2023 triamcinolone acetonide (KENALOG) 0.1 % Cream Apply to affected area 2 times daily. Hands bid 80 Gram 2 07/15/2022 clonazePAM (KlonoPIN) 0.5 mg TabletIndications:Other specified anxiety disorders take 1 tablet by mouth every day at night 90 Tablet 3 09/29/2023 04/03/2024 nebivoloL (BYSTOLIC) 5 mg Tablet Take 1 Tablet (5 mg) by mouth daily. 90 Tablet 3 07/28/2023 07/19/2024 tadalafil (CIALIS) 5 mg tablet Take 1 Tablet (5 mg) by mouth 1 time daily as needed for Erectile Dysfunction. 90 Tablet 3 06/19/2023 07/05/2024 pantoprazole (PROTONIX) 40 mg Tablet, Delayed Release (E.C.) Take 1 Tablet (40 mg) by mouth daily. 90 Tablet 2 03/20/2023 02/16/2024 tadalafiL 20 mg tablet Take 20 mg by mouth 1 time daily as needed for Erectile Dysfunction. 06/21/2024 documented as of this encounter Plan of Treatment Upcoming Encounters Date Type Department Care Team (Late st Contact Info) Description 09/27/2024 3:45 PM MOLDING LINE ASSISTANT Office Visit [facility] Heart and Vascular At [address] [place] [address] Porfirio Gregory MD [facility] [address] [facility] [address] [place] [address] 01/17/2025 4:00 PM CDT Office Visit [facility] Primary Care [address] [place] [address] Amandeep Colmenares MD [address] [place] [address] [address] [place] [address] documented as of this encounter Procedures Procedure Name Priority Date/Time Associated Diagnosis Comments ECHO COMPLETE Routine 01/09/2024 4:49 PM CDT Dilated aortic root documented in this encounter Results * ECHO COMPLETE (01/09/2024 4:49 PM CDT) EJECTION FRACTION 60 INTERFACE SYSTEM 01/09/2024 4:10 PM CDT Narrative INTERFACE SYSTEM - 01/10/2024 7:34 AM CDT [facility] [address] [place] [address] [email or web address] [email or web address] Echocardiogram Patient: ? Minh Wise MRN: ? [id number] Study ID: ?[id number] Gender: ?M : ? 1970 Age: ? 53 Race: ?CAU Height ? 163.8cm Study Date: ?01/09/2024 Weight: ?97.5kg Access. #: ? [id number] Account #: ? [id number] BP: *Referring Physician:* Amandeep Colmenares Andrew M *Ordering Physician:* ??Amandeep Colmenares lab head: Nurse: Indications: Hypertension. JAYLA. Dilated aortic root. [...] PM. Prepared and Electronically Authenticated Porfirio Gregory [id number]:09 Procedure Note Porfirio Gregory MD - 01/10/2024 [place] [address] [place] [address] [email or web address] Transthoracic Echocardiogram Patient: Minh Wise Study ID: [id number] Gender: Esperanza :1970 Age: 53 Race: KALIE Height 163.8cm Study Date:01/09/2024 Weight: 97.5kg Access. #:[id number] BP: *Referring Physician:* Amandeep Colmenares Andrew M *Ordering Physician:* Amandeep Colmenares lab head: Nurse: Indications: Hypertension. JAYLA. Dilated aortic root. [...] PM. Prepared and Electronically Authenticated Porfirio Gregory [id number]:34:09 Amandeep Colmenares MD ORDERABLES INTERFACE SYSTEM Refer to clinic/hospital department documented in this encounter Visit Diagnoses Diagnosis Dilated aortic root Aortic ectasia, unspecified site documented in this encounter Care Teams Stretcher And Drier Relationship Specialty Start Date End Date Amandeep Colmenares MD [address] [place] [address] PCP - General Internal Medicine 04/08/22 documented as of this encounter
--- OUTSIDE RECORDS SUMMARY | 2024-08-21 22:32 | XMS_ITS | Clinical Summary ---
Author Organization [facility] rofessional Office [facility] Address [address] [place] [address] Care Team Providers Care Tomb Maker Helper Name Role Phone Amandeep Colmenares MD Primary Care Provider Allergies No known active allergies Medications Medication Sig Dispensed Refills Start Date End Date Status triamcinolone acetonide (KENALOG) 0.1 % Cream Apply to affected area 2 times daily. Hands bid 80 Gram 2 07/15/2022 Active buPROPion HCL (WELLBUTRIN XL) 150 mg Extended Release 24 hour tabletIndication s:Other specified anxiety disorders take 1 tablet by mouth every day in the morning 90 Tablet 3 09/10/2023 Active losartan-hydroCH LOROthiazide (HYZAAR) 100-12.5 mg tabletIndication s:Essential hypertension, benign take 1 tablet by mouth every day 90 Tablet 3 09/10/2023 Active pantoprazole (PROTONIX) 40 mg Tablet, Delayed Release (E.C.) take 1 tablet by mouth every day 30 Tablet 8 02/16/2024 Active tadalafil (CIALIS) 5 mg tablet TAKE 1 TABLET BY MOUTH ONCE DAILY NEEDED FOR ERECTILE DYSFUNCTION 90 Tablet 3 07/05/2024 Active nebivoloL (BYSTOLIC) 5 mg Tablet Take 1 tablet by mouth once daily 90 Tablet 3 07/19/2024 Active pravastatin (PRAVACHOL) 10 mg tablet Take 1 Tablet (10 mg) by mouth daily at bedtime. 100 Tablet 3 07/19/2024 Active clonazePAM (KlonoPIN) 0.5 mg TabletIndication s:Other specified anxiety disorders Take 1 Tablet (0.5 mg) by mouth daily at bedtime. 30 Tablet 3 08/02/2024 Active clonazePAM (KlonoPIN) 0.5 mg TabletIndication s:Other specified anxiety disorders take 1 tablet by mouth every day at night 30 Tablet 3 04/03/2024 Discontinue d(Reorder) Active Problems Patient Care Coordination No te Formatting of this note migh t be different from the original. Prev 01/22/24 Problem Noted Date Diagnosed Date Left ventricular enlargement 06/28/2024 Overview (06/28/2024): Mild dilatation seen on echo December 2023 Eczema 07/15/2022 Dilated aortic root 06/29/2022 Overview (06/29/2022): Echo 07 02 Benign hypertension 04/08/2022 Generalized edema 04/08/2022 Other sleep apnea 04/08/2022 Other specified anxiety disorders 04/08/2022 Erectile dysfunction 04/08/2022 Encounters Date Type Department Care Team Description 07/31/[address] [place] [phone] Amandeep Colmenares MD Other specified anxiety disorders 07/31/[address] [place] [address] Amandeep Colmenares MD Other specified anxiety disorders 07/19/2024 4:20 PM SUPERVISOR ENROBING Office Visit [place] [address] [place] [address] Amandeep Colmenares MD Essential hypertension, benign (Primary Dx); Declined influenza vaccine; Other sleep apnea; Other hyperlipidemia; Abnormal glucose 07/18/2024 [place] [address] [place] [address] Tete Mart, ANP 07/03/2024 [address] [place] [address] Amandeep Colmenares MD 06/21/2024 3:00 PM SUPERVISOR ENROBING Office Visit [facility] Heart and Vascular At [facility] [address] [place] [address] Amandeep Colmenares MD Ferrara, Robert P, MD Benign hypertension (Primary Dx); Dilated aortic root; Left ventricular enlargement from Last 3 Months Immunizations Name Administration Dates Next Due (ADACEL/BOOSTRIX)(10 YR UP) TDAP VACCINE, 0.5ML, IM 01/18/2020,09/19/2009 (Moderna Bivalent)(6 Mos Up) COVID-19 Vaccine - Emergency Use Authorization, MRNA(Pf) 50 Mcg/0.5 Ml Im Susp 06/01/2022 (PREVNAR 20)(6 WKS UP) PNEUM OCOCCAL CONJUGATE VACCINE 20-VALENT (PCV20), POLYSACCHARIDE [id number] CONJUGATE, ADJUVANT 0.5 ML (PF) IM 01/22/2024 (SHINGRIX)(50 YRS UP) ZOSTER VACCINE RECOMBINANT, 0.5 ML, IM 02/29/2020,08/30/2019 INFLUENZA VACCINE QUADRIVALE NT 6 MOS UP PF IM 06/10/2021,05/01/2020,06/12/2018,06/10 Influenza Seasonal Unspecifi ed Formulation IM 06/13/2023,06/01/2022,06/21/2015,05/11,04/11/2012 Influenza Vaccine Quad Split (18-64) Pf Id 06/12/2016 Td(adult) Unspecified Formulation 09/22/2019 Family History Medical History Relation Name Comments Diabetes Brother Alessandro Wise Hypertension Brother Alessandro Wise Other Father Jasper Wise Heart Disease Mother Shaila Wise High Cholesterol Mother Shaila Wise Hypertension Mother Shaila Wise Diabetes Sister 1 Diabetes Sister 2 Erin Leyva Relation Name Status Comments Brothmónica Wise Alive Father Jasper Wise Alive Maternal Grandfather Maternal Grandmother Mother Shaila Wise Alive Paternal Grandfather Paternal Grandmother Sister 1 Alive Sister 2 Erin Leyva Social History Tobacco Use Types Packs/Day Years [...] Orientation Straight 05/03/2024 8: 10 PM CDT Last Filed Vital Signs Vital Sign Reading Time Taken Comments Blood Pressure 139/88 07/19/2024 3:48 PM SUPERVISOR ENROBING Pulse 80 07/19/2024 3:48 PM SUPERVISOR ENROBING Temperature 36.6 ??C (97.8 ??F) 07/24/2023 4:20 PM CS T Respiratory Rate 16 07/24/2023 4:20 PM SUPERVISOR ENROBING Oxygen Saturation 97% 07/19/2024 3:48 PM SUPERVISOR ENROBING Inhaled Oxygen Concentration - - Weight 92.1 kg (203 lb) 07/19/2024 3:48 PM SUPERVISOR ENROBING Height 163.8 cm (5' 4.5 ) 07/19/2024 3:48 PM SUPERVISOR ENROBING Body Mass Index 34.31 07/19/2024 3:48 PM SUPERVISOR ENROBING Plan of Treatment Upcoming Encounters Date Type Department Care Team (Late st Contact Info) Description 09/27/2024 3:45 PM SUPERVISOR ENROBING Office Visit [facility] Heart and Vascular At [facility] [address] [facility] [address] [place] [phone] Porfirio Gregory MD [facility] [address] [facility] [address] [place] [address] 01/17/2025 4:00 PM CDT Office Visit [facility] Primary Care [address] [place] [phone] Amandeep Colmenares MD [address] [place] [address] [address] [place] [address] Health Maintenance Due Date Last Done Comments HEPATITIS B VACCINES (1 of 3 - 19+ 3-dose series) 1988 FIT-DNA Q 3 years 2014 FIT/FOBT Q 1 year 2014 Flex Sig/CT Colonography Q 5 years 2014 COVID-19 Vaccine ( season) 2024 06/01/2022, 08/09/2021, 11/03/2020 Preventative Visit- Commercial 08/11/2024 01/22/2024, 01/20/2023, 04/08/2022, Additional history exists Pre-Diabetes and Diabetes Screening 07/16/2027 07/16/2024, 01/16/2024, 05/25/2022 DTAP/TDAP/TD VACCINES (4 - Td or Tdap) 01/17/2030 01/18/2020, 09/22/2019, 09/19/2009 COLORECTAL SCREENING 11/25/2031 11/24/2021, 11/24/2021, 12/21/2018, Additional history exists Colorectal Cancer Screening 11/25/2031 ZOSTER VACCINE Completed 02/29/2020, 08/30/2019 PNEUMOCOCCAL VACCINE 0-64 YEARS Aged Out 01/22/2024 No longer eligible based on patient's age to complete this topic INFLUENZA VACCINE Completed 07/19/2024, , 06/01/2022, Additional history exists Procedures Procedure Name Priority Date/Time Associated Diagnosis Comments TSH Routine 07/16/2024 8:41 AM SUPERVISOR ENROBING Essential hypertension, benign PSA Routine 07/16/2024 8:41 AM SUPERVISOR ENROBING Screening PSA (prostate specific antigen) LIPID PANEL Routine 07/16/2024 8:41 AM SUPERVISOR ENROBING Essential hypertension, benign HEMOGLOBIN A1C Routine 07/16/2024 8:41 AM SUPERVISOR ENROBING Abnormal glucose COMPREHENSIVE METABOLIC PANEL Routine 07/16/2024 8:41 AM SUPERVISOR ENROBING Essential hypertension, benign CBC WITH DIFFERENTIAL Routine 07/16/2024 8:41 AM SUPERVISOR ENROBING Essential hypertension, benign from Last 3 Months Results * CBC WITH DIFFERENTIAL (07/16/2024 8:41 AM SUPERVISOR ENROBING) WBC 5.8 3.8 - 10.8 Thousand/u L [...] [facility] Comment: Test Performed at: [facility] [address] [place], [place] ??[phone] Alicia Singer MD Blood 07/16/2024 8:41 AM SUPERVISOR ENROBING 07/16/2024 8:41 AM SUPERVISOR ENROBING Amandeep Colmenares MD HEMATOLOGY ORDERABLE S [facility] [phone] [facility] [address] [place] [address] * TSH (07/16/2024 8:41 AM SUPERVISOR ENROBING) Pathologist [facility] TSH 2.42 0.40 - 4.50 mIU/L [facility] Comment: Test Performed at: [facility] ??[phone] Alicia Singer MD Blood 07/16/2024 8:41 AM SUPERVISOR ENROBING 07/16/2024 8:41 AM SUPERVISOR ENROBING Amandeep Colmenares MD CHEMISTRY ORDERABLES [facility] [phone] [facility] [address] * PSA (07/16/2024 8:41 AM SUPERVISOR ENROBING) Pathologist [facility] PSA 0.47 < OR = 4.00 ng/mL [facility] Comment: The total PSA value from this assay system is standardized against the WHO standard. The test result will be approximately 20% lower when compared to the equimolar-standardized total PSA (Susi [place]). Comparison of serial PSA results should be interpreted with this fact in mind. This test was performed using the Siemens chemiluminescent method. Values obtained from different assay methods cannot be used interchangeably. PSA levels, regardless of value, should not be interpreted as absolute evidence of the presence or absence of disease. Test Performed at: [facility] ??[phone] Alicia Singer MD Blood 07/16/2024 8:41 AM SUPERVISOR ENROBING 07/16/2024 8:41 AM SUPERVISOR ENROBING Amandeep Colmenares MD CHEMISTRY ORDERABLES [facility] [phone] [facility] [address] * HEMOGLOBIN A1C (07/16/2024 8:41 AM SUPERVISOR ENROBING) Pathologist [facility] HEMOGLOBIN A1C 5.2 <5.7 % of total Hgb [facility] Comment: For the purpose of screening for the presence of diabetes: <5.7% ? Consistent with the absence of diabetes 5.7-6.4% ?Consistent with increased risk for diabetes ?(prediabetes) > or =6.5% ??Consistent with diabetes This assay result is consistent with a decreased risk of diabetes. Currently, no consensus exists regarding use of hemoglobin A1c for diagnosis of diabetes in children. According to [place] Diabetes Association (ADA) guidelines, hemoglobin A1c <7.0% represents optimal control in non- diabetic patients. Different metrics may apply to specific patient populations. Standards of Medical Care in Diabetes(ADA). ?? ESTIMATED AVERAGE GLUCOSE (MG/DL) 103 mg/dL [facility] ESTIMATED AVERAGE GLUCOSE (MMOL/L) 5.7 mmol/L [facility] Comment: Test Performed at: [facility] [address] [place] ??[phone] LesleyTadeoMichelle Royal Blood 07/16/2024 8:41 AM SUPERVISOR ENROBING 07/16/2024 8:41 AM SUPERVISOR ENROBING Amandeep Colmenares MD CHEMISTRY ORDERABLES [facility] [phone] [place] [address] [place] [address] * (ABNORMAL) LIPID PANEL (07/16/2024 8:41 AM SUPERVISOR ENROBING) CHOLESTEROL 184 <200 mg/dL [facility] HDL 45 > OR = 40 mg/dL [facility] TRIGLYCERIDE 84 <150 mg/dL [facility] LDL CALCULATED 121(H) mg/dL (calc) [facility] Comment: Reference range: <100 Desirable range <100 mg/dL for primary prevention; ?? <70 mg/dL for patients with CHD or diabetic patients with > or = 2 CHD risk factors. LDL-C is now calculated using the Analilia calculation, which is a validated novel method providing better accuracy than the Friedewald equation in the estimation of LDL-C. Steve SS et al. JENNY. 2013;310(19): 1445-0829 (http://education.Curves/faq/ABY816) CHOL/HDL RATIO 4.1 <5.0 (calc) [facility] NON-HDL CHOLESTEROL 139(H) <130 mg/dL (calc) [facility] Comment: For patients with diabetes plus 1 major ASCVD risk factor, treating to a non-HDL-C goal of <100 mg/dL (LDL-C of <70 mg/dL) is considered a therapeutic option. Test Performed at: [facility] [address] [place], [place] ??[phone] Alicia Singer MD Blood 07/16/2024 8:41 AM SUPERVISOR ENROBING 07/16/2024 8:41 AM SUPERVISOR ENROBING Amandeep Colmenares MD CHEMISTRY ORDERABLES [facility] [phone] [facility] [address] [place] [address] * (ABNORMAL) COMPREHENSIVE METABOLIC PANEL (07/16/2024 8:41 AM SUPERVISOR ENROBING) GLUCOSE 111(H) 65 - 99 mg/dL [facility] Comment: ? Fasting reference interval For [...] [facility] BUN/CREAT RATIO SEE NOTE: 6 (calc) [facility] Comment: ?? Not [...] [facility] Comment: Test Performed at: [facility] [address] [place], [place] ??[phone] Alicia Singer MD Blood 07/16/2024 8:41 AM SUPERVISOR ENROBING 07/16/2024 8:41 AM SUPERVISOR ENROBING Amandeep Colmenares MD CHEMISTRY ORDERABLES [facility] [phone] [facility] [address] [place] [address] from Last 3 Months Care Teams Tomb Maker Helper Relationship Specialty Start Date End Date Amandeep Colmenares MD [address] [place] [address] PCP - General Internal Medicine 04/08/22
--- OUTSIDE RECORDS SUMMARY | 2024-08-21 22:32 | XMS_ITS | Encounter Summary ---
Author Organization [facility] Address [address] [place] [address] Care Team Providers Care Embossing Press Operator Apprentice Name Role Phone Amandeep Colmenares MD Primary Care Provider [phone] Encounter Details Date Type Department Care Team (Late st Contact Info) Description 01/27/2024 External Device Data STL ABSTRACTION Provider, Abstract [...] st Contact Info) Description 09/27/2024 3:45 PM HOSPITAL ADMITTING CLERK Office Visit [facility] Heart and Vascular At [place] [address] [facility] [address] [place] [address] Porfirio Gregory MD [facility] [address] [facility] [address] [place] [address] 01/17/2025 4:00 PM CDT Office Visit [facility] Primary Care [address] [place] [address] Amandeep Colmenares MD [address] [place] [address] Tony [place] [address] documented as of this encounter Visit Diagnoses Not on filedocumented in this encounter Care Teams Embossing Press Operator Apprentice Relationship Specialty Start Date End Date Amandeep Colmenares MD [address] [place] [address] [place] [address] PCP - General Internal Medicine 04/08/22 documented as of this encounter
--- OUTSIDE RECORDS SUMMARY | 2024-08-21 22:32 | XMS_ITS | Encounter Summary ---
Author Organization [facility] Address [address] [place] [address] Care Team Providers Care Pressurizer Name Role Phone Amandeep Colmenares MD Primary Care Provider Reason for Visit * Reason Comments Med Refill Encounter Details Date Type Department Care Team (Late st Contact Info) Description 07/18/2024 Refill [facility] Primary Care [address] [place] [phone] Tete Mart, ANP [address] [place] [address] [address] [place] [phone] Social History Tobacco Use Types Packs/Day Years [...] st Contact Info) Description 09/27/2024 3:45 PM LOOPER FIXER Office Visit [facility] Heart and Vascular At [address] [place] [address] Porfirio Gregory MD [address] [place] [address] [address] [place] [address] 01/17/2025 4:00 PM CDT Office Visit [facility] Primary Care [facility] [address] [place] [address] [address] [place] [address] Amandeep Colmenares MD [address] [place] [address] [address] [place] [address] documented as of this encounter Visit Diagnoses Not on filedocumented in this encounter Care Teams Pressurizer Relationship Specialty Start Date End Date Amandeep Colmenares MD [address] [place] [address] [address] [place] [address] PCP - General Internal Medicine 04/08/22 documented as of this encounter
--- OUTSIDE RECORDS SUMMARY | 2024-08-21 22:33 | XMS_ITS | Encounter Summary ---
Author Organization [facility] Address [address] [place] [address] Care Team Providers Care Adjunct Psychology Faculty Member Name Role Phone Amandeep Colmenares MD Primary Care Provider [phone] Reason for Referral * Radiology Services (Routine) - Closed Specialty Diagnoses / Procedures Referred By Contac t Referred To Contact Cardiology Diagnoses Generalized edema Procedures ECHO COMPLETE Amandeep Colmenares MD [address] [place] [phone] [facility] Non Invasive Cardiology [address] [place] [address] Referral ID Status Reason Start Date Expiration Date V isits Requested Visits Authorized [id number] Closed STL CTS 06/26/2022 08/10/2022 1 1 Reason for Visit * Reason Comments Establish Care Encounter Details Date Type Department Care Team (Late st Contact Info) Description 04/08/2022 4:15 PM CDT Office Visit [facility] Primary Care [facility] [address] [place] [address] [address] [place] [address] Amandeep Colmenares MD [address] [place] [address] [address] [place] [address] Encounter for routine adult health examination with abnormal findings (Primary Dx); Other specified anxiety disorders; Other sleep apnea; Generalized edema; Myalgia; Essential hypertension, benign; Erectile dysfunction, unspecified erectile dysfunction type Social History Tobacco Use Types Packs/Day Years Used Date Smoking Tobacco: Never Tobacco Cessation:Counseling Given: Not Answered Sex and Gender Information Value Date Recorded Sex Assigned at Male 05/03/2024 8:10 PM CDT Gender Identity Male 05/03/2024 8:10 PM CDT Sexual Orientation Straight 05/03/2024 8: 10 PM CDT COVID-19 Exposure Response Date Recorded In the last 10 days, have mo myers been in contact with someone who was confirmed or suspected to have Coronavirus/COVID-19? No / Unsure 04/08/2022 3:44 PM CDT documented as of this encounter Last Filed Vital Signs Vital Sign Reading Time Taken Comments Blood Pressure 130/84 04/08/2022 4:05 PM CDT Pulse 71 04/08/2022 4:05 PM CDT Temperature - - Respiratory Rate - - Oxygen Saturation 97% 04/08/2022 4:05 PM CDT Inhaled Oxygen Concentration - - Weight 91.6 kg (202 lb) 04/08/2022 4:05 PM CDT Height 163.8 cm (5' 4.5 ) 04/08/2022 4:05 PM CDT Body Mass Index 34.14 04/08/2022 4:05 PM CDT documented in this encounter Progress Notes * Amandeep Colmenares MD - 04/08/2022 4:22 PM CDT Subjective: Frandy Wilkinson is a 51 y.o. male. Prev Inc edema x 2mo Bp ok Ed med prn On cpap Med reviewed reviewed Patient Active Problem List Diagnosis Date Noted Essential hypertension, benign 04/08/2022 Generalized edema 04/08/2022 Other sleep apnea 04/08/2022 Other specified anxiety disorders 04/08/2022 Erectile dysfunction 04/08/2022 Current Outpatient Medications on File Prior to Visit Medication Sig Dispense Refill pantoprazole (PROTONIX) 40 mg Tablet, Delayed Release (E.C.) Take 40 mg by mouth daily. clonazePAM (KlonoPIN) 0.5 mg Tablet Take 0.5 mg by mouth 2 times daily. tadalafiL (CIALIS) 20 mg tablet Take 20 mg by mouth 1 time daily as needed for Erectile Dysfunction. [DISCONTINUED] amLODIPine-valsartan (EXFORGE) 10-160 mg Tablet Take by mouth daily. [DISCONTINUED] buPROPion HCL (WELLBUTRIN XL) 300 mg Extended Release 24 hour tablet Take 300 mg by mouth daily in the morning. No current facility-administered medications on file prior to visit. No Known Allergies Past Medical History: Diagnosis Date Anemia, unspecified Anxiety GERD (gastroesophageal reflux disease) HTN (hypertension) Sleep apnea Testosterone deficiency Past Surgical History: Procedure Laterality Date HX KNEE ARTHROSCOPY Left Family History Problem Relation Name Age of Onset Other Father High Cholesterol Mother Hypertension Mother Heart Disease Mother Diabetes Sister Hypertension Brother Diabetes Brother Social History Tobacco Use Smoking status: Never Smokeless tobacco: Not on file Substance Use Topics Alcohol use: Not on file Exam/Objective: BP 130/84 Pulse 71 Ht 5' 4.5 (1.638 m) Wt 91.6 kg (202 lb) SpO2 97% BMI 34.14 kg/m?? General appearance: over wt nad Head: Normocephalic, without obvious abnormality, atraumatic Eyes: conjunctivae/corneas clear. PERRLA, EOM's intact. Lids appear normal. Ears: normal TM's (shiny without retraction) and external ear canals AU. No apparent lesions or masses. Hearing grossly normal. Nose: mask Throat: mask Neck: supple, symmetrical, trachea midline, no lymphadenopathy, [...] lymphadenopathy. Neck Ext no edema Mood stable Assessment and Plan: ASSESSMENT: ICD-10-CM ICD-9-CM 1. Encounter for routine adult health examination with abnormal findings Z00.01 V70.0 COMPREHENSIVEMETABOLIC PANEL HEMOGLOBIN A1C LIPID PANEL TSH 2. Other specified anxiety disorders F41.8 300.09 3. Other sleep apnea G47.39 327.29 4. Generalized edema R60.1 782.3 ECHO COMPLETE CBC WITH DIFFERENTIAL 5. Myalgia M79.10 729.1 VITAMIN D 25 HYDROXY VITAMIN B12 LEVEL 6. Essential hypertension, benign I10 401.1 7. Erectile dysfunction, unspecified erectile dysfunction type N52.9 607.84 Sleep apnea continue cpap may need repeat study Edema, Cut amlodipine Add hctz Check echo reassess Bp send readings Myalgai pain legs, check lab Anxiety Add lexapro Cut wellbutrin Normal BMI Range: 18 & older: > or = 18.5 and < 25 Body mass index is 34.14 kg/m??. Abnormal high BMI: Patient counseled on lifestyle modifications including weight loss and daily exercise. Health Maintenance Topic Date Due HEPATITIS B VACCINES (1 of 3 - 3-dose series) Never done DTAP/TDAP/TD VACCINES (1 - Tdap) Never done ZOSTER VACCINE (1 of 2) Never done Colorectal Cancer Screening Never done INFLUENZA VACCINE (1) 03/11/2022 PNEUMOCOCCAL VACCINE 0-64 YEARS Aged Out Had colonoscopy egd Had tdap Had shingrix Covid booster discussed PLAN: Orders Placed This Encounter CBC WITH DIFFERENTIAL (Favorites) COMPREHENSIVE METABOLIC PANEL (Favorites) HEMOGLOBIN A1C (Favorites) LIPID PANEL (Favorites) TSH (Favorites) VITAMIN D 25 HYDROXY (Chemistry) VITAMIN B12 LEVEL (Chemistry) ECHO COMPLETE losartan-hydroCHLOROthiazide (HYZAAR) 100-12.5 mg tablet amLODIPine (NORVASC) 5 mg tablet buPROPion HCL (Wellbutrin XL) 150 mg Extended Release 24 hour tablet escitalopram oxalate (LEXAPRO) 5 mg tablet Appropriate medications prescribed Appropriate patient instructions provided Follow-up as I have indicated. Medications and options explained to include common side effects. Understanding of medications, course, diagnosis, and expectations were expressed by patient/guardian. 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 Office Visit [facility] V[facility] At [address] [place] [address] Porfirio Gregory MD [facility] [address] [facility] [address] [place] [address] 01/17/2025 4:00 PM CDT Office Visit [facility] Primary Care [facility] [address] [place] [address] [address] [place] [address] Amandeep Colmenares MD [address] [facility] [address] [place] [address] documented as of this encounter Procedures Procedure Name Priority Date/Time Associated Diagnosis Comments CBC WITH DIFFERENTIAL Routine 05/25/2022 8:46 AM CDT Generalized edema VITAMIN D 25 HYDROXY Routine 05/25/2022 8:46 AM CDT Myalgia TSH Routine 05/25/2022 8:46 AM CDT Encounter for routine adult health examination with abnormal findings HEMOGLOBIN A1C Routine 05/25/2022 8:46 AM CDT Encounter for routine adult health examination with abnormal findings VITAMIN B12 LEVEL Routine 05/25/2022 8:4 6 AM CDT Myalgia LIPID PANEL Routine 05/25/2022 8:46 AM CDT Encounter for routine adult health examination with abnormal findings COMPREHENSIVE METABOLIC PANEL Routine 05/25/2022 8:46 AM CDT Encounter for routine adult health examination with abnormal findings documented in this encounter Results * ECHO COMPLETE (06/28/2022 2:59 PM LOADING MACHINE OPERATOR HELPER) EJECTION FRACTION EF: INTERFACE SYSTEM 06/28/2022 2:20 PM LOADING MACHINE OPERATOR HELPER Narrative INTERFACE SYSTEM - 06/28/2022 4:30 PM LOADING MACHINE OPERATOR HELPER -- [address] [address] [email or web address] -- Transthoracic Echocardiography -- Patient: ? Frandy Wilkinson: ? [id number] Study ID: ?[id number] Gender: ?M : ? 1970 Age: ? 51 Race: ?CAU Height ? 163.8cm Study Date: ?06/28/2022 Weight: ?91.6kg Access. #: ? [id number] Account #: ? [id number] BP: -- -- *Referring Physician:* Amandeep Colmenares Andrew M *Ordering Physician:* ??Amandeep Colmenares Reception Manager: cnc machine operator: Nurse: -- STUDY CONCLUSIONS: SUMMARY: -- - Left ventricle: The cavity size was normal. Wall thickness was increased ??increased in a pattern of mild to moderate LVH. Global systolic function was ??normal. The estimated ejection fraction was in the range of 60% to 65%. - Aortic root: The aortic root measures 3.9cm (transverse) and was upper ??normal in size. - Left atrium: The atrium was normal in size. - Right ventricle: The cavity size was normal. Systolic function was normal. - No significant valvular abnormalities. -- Cardiac Anatomy: LEFT VENTRICLE: ??The cavity size was normal. Wall thickness was increased increased in a pattern of mild to moderate LVH. Global systolic function was normal. The estimated ejection fraction was in the range of 60% to 65%. Diastolic function assessment consistent with abnormal left ventricular relaxation (grade 1 diastolic dysfunction). AORTIC VALVE: ?? Structurally normal valve. Trileaflet. ??Doppler: ?? No significant regurgitation. ?The LVOT to aortic valve VTI ratio is 0.71. The valve area by the velocity-time integral method is 2.2cm^2. The valve area index by the velocity-time integral method is 1.13cm^2/m^2. The ratio of LVOT to aortic valve peak velocity is 0.73. The valve area by the peak velocity method is 2.3cm^2. The valve area index by the peak velocity method is 1.16cm^2/m^2. ?The mean systolic gradient is 6mm Hg. The peak systolic gradient is 10mm Hg. AORTA: ??Aortic root: The aortic root measures 3.9cm (transverse) and was upper normal in size. MITRAL VALVE: ?? Structurally normal valve. ?Doppler: ?? No significant regurgitation. ?The peak diastolic gradient is 5mm Hg. LEFT ATRIUM: ??The atrium was normal in size. RIGHT VENTRICLE: ??The cavity size was normal. Systolic function was normal. PULMONIC VALVE: ?? Structurally normal valve. ?Doppler: ?? No significant regurgitation. The mean systolic gradient is 3mm Hg. The peak systolic gradient is 4mm Hg. TRICUSPID VALVE: ?? Structurally normal valve. ?Doppler: ?? No significant regurgitation. RIGHT ATRIUM: ??The atrium was normal in size. PERICARDIUM: ??There was no pericardial effusion. Systemic veins: Inferior vena cava: The vessel was normal in size. Measurements -- -- Left ventricle ?Value ?Ref AYLEEN, LAX ? (L) ?2.8 ?? cm ? 4.2 - 5.8 AYLEEN/bsa, LAX ? (L) ?1.4 ?? cm/m^2 ?? 2.2 - 3.0 AYLEEN, LAX chord ? (N) ?4.5 ?? cm ? 4.2 - 5.8 ESD, LAX chord ? (N) ?2.8 ?? cm ? 2.5 - 4.0 PW, ED ? (H) ?1.2 ?? cm ? 0.6 - 1.0 SV ?95 ?ml ? --------- SV/bsa ?48 ?ml/m^2 ?? --------- EDV, 2-p ? (N) ?113 ?? ml ? 62 - 150 ESV, 2-p ? (N) ?39 ?ml ? 21 - 61 EF, 2-p ?(N) ?65 ?% ?52 - 72 SV, 2-p ? 74 ?ml ? --------- EDV/bsa, 2-p ? (N) ?57 ?ml/m^2 ?? 34 - 74 ESV/bsa, 2-p ? (N) ?20 ?ml/m^2 ?? 11 - 31 SV/bsa, 2-p ? 37.4 ??ml/m^2 ?? --------- E', lat marjorie, TDI ?? (N) ?11.7 ??cm/sec ?? >=10.0 E/e', lat marjorie, TDI ?9 ?--------- E', med marjorie, TDI ?? (L) ?6.8 ?? cm/sec ?? >=7.0 E/e', med marjorie, TDI ?16 ? --------- E', avg, TDI ?9.3 ?? cm/sec ?? --------- E/e', avg, TDI ? (N) ?12 ? <=14 LVOT ?Value ?Ref Diam, S ? 2.0 ?? cm ? --------- Area ?3.1 ?? cm^2 ? --------- Peak sujata, S ? 1.17 ??m/sec ?--------- VTI, S ?30.1 ??cm ? --------- Ventricular septum ?Value ?Ref IVS, ED ?(H) ?1.2 ?? cm ? 0.6 - 1.0 RVOT ?Value ?Ref Peak grad, S ?2 ? mm Hg ?--------- Left atrium ? Value ?Ref AP dim, ES ? (N) ?3.8 ?? cm ? 3.0 - 4.0 AP dim index ? (N) ?1.9 ?? cm/m^2 ?? 1.5 - 2.3 Vol, ES, 2-p ?49 ?ml ? --------- Vol/bsa, ES, 2-p ?? (N) ?25 ?ml/m^2 ?? 16 - 34 Aortic valve ?Value ?Ref Peak v, S ? 1.6 ?? m/sec ?--------- VTI, S ?42.1 ??cm ? --------- Mean grad, S ?6 ? mm Hg ?--------- Peak grad, S ?10 ?mm Hg ?--------- LVOT/AV, VTI ratio ?0.71 ? --------- REGINA, VTI ?2.2 ?? cm^2 ? --------- REGINA/bsa, VTI ?1.13 ??cm^2/m^2 --------- Mitral valve ?Value ?Ref Peak E ?1.08 ??m/sec ?--------- Peak A ?0.81 ??m/sec ?--------- Decel time ?208 ?? ms ? --------- Peak E/A ratio ?1.3 ?--------- Pulmonic valve ?Value ?Ref Peak v, S ? 1.01 ??m/sec ?--------- Mean grad, S ?3 ? mm Hg ?--------- Peak grad, S ?4 ? mm Hg ?--------- Aortic root ? Value ?Ref Root diam, S ?3.9 ?? cm ? --------- Ascending aorta ? Value ?Ref AAo AP diam, S ?3.4 ?? cm ? --------- AAo AP diam/bsa, S ?1.7 ?? cm/m^2 ?? --------- -- -- Legend: (L) ??and ??(H) ??leticia values outside specified reference range. (N) ??valle values inside specified reference range. Procedure data: Procedure information: ??Transthoracic echocardiography. Scanning was performed from the parasternal, apical, and subcostal acoustic windows. Transthoracic echocardiography. ??Complete 2D, complete spectral Doppler, and color Doppler. ??Birthdate: ??Patient birthdate: 1970. ??Age: ??Patient is 51yr old. ??Sex: ?? gender: male. ??Height: ??163.8cm. 64.5in. ??Weight: 91.6kg. 201.6lb. ??Body mass index: ??34.2kg/m^2. ??Body surface area: 1.98m^2. ??Study date: ??Study date: 06/28/2022. Study time: 02:20 PM. Prepared and Electronically Authenticated Rafal Palma [id number]:45 Procedure Note Rafal Palma MD - 06/28/2022 -- [address] [address] [email or web address] -- Transthoracic Echocardiography -- Patient: Frandy Wilkinson Study ID: [id number] Gender: M : 1970 Age: 51 Race: [facility] Height 163.8cm Study Date: 06/28/2022 Weight: 91.6kg Access. #: [id number] BP: -- -- *Referring Physician:* Amandeep Colmenares Andrew M *Ordering Physician:* Amandeep Colmenares Reception Manager: cnc machine operator: Nurse: -- STUDY CONCLUSIONS: SUMMARY: -- - Left ventricle: The cavity size was normal. Wall thickness wasincreased increased in a pattern of mild to moderate LVH. Global systolic functionwas normal. The estimated ejection fraction was in the range of 60% to65%. - Aortic root: The aortic root measures 3.9cm (transverse) and was upper normal in size. - Left atrium: The atrium was normal in size. - Right ventricle: The cavity size was normal. Systolic function wasnormal. - No significant valvular abnormalities. -- Cardiac Anatomy: LEFT VENTRICLE: The cavity size was normal. Wall thickness wasincreased increased in a pattern of mild to moderate LVH. Global systolic functionwas normal. The estimated ejection fraction was in the range of 60% to 65%. Diastolic function assessment consistent with abnormal left ventricular relaxation (grade 1 diastolic dysfunction). AORTIC VALVE: Structurally normal valve. Trileaflet. Doppler: No significant regurgitation. The LVOT to aortic valve VTI ratio is 0.71.The valve area by the velocity-time integral method is 2.2cm^2. The valvearea index by the velocity-time integral method is 1.13cm^2/m^2. The ratio ofLVOT to aortic valve peak velocity is 0.73. The valve area by the peakvelocity method is 2.3cm^2. The valve area index by the peak velocity method is 1.16cm^2/m^2. The mean systolic gradient is 6mm Hg. The peak systolic gradient is 10mm Hg. AORTA: Aortic root: The aortic root measures 3.9cm (transverse) and wasupper normal in size. MITRAL VALVE: Structurally normal valve. Doppler: No significant regurgitation. The peak diastolic gradient is 5mm Hg. LEFT ATRIUM: The atrium was normal in size. RIGHT VENTRICLE: The cavity size was normal. Systolic function wasnormal. PULMONIC VALVE: Structurally normal valve. Doppler: Nosignificant regurgitation. The mean systolic gradient is 3mm Hg. The peak systolic gradient is 4mm Hg. TRICUSPID VALVE: Structurally normal valve. Doppler: Nosignificant regurgitation. RIGHT ATRIUM: The atrium was normal in size. PERICARDIUM: There was no pericardial effusion. Systemic veins: Inferior vena cava: The vessel was normal in size. Measurements -- -- Left ventricle Value Ref AYLEEN, LAX (L) 2.8 cm 4.2 - 5.8 AYLEEN/bsa, LAX (L) 1.4 cm/m^2 2.2 - 3.0 AYLEEN, LAX chord (N) 4.5 cm 4.2 - 5.8 ESD, LAX chord (N) 2.8 cm 2.5 - 4.0 PW, ED (H) 1.2 cm 0.6 - 1.0 SV 95 ml --------- SV/bsa 48 ml/m^2 --------- EDV, 2-p (N) 113 ml 62 - 150 ESV, 2-p (N) 39 ml 21 - 61 EF, 2-p (N) 65 % 52 - 72 SV, 2-p 74 ml --------- EDV/bsa, 2-p (N) 57 ml/m^2 34 - 74 ESV/bsa, 2-p (N) 20 ml/m^2 11 - 31 SV/bsa, 2-p 37.4 ml/m^2 --------- E', lat marjorie, TDI (N) 11.7 cm/sec >=10.0 E/e', lat marjorie, TDI 9 --------- E', med marjorie, TDI (L) 6.8 cm/sec >=7.0 E/e', med marjorie, TDI 16 --------- E', avg, TDI 9.3 cm/sec --------- E/e', avg, TDI (N) 12 <=14 LVOT Value Ref Diam, S 2.0 cm --------- Area 3.1 cm^2 --------- Peak sujata, S 1.17 m/sec --------- VTI, S 30.1 cm --------- Ventricular septum Value Ref IVS, ED (H) 1.2 cm 0.6 - 1.0 RVOT Value Ref Peak grad, S 2 mm Hg --------- Left atrium Value Ref AP dim, ES (N) 3.8 cm 3.0 - 4.0 AP dim index (N) 1.9 cm/m^2 1.5 - 2.3 Vol, ES, 2-p 49 ml --------- Vol/bsa, ES, 2-p (N) 25 ml/m^2 16 - 34 Aortic valve Value Ref Peak v, S 1.6 m/sec --------- VTI, S 42.1 cm --------- Mean grad, S 6 mm Hg --------- Peak grad, S 10 mm Hg --------- LVOT/AV, VTI ratio 0.71 --------- REGINA, VTI 2.2 cm^2 --------- REGINA/bsa, VTI 1.13 cm^2/m^2 --------- Mitral valve Value Ref Peak E 1.08 m/sec --------- Peak A 0.81 m/sec --------- Decel time 208 ms --------- Peak E/A ratio 1.3 --------- Pulmonic valve Value Ref Peak v, S 1.01 m/sec --------- Mean grad, S 3 mm Hg --------- Peak grad, S 4 mm Hg --------- Aortic root Value Ref Root diam, S 3.9 cm --------- Ascending aorta Value Ref AAo AP diam, S 3.4 cm --------- AAo AP diam/bsa, S 1.7 cm/m^2 --------- -- -- Legend: (L) and (H) leticia values outside specified reference range. (N) valle values inside specified reference range. Procedure data: Procedure information: Transthoracic echocardiography. Scanning wasperformed from the parasternal, apical, and subcostal acoustic windows. Transthoracic echocardiography. Complete 2D, complete spectral Doppler,and color Doppler. Birthdate: Patient birthdate: 1970. Age: Patientis 51yr old. Sex: gender: male. Height: 163.8cm. 64.5in. Weight: 91.6kg. 201.6lb. Body mass index: 34.2kg/m^2. Body surface area: 1.98m^2. Study date: Study date: 06/28/2022. Study time: 02:20 PM. Prepared and Electronically Authenticated Rafal Palma [id number]:30:45 Amandeep Colmenares MD US ORDERABLES Performing Organization Address City/[facility] de Phone Number INTERFACE SYSTEM Refer to clinic/hospital department * VITAMIN B12 LEVEL (05/25/2022 8:46 AM CDT) VITAMIN B12 888 200 - 1100 pg/mL [facility] Comment: FASTING:YES FASTING: YES Test Performed at: [facility] [id number] [place] [address] ??[phone] Ash Barton D.O., MPH Blood 05/25/2022 8:46 AM CDT 05/25/2022 8:48 AM CDT Amandeep Colmenares MD CHEMISTRY ORDERABLES Performing Organization Address [facility] de Phone Number [facility] [phone] [facility] [address] [place] [address] * VITAMIN D 25 HYDROXY (05/25/2022 8:46 AM CDT) VITAMIN D, 25 OH, TOTAL 39 30 - 100 ng/mL [facility] Comment: Vitamin D Status ? 25-OH Vitamin D: Deficiency: ?<20 ng/mL Insufficiency: ? 20 - 29 ng/mL Optimal: ? > or = 30 ng/mL For 25-OH Vitamin D testing on patients on D2-supplementation and patients for whom quantitation of D2 and D3 fractions is required, the QuestAssureD(TM) 25-OH VIT D, (D2,D3), LC/MS/MS is recommended: order code 59872 (patients >2yrs). See Note 1 Note 1 For additional information, please refer to http://education.People to Remember/faq/GSW130 (This link is being provided for informational/ educational purposes only.) FASTING:YES FASTING: YES Test Performed at: [facility] [address] [place] [address] ??[phone] Ash Barton D.O., MPH Blood 05/25/2022 8:46 AM CDT 05/25/2022 8:48 AM CDT Amandeep Colmenares MD CHEMISTRY ORDERABLES [facility] [phone] [facility] [address] [place] [phone] * TSH (05/25/2022 8:46 AM CDT) TSH 1.98 0.40 - 4.50 mIU/L [facility] Comment: FASTING:YES FASTING: YES Test Performed at: [facility] [address] [place] ??[phone] Ash Barton D.O., MPH Blood 05/25/2022 8:46 AM CDT 05/25/2022 8:48 AM CDT Amandeep Colmenares MD CHEMISTRY ORDERABLES [facility] [phone] [facility] [address] * LIPID PANEL (05/25/2022 8:46 AM CDT) CHOLESTEROL 165 <200 mg/dL [facility] HDL 49 > OR = 40 mg/dL [facility] TRIGLYCERIDE 102 <150 mg/dL [facility] LDL CALCULATED 96 mg/dL (calc) [facility] Comment: Reference [...] LDL-C. Steve SS et al. JENNY. 2013;310(19): 9565-4573 (http://education.People to Remember/faq/QQZ151) CHOL/HDL RATIO 3.4 <5.0 (calc) [facility] TOTAL NON-HDL CHOL(LDL+VLDL) 116 <130 mg/dL (calc) [facility] Comment: For patients with diabetes plus 1 major ASCVD risk factor, treating to a non-HDL-C goal of <100 mg/dL (LDL-C of <70 mg/dL) is considered a therapeutic option. FASTING:YES FASTING: YES Test Performed at: [facility] ??[phone] Ash Barton D.O., MPH Blood 05/25/2022 8:46 AM CDT 05/25/2022 8:48 AM CDT Amandeep Colmenares MD CHEMISTRY ORDERABLES [facility] [phone] [facility] [employer] [address] * HEMOGLOBIN A1C (05/25/2022 8:46 AM CDT) HEMOGLOBIN A1C 4.9 <5.7 % of total Hgb [facility] Comment: For the purpose of screening for the presence of diabetes: <5.7% ? Consistent with the absence of diabetes 5.7-6.4% ?Consistent with increased risk for diabetes ?(prediabetes) > or =6.5% ??Consistent with diabetes This assay result is consistent with a decreased risk of diabetes. Currently, no consensus exists regarding use of hemoglobin A1c for diagnosis of diabetes in children. According to [place] Diabetes Association (ADA) guidelines, hemoglobin A1c <7.0% represents optimal control in non- diabetic patients. Different metrics may apply to specific patient populations. Standards of Medical Care in Diabetes(ADA). ?? FASTING:YES FASTING: YES Test Performed at: [facility] [address] [place] ??[phone] Les[facility]wendol[facility] Singer Blood 05/25/2022 8:46 AM CDT 05/25/2022 8:48 AM CDT Amandeep Colmenares MD CHEMISTRY ORDERABLES [facility] [phone] [place] [address] [address] [place] [address] * (ABNORMAL) COMPREHENSIVE METABOLIC PANEL (05/25/2022 8:46 AM CDT) GLUCOSE 102(H) 65 - 99 mg/dL [facility] Comment: ? Fasting reference interval For someone without known diabetes, a glucose value between 100 and 125 mg/dL is consistent with prediabetes and should be confirmed with a follow-up test. BUN 21 7 - 25 mg/dL [facility] CREATININE 1.06 0.70 - 1.30 mg/dL [facility] GFR 84 > OR = 60 mL/min/1. 73m2 [facility] Comment: The eGFR is based on the CKD-EPI 2020 equation. To calculate the new eGFR from a previous Creatinine or Cystatin C result, go to https://www.kidney.org/professionals/ kdoqi/gfr%5Fcalculator BUN/CREAT RATIO NOT APPLICABLE 6 - 22 (calc) [facility] SODIUM 140 135 - 146 mmol/L [facility] POTASSIUM 4.0 3.5 - 5.3 mmol/L [facility] [facility] CHLORIDE 103 98 - 110 mmol/L [facility] CO2 30 20 - 32 mmol/L [facility] CALCIUM 9.3 8.6 - 10.3 mg/dL [facility] TOTAL PROTEIN 7.1 6.1 - 8.1 g/dL [facility] ALBUMIN 4.6 3.6 - 5.1 g/dL [facility] GLOBULIN 2.5 1.9 - 3.7 g/dL (calc) [facility] ALBUMIN/GLOBULI N RATIO 1.8 1.0 - 2.5 (calc) [facility] BILIRUBIN TOTAL 0.4 0.2 - 1.2 mg/dL [facility] ALKALINE PHOSPHATASE 63 35 - 144 U/L [facility] AST 17 10 - 35 U/L [facility] ALT 24 9 - 46 U/L [facility] Comment: FASTING:YES FASTING: YES Test [facility]formed at: [facility] ??[phone] Ash Barton D.O., MPH Blood 05/25/2022 8:46 AM CDT 05/25/2022 8:48 AM CDT Amandeep Colmenares MD CHEMISTRY ORDERABLES [facility] [phone] [facility] [address] [place] [phone] * (ABNORMAL) CBC WITH DIFFERENTIAL (05/25/2022 8:46 AM CDT) WBC 5.9 3.8 - 10.8 Thousand/u L [facility] RBC 4.63 4.20 - 5.80 Million/uL [facility] HEMOGLOBIN 12.6(L) 13.2 - 17.1 g/dL [facility] HEMATOCRIT 40.2 38.5 - 50.0 % [facility] MCV 86.8 80.0 - 100.0 fL [facility] MCH 27.2 27.0 - 33.0 pg [facility] MCHC 31.3(L) 32.0 - 36.0 g/dL [facility] RDW 13.4 11.0 - 15.0 % [facility] PLATELETS 272 140 - 400 Thousand/u L [facility] MPV 11.9 7.5 - 12.5 fL [facility] NEUTROPHIL ABSOLUTE 3,876 1,500 - 7,800 cells/uL [facility] LYMPHOCYTE ABSOLUTE 1,210 850 - 3,900 cells/uL [facility] MONOCYTE ABSOLUTE 572 200 - 950 cells/uL [facility] EOSINOPHIL ABSOLUTE 212 15 - 500 cells/uL [facility] BASOPHILS ABSOLUTE 30 0 - 200 cells/uL [facility] NEUTROPHIL 65.7 % [facility] LYMPHOCYTES 20.5 % [facility] MONOCYTE 9.7 % [facility] EOSINOPHILS 3.6 % [facility] BASOPHILS 0.5 % [facility] Comment: FASTING:YES FASTING: YES Test Performed at: [facility] [id number] [place], [place] ??[phone] Ash Barton D.O., MPH Blood 05/25/2022 8:46 AM CDT 05/25/2022 8:48 AM CDT Amandeep Colmenares MD HEMATOLOGY ORDERABLE S [facility] [phone] [facility] [phone] documented in this encounter Visit Diagnoses Diagnosis Encounter for routine adult health examination with abnormal findings- Primary Other specified anxiety disorders Other sleep apnea Generalized edema Edema Myalgia Mylagia and myositis, unspecified Essential hypertension, benign Erectile dysfunction, unspecified erectile dysfunction type Generalized edema Edema documented in this encounter Care Teams Adjunct Psychology Faculty Member Relationship Specialty Start Date End Date Amandeep Colmenares MD [address] [place] [phone] PCP - General Internal Medicine 04/08/22 documented as of this encounter
--- OUTSIDE RECORDS SUMMARY | 2024-08-21 22:33 | XMS_ITS | Encounter Summary ---
Author Organization [facility] Address [address] Pak: Epic Prelude [place] [address] Care Team Providers Care Chemical Etch Operator Name Role Phone Amandeep Colmenares MD Primary Care Provider [phone] Encounter Details Date Type Department Care Team (Latest Contact Info) Description 04/08/2022 Travel Social History Tobacco Use Types Packs/Day [...] st Contact Info) Description 09/27/2024 3:45 PM FILM LIBRARY CLERK Office Visit [facility] [place] [address] [facility] [address] [address] [place] [address] Porfirio Gregory MD [facility] [address] [facility] [address] [place] [address] 01/17/2025 4:00 PM CDT Office Visit [facility] Primary Care [address] [place] [address] Amandeep Colmenares MD [address] [place] [address] [place] [phone] documented as of this encounter Visit Diagnoses Not on filedocumented in this encounter Care Teams Chemical Etch Operator Relationship Specialty Start Date End Date Amandeep Colmenares MD [address] [place] [address] [place] [address] PCP - General Internal Medicine 04/08/22 documented as of this encounter
--- OUTSIDE RECORDS SUMMARY | 2024-08-21 22:33 | XMS_ITS | Encounter Summary ---
Author Organization [facility] Address [address] [place] [address] Care Team Providers Care Perpetual Inventory Clerk Name Role Phone Amandeep Colmenares MD Primary Care Provider Reason for Visit * Reason Comments Med Refill Encounter Details Date Type Department Care Team (Late st Contact Info) Description 06/17/2022 Refill [facility] Primary Care [address] [place] [address] Amandeep Colmenares MD [address] [place] [address] [address] [place] [address] Other specified anxiety disorders (Primary Dx) Social History Tobacco Use Types Packs/Day Years Used Date Smoking Tobacco: Never Sex and Gender Information Value Date Recorded Sex Assigned at Male 05/03/2024 8:10 PM CDT Gender Identity Male 05/03/2024 8:10 PM CDT Sexual Orientation Straight 05/03/2024 8: 10 PM CDT documented as of this encounter Miscellaneous Notes * Telephone Encounter - Ashly Jackson RN - 06/17/2022 1:17 PM ORACLE R12 DEVELOPER Last office visit: 04/08/22 Next office visit: 07/15/22 Last refill: unknown Quantity: unknown Requested Prescriptions Pending Prescriptions Disp Refills clonazePAM (KlonoPIN) 0.5 mg Tablet [Pharmacy Med Name: CLONAZEPAM 0.5 MG TABLET] 30 Tablet Sig: TAKE 1 TABLET BY MOUTH NIGHTLY LE R12 DEVELOPER documented in this encounter Plan of Treatment Upcoming Encounters Date Type Department Care Team (Late st Contact Info) Description 09/27/2024 3:45 PM ORACLE R12 DEVELOPER Office Visit [facility] At [facility] [address] [place] [address] Porfirio Gregory MD [facility] [address] [facility] [address] [place] [address] 01/17/2025 4:00 PM CDT Office Visit [facility] Primary Care [address] [phone] Amandeep Colmenares MD [address] [place] [address] documented as of this encounter Visit Diagnoses Diagnosis Other specified anxiety disorders- Primary documented in this encounter Care Teams Perpetual Inventory Clerk Relationship Specialty Start Date End Date Amandeep Colmenares MD [address] [place] [address] PCP - General Internal Medicine 04/08/22 documented as of this encounter
--- OUTSIDE RECORDS SUMMARY | 2024-08-21 22:33 | XMS_ITS | Encounter Summary ---
Author Organization [facility] Address [address] [place] [address] Care Team Providers Care Scroll Machine Operator Name Role Phone Amandeep Colmenares MD Primary Care Provider [phone] Reason for Referral * Radiology Services (Routine) - Closed Specialty Diagnoses / Procedures Referred By Contac t Referred To Contact Cardiology Diagnoses Generalized edema Procedures ECHO COMPLETE Amandeep Colmenares MD [address] [place] [phone] [facility] [address] [place] [address] Referral ID Status Reason Start Date Expiration Date V isits Requested Visits Authorized [id number] Closed [facility] CTS 06/26/2022 08/10/2022 1 1 DRY WASHER Reason for Visit * Radiology Services (Routine) - Closed Specialty Diagnoses / Procedures Referred By Contac t Referred To Contact Cardiology Diagnoses Generalized edema Procedures ECHO COMPLETE Amandeep Colmenares MD [address] [place] [phone] [facility] [address] [place] [address] Referral ID Status Reason Start Date Expiration Date V isits Requested Visits Authorized [id number] Closed [facility] CTS 06/26/2022 08/10/2022 1 1 Encounter Details Date Type Department Care Team (Latest Contact Info) Description 06/28/2022 2:04 PM LAUNDRY WASHER - 06/28/2022 11:59 PM LAUNDRY WASHER Hospital Encounter [facility] Non Invasive Cardiology [address] [place] [phone] Amandeep Colmenares MD [address] [place] [phone] Discharge Disposition: Home or Self Care [...] Coronavirus/COVID-19? No / Unsure 06/28/2022 12:07 PM LAUNDRY WASHER documented as of this encounter Medications at Time of Discharge Medication Sig Dispensed Refills Start Date End Date clonazePAM (KlonoPIN) 0.5 mg TabletIndications:Other specified anxiety disorders TAKE 1 TABLET BY MOUTH NIGHTLY 30 Tablet 2 06/17/2022 09/23/2022 tadalafil (CIALIS) 5 mg tablet Take 1 Tablet (5 mg) by mouth 1 time daily as needed for Erectile Dysfunction. 90 Tablet 3 06/13/2022 06/19/2023 pantoprazole (PROTONIX) 40 mg Tablet, Delayed Release (E.C.) Take 40 mg by mouth daily. 03/20/2023 tadalafiL 20 mg tablet Take 20 mg by mouth 1 time daily as needed for Erectile Dysfunction. 06/21/2024 losartan-hydroCHLOROthi azide (HYZAAR) 100-12.5 mg tablet Take 1 Tablet by mouth daily. 30 Tablet 3 04/08/2022 08/09/2022 amLODIPine (NORVASC) 5 mg tablet Take 1 Tablet (5 mg) by mouth daily. 30 Tablet 3 04/08/2022 07/15/2022 buPROPion HCL (Wellbutrin XL) 150 mg Extended Release 24 hour tablet Take 1 Tablet (150 mg) by mouth daily in the morning. 30 Tablet 4 04/08/2022 09/09/2022 documented as of this encounter Miscellaneous Notes * Result Encounter Note - Amandeep Colmenares MD - 06/28/2022 2:30 PM LAUNDRY WASHER Contact patient regarding result. DRY WASHER documented in this encounter Plan of Treatment Upcoming Encounters Date Type Department Care Team (Late st Contact Info) Description 09/27/2024 3:45 PM LAUNDRY WASHER Office Visit [facility] Heart and Vascular At [address] [place] [address] Porfirio Gregory MD [facility] [address] [facility] [address] [place] [address] 01/17/2025 4:00 PM CDT Office Visit [facility] Primary Care [address] [place] [address] Amandeep Colmenares MD [address] [place] [address] [address] [place] [address] documented as of this encounter Procedures Procedure Name Priority Date/Time Associated Diagnosis Comments ECHO COMPLETE Routine 06/28/2022 2:59 PM LAUNDRY WASHER Generalized edema documented in this encounter Results * ECHO COMPLETE (06/28/2022 2:59 PM LAUNDRY WASHER) EJECTION FRACTION EF: INTERFACE SYSTEM 06/28/2022 2:20 PM LAUNDRY WASHER Narrative INTERFACE SYSTEM - 06/28/2022 4:30 PM LAUNDRY WASHER -- [place] [address] [place] [address] [email or web address] -- Transthoracic Echocardiography -- Patient: ? Frandy Wilkinson: ? [id number] Study ID: ?[id number] Gender: ?M : ? 1970 Age: ? 51 Race: ?CAU Height ? 163.8cm Study Date: ?06/28/2022 Weight: ?91.6kg Access. #: ? [id number] Account #: ? [id number] BP: -- -- *Referring Physician:* Amandeep Colmenares Andrew M *Ordering Physician:* ??Amandeep Colmenares Stencil Typist: bailer tenders supervisor: Nurse: -- STUDY CONCLUSIONS: SUMMARY: -- - [...] PM. Prepared and Electronically Authenticated Rafal Palma [id number]:30:45 Procedure Note Rafal Palma MD - 06/28/2022 -- [place] [address] [email or web address] -- Transthoracic Echocardiography -- Patient: Frandy Wilkinson Study ID: [id number] Gender: M : 1970 Age: 51 Race: [facility] Height 163.8cm Study Date: 06/28/2022 Weight: 91.6kg Access. #: [id number] BP: -- -- *Referring Physician:* Amandeep Colmenares Andrew M *Ordering Physician:* Amandeep Colmenares Stencil Typist: bailer tenders supervisor: Nurse: -- STUDY CONCLUSIONS: SUMMARY: -- - [...] PM. Prepared and Electronically Authenticated Rafal Palma [id number]:30:45 Amandeep Colmenares MD ORDERPLUQ Organization Address City/State/[facility] Co de Phone Number INTERFACE SYSTEM Refer to clinic/hospital department documented in this encounter Visit Diagnoses Diagnosis Generalized edema Edema documented in this encounter Care Teams Scroll Machine Operator Relationship Specialty Start Date End Date Amandeep Colmenares MD [address] [place] [phone] PCP - General Internal Medicine 04/08/22 documented as of this encounter
== END 2024-08-14 15:20 | disposition home or self-care (01) ==
PROVIDERS: Emergency Provider Nurse Practitioner; PCP Internal Medicine
DX: M25.552 Pain in left hip (principal); Z79.899 Other long term (current) drug therapy
CPT/HCPCS: 99203; G0463